=== PATIENT | female | born 1945 | race Caucasian/White ===

== ENCOUNTER → 2018-01-26 10:31 | Outpatient (CLI) | payer MEDICARE, SELFPAY ==
--- NOTE | 2018-01-26 10:31 | DT_ITS ---
This patient was seen during an EMR downtime January 19, 2018 - January 26, 2018. This patient may have a combination of paper and electronic documentation or all paper documentation. All documentation is viewable within the e-chart portion of [employer] for each patient visit.
--- NOTE | 2018-01-26 10:31 | DT_ITS ---
This patient was seen during an EMR downtime January 19, 2018 - January 26, 2018. This patient may have a combination of paper and electronic documentation or all paper documentation. All documentation is viewable within the e-chart portion of [facility] for each patient visit.
[2018-01-26 13:05] LABS: Anion Gap 7 (5-15); BUN 25 mg/dL (7-18); BUN/Creat Ratio 25.8 RATIO (10-20); Calcium,Total 9.6 mg/dL (8.5-10.1); Chloride 103 mmol/L (98-107); Creatinine, Serum 0.97 mg/dL (0.55-1.02); EST Glomerular Filtration Rate 60 mL/min (>60); Est Glom Filt Rate - Afr Amer 73 mL/min (>60); Glucose 85 mg/dL (74-106); Potassium 4.4 mmol/L (3.5-5.1); Sodium Level 136 mmol/L (136-145)
== END ==
PROVIDERS: Family Provider Family Medicine; PCP Family Medicine; Visit Provider Family Medicine
DX: I10 Essential (primary) hypertension (principal)
CPT/HCPCS: 36415; 80048

== ENCOUNTER → 2018-09-24 08:32 | Outpatient (CLI) | payer MEDICARE, SELFPAY ==
--- NOTE | 2018-09-24 08:38 | BI_ITS ---
MAMMOGRAPHY - BILATERAL SCREENING REASON FOR EXAM: Female, 73 years old. Routine annual screening examination. PERTINENT HISTORY: Non-contributory. TECHNIQUE: Digital bilateral breast chuy (3D mammographic acquisition) in the CC and MLO projections. 2-D mediolateral oblique (MLO) and craniocaudad (CC) views of both breasts were obtained. CAD: Full Field Digital Mammography with Computer Added Detection was performed. COMPARISON: Comparison is made with prior study dated September 04, 2017 and October 06, 2015. FINDINGS: Breast Composition: There are scattered areas of fibroglandular density. There are no dominant masses or suspicious calcifications. Stable 8.6 mm well-defined nodule in the upper outer aspect of the left breast. Stable benign-appearing bilateral axillary lymph nodes. No other significant abnormalities are identified. There has been no significant change since the prior study. BI/SCREENING MAMM (CAD), BILAT IMPRESSION: Stable bilateral screening mammogram. Yearly follow-up mammogram recommended. (A) ASSESSMENT CATEGORY: BIRADS Category 2: Benign. A letter regarding these results will be sent to the patient by the facility within 30 days. Approximately 10% of breast cancers are not detected by mammography. A normal mammogram should not delay biopsy of a clinically suspicious abnormality. [id number] Electronically Signed: Wicho Adorno MD at 10:02 EST , Service support ,
--- NOTE | 2018-09-24 09:03 | BD_ITS ---
STUDY: DUAL ENERGY X-RAY ABSORPTIOMETRY / DXA REASON FOR EXAM: Female, 73 years old. The patient is postmenopausal. Loss of height. TECHNIQUE: Bone Mineral Density (BMD) measurements of lumbar spine and right hip were obtained. COMPARISON: Comparison is made with prior study dated June 07, 2015. FINDINGS: Lumbar Spine (L1-L4): g/cm2 (1.094) / T-score (-0.7) / Z-score (1.0) Findings are suggestive of normal bone density with a low fracture risk. Right Femur Total: g/cm2 (0.777) / T-score (-1.8) / Z-score (-0.3) Right Femoral Neck: g/cm2 (0.829) / T-score (-1.5) / Z-score (0.3) The T-Scores on the most recent prior examination were: Lumbar Spine (L1-L4): There has been worsening of bone density since the previous examination. Right Femur Total: which represents an improvement of 0.3%. BD/Dexa Bone Density Study IMPRESSION: The patient is considered osteopenic as outlined below according to World Andrea Organization (WHO) criteria with a moderate fracture risk. There has been worsening of bone density since the previous examination. Reference Information: The T-score is the number of standard deviations above or below the standard which is normal for young adults at their peak bone mineral density. The World Health Organization (WHO) interprets the T-scores as follows: Above -1 Normal bone density Between -1 and -2.5 Osteopenia Equal to / or below -2.5 Osteoporosis As a practical clinical guideline, osteopenia may be graded as follows: Mild -1 through -1.5 Moderate -1.6 through -2.0 Severe -2.1 through -2.4 The Z-score is the number of standard deviations above or below age-matched controls. A Z-score of less than -1.5 would be considered abnormal. References: 1. NIH Osteoporosis and Related Bone Diseases http://www.osteo.org 2. International Society for Clinical Densitometry http://www.iscd.org 3. National Osteoporosis Foundation http://www.nof.org Electronically Signed: Wicho Adorno MD at 16:02 EST , Service support ,
== END ==
PROVIDERS: Family Provider Family Medicine; PCP Family Medicine; Referring Provider Family Medicine; Visit Provider Family Medicine
DX: Z12.31 Encounter for screening mammogram for malignant neoplasm of breast (principal); Z78.0 Asymptomatic menopausal state; M85.80 Other specified disorders of bone density and structure, unspecified site
CPT/HCPCS: 77063; 77067; 77080

== ENCOUNTER → 2018-11-03 11:19 | Outpatient (CLI) | payer MEDICARE, SELFPAY ==
--- NOTE | 2018-11-03 11:26 | RAD_ITS ---
STUDY: X-RAY CHEST REASON FOR EXAM: Female, 73 years old. Atypical pneumonia TECHNIQUE: PA and lateral views of the chest. COMPARISON: 02/09/2014 FINDINGS: The lungs are clear and expanded. There is no demonstrated pleural abnormality. There is borderline cardiomegaly. Normal mediastinum and daniel. Normal visualized pulmonary arteries. Normal visualized aortic arch and descending thoracic aorta. There are diffuse degenerative changes of the visualized thoracic spine. There is degenerative osteoarthritis of the bilateral shoulders. There is no demonstrated abnormality of the visualized soft tissue structures of the upper abdomen. RAD/Chest PA and Lateral IMPRESSION: No acute cardiopulmonary disease Electronically Signed: Otis Hammond DO at 11:37 EDT Tel , Service support ,
[2018-11-03 13:50] LABS: Absolute Lymphocyte Count 1.25 X10^3/ul (0.83-4.51); Absolute Neutrophil Count 4.5 X10^3/uL (2.0-7.7); Basophil# 0.04 X10^3/uL; Basophil% 0.6 % (0-1); Eosinophil# 0.01 X10^3/uL; Eosinophils% 0.2 % (0-5); Hematocrit 43.5 % (37-47); Hemoglobin 13.9 g/dl (12.0-15.0); Lymphocyte # 1.25 X10^3/ul (4.0); Lymphocyte % 20.2 % (19-41); Mean Corpuscular Hgb 29.1 pg (27.0-32.0); Mean Corpuscular Volume 91.2 fL (81-99); Mean Platelet Vol. 11.4 fl (6.2-12.0); Monocyte# 0.35 X10^3/uL; Monocyte% 5.6 % (0-10); Neutrophil # 4.54 X10^3/uL (2.7-7.7); Neutrophil % 73.2 % (47-70); Platelet Count 298 K/mm3 (150-450); RBC Distribution Width CV 14.9 % (11.6-14.6); RBC Distribution Width SD 48.4 fl (35.1-43.9); Red Blood Count 4.77 M/mm3 (4.2-5.4); White Blood Count 6.2 K/mm3 (4.4-11.0)
[2018-11-03 13:52] LABS: POSITIVE COUNT NO; POSITIVE DIFFERENTIAL NO; POSITIVE MORPHOLOGY NO
[2018-11-03 14:04] LABS: AST(SGOT) 34 U/L (15-37); Alanine Aminotransfer ALT/SGPT 35 U/L (13-56); Albumin, Serum 4.1 g/dL (3.2-5.0); Alkaline Phosphatase 99 U/L (45-117); Anion Gap 9 (5-15); BUN 29 mg/dL (7-18); BUN/Creat Ratio 19.7 RATIO (10-20); Calcium,Total 8.8 mg/dL (8.5-10.1); Chloride 99 mmol/L (98-107); Creatinine, Serum 1.47 mg/dL (0.55-1.02); EST Glomerular Filtration Rate 37 mL/min (>60); Est Glom Filt Rate - Afr Amer 45 mL/min (>60); Globulin 4.2 g/dL (2.2-4.2); Glucose 96 mg/dL (74-106); LDH 244 U/L (84-246); Potassium 4.4 mmol/L (3.5-5.1); Protein, Total 8.3 g/dL (6.4-8.2); Sodium Level 131 mmol/L (136-145)
[2018-11-06 03:06] LABS: Influenza A Negative (Neg:<1:8)
[2018-11-06 08:27] LABS: Influenza B 1:32 (Neg:<1:8)
== END ==
PROVIDERS: Family Provider Family Medicine; PCP Family Medicine; Referring Provider Family Medicine; Visit Provider Family Medicine
DX: J18.9 Pneumonia, unspecified organism (principal); R68.89 Other general symptoms and signs
CPT/HCPCS: 36415; 71046; 80053; 83615; 85025; 86140; 86710; 87449

== ENCOUNTER 2019-03-29 08:56 | Emergency (ER) | payer MEDICARE, SELFPAY ==
[2019-03-29 08:57] VITALS: BP 141/82; PULSE 76; RESP 20; TEMP 36.6; O2SAT 100; BMI 32.9
--- NOTE | 2019-03-29 09:10 | RAD_ITS ---
STUDY: X-RAY - RIGHT SHOULDER REASON FOR EXAM: Female, 74 years old. Pain and limited range of motion following a fall. TECHNIQUE: 2 view(s) of the shoulder. COMPARISON: None. FINDINGS: Mild degree of anterior inferior subluxation of the shoulder joint. There is degenerative arthrosis of the acromioclavicular joint without inferior osseous spur formation. Normal acromion. Nondisplaced impacted fracture of the surgical neck of the humerus with extension to the greater tuberosity. Soft tissue swelling. Normal visualized pulmonary apex. RAD/Shoulder min 2 Views IMPRESSION: Nondisplaced impacted fracture of the surgical neck of the humerus with extension to the greater tuberosity. Mild anterior inferior subluxation of the glenohumeral joint. Electronically Signed: Wicho Adorno, at 11:05 EDT , Service support ,
--- NOTE | 2019-03-29 09:14 | ED.DCSUM_ITS ---
History of Present Illness Chief Complaint: Upper Extremity Injury Informant: Patient Onset: Today Context: Sudden Onset Timing: Continuous Current Severity: Moderate Maximum Severity: Severe Narrative: The patient presents to the emergency department after mechanical fall. She states that she was going downstairs to go to [employer] to meet her brother to work out. She states that she missed the last stair. She fell, landing on her right side. She did not strike her head. She landed directly on her shoulder. Since then, she is had significant pain and difficulty moving the shoulder. She denies other injury. The patient is right-hand dominant. She has had prior orthopedic surgery in the past. She has otherwise been in her normal state of health. Prior similar symptoms: No Recent Illness/Hospitalization: No Past Medical History - Allergies and Home Meds Allergies/Adverse Reactions: Allergies cefdinir [Cefdinir] Allergy (Verified 03/29/19 08:59) Rash Primary Care Physician: Gus Davis DO [STAFF PHYSICIAN] - 1-2 Days if not improving Prior records reviewed: Yes Surgical History: cataract, total knee arthroplasty Lives: With Family Smoking Status: Former smoker Alcohol: None Drugs: None Review of Systems General: Denies: Chills, Fever, Sweats Eyes: Denies: Visual changes - bilaterally, Diplopia ENT: Denies: Rhinorrhea, Sore throat Cardiovascular: Denies: Chest pain, Palpitations Respiratory: Denies: Dyspnea, Cough, Dyspnea on exertion Gastrointestinal: Denies: Abdominal pain, Nausea, Vomiting, Diarrhea, Melena, Hematochezia Genitourinary: Denies: Dysuria, Hematuria, Frequency Musculoskeletal: Denies: Back pain, Extremity Pain Skin: Denies: Rash, Wounds Neurological: Denies: Headache, Weakness, Numbness Physical Exam Vital Signs/Narrative: Vital Signs Temp Pulse Resp BP Pulse Ox 03/29/19 08:57 98 F 76 20 H 141/82 H 100 Inital Vital Signs reviewed: Yes General: Well nourished, Well developed, No Acute Distress Head: Normocephalic, Atraumatic Eyes: Perrl, EOMI ENT: Moist mucous membranes, No rhinorrhea Neck: Supple, Nontender Cardiovascular: Regular rate, Regular rhythm, No murmurs Respiratory: No distress, CTA bilaterally, Chest nontender Abdomen: Soft, Nontender, Nondistended, Normal bowel sounds Back: Nontender, Normal Inspection Extremities: No edema, Tenderness, - - Tenderness over the right proximal humerus. Compartments are soft. No obvious dislocation. Normal pulses. Skin: Normal color, No rash Neurological: Alert, Oriented x3, Cranial nerves II-XII grossly intact, Normal Strength, Normal Sensation Psychological: Normal affect, Normal Mood Diagnostic/Tx/Re-eval Clinical Impression(s) from Imaging Studies Shoulder X-Ray 03/29/19 09:10 IMPRESSION: Nondisplaced impacted fracture of the surgical neck of the humerus with extension to the greater tuberosity. Mild anterior inferior subluxation of the glenohumeral joint. Electronically Signed: Wicho Adorno, at 11:05 EDT , Service support , - Medical Decision Making The patient presents after mechanical fall. She did not strike her head and did not lose consciousness. She does have pain in the shoulder. Clinically, does not appear to be dislocated. Her axillary nerve is preserved. Her pulses are normal. Plain films show small amount of subluxation and an impacted humeral neck fracture. The patient is placed in a sling and swath. Her pain is controlled. She has followed with orthopedics in the past and will follow up with them this week as an outpatient. She is comfortable with this plan of care and will be discharged home. Impression 1. Closed impacted humeral neck fracture ED Disposition - Plan for ED Patient: Instructions: FRACTURE, Shoulder Prescriptions: cycloBENZAPRine HCl [Flexeril] 10 mg PO TID PRN #10 tab PRN Reason: Muscle Spasm Prescription Printed Hydrocodone Bitart/Apap 5-325 [[place] 5MG-325MG] 1 tab PO Q6H PRN PRN 3 Days #10 tab PRN Reason: Pain Prescription Printed Referrals: Gus Davis DO [STAFF PHYSICIAN] - 1-2 Days if not improving
[2019-03-29] MEDS: HYDROcodone Bitartrate/Apap 5/325 Tablet PO (10:15)
== END 2019-03-29 11:57 | disposition home or self-care (01) ==
PROVIDERS: Emergency Provider Emergency Medicine; Family Provider Family Medicine; PCP Family Medicine
DX: S42.214A Unspecified nondisplaced fracture of surgical neck of right humerus, initial encounter for closed fracture (principal); W10.9XXA Fall (on) (from) unspecified stairs and steps, initial encounter; Y93.9 Activity, unspecified; Y92.538 Other ambulatory health services establishments as the place of occurrence of the external cause; Y99.9 Unspecified external cause status; Z79.899 Other long term (current) drug therapy; Z88.1 Allergy status to other antibiotic agents; Z87.891 Personal history of nicotine dependence
CPT/HCPCS: 73030; 99283

== ENCOUNTER → 2019-06-23 09:02 | Outpatient (CLI) | payer MEDICARE, SELFPAY ==
[2019-06-23 10:39] LABS: Anion Gap 8 (5-15); BUN 18 mg/dL (7-18); Calcium,Total 9.2 mg/dL (8.5-10.1); Chloride 105 mmol/L (98-107); Creatinine, Serum 0.94 mg/dL (0.55-1.02); EST Glomerular Filtration Rate 62 mL/min (>60); Est Glom Filt Rate - Afr Amer 75 mL/min (>60); Glucose 97 mg/dL (74-106); Potassium 4.9 mmol/L (3.5-5.1); Sodium Level 137 mmol/L (136-145)
== END ==
PROVIDERS: Family Provider Family Medicine; PCP Family Medicine; Referring Provider Family Medicine; Visit Provider Family Medicine
DX: I10 Essential (primary) hypertension (principal)
CPT/HCPCS: 36415; 80048

== ENCOUNTER 2019-07-19 09:00 | Outpatient (RCR) | payer MEDICARE, SELFPAY ==
--- NOTE | 2019-05-17 10:24 | HP.PTEVAL ---
Patient's Visit Information ARSEN OJEDA is a 74 year old F referred to Physical Therapy by Gus Davis DO with a diagnosis of R Humerus Fracture. Date of Evaluation: 05/17/19 Physical Therapist: Latisha Brooks DPT - Visit Plan Frequency: 3x /Week Duration: 4 Weeks Plan: Focus on R shoulder ROM - AAROM at this time. RESTRICTIONS: No lifiting over 10 lb. & no lifting OH. 05/17/19 HEP Prescribed: scapular retractions, Wall Wash, active shoulder flexion - Subjective Findings: 03/29/[address] to [place] to exercises & missed a step at home & fell down 2 steps, jammed shoulder into chain link fence. Brother & nearby person helped after she layed there for a half hour and was taken to the hospital. X-rays same day - broken. Saw 04/02/19 - was placed in a sling w/ gia bandage to help get arm stabilized. Has been out of the sling for about 3 weeks now. Restricted to no lifting voer 10 ib. and no overhead motion. Is cleared to drive. Lives alone (recently lost her ), has lady come in once a month to help w/ cleaning. Initially needed help w/ self-care activites but now manages on her own. Still has difficulty getting dressed. Pain interrupts sleep - was told to sleep in recliner. Worst: 5/10 Aggravtes: cold temp, moving it, ADL's. Best: Pain free when sitting & resting. Relief: Heating pad, tylenol. N/T down to fingers intermittenly. Describes pain as an ache, can radiate down to the forearm. Occupation: Retired Typical Day: [employer] (not currently), plays [email or web address] (7 years old is youngest), gardens, meetings at jehov[employer], visits with neighbors. No exercise program lately, but is a member of [employer] & would like to begiin using LE weight machines after Therapy. Currently performing pendulum exeercises at home as instruced by Ability to perform ADL's on her own has steadily improved. R. hand dominant. Has grandkids, family members to assist w/ work around the house. PMH/Meds: see chart - Objective Posture: RS, FH, corrected w/ v/c but not maintained. Gait: lacks R arm swing, trunk rot. ROM: Passive Abd: 65 degrees Flexion: 85 degrees. Active: Abd. 60 degrees Flex. 80 degrees Pain at end-range w/ all AROM testing. ELbow WFL, Wrist: WFL. Strength: Assembler Camper: WNL Core: Fair minus. Palpation: NTTP t/o. Finger Dexterity: WNL. Sensation: WNL to gross B touch. - Goals Goal 1:: Pt. will be I w/ HEP & progression. Goal Time Frame: 4-6 Weeks Goal 2:: Pt. will demo 160 degrees of R shoulder flexion ROM Goal Time Frame: 4-6 Weeks Goal 3:: Pt. will maintain proper posture t/o tx session to demo improved core strength. Goal Time Frame: 4-6 Weeks Goal 4:: Pt. will report 0/10 pain w/ ADL's for 1 week. Goal Time Frame: 4-6 Weeks - Rehabilitation Potential Physical Therapy Diagnosis: Presents w/ hypmobility, R upper arm fracture, impaired ROM/strength, & pain which leads to impaired performance of ADL's. Rehabilitation Potential: Good - Anticipated Interventions Patient/Client Instruction: Educate patient on: Condition For the Purpose of:: To decrease pain Therapeutic Exercise to Include: Strength training, Endurance training, Body mechanics, Postural training, Passive ROM, Active ROM, Scapular Strength/Stabilization For the Purpose of:: To improve muscle performance and motor function Manual Therapy Techniques to Include: Passive ROM For the Purpose of:: To improve muscle performance and motor function Thermo therapy (hot pack): Yes Ultrasound (thermal/non thermal): Yes For the Purpose of:: To improve muscle performance and motor function Thank you for the opportunity to evaluate your patient. For Medicare and Medicare HMO plans, please review the plan of care and approve it. It will need to be FAXED BACK to us at [phone] for Medicare purposes. For Medicare only, by signing this I certify the plan of care. Please let me know if there are questions or concerns regarding this plan of care. Physician Signature: Date:
[2019-06-14 15:27] LABS: Absolute Lymphocyte Count 2.19 X10^3/uL (0.83-4.51); Absolute Neutrophil Count 2.3 X10^3/uL (2.0-7.7); Basophil# 0.03 X10^3/uL; Basophil% 0.6 % (0-1); Eosinophil# 0.05 X10^3/uL; Hematocrit 37.8 % (37-47); Hemoglobin 12.3 g/dL (12.0-15.0); Lymphocyte # 2.19 X10^3/ul (4.0); Lymphocyte % 45.2 % (19-41); Mean Corp Hgb Conc 32.5 g/dL (32-36); Mean Corpuscular Hgb 29.6 pg (27.0-32.0); Mean Corpuscular Volume 90.9 fL (81-99); Mean Platelet Vol. 11.1 fl (6.2-12.0); Monocyte# 0.27 X10^3/uL; Monocyte% 5.6 % (0-10); NRBC Flagged by Analyzer 0 % (0-5); Neutrophil % 47.4 % (47-70); Platelet Count 301 K/mm3 (150-450); RBC Distribution Width CV 13.9 % (11.6-14.6); RBC Distribution Width SD 46.1 fl (35.1-43.9); Red Blood Count 4.16 M/mm3 (4.2-5.4); White Blood Count 4.9 K/mm3 (4.4-11.0)
[2019-06-14 15:43] LABS: Microalbumin:Creatinine Ratio 83.1 mg/g CRE (<30 mg/g CRE)
[2019-06-14 15:49] LABS: ALB/GLOB Ratio 1.1 RATIO (0.9-2.4); AST(SGOT) 28 U/L (15-37); Alanine Aminotransfer ALT/SGPT 41 U/L (13-56); Alkaline Phosphatase 103 U/L (45-117); Anion Gap 6 (5-15); BUN 26 mg/dL (7-18); BUN/Creat Ratio 20.6 RATIO (10-20); Calcium,Total 9.3 mg/dL (8.5-10.1); Chloride 101 mmol/L (98-107); Creatinine, Serum 1.26 mg/dL (0.55-1.02); EST Glomerular Filtration Rate 44 mL/min (>60); Est Glom Filt Rate - Afr Amer 54 mL/min (>60); Globulin 3.8 g/dL (2.2-4.2); Glucose 90 mg/dL (74-106); Potassium 5.1 mmol/L (3.5-5.1); Protein, Total 7.8 g/dL (6.4-8.2); Sodium Level 132 mmol/L (136-145); Thyroid Stim Hormone (TSH) 1.67 uIU/mL (0.358-3.74)
--- NOTE | 2019-10-21 13:34 | HP.PTDCSUM ---
[facility] - PT D/C Summary It has been my pleasure to treat ARSEN OJEDA under orders from Gus Davis DO, for the diagnosis of R Humerus Fracture for a total of 17 visit(s). Discharge Date: Please see the following information for a summary of their discharge status. - Subjective Subjective: Patient reports that she has been able to do everything that she could do before. Worst: 3/10 in the mid shaft of the humerus. Not keeping her from sleeping anymore and she is back in bed. Feels the shoulder is still stiff and hard to get it behind her back. - Pain R arm Pain Intensity (Out of 10): 3 - Overall Improvement % Improvement: 70 - Objective Objective/Function: Posture: RS, FH, corrected w/ v/c but not maintained. Gait: no deviation noted- good arm swing and trunk rotation. ROM: Active: Abd.110 degrees Flex. 95 degrees ER: 25 IR: pocket. Strength: Whale Fisherman: WNL Core: Fair minus Isometric: 4+/5. Palpation: NTTP t/o. Finger Dexterity: WNL. Sensation: WNL to gross B touch. - Goals Goal 1:: Pt. will be I w/ HEP & progression. Goal Progress: Goal Met Goal 2:: Pt. will demo 160 degrees of R shoulder flexion ROM Goal Progress: Progressing Goal 3:: Pt. will maintain proper posture t/o tx session to demo improved core strength. Goal Progress: Progressing Goal 4:: Pt. will report 0/10 pain w/ ADL's for 1 week. Goal Progress: Progressing - Plan Plan: Discharge to I HEP - D/C Information If there are questions or concerns regarding this patient's physical therapy, please feel free to call me at [phone]. Thank you for the referral of this patient. Sincerely, Latisha Brooks DPT
== END 2019-07-19 19:00 | disposition home or self-care (01) ==
LOC: PT 09:00
PROVIDERS: Family Provider Family Medicine; PCP Family Medicine; Referring Provider Orthopaedic Surgery; Visit Provider Orthopaedic Surgery
DX: S42.221D 2-part displaced fracture of surgical neck of right humerus, subsequent encounter for fracture with routine healing (principal); I10 Essential (primary) hypertension; K29.00 Acute gastritis without bleeding
CPT/HCPCS: 36415; 80053; 82043; 82570; 84443; 85025; 97110; 97161; 97164

== ENCOUNTER → 2019-09-14 11:58 | Outpatient (CLI) | payer MEDICARE, SELFPAY ==
--- NOTE | 2019-09-14 12:02 | RAD_ITS ---
STUDY: X-RAY - RIGHT KNEE REASON FOR EXAM: Female, 74 years old. right knee pain,swelling TECHNIQUE: 4 view(s) of the knee. COMPARISON: None. FINDINGS: Normal visualized distal femur. Normal visualized proximal tibia and fibula. Normal proximal tibiofibular articulation. There is mild degenerative arthrosis of the medial femorotibial compartment. Normal lateral femorotibial compartment. There is mild degenerative arthrosis of the patellofemoral articulation. There is a soft tissue prominence in the suprapatellar region suggesting a small volume joint effusion. The soft tissue structures are unremarkable. RAD/Knee 4 or More Views IMPRESSION: Mild degenerative changes. Small joint effusion. No demonstrated fracture, dislocation, or destructive osseous lesion. Electronically Signed: Kevin Vital MD at 4:00 EST , Service support ,
[2019-09-14 13:52] LABS: Erythrocyte Sedimentation Rate 23 mm/hr (0-30)
[2019-09-14 14:04] LABS: Absolute Lymphocyte Count 1.84 X10^3/uL (0.83-4.51); Absolute Neutrophil Count 2.8 X10^3/uL (2.0-7.7); Basophil# 0.03 X10^3/uL; Basophil% 0.6 % (0-1); Eosinophil# 0.12 X10^3/uL; Eosinophils% 2.3 % (0-5); Hematocrit 40.1 % (37-47); Hemoglobin 12.8 g/dL (12.0-15.0); Lymphocyte # 1.84 X10^3/ul (4.0); Lymphocyte % 35.8 % (19-41); Mean Corp Hgb Conc 31.9 g/dL (32-36); Mean Corpuscular Hgb 28.9 pg (27.0-32.0); Mean Corpuscular Volume 90.5 fL (81-99); Mean Platelet Vol. 11.4 fl (6.2-12.0); Monocyte# 0.34 X10^3/uL; Monocyte% 6.6 % (0-10); NRBC Flagged by Analyzer 0 % (0-5); Neutrophil % 54.5 % (47-70); Platelet Count 264 K/mm3 (150-450); RBC Distribution Width CV 14.6 % (11.6-14.6); RBC Distribution Width SD 48.5 fl (35.1-43.9); Red Blood Count 4.43 M/mm3 (4.2-5.4); White Blood Count 5.1 K/mm3 (4.4-11.0)
[2019-09-14 14:17] LABS: Microalbumin,Random Urine 22.3 mg/L (NO RANGE EST.); Microalbumin:Creatinine Ratio 24.5 mg/g CRE (<30 mg/g CRE)
[2019-09-14 14:56] LABS: AST(SGOT) 21 U/L (15-37); Alanine Aminotransfer ALT/SGPT 35 U/L (13-56); Albumin, Serum 4.1 g/dL (3.2-5.0); Alkaline Phosphatase 88 U/L (45-117); Anion Gap 6 (5-15); BUN 18 mg/dL (7-18); BUN/Creat Ratio 19.3 RATIO (10-20); CRP 6.31 mg/L (0.0-3.0); Calcium,Total 9.8 mg/dL (8.5-10.1); Chloride 108 mmol/L (98-107); Cholesterol 156 mg/dL (200); Creatinine, Serum 0.93 mg/dL (0.55-1.02); EST Glomerular Filtration Rate 63 mL/min (>60); Est Glom Filt Rate - Afr Amer 76 mL/min (>60); Globulin 4.1 g/dL (2.2-4.2); Glucose 96 mg/dL (74-106); High Density Lipoprotein 45 mg/dL; Potassium 4.4 mmol/L (3.5-5.1); Protein, Total 8.2 g/dL (6.4-8.2); Rheumatoid Factor < 10.0 IU/mL (<15); Sodium Level 141 mmol/L (136-145); Triglycerides 153 mg/dL; Very Low Density Lipoprotein 31 mg/dL (5-40)
[2019-09-16 00:46] LABS: ANTINUCLEAR ANTIBODIES DIRECT Negative (Negative)
== END ==
LOC: MTLAB 12:00
PROVIDERS: PCP Family Medicine; Referring Provider Family Medicine; Visit Provider Family Medicine
DX: I10 Essential (primary) hypertension (principal); M25.561 Pain in right knee
CPT/HCPCS: 36415; 73564; 80053; 80061; 82043; 82570; 85025; 85652; 86038; 86140; 86431

== ENCOUNTER → 2019-09-28 12:13 | Outpatient (CLI) | payer MEDICARE, SELFPAY ==
--- NOTE | 2019-09-28 12:18 | BI_ITS ---
MAMMOGRAPHY - BILATERAL SCREENING REASON FOR EXAM: Female, 74 years old. Routine annual screening examination. PERTINENT HISTORY: Non-contributory. TECHNIQUE: Digital bilateral breast odilon (3D mammographic acquisition) in the CC and MLO projections. 2-D mediolateral oblique (MLO) and craniocaudad (CC) views of both breasts were obtained. CAD: Full Field Digital Mammography with Computer Added Detection was performed. COMPARISON: Comparison is made with prior study dated September 24, 2018 and September 04, 2017. FINDINGS: Breast Composition: There are scattered areas of fibroglandular density. There are no dominant masses or suspicious calcifications. Stable 8.6 mm well-defined nodule in the upper outer aspect of the left breast. This was demonstrated to be a cyst on prior ultrasound. Stable benign-appearing bilateral axillary lymph nodes. No other significant abnormalities are identified. There has been no significant change since the prior study. BI/SCREEN MAMM (CAD) W/DOILON BILAT IMPRESSION: Stable bilateral screening mammogram. Yearly follow-up mammogram recommended. (A) ASSESSMENT CATEGORY: BIRADS Category 2: Benign. A letter regarding these results will be sent to the patient by the facility within 30 days. Approximately 10% of breast cancers are not detected by mammography. A normal mammogram should not delay biopsy of a clinically suspicious abnormality. [id number] Electronically Signed: Wicho Adorno, at 13:19 EST , Service support ,
== END ==
PROVIDERS: PCP Family Medicine; Referring Provider Family Medicine; Visit Provider Family Medicine
DX: Z12.31 Encounter for screening mammogram for malignant neoplasm of breast (principal)
CPT/HCPCS: 77063; 77067

== ENCOUNTER → 2020-09-11 10:32 | Outpatient (CLI) | payer MEDICARE, SELFPAY ==
[2020-09-11 12:45] LABS: Absolute Neutrophil Count 2.8 X10^3/uL (2.0-7.7); Basophil# 0.05 X10^3/uL; Eosinophil# 0.16 X10^3/uL; Eosinophils% 3.1 % (0-5); Hematocrit 40.2 % (37-47); Hemoglobin 12.7 g/dL (12.0-15.0); Lymphocyte % 36.4 % (19-41); Mean Corp Hgb Conc 31.6 g/dL (32-36); Mean Corpuscular Hgb 29.3 pg (27.0-32.0); Mean Corpuscular Volume 92.8 fL (81-99); Mean Platelet Vol. 11.7 fl (6.2-12.0); Monocyte# 0.31 X10^3/uL; Monocyte% 5.9 % (0-10); NRBC Flagged by Analyzer 0 % (0-5); Neutrophil # 2.79 X10^3/uL (2.7-7.7); Neutrophil % 53.4 % (47-70); Platelet Count 254 K/mm3 (150-450); RBC Distribution Width CV 13.6 % (11.6-14.6); RBC Distribution Width SD 46.5 fl (35.1-43.9); Red Blood Count 4.33 M/mm3 (4.2-5.4); White Blood Count 5.2 K/mm3 (4.4-11.0)
[2020-09-11 12:51] LABS: Vitamin D,25 Hydroxy 63.2 ng/mL
[2020-09-11 13:07] LABS: Microalbumin:Creatinine Ratio 22.3 mg/g CRE (<30 mg/g CRE)
[2020-09-11 13:47] LABS: ALB/GLOB Ratio 1.1 RATIO (0.9-2.4); AST(SGOT) 23 U/L (15-37); Alanine Aminotransfer ALT/SGPT 30 U/L (13-56); Albumin, Serum 4.2 g/dL (3.2-5.0); Alkaline Phosphatase 72 U/L (45-117); Anion Gap 9 (5-15); BUN 27 mg/dL (7-18); BUN/Creat Ratio 26.5 RATIO (10-20); Calcium,Total 9.9 mg/dL (8.5-10.1); Chloride 106 mmol/L (98-107); Cholesterol 157 mg/dL (200); Creatinine, Serum 1.02 mg/dL (0.55-1.02); EST Glomerular Filtration Rate 56 mL/min (>60); Est Glom Filt Rate - Afr Amer 68 mL/min (>60); Globulin 3.7 g/dL (2.2-4.2); Glucose 89 mg/dL (74-106); High Density Lipoprotein 43 mg/dL; Potassium 4.6 mmol/L (3.5-5.1); Protein, Total 7.9 g/dL (6.4-8.2); Sodium Level 139 mmol/L (136-145); Triglycerides 152 mg/dL; Very Low Density Lipoprotein 30 mg/dL (5-40)
== END ==
PROVIDERS: PCP Family Medicine; Visit Provider Family Medicine
DX: M85.80 Other specified disorders of bone density and structure, unspecified site (principal); I10 Essential (primary) hypertension; R80.9 Proteinuria, unspecified
CPT/HCPCS: 36415; 80053; 80061; 82043; 82306; 82570; 85025

== ENCOUNTER → 2021-05-25 10:07 | Outpatient (CLI) | payer MEDICARE, SELFPAY ==
--- NOTE | 2021-05-25 10:09 | BI_ITS ---
MAMMOGRAPHY - BILATERAL SCREENING 3-D TOMOSYNTHESIS REASON FOR EXAM: Female, 76 years old. SCREENING PERTINENT HISTORY: No significant family history. TECHNIQUE: 2-D mammograms and 3-D Tomosynthesis of the breast (s) were performed. CAD was performed. COMPARISON: 09/28/2019 FINDINGS: The breast composition is heterogeneously dense that can obscure small breast masses. Scattered benign calcifications are seen. No dense spiculated masses or suspicious microcalcifications are identified. No architectural distortion is identified. There is no skin thickening or retraction. There has been no significant change since the prior study. BI/SCRN MAMM (CAD)W/ODILON BILAT IMPRESSION: No mammographic signs of malignancy. Routine yearly mammograms recommended. ASSESSMENT CATEGORY: BIRADS Category 1: Negative. A letter regarding these results will be sent to the patient by the facility within 30 days. FOLLOW UP RECOMMENDATION: Yearly follow up mammogram recommended. (A) Approximately 10% of breast cancers are not detected by mammography. A normal mammogram should not delay biopsy of a clinically suspicious abnormality. Electronically Signed: Fabrizio Blanca MD at 12:18 EDT Tel , Service support ,
== END ==
PROVIDERS: PCP Family Medicine; Referring Provider Nurse Practitioner Family; Visit Provider Nurse Practitioner Family
DX: Z12.31 Encounter for screening mammogram for malignant neoplasm of breast (principal)
CPT/HCPCS: 77063; 77067

== ENCOUNTER 2021-08-27 15:14 | Outpatient (CLI) | payer MEDICARE, SELFPAY ==
--- NOTE | 2021-08-27 15:40 | RAD_ITS ---
STUDY: XR Chest 2 Views 08/27/2021 3:23 PM REASON FOR EXAM: Female, 76 years old. PRE-OP COMPARISON: None TECHNIQUE: XR Chest 2 Views FINDINGS: There is no demonstrated pleural abnormality. Normal heart size. Normal mediastinum. Normal daniel. Prominent appearing increased interstitial lung markings. Normal visualized pulmonary arteries. There is atherosclerotic calcification of the aortic arch with tortuosity. There are diffuse degenerative changes of the visualized thoracic spine. There is degenerative osteoarthritis of the bilateral shoulders. There is no demonstrated abnormality of the visualized soft tissue structures of the upper abdomen. RAD/Chest PA and Lateral IMPRESSION: There are no acute findings. Electronically Signed: Vito Kuo MD at 15:59 EST , Service support ,
[2021-08-27 17:49] LABS: Absolute Lymphocyte Count 2.26 X10^3/uL (0.83-4.51); Absolute Neutrophil Count 2.6 X10^3/uL (2.0-7.7); Basophil# 0.04 X10^3/uL; Basophil% 0.8 % (0-1); Eosinophils% 1.9 % (0-5); Hematocrit 39.6 % (37-47); Hemoglobin 12.8 g/dL (12.0-15.0); Lymphocyte # 2.26 X10^3/ul (0.83-4.51); Lymphocyte % 43.3 % (19-41); Mean Corp Hgb Conc 32.3 g/dL (32-36); Mean Platelet Vol. 11.3 fl (6.2-12.0); Monocyte# 0.25 X10^3/uL; Monocyte% 4.8 % (0-10); NRBC Flagged by Analyzer 0 % (0-5); Neutrophil # 2.56 X10^3/uL (2.7-7.7); Platelet Count 281 K/mm3 (150-450); RBC Distribution Width CV 12.9 % (11.6-14.6); Red Blood Count 4.26 M/mm3 (4.2-5.4); White Blood Count 5.2 K/mm3 (4.4-11.0)
[2021-08-27 17:57] LABS: Magnesium 2.3 mg/dL (1.6-2.6)
[2021-08-27 18:06] LABS: Vitamin D,25 Hydroxy 61.9 ng/mL
[2021-08-27 18:13] LABS: ALB/GLOB Ratio 1.1 RATIO (0.9-2.4); AST(SGOT) 19 U/L (15-37); Alanine Aminotransfer ALT/SGPT 29 U/L (13-56); Albumin, Serum 4.3 g/dL (3.2-5.0); Alkaline Phosphatase 79 U/L (45-117); Anion Gap 8 (5-15); BUN 28 mg/dL (7-18); BUN/Creat Ratio 26.4 RATIO (10-20); Chloride 103 mmol/L (98-107); Creatinine, Serum 1.06 mg/dL (0.55-1.02); EST Glomerular Filtration Rate 54 mL/min (>60); Est Glom Filt Rate - Afr Amer 65 mL/min (>60); Globulin 3.9 g/dL (2.2-4.2); Glucose 93 mg/dL (74-106); Potassium 4.7 mmol/L (3.5-5.1); Protein, Total 8.2 g/dL (6.4-8.2); Sodium Level 137 mmol/L (136-145)
[2021-08-27 18:36] LABS: Microalbumin:Creatinine Ratio 92.8 mg/g CRE (<30 mg/g CRE)
== END 2021-08-27 23:59 | disposition short-term general hospital (02) ==
PROVIDERS: Anesthesiology; PCP Family Medicine; Referring Provider Family Medicine; Visit Provider Family Medicine
DX: Z01.818 Encounter for other preprocedural examination (principal); E55.9 Vitamin D deficiency, unspecified
CPT/HCPCS: 71046; 80053; 82043; 82306; 82570; 83735; 85025; 87081

== ENCOUNTER 2021-08-28 12:42 | Outpatient (CLI) | payer MEDICARE, SELFPAY ==
--- NOTE | 2021-08-28 12:57 | CT_ITS ---
STUDY: CT RIGHT LOWER EXTREMITY WITHOUT CONTRAST REASON FOR EXAM: Right knee osteoarthritis, surgical planning. TECHNIQUE: Transaxial CT imaging of the lower extremity was performed. Coronal and sagittal images were reformatted. Individualized dose optimization techniques were used for this CT. COMPARISON: Radiographs 02/05/2020. FINDINGS: Knee: There is joint space narrowing and mild subchondral eburnation of the medial femorotibial compartment (coronal reconstruction 31). There is joint space narrowing and subchondral eburnation of the lateral femorotibial compartment (coronal reconstruction 33). There are marginal osteophytes and joint space narrowing of the patellofemoral articulation (axial image 293). Normal proximal tibiofibular articulation. There is a small joint effusion. The quadriceps tendon is grossly normal. The patellar tendon is grossly normal. Normal Hoffa''s fat pad. There are intra-articular bodies (coronal reconstructions 35, 36, 40). Hip: There is joint space narrowing of the superior lateral right hip (coronal reconstruction 64). Ankle: Normal tibiotalar, posterior subtalar, talonavicular and calcaneocuboid articulations. CT/Extremity Lower without Contra IMPRESSION: Right knee osteoarthritis. Electronically Signed: Bill Metz MD at 15:00 EST Tel , Service support ,
== END 2021-08-28 23:59 | disposition short-term general hospital (02) ==
PROVIDERS: PCP Family Medicine; Referring Provider Orthopaedic Surgery; Visit Provider Orthopaedic Surgery
DX: M17.11 Unilateral primary osteoarthritis, right knee (principal); G89.29 Other chronic pain
CPT/HCPCS: 73700

== ENCOUNTER 2021-09-05 06:45 | Outpatient (CLI) | payer MEDICARE, SELFPAY ==
--- NOTE | 2021-09-05 12:28 | STRESSREP ---
Stress Test Report Myocardial perfusion stress test. 76-year-old lady with a history of preoperative cardiac evaluation. Stress protocol: Resting EKG demonstrates sinus rhythm with a rate of 65 bpm and right bundle branch block is noted. Resting blood pressure is 138/80 mmHg. 0.4 mg of regadenoson was infused per usual protocol followed by Intravenous saline flush injection continuous EKG monitoring is performed. The maximum heart rate attained was 93 bpm which is 63% of max impact at heart rate the maximum workload was 1 metabolic equivalent. At rest there were no ST or T wave changes noted to suggest abnormal flow reserve and at peak infusion nonspecific ST changes were noted with did not meet the criteria for ischemia. No clinical angina was noted. Myocardial perfusion protocol. 14.1 mCi of technetium 99m sestamibi was injected at rest. 0.4 mg of regadenoson was infused per usual protocol. At peak infusion 44.3 mCi of technetium 99m sestamibi was injected stress images were obtained stress and rest images were reconstructed in comparing the short axis vertical long horizontal long axis. Gated images were also obtained. Perfusion SPECT analysis: Review of the stress images demonstrate normal uptake of tracer noted in all areas of the myocardium. The resting images similarly demonstrate normal uptake of tracer noted in all areas of the myocardium. No areas of reversibility are noted suggest ischemia and no previous infarct is noted. Gated SPECT analysis: The gated ejection fraction is 86%. Conclusion: Normal pharmacologic myocardial perfusion stress test. Preserved ejection fraction.
== END 2021-09-05 23:59 | disposition short-term general hospital (02) ==
PROVIDERS: PCP Family Medicine; Referring Provider Family Medicine; Visit Provider Family Medicine
DX: R94.31 Abnormal electrocardiogram [ECG] [EKG] (principal)
CPT/HCPCS: 78452; 93017; A9500; A4216; J2785

== ENCOUNTER 2021-09-10 06:52 | Day surgery (SDC) | payer MEDICARE, SELFPAY ==
[2021-09-10] VITALS (11 sets, daily range): BP systolic 95–120; BP diastolic 45–73; PULSE 77–94; RESP 16–22; TEMP 36.4–37.2; O2SAT 93–100; BMI 32.8
[2021-09-10] MEDS: Acetaminophen 500 MG Tablet 1000 MG PO (07:43)
[2021-09-10] MEDS: Gabapentin 600 MG Tablet PO (07:43)
[2021-09-10] MEDS: Lactated Ringers 1,000 ML 15 ML IV (07:53)
[2021-09-10 08:06] LABS: Bedside Glucose 72 mg/dL (70-110)
--- NOTE | 2021-09-10 09:30 | KNEE_PTH ---
PATIENT: ARSEN OJEDA LOC: [facility] [place] U#:[id number] AGE/SX: 76/F ROOM: RE09/10/[address]: Dr. Gus Davis DO : 1945 BED: DIS: 09/10/2021 SPEC #: [id number] RECD: 09/10/21 11:26 STATUS: MARLEN REQ #: [id number] PAT: 09/10/21 09:[address]: Gus Davis DEPT: SURGICAL PATHOLOGY RECD BY: Bettye Maynard ENTERED: 09/10/21 12:53 SP TYPE: TOTAL KNEE OTHR DR: Dr. Jovanny Nuñez MD Tissues: Knee, NOS Procedures: Decalcification bone/plaque Surgery Specimen Level IV HEADER OPERATION: ERAS, total knee replacement robotic arm assist PRE-OP DIAGNOSIS: Grade 4 osteoarthritis right knee TISSUE SUBMITTED: Tissue and bone right knee MICROSCOPIC DIAGNOSIS Bone and soft tissue, right knee, total knee replacement/resection: Pieces of bone with degenerative osteoarthritic changes. Fibroadipose tissue, fibroconnective tissue and reactive synovial tissue. KD:evonne 09/13/2021 MICROSCOPIC DESCRIPTION Slides are reviewed. GROSS DESCRIPTION Received is one container designated bone and soft tissue right knee. The specimen consists of multiple fragments of fox-yellow bone measuring in aggregate 15 x 10 x 2 cm. Also in the specimen container are multiple fragments of yellow-white soft tissue measuring in aggregate 2 x 1 x 0.2 cm. A number of bony fragments contain articular surfaces consistent with tibial plateau and femoral condyle and displaying prominent osteophyte formation, eburnation, and bone erosion. Railroad Signal And Switch Operator sections are submitted in two cassettes as follows: 1 - soft tissue, 2 - bone after decalcification. / AM:evonne 09/10/2021 :5 CPT: 23638, 63416
[2021-09-10] MEDS: TXA 1000mg in NS100 100ml (IVPB at Closure) 660 MG IV (09:39)
[2021-09-10] MEDS: dexAMETHasone 10 MG/ML Vial IV (10:27)
[2021-09-10] MEDS: TXA 1000mg in NS100 100ml (IVPB at Incision) 660 MG IV (10:40)
--- NOTE | 2021-09-10 10:43 | OP.PCM_ITS ---
Report of Operation Date of Procedure: 09/10/21 Pre-Operative Diagnosis: OA right knee Post-Operative Diagnosis: same Surgery/Procedure Performed:: Right TKR Description of Surgical Findings:: Report of Operation Date of Procedure: 09/10/2021 Preoperative Diagnosis: [right ] knee primary osteoarthritis Postoperative Diagnosis: [right ] knee primary osteoarthritis Operation: Robotic Assisted Knee Total Arthroplasty, [right ] knee Surgeon: Dr Gus Davis DO Slitter Processed Film: Malvin Foreman PA-C Anesthesia: spinal Anesthesiologist: Chidi Petty M.D. Findings: Stable knee with good patella tracking Specimen(s): Bony cuts Complications: No intraoperative complications Estimated Blood Loss: 20 cc IV Fluids: 1000 cc crystalloid Implants Used: 1. [employer] press-fit CR size 4 femur 2. [employer] size 4 tibia 3. 32 mm patella 4. 9 mm CS polyethylene Brief History Operative Indications: [ (76 y/o female) ] with history of [right ] knee osteoarthrosis with radiographic findings with loss of joint space, osteophyte formation and subchondral sclerosis. Failed conservative measures as mentioned in the H&P. Discussion of total knee arthroplasty as well as risk and benefits were discussed with the patient including but not limited to blood loss, DVTs, PEs, neurovascular damage, general risk of anesthesia including loss of life, and stiffness or instability were also discussed with the patient. Patient demonstrated understanding and was able to sign informed consent. Procedure: On the date of procedure, patient's [right ] lower extremity was marked in the preoperative area. The patient was then taken back to the operating room where that patient was placed on the table in the supine position. All bony prominences were identified and well-padded. Anesthesia assumed control of the C-spine and airway throughout the remainder of the procedure. A tourniquet was placed on the [right ] upper thigh and the leg was prepped in a sterile fashion. The surgeon then scrubbed at this time. Upon reentering the room, the [right ] lower extremity was draped in a standard orthopedic fashion. A timeout was then called and everyone agreed upon the side, the site, the procedure to be performed, patient's identity and antibiotics given. Esmarch bandage was used to exsanguinate the extremity and the tourniquet was placed up to 250 mmHg with the knee in flexion. A midline skin incision was made and a sharp dissection was taken down through skin, subcutaneous tissue and fat. The standard medial parapatellar incision was made and the patella was subluxed laterally. An appropriate deep MCL release was done and the fat pad was resected. Our attention was then directed to the patella. The patella was everted and a flat resection was made. The knee was then flexed up and 2 femoral pins were placed inside the incision and 2 tibial pins were placed outside the incision in the medial tibia bicortically. Once this was completed, the 2 checkpoints in the femur and tibia were placed. Knee was then flexed up and the bony landmarks were registered. Once the was completed, the knee taken through range of motion and manually stressed allowing us to plan for an appropriate tibial cut. The robotic arm was brought into the field sterilely and checkpoint and saw were registered. Based on the patient's deformity, the tibial cut was made in [2 degrees varus ]. At this time, the tensioner was then placed in the joint and ligament tension was checked at 90 degrees and full extension. Based on the patient's ligamentous tension, appropriate adjustments were made to the operative plan and ligament releases were done. Once we were happy with our operative plan with balanced flexion and extension gaps, our attention was directed to the femur. The robot was brought into the field sterilely and registered. Posterior condylar cuts, anterior chamfer cuts and anterior cuts were appropriately made for a [size 4 ] femur. When these were completed, the saws were switched out in the distal femoral and posterior chamfer cuts were made. Protecting the soft tissue throughout this time. A [ size 4 ] base plate was selected. The knee was flexed to 90 degrees and soft tissues and posterior osteophytes were removed from the joint. 40 cc of the periarticular injection was injected into the posterior medial corner of the joint. The appropriate trials were then placed on the femur and tibia. A trial polyethylene was trialed to ensure proper balancing and stability of the knee. The appropriate tibial internal rotation was then marked with a bovie. Our attention was then directed to the patella. The lug holes were drilled and the patella trial was placed. Patellar tracking was checked and deemed appro priate. Once we were happy, lug holes were drilled for the femur and trial components were removed. The tibia was subluxed and pinned into place and the keel was punched and drilled appropriately. Final components were verified and opened. The wound was copiously irrigated with normal saline. The components were impacted into place with the tibia, femur and finally the patella. The trial poly component was placed and the knee was placed in full extension. The tracking, alignment and balance were verified and a [ 9 mm CS ] polyethylene component was placed. Once the final components were placed an Irrisept lavage was performed and the wound was copiously irrigated with normal saline solution and the periarticular injection was given. the wound was closed in a layer-martinez fashion using #1 vicryl interrupted sutures for the arthrotomy, 2-0 interrupted vicryl suture for the subcuticular layer and mami for final skin closure. A sterile compressive dressing was then placed. The patient was then awakened from anesthesia, transferred to the [place] and transferred to the PACU for recovery. My physician life enrichment assistant was a vital part of this case. He was important in appropriate retraction during the case, and protection of soft tissues during bony cuts. His intimate knowledge of the case and my steps aided in safe and expedient completion of the procedure as well as appropriate position of the leg during the case. He was also vital in assisting with closure under my direct supervision. Due to the complexity of this case, robotic arm was used to assist in the surgery to improve accuracy and clinical outcomes. Post-op Plan: DVT ppx; ASA 81 mg BID, thigh high compression stockings Follow up: in office in 2 weeks for wound check PT: to start POD #0 at hospital, outpatient PT should be arranged. Preoperative antibiotic: Clindamycic 900 mg IV Gus Davis DO Surgeon: Gus Davis craft recruiter: Malvin Foreman Type of Anesthesia: Spinal Anesthesiologist: Chidi Petty Estimated Blood Loss (mL): 20 cc Fluids Replaced: 1000 cc crystalloid Admit VTE Documentation VTE Present on Admission: No VTE Mechan Device Prophylaxis: SCD's and Thigh High TOMAS Hose VTE Pharm Prophylaxis ordered?: Yes
--- NOTE | 2021-09-10 11:20 | RAD_ITS ---
STUDY: X-RAY - RIGHT KNEE REASON FOR EXAM: Female, 76 years old. New Total Hip Arthroplasty . TECHNIQUE: 2 view(s) of the knee. COMPARISON: 09/14/2019. FINDINGS: There is a 3 component total knee arthroplasty in anatomic position. There are expected post-operative findings. There are no complications. No other significant abnormality is identified. RAD/Knee 1 or 2 Views IMPRESSION: Total knee arthroplasty in anatomic alignment without complications. Electronically Signed: Malvin Carrillo MD at 12:57 EST , Service support ,
[2021-09-10] MEDS: Lactated Ringers 1,000 ML 125 ML IV (11:30)
[2021-09-10] MEDS: Lactated Ringers 1,000 ML 999 ML IV (11:31)
[2021-09-10] MEDS: Scopolamine 1mg/72hr Patch 1 PATCH TD (11:41)
== END 2021-09-10 23:59 | disposition home or self-care (01) ==
LOC: SDC 06:53 → AC 06:55
PROVIDERS: PCP Family Medicine; Referring Provider Orthopaedic Surgery; Visit Provider Orthopaedic Surgery
PROC: 0SRC0JZ Replacement of Right Knee Joint with Synthetic Substitute, Open Approach (ICD-10-PCS; CPT 27447; principal; 2021-09-10 09:00)
DX: M17.11 Unilateral primary osteoarthritis, right knee (principal); I10 Essential (primary) hypertension; E78.00 Pure hypercholesterolemia, unspecified; M19.90 Unspecified osteoarthritis, unspecified site; Z79.899 Other long term (current) drug therapy
CPT/HCPCS: 27447; S2900; 01402; 73560; 82962; 88305; 88311; 97162; C1776; J7120

== ENCOUNTER 2021-11-08 08:30 | Outpatient (RCR) | payer MEDICARE, SELFPAY ==
--- NOTE | 2021-09-12 12:35 | HP.PTEVAL_ITS ---
Patient's Visit Information ARSEN OJEDA is a 76 year old F referred to Physical Therapy by HAYDEE Thayer with a diagnosis of Right TKR 09/10/2021. Date of Evaluation: 09/12/21 Physical Therapist: Latisha Brooks DPT - Visit Plan Frequency: 3x /Week Duration: 4 Weeks Plan: Right TKR 09/10/2021. Focus on LE ROM, strength and functional mobility. HEP Given IE: Quad set, SLR, ankle pumps, heel slides supine and sitting, extension stretch sitting - Subjective Patient reports that she had a Right TKR 09/10/2021. She had a pain block but it wore off last night and had a rough night. Pt lives in a single story home with 4 stairs to enter- hard to get in/out with a single handrail. She lives alone but her son's girlfriend are able to help as needed. Fully I prior to having her total knee replacement. Pain is located in the anterior knee and the posterior knee. Describes the pain as sharp. Pain radiates to the ankle but not the hip. Worst: 10/10 Agg: getting up/down, getting into the bed. Best: 0/10 Eases: sitting down, resting, polar ice machine. Sleeping: recliner and bed. No N/T in the right LE. She is more active until she had the tears in the meniscus and then she was more sedentary. She was falling prior to surgery but has not fallen since. Does have a walker and a cane at home. Walk in shower with a grab bar- and a tub with 3 grab bars. Asked for home health for 2 weeks was denied by physician (PT did follow up and they feel she will get more out of outpatient PT) PMHx/Meds: no changes since left hospital - Objective Posture: FH, RS- can correct but does not maintain. Gait: antalgic- decreased stance on the right LE with FWW- decreased extension in knee. Unable to ambulate from waiting room to evaluation room- requires w/c. HR/TR: able with UE A SLS: weight shift but unable to SLS. Stairs: not tested due to safety concerns and pain level. ROM: Knee: Flexion: 95 degrees Extn: -10 degrees. Strength: Core: fair minus, Hip: SLR: unable without max A, quad set visible- Knee: 11.4 Extn: 5.7 Ankle: 5/5. WOMAC: 81 *Very guarded - Balance/Special Test Scores Lower Extremity Functional Score: 7 TUG Test Time Seconds: 46 WOMAC Total Score: 81 WOMAC Percentatge: 15.6300 - Goals Goal 1:: Patient will be I with HEP and progression Goal Time Frame: 4-6 Weeks Goal 2:: Patient will ambulate >300 feet with a normalized gait pattern with LRD Goal Time Frame: 4-6 Weeks Goal 3:: Patient will asc/desc 8 recip with 1 HR safely Goal Time Frame: 4-6 Weeks Goal 4:: Patient will demo 0-115 degrees of ROM in the right knee Goal Time Frame: 4-6 Weeks Goal 5:: Patient will report more than 75% better Goal Time Frame: 4-6 Weeks - Rehabilitation Potential Physical Therapy Diagnosis: Patient presents with hypomobility- she has decreased pain free ROM, LE and core strength/stabilization, flex and muscular endurance leading to abnormal gait pattern and decreased ability for ADL's. Rehabilitation Potential: Good - Anticipated Interventions Patient/Client Instruction: Educate patient on: Benefits of Fitness Program Therapeutic Exercise to Include: Strength training, Endurance training, Balance training, Coordination, Agility training, Body mechanics, Postural training, Flexibilty training, Gait and locomotor training, Neuromotor development, Dynamic Lumbar Stabilization, Scapular Strength/Stabilization For the Purpose of:: To improve muscle performance and motor function TENS: Yes Cryotherapy (ice pack, ice massage): Yes Thermo therapy (hot pack): Yes Ultrasound (thermal/non thermal): No Thank you for the opportunity to evaluate your patient. For Medicare and Medicare HMO plans, please review the plan of care and approve it. It will need to be FAXED BACK to us at [phone] for Medicare purposes. For Medicare only, by signing this I certify the plan of care. Please let me know if there are questions or concerns regarding this plan of care. Physician Signature: Date:
--- NOTE | 2021-10-12 11:55 | HP.PTREVAL ---
HAYDEE Thayer, It has been my pleasure to treat ARSEN OJEDA over the last 11 visits for Right TKR 09/10/2021. Please see the progress note below for an update on the physical therapy plan of care! Subjective: Patient reports that she is not sleeping very well- talked to the MD about it and he thinks maybe its the medication. She tried to go without it and it didn't seem to change anything. She has only had 2 nights that she has had more than 4 hours of sleep. She uses the walker when she is outside and in the house she is using the cane or not using anything. She has not been in the basement but is able to do her 4 stairs outside. Worst: 7/10 at night- dull and achy. Best: 0/10. She feels like she needs more range of motion. She has been working on it at home. Objective/Function: Posture: FH, RS- can correct but does not maintain. Gait: antalgic- decreased stance on the right LE with FWW- decreased extension in knee. HR/TR: able with UE A SLS: weight shift but unable to SLS. Stairs: non recip with 2 HR ROM: Knee: Flexion: 100 degrees Extn: -10 degrees. Strength: Core: fair minus, Hip: SLR: able with moderate lag, quad set visible- Knee: Flexion: 27 Extn: 30 Ankle: 5/5 Plan Plan: 10/12/2021: Continue 2x a week for 4 weeks towards current goals. Right TKR 09/10/2021. Focus on LE ROM, strength and functional mobility. Balance/Gait/Functional tests - Balance/Special Test Scores Lower Extremity Functional Score: 7 TUG Test Time Seconds: 16.22 Tug Test: <20 sec.=mostly independent WOMAC Total Score: 39 WOMAC Percentage: 59.3800 Goals Goal 1:: Patient will be I with HEP and progression Goal Time Frame: 4-6 Weeks Goal Progress: Progressing Goal 2:: Patient will ambulate >300 feet with a normalized gait pattern with LRD Goal Time Frame: 4-6 Weeks Goal Progress: Progressing Goal 3:: Patient will asc/desc 8 recip with 1 HR safely Goal Time Frame: 4-6 Weeks Goal Progress: Progressing Goal 4:: Patient will demo 0-115 degrees of ROM in the right knee Goal Time Frame: 4-6 Weeks Goal Progress: Progressing Goal 5:: Patient will report more than 75% better Goal Time Frame: 4-6 Weeks Goal Progress: Progressing Anticipated Interventions Patient/Client Instruction: Educate patient on: Benefits of Fitness Program Therapeutic Exercise to Include: Strength training, Endurance training, Balance training, Coordination, Agility training, Body mechanics, Postural training, Flexibilty training, Gait and locomotor training, Neuromotor development, Dynamic Lumbar Stabilization, Scapular Strength/Stabilization For the Purpose of:: To improve muscle performance and motor function TENS: Yes Cryotherapy (ice pack, ice massage): Yes Thermo therapy (hot pack): Yes Ultrasound (thermal/non thermal): No Please do not hesitate to contact me at [phone] by phone or if you have questions or concerns regarding this new plan of care! Sincerely, JASKARAN AlonsoT
--- NOTE | 2021-11-08 08:58 | HP.PTDCSUM ---
It has been my pleasure to treat ARSEN OJEDA referred by HAYDEE Thayer, with the diagnosis of Right TKR 09/10/2021 for a total of 20 visit(s). Discharge Date: Please see the following information for a summary of their discharge status. Subjective: Patient reports that the knee is doing really well- but she is still not sleeping very well. She only has pain in the posterior knee and the swell has gone done. The pain when she lays down the calf and ankle tighten up- she uses Voltaran gel. She is back to driving and she is back to all normal ADL's Right knee Pain Intensity (Out of 10): 0 % Improvement: 90 Objective/Function: Posture: good throughout sitting in a hardback chair. Gait: antalgic- decreased stance on the right LE with walking stick. HR/TR: able with UE A SLS: 2-3. Stairs: asc/desc 8 recip with 2 HR ROM: Knee: Flexion: 110 degrees Extn: -5 degrees. Strength: Core: fair minus, Hip: SLR: able with moderate lag, quad set visible- Knee: Flexion: 27 Extn: 37 Ankle: 5/5. Girth: 48 cm Goal 1:: Patient will be I with HEP and progression Goal Progress: Goal Met Goal 2:: Patient will ambulate >300 feet with a normalized gait pattern with LRD Goal Progress: Progressing Goal 3:: Patient will asc/desc 8 recip with 1 HR safely Goal Progress: Progressing Goal 4:: Patient will demo 0-115 degrees of ROM in the right knee Goal Progress: Progressing Goal 5:: Patient will report more than 75% better Goal Progress: Progressing Plan: 11/08/21: Discharge to I HEP. 10/12/2021: Continue 2x a week for 4 weeks towards current goals. Right TKR 09/10/2021. Focus on LE ROM, strength and functional mobility. If there are questions or concerns regarding this patient's physical therapy, please feel free to call me at [phone]. Thank you for the referral of this patient. Sincerely, Latisha Brooks, DPT Balance/Gait/Functional tests - Balance/Special Test Scores Lower Extremity Functional Score: 7 TUG Test Time Seconds: 16.22 Tug Test: <20 sec.=mostly independent WOMAC Total Score: 24 WOMAC Percentage: 75.0000
== END 2021-11-08 09:24 | disposition home or self-care (01) ==
LOC: PT 08:30
PROVIDERS: PCP Family Medicine; Referring Provider Physician Assistant Surgical; Visit Provider Physician Assistant Surgical
DX: Z47.1 Aftercare following joint replacement surgery (principal); Z96.651 Presence of right artificial knee joint
CPT/HCPCS: 97110; 97162; 97164

== ENCOUNTER 2021-11-12 09:02 | Outpatient (CLI) | payer MEDICARE, SELFPAY ==
[2021-11-12 10:12] LABS: Anion Gap 9 (5-15); BUN 34 mg/dL (7-18); BUN/Creat Ratio 27.6 RATIO (10-20); Calcium,Total 9.6 mg/dL (8.5-10.1); Chloride 104 mmol/L (98-107); Creatinine, Serum 1.23 mg/dL (0.55-1.02); EST Glomerular Filtration Rate 45 mL/min (>60); Est Glom Filt Rate - Afr Amer 55 mL/min (>60); Glucose 104 mg/dL (74-106); Potassium 5.2 mmol/L (3.5-5.1); Sodium Level 135 mmol/L (136-145)
== END 2021-11-12 23:59 | disposition home or self-care (01) ==
LOC: MFPLAB 09:03
PROVIDERS: PCP Family Medicine; Visit Provider Family Medicine
DX: I10 Essential (primary) hypertension (principal)
CPT/HCPCS: 36415; 80048

== ENCOUNTER → 2022-02-08 | Outpatient (CLI) | payer MEDICARE, SELFPAY ==
[2022-02-08 12:35] LABS: Absolute Lymphocyte Count 1.73 X10^3/uL (0.83-4.51); Absolute Neutrophil Count 2.5 X10^3/uL (2.0-7.7); Basophil# 0.03 X10^3/uL; Basophil% 0.6 % (0-1); Eosinophil# 0.13 X10^3/uL; Eosinophils% 2.8 % (0-5); Hematocrit 38.2 % (37-47); Hemoglobin 12.6 g/dL (12.0-15.0); Lymphocyte # 1.73 X10^3/ul (0.83-4.51); Lymphocyte % 37.1 % (19-41); Mean Corpuscular Hgb 29.6 pg (27.0-32.0); Mean Corpuscular Volume 89.9 fL (81-99); Mean Platelet Vol. 11.3 fl (6.2-12.0); Monocyte% 6.4 % (0-10); NRBC Flagged by Analyzer 0 % (0-5); Neutrophil # 2.45 X10^3/uL (2.7-7.7); Neutrophil % 52.7 % (47-70); Platelet Count 252 K/mm3 (150-450); RBC Distribution Width CV 14.6 % (11.6-14.6); RBC Distribution Width SD 48.4 fl (35.1-43.9); Red Blood Count 4.25 M/mm3 (4.2-5.4); White Blood Count 4.7 K/mm3 (4.4-11.0)
[2022-02-08 12:58] LABS: Anion Gap 7 (5-15); BUN 45 mg/dL (7-18); BUN/Creat Ratio 30.2 RATIO (10-20); Calcium,Total 9.9 mg/dL (8.5-10.1); Chloride 104 mmol/L (98-107); Creatinine, Serum 1.49 mg/dL (0.55-1.02); EST Glomerular Filtration Rate 36 mL/min (>60); Est Glom Filt Rate - Afr Amer 44 mL/min (>60); Glucose 115 mg/dL (74-106); Potassium 4.6 mmol/L (3.5-5.1); Sodium Level 134 mmol/L (136-145); Thyroid Stim Hormone (TSH) 1.72 uIU/mL (0.358-3.74)
== END | disposition home or self-care (01) ==
LOC: MFPLAB 09:49
PROVIDERS: PCP Family Medicine; Visit Provider Family Medicine
DX: R53.83 Other fatigue (principal)
CPT/HCPCS: 36415; 80048; 84443; 85025

== ENCOUNTER → 2022-06-06 | Outpatient (CLI) | payer MEDICARE, SELFPAY ==
--- NOTE | 2022-06-06 13:43 | BI_ITS ---
MAMMOGRAPHY - BILATERAL SCREENING 3-D TOMOSYNTHESIS REASON FOR EXAM: Female, 77 years old. Routine screening PERTINENT HISTORY: No significant family history. TECHNIQUE: 2-D mammograms and 3-D Tomosynthesis of the breast (s) were performed. CAD was performed. COMPARISON: 09/28/19 FINDINGS: The breast composition is composed of scattered fibroglandular density. Scattered benign calcifications are seen. No dense spiculated masses or suspicious microcalcifications are identified. No architectural distortion is identified. There is no skin thickening or retraction. There has been no significant change since the prior study. BI/SCRN MAMM (CAD)W/ODILON BILAT IMPRESSION: No mammographic signs of malignancy. Routine yearly mammograms recommended. ASSESSMENT CATEGORY: BIRADS Category 2: Benign. A letter regarding these results will be sent to the patient by the facility within 30 days. FOLLOW UP RECOMMENDATION: Yearly follow up mammogram recommended. (A) Approximately 10% of breast cancers are not detected by mammography. A normal mammogram should not delay biopsy of a clinically suspicious abnormality. Electronically Signed: Cruzito Powell MD at 15:01 EDT ,
== END | disposition home or self-care (01) ==
LOC: OPBI 13:39
PROVIDERS: PCP Family Medicine; Referring Provider Family Medicine; Visit Provider Family Medicine
DX: Z12.31 Encounter for screening mammogram for malignant neoplasm of breast (principal)
CPT/HCPCS: 77063; 77067

== ENCOUNTER → 2022-08-07 | Outpatient (CLI) | payer MEDICARE, SELFPAY ==
[2022-08-07 12:45] LABS: Absolute Lymphocyte Count 1.92 X10^3/uL (0.83-4.51); Absolute Neutrophil Count 2.5 X10^3/uL (2.0-7.7); Basophil# 0.04 X10^3/uL; Basophil% 0.8 % (0-1); Eosinophil# 0.09 X10^3/uL; Eosinophils% 1.9 % (0-5); Hematocrit 38.5 % (37-47); Hemoglobin 12.3 g/dL (12.0-15.0); Lymphocyte # 1.92 X10^3/ul (0.83-4.51); Lymphocyte % 39.8 % (19-41); Mean Corp Hgb Conc 31.9 g/dL (32-36); Mean Corpuscular Hgb 30.1 pg (27.0-32.0); Mean Corpuscular Volume 94.4 fL (81-99); Mean Platelet Vol. 11.6 fl (6.2-12.0); Monocyte# 0.31 X10^3/uL; Monocyte% 6.4 % (0-10); NRBC Flagged by Analyzer 0 % (0-5); Neutrophil # 2.45 X10^3/uL (2.7-7.7); Neutrophil % 50.9 % (47-70); Platelet Count 248 K/mm3 (150-450); Red Blood Count 4.08 M/mm3 (4.2-5.4); White Blood Count 4.8 K/mm3 (4.4-11.0)
[2022-08-07 13:00] LABS: Vitamin D,25 Hydroxy 78.4 ng/mL
[2022-08-07 13:12] LABS: ALB/GLOB Ratio 1.3 RATIO (0.9-2.4); AST(SGOT) 18 U/L (15-37); Alanine Aminotransfer ALT/SGPT 28 U/L (13-56); Albumin, Serum 4.2 g/dL (3.2-5.0); Alkaline Phosphatase 65 U/L (45-117); Anion Gap 9 (5-15); BUN 32 mg/dL (7-18); BUN/Creat Ratio 25.8 RATIO (10-20); Calcium,Total 9.6 mg/dL (8.5-10.1); Chloride 104 mmol/L (98-107); Cholesterol 188 mg/dL (200); Creatinine, Serum 1.24 mg/dL (0.55-1.02); EST Glomerular Filtration Rate 45 mL/min (>60); Est Glom Filt Rate - Afr Amer 54 mL/min (>60); Globulin 3.3 g/dL (2.2-4.2); Glucose 99 mg/dL (74-106); High Density Lipoprotein 42 mg/dL; Potassium 4.6 mmol/L (3.5-5.1); Protein, Total 7.5 g/dL (6.4-8.2); Sodium Level 134 mmol/L (136-145); Triglycerides 193 mg/dL; Very Low Density Lipoprotein 39 mg/dL (5-40)
== END | disposition home or self-care (01) ==
LOC: MFPLAB 11:17
PROVIDERS: PCP Family Medicine; Referring Provider Family Medicine; Visit Provider Nurse Practitioner Family
DX: I12.9 Hypertensive chronic kidney disease with stage 1 through stage 4 chronic kidney disease, or unspecified chronic kidney disease (principal); N18.31 Chronic kidney disease, stage 3a; E78.00 Pure hypercholesterolemia, unspecified
CPT/HCPCS: 36415; 80053; 80061; 82306; 85025

== ENCOUNTER → 2022-09-13 | Outpatient (CLI) | payer MEDICARE, SELFPAY ==
[2022-09-13 11:24] LABS: Mucous, Urine 0 SEEN /hpf (<or=2+); Red Blood Cells-Urine 0 SEEN /hpf (0-5); Squamous Epithelial Cells - UA 0 SEEN /hpf (5-10)
[2022-09-13 11:42] LABS: Color, Urine Yellow (Yellow); Urine Clarity Sl Cldy (Clear)
[2022-09-13 11:44] LABS: Leukocyte Esterase-Dipstick 2+ /ul (Negative)
[2022-09-13 11:45] LABS: Glucose, Dipstick NEGATIVE (Normal); Ketone-Dipstick Negative (Negative); Nitrite-Dipstick Negative (Negative); Occult Blood-Urine <50 /ul (Negative); Protein-Dipstick 30 mg/dl (Negative); Urine Bilirubin Dipstick Negative (Negative); Urine Urobilinogen Normal (Normal)
[2022-09-13 12:05] LABS: Bacteria 2+ /hpf (None Seen); Calcium Oxalate Crystals Ur RARE /hpf (<or=2+); Triple Phosphate Crystals Ur 1+ /hpf (<or=1+); White Blood Cells 10-25 SEEN /hpf (0-5)
== END | disposition home or self-care (01) ==
LOC: LABSPEC 11:20
PROVIDERS: PCP Family Medicine; Referring Provider Physician Assistant; Visit Provider Physician Assistant
DX: R30.0 Dysuria (principal)
CPT/HCPCS: 81001; 87086; 87088; 87186

== ENCOUNTER → 2022-10-28 | Outpatient (CLI) | payer MEDICARE, SELFPAY ==
[2022-10-30 14:21] LABS: Lyme Scn Total Ab w/Rflx Negative (Negative)
== END | disposition home or self-care (01) ==
PROVIDERS: PCP Family Medicine; Referring Provider Family Medicine; Visit Provider Family Medicine
DX: T14.8XXA Other injury of unspecified body region, initial encounter (principal); W57.XXXA Bitten or stung by nonvenomous insect and other nonvenomous arthropods, initial encounter
CPT/HCPCS: 36415; 86618

== ENCOUNTER 2023-01-30 10:39 | Outpatient (CLI) | payer MEDICARE, SELFPAY ==
[2023-01-30 12:00] LABS: Absolute Lymphocyte Count 1.69 X10^3/uL (0.83-4.51); Absolute Neutrophil Count 2.3 X10^3/uL (2.0-7.7); Basophil# 0.03 X10^3/uL; Basophil% 0.7 % (0-1); Eosinophil# 0.09 X10^3/uL; Hematocrit 36.3 % (37-47); Hemoglobin 11.4 g/dL (12.0-15.0); Lymphocyte # 1.69 X10^3/ul (0.83-4.51); Lymphocyte % 38.1 % (19-41); Mean Corp Hgb Conc 31.4 g/dL (32-36); Mean Corpuscular Hgb 29.8 pg (27.0-32.0); Mean Platelet Vol. 11.1 fl (6.2-12.0); Monocyte% 6.8 % (0-10); NRBC Flagged by Analyzer 0 % (0-5); Neutrophil # 2.31 X10^3/uL (2.7-7.7); Neutrophil % 52.2 % (47-70); Platelet Count 250 K/mm3 (150-450); RBC Distribution Width CV 13.1 % (11.6-14.6); RBC Distribution Width SD 45.1 fl (35.1-43.9); Red Blood Count 3.82 M/mm3 (4.2-5.4); White Blood Count 4.4 K/mm3 (4.4-11.0)
[2023-01-30 12:06] LABS: Color, Urine Yellow (Yellow); Glucose, Dipstick Normal (Normal); Ketone-Dipstick Negative (Negative); Leukocyte Esterase-Dipstick 500 /ul (Negative); Nitrite-Dipstick Positive (Negative); Occult Blood-Urine Negative /ul (Negative); Protein-Dipstick 15 mg/dl (Negative); Urine Bilirubin Dipstick Negative (Negative); Urine Clarity Clear (Clear); Urine Urobilinogen Normal (Normal)
[2023-01-30 12:16] LABS: Vitamin D,25 Hydroxy 83.4 ng/mL
[2023-01-30 12:33] LABS: Cholesterol 145 mg/dL (200); Ferritin 128 ng/mL (8-252); High Density Lipoprotein 34 mg/dL; Thyroid Stim Hormone (TSH) 1.24 uIU/mL (0.358-3.74); Triglycerides 162 mg/dL; Very Low Density Lipoprotein 32 mg/dL (5-40)
[2023-01-30 14:21] LABS: Microalbumin,Random Urine 61.1 mg/L (NO RANGE EST.)
[2023-01-30 22:23] LABS: ALB/GLOB Ratio 1.1 RATIO (0.9-2.4); AST(SGOT) 17 U/L (15-37); Alanine Aminotransfer ALT/SGPT 23 U/L (13-56); Albumin, Serum 3.9 g/dL (3.2-5.0); Alkaline Phosphatase 62 U/L (45-117); Anion Gap 5 (5-15); BUN 30 mg/dL (7-18); BUN/Creat Ratio 24.8 RATIO (10-20); Calcium,Total 9.7 mg/dL (8.5-10.1); Chloride 106 mmol/L (98-107); Creatinine, Serum 1.21 mg/dL (0.55-1.02); EST Glomerular Filtration Rate 46 mL/min (>60); Est Glom Filt Rate - Afr Amer 56 mL/min (>60); Globulin 3.6 g/dL (2.2-4.2); Glucose 96 mg/dL (74-106); Potassium 5.3 mmol/L (3.5-5.1); Protein, Total 7.5 g/dL (6.4-8.2); Sodium Level 135 mmol/L (136-145)
== END 2023-01-30 23:59 | disposition home or self-care (01) ==
PROVIDERS: PCP Family Medicine; Referring Provider Family Medicine; Visit Provider Family Medicine
DX: I12.9 Hypertensive chronic kidney disease with stage 1 through stage 4 chronic kidney disease, or unspecified chronic kidney disease (principal); N18.31 Chronic kidney disease, stage 3a; G25.81 Restless legs syndrome; N30.90 Cystitis, unspecified without hematuria
CPT/HCPCS: 36415; 80053; 80061; 81001; 81002; 82043; 82306; 82570; 82728; 84443; 85025; 87077; 87086; 87088; 87186

== ENCOUNTER → 2023-03-25 | Outpatient (CLI) | payer MEDICARE, SELFPAY | END | disposition home or self-care (01) | LOC: LABSPEC 15:59 | PROVIDERS: PCP Family Medicine; Referring Provider Family Medicine; Visit Provider Family Medicine | DX: R30.0 Dysuria (principal) | CPT/HCPCS: 87077; 87086; 87088; 87186 ==

== ENCOUNTER → 2023-05-26 | Outpatient (CLI) | payer MEDICARE, SELFPAY ==
[2023-05-26 15:44] LABS: Mucous, Urine 0 SEEN /hpf (<or=2+); Red Blood Cells-Urine 0 SEEN /hpf (0-5)
[2023-05-26 16:07] LABS: Color, Urine Yellow (Yellow); Glucose, Dipstick Normal (Normal); Ketone-Dipstick Negative (Negative); Leukocyte Esterase-Dipstick 500 /ul (Negative); Nitrite-Dipstick Positive (Negative); Occult Blood-Urine Negative /ul (Negative); Protein-Dipstick 30 mg/dl (Negative); Specific Gravity, Urine 1.015 (1.002-1.030); Urine Bilirubin Dipstick Negative (Negative); Urine Clarity Sl. Cloudy (Clear); Urine Urobilinogen Normal (Normal)
[2023-05-26 16:14] LABS: Bacteria 2+ /hpf (None Seen); Squamous Epithelial Cells - UA 0-5 SEEN /hpf (5-10); Triple Phosphate Crystals Ur 1+ /hpf (<or=1+); White Blood Cells 0-5 SEEN /hpf (0-5)
== END | disposition home or self-care (01) ==
LOC: LABSPEC 15:14
PROVIDERS: PCP Family Medicine; Referring Provider Nurse Practitioner Family; Visit Provider Nurse Practitioner Family
DX: R30.0 Dysuria (principal)
CPT/HCPCS: 81001; 87077; 87086; 87088; 87186

== ENCOUNTER → 2023-06-09 | Outpatient (CLI) | payer MEDICARE, SELFPAY ==
--- NOTE | 2023-06-09 10:27 | BI_ITS ---
MAMMOGRAPHY - BILATERAL SCREENING REASON FOR EXAM: Female, 78 years old. Routine annual screening examination. PERTINENT HISTORY: Non-contributory. TECHNIQUE: Digital bilateral breast odilon (3D mammographic acquisition) in the CC and MLO projections. 2-D mediolateral oblique (MLO) and craniocaudad (CC) views of both breasts were obtained. CAD: Full Field Digital Mammography with Computer Added Detection was performed. COMPARISON: Comparison is made with prior study June 06, 2022 and May 25, 2021. FINDINGS: Breast Composition: There are scattered areas of fibroglandular density. There are no dominant masses or suspicious calcifications. Stable benign-appearing fat-containing bilateral axillary lymph nodes. No other significant abnormalities are identified. There has been no significant change since the prior study. BI/SCRN MAMM (CAD)W/ODILON BILAT IMPRESSION: Stable bilateral screening mammogram. Yearly follow-up mammogram recommended. (A) ASSESSMENT CATEGORY: BIRADS Category 2: Benign. A letter regarding these results will be sent to the patient by the facility within 30 days. Approximately 10% of breast cancers are not detected by mammography. A normal mammogram should not delay biopsy of a clinically suspicious abnormality. [id number] Electronically Signed: Wicho Adorno MD at 11:15 EDT ,
== END | disposition home or self-care (01) ==
LOC: OPBI 10:27
PROVIDERS: PCP Family Medicine; Visit Provider Nurse Practitioner Family
DX: Z12.31 Encounter for screening mammogram for malignant neoplasm of breast (principal)
CPT/HCPCS: 77063; 77067

== ENCOUNTER → 2023-08-01 | Outpatient (CLI) | payer MEDICARE, SELFPAY ==
[2023-08-01 15:00] LABS: Absolute Lymphocyte Count 1.95 X10^3/uL (0.83-4.51); Absolute Neutrophil Count 2.4 X10^3/uL (2.0-7.7); Basophil# 0.04 X10^3/uL; Basophil% 0.8 % (0-1); Eosinophils% 2.1 % (0-5); Hematocrit 35.9 % (37-47); Hemoglobin 11.3 g/dL (12.0-15.0); Lymphocyte # 1.95 X10^3/ul (0.83-4.51); Lymphocyte % 41.3 % (19-41); Mean Corp Hgb Conc 31.5 g/dL (32-36); Mean Corpuscular Hgb 29.8 pg (27.0-32.0); Mean Corpuscular Volume 94.7 fL (81-99); Mean Platelet Vol. 11.7 fl (6.2-12.0); Monocyte# 0.24 X10^3/uL; Monocyte% 5.1 % (0-10); NRBC Flagged by Analyzer 0 % (0-5); Neutrophil # 2.38 X10^3/uL (2.7-7.7); Neutrophil % 50.5 % (47-70); Platelet Count 251 K/mm3 (150-450); RBC Distribution Width CV 13.7 % (11.6-14.6); RBC Distribution Width SD 47.8 fl (35.1-43.9); Red Blood Count 3.79 M/mm3 (4.2-5.4); White Blood Count 4.7 K/mm3 (4.4-11.0)
[2023-08-01 15:22] LABS: ALB/GLOB Ratio 1.1 RATIO (0.9-2.4); AST(SGOT) 22 U/L (15-37); Alanine Aminotransfer ALT/SGPT 23 U/L (13-56); Alkaline Phosphatase 69 U/L (45-117); Anion Gap 5 (5-15); BUN 22 mg/dL (7-18); BUN/Creat Ratio 21.2 RATIO (10-20); Calcium,Total 9.9 mg/dL (8.5-10.1); Chloride 107 mmol/L (98-107); Cholesterol 184 mg/dL (200); Creatinine, Serum 1.04 mg/dL (0.55-1.02); EST Glomerular Filtration Rate 55 mL/min (>60); Est Glom Filt Rate - Afr Amer 66 mL/min (>60); Globulin 3.7 g/dL (2.2-4.2); Glucose 85 mg/dL (74-106); High Density Lipoprotein 45 mg/dL; Potassium 5.4 mmol/L (3.5-5.1); Protein, Total 7.7 g/dL (6.4-8.2); Sodium Level 136 mmol/L (136-145); Triglycerides 161 mg/dL; Very Low Density Lipoprotein 32 mg/dL (5-40)
[2023-08-01 15:33] LABS: Microalbumin,Random Urine 28.6 mg/L (NO RANGE EST.); Microalbumin:Creatinine Ratio 58.5 mg/g CRE (<30 mg/g CRE)
== END | disposition home or self-care (01) ==
LOC: MFPLAB 11:24
PROVIDERS: PCP Family Medicine; Visit Provider Family Medicine
DX: I12.9 Hypertensive chronic kidney disease with stage 1 through stage 4 chronic kidney disease, or unspecified chronic kidney disease (principal); N18.31 Chronic kidney disease, stage 3a; E78.00 Pure hypercholesterolemia, unspecified
CPT/HCPCS: 36415; 80053; 80061; 82043; 82570; 85025

== ENCOUNTER → 2023-08-12 | Outpatient (CLI) | payer MEDICARE, SELFPAY ==
[2023-08-12 15:32] LABS: Anion Gap 4 (5-15); BUN 27 mg/dL (7-18); BUN/Creat Ratio 27.5 RATIO (10-20); Calcium,Total 8.9 mg/dL (8.5-10.1); Chloride 109 mmol/L (98-107); Creatinine, Serum 0.98 mg/dL (0.55-1.02); EST Glomerular Filtration Rate 58 mL/min (>60); Est Glom Filt Rate - Afr Amer 71 mL/min (>60); Glucose 94 mg/dL (74-106); Potassium 4.4 mmol/L (3.5-5.1); Sodium Level 139 mmol/L (136-145)
== END | disposition home or self-care (01) ==
LOC: MFPLAB 12:08
PROVIDERS: PCP Family Medicine; Visit Provider Family Medicine
DX: I10 Essential (primary) hypertension (principal)
CPT/HCPCS: 36415; 80048

== ENCOUNTER 2023-08-29 09:30 | Outpatient (RCR) | payer MEDICARE, SELFPAY ==
--- NOTE | 2023-08-07 12:28 | HP.PTEVAL_ITS ---
Patient's Visit Information Visit Information Visit Information: ARSEN OJEDA is a 78 year old F referred to Physical Therapy by Dr. Jovanny Nuñez MD with a diagnosis of L lateral foot pain, L mild foot drop, right hip pain. Date of Evaluation: 08/07/23 Physical Therapist: Joe Miranda Visit Plan Frequency: 2x /Week Duration: 6 Weeks Plan: Continue with LE strengthening especially hip and ankle strengthening. Also focus on improving balance as well. Use manual therapy and modalities as needed for pain control. Subjective Subjective: Pt. is a 78 y.o. female who has been having left foot pain which has been going on for a couple of months with no specific injury a couple months ago. Her PLOF includes history of bilateral knee replacements and left hip ORIF. She is also having right hip pain which has been going on for a few weeks as well. She has not had any recent imaging. She denies any recent falls and does not use an assistive device. Pt. has difficulty with standing/walking for long periods of time, walking on uneven ground, sleeping, ascending/descending stairs, squatting, and housework. 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 Her goal with physical therapy is to decrease her pain and improve her balance. She has had previous physical therapy for multiple things in the past. She denies any pain currently and at worst 5/10 and describes the pain as just painful and uncomfortable. She will take Tylenol for pain. Her PMH includes former smoker quit years ago, bilateral knee replacements , left femur ORIF surgery, and lumbar laminectomy. Her hobbies include reading and knitting. Objective Objective: Posture- Lateral shift to the left in standing Hip PROM- WNL for all motions AROM left foot DF 13 degrees, PF 38 degrees, Inv 35 degrees, Ev 15 degrees AROM right foot 12 degrees, PF 40 degrees, Inv 30 degrees, Ev 20 degrees Left LE strength hip flexion 5/5, abduction 4+/5, adduction 5/5, extension 4+/5, knee flexion 5/5, knee extension 5/5 ankle DF 5/5, PF 4+/5, Inv 4+/5, Eversion 4+/5 Right LE strength hip flexion 5/5, abduction 5/5, adduction 5/5, extension 4+/5, knee flexion 5/5, knee extension 5/5, ankle DF 5/5, PF 5/5, Inv 5/5, Eversion 5/5 Left tandem stance 30 secs, right 6 secs SLS left unable, right 3 secs Gait- Pt. ambulates with lateral shift to the left Balance/Special Test Scores Lower Extremity Functional Score: 36 Goals Goal 1:: Pt. will be able to stand/walk for at least 20 minutes with no pain. Goal Time Frame: 4-6 Weeks Goal 2:: Pt. will be able to sleep a full night with no pain. Goal Time Frame: 4-6 Weeks Goal 3:: Pt. will be able to ascend/descend a flight of stairs with alternating step pattern and unilateral handrail. Goal Time Frame: 4-6 Weeks Goal 4:: Pt. will improve tandem stance > 30 secs in order to improve stability and balance. Goal Time Frame: 4-6 Weeks Goal 5:: Pt. will rate hip/foot pain at worst at 3/10 with ADL's. Goal Time Frame: 4-6 Weeks Goal 6:: Pt. will improve LEFS score <45% disability in order to improve ADL's. Goal Time Frame: 4-6 Weeks Rehabilitation Potential Physical Therapy Diagnosis: Decreased bilateral LE strength, difficulty walking, balance impairment, and pain. Rehabilitation Potential: Good Anticipated Interventions Patient/Client Instruction: Educate patient on: Condition and Plan of Care For the Purpose of:: To decrease pain, To improve ability to perform ADL's, To improve performance and independence with ADL's, To assume or resume ADL's and To improve tolerance to ADL's Therapeutic Exercise to Include: Strength training, Balance training, Flexibilty training and Gait and locomotor training Comment: Continue with LE strengthening especially hip and ankle strengthening. Also focus on balance exercises as well. For the Purpose of:: To improve ability to perform ADL's, To improve performance and independence with ADL's, To improve endurance, To improve balance, To assume or resume ADL's and To improve tolerance to ADL's Functional Training to Include: ADL Training and Gait training For the Purpose of:: To decrease pain, To improve ability to perform ADL's, To improve performance and independence with ADL's, To improve balance, To assume or resume ADL's and To improve tolerance to ADL's Manual Therapy Techniques to Include: Mobilization, Passive ROM and Soft tissue mobilization For the Purpose of:: To decrease pain, To improve ability to perform ADL's, To improve performance and independence with ADL's, To assume or resume ADL's, To improve safety and To improve tolerance to ADL's Assistive Devices: Cane For the Purpose of:: To decrease pain, To improve ability to perform ADL's, To improve performance and independence with ADL's, To improve balance, To improve safety with gait, To assume or resume ADL's, To improve safety and To improve tolerance to ADL's TENS: Yes IF ES: Yes Cryotherapy (ice pack, ice massage): Yes Thermo therapy (hot pack): Yes For the Purpose of:: To decrease pain, To improve ability to perform ADL's, To improve performance and independence with ADL's, To assume or resume ADL's and To improve tolerance to ADL's Text: Thank you for the opportunity to evaluate your patient. For Medicare and Medicare HMO plans, please review the plan of care and approve it. It will need to be FAXED BACK to us at [phone] for Medicare purposes. For Medicare only, by signing this I certify the plan of care. Please let me know if there are questions or concerns regarding this plan of care. Physician Signature: Date:
--- NOTE | 2023-08-22 10:27 | HP.PTREVAL ---
Re-Evaluation Intro: Dr. Jovanny Nuñez MD, It has been my pleasure to treat ARSEN OJEDA over the last 5 visits for L lateral foot pain, L mild foot drop, right hip pain. Please see the progress note below for an update on the physical therapy plan of care! Subjective Subjective: I am getting stronger. No trouble with balance like she was. Still some pain in L foot. Still 2/10 at times if on it alot. Can walk for workout and at home for 40+ minutes then go to [facility] and did well. No f/u with doctor. Doing home exercises and they are going well. Objective Objective/Function: Walking I and well, sometimes stays on heels. tandem 30 sec today, steps recip with one rail without pain. Doing well with HEP. Plan Plan Plan: 2 visits with EMPLOYEE PLACEMENT SPECIALIST to teach gym based LE strength, focuss hips and legs and core on machines and work to I. No recheck needed with PT if doing well, just give list and let do via Silver sneakers. If not I by end of next two visits, then she can schedule two more. Recheck with PT if digresses. New goal is to be I in gym core adn LE and postural exercises to add to current nustep she does 3x/week. good prognosis Balance/Gait/Functional tests Balance/Special Test Scores Lower Extremity Functional Score: 54 Goals Goals Goal 1:: Pt. will be able to stand/walk for at least 20 minutes with no pain. Goal Time Frame: 4-6 Weeks Goal Progress: Goal Met Goal 2:: Pt. will be able to sleep a full night with no pain. Goal Time Frame: 4-6 Weeks Goal Progress: Goal Met Goal 3:: Pt. will be able to ascend/descend a flight of stairs with alternating step pattern and unilateral handrail. Goal Time Frame: 4-6 Weeks Goal Progress: Goal Met Goal 4:: Pt. will improve tandem stance > 30 secs in order to improve stability and balance. Goal Time Frame: 4-6 Weeks Goal Progress: Goal Met Goal 5:: Pt. will rate hip/foot pain at worst at 3/10 with ADL's. Goal Time Frame: 4-6 Weeks Goal Progress: Goal Met Goal 6:: Pt. will improve LEFS score <45% disability in order to improve ADL's. Goal Time Frame: 4-6 Weeks Goal Progress: Goal Met Anticipated Interventions Anticipated Interventions Patient/Client Instruction: Educate patient on: Condition and Plan of Care For the Purpose of:: To decrease pain, To improve ability to perform ADL's, To improve performance and independence with ADL's, To assume or resume ADL's and To improve tolerance to ADL's Therapeutic Exercise to Include: Strength training, Balance training, Flexibilty training and Gait and locomotor training Comment: Continue with LE strengthening especially hip and ankle strengthening. Also focus on balance exercises as well. For the Purpose of:: To improve ability to perform ADL's, To improve performance and independence with ADL's, To improve endurance, To improve balance, To assume or resume ADL's and To improve tolerance to ADL's Functional Training to Include: ADL Training and Gait training For the Purpose of:: To decrease pain, To improve ability to perform ADL's, To improve performance and independence with ADL's, To improve balance, To assume or resume ADL's and To improve tolerance to ADL's Manual Therapy Techniques to Include: Mobilization, Passive ROM and Soft tissue mobilization For the Purpose of:: To decrease pain, To improve ability to perform ADL's, To improve performance and independence with ADL's, To assume or resume ADL's, To improve safety and To improve tolerance to ADL's Assistive Devices: Cane For the Purpose of:: To decrease pain, To improve ability to perform ADL's, To improve performance and independence with ADL's, To improve balance, To improve safety with gait, To assume or resume ADL's, To improve safety and To improve tolerance to ADL's TENS: Yes IF ES: Yes Cryotherapy (ice pack, ice massage): Yes Thermo therapy (hot pack): Yes For the Purpose of:: To decrease pain, To improve ability to perform ADL's, To improve performance and independence with ADL's, To assume or resume ADL's and To improve tolerance to ADL's Re-Evaluation Ending Re-evaluation ending: Please do not hesitate to contact me at [phone] by phone or if you have questions or concerns regarding this new plan of care! Sincerely, Jovanny Erwin, DPT, OCS, CSCS
--- NOTE | 2023-11-25 15:26 | HP.PT.NRP ---
Patient Information Patient Information: ARSEN OJEDA was seen in my office for initial evaluation on 08/07/23. The following Plan of Care was established for this patient: POC Established Initial Frequency: 2x /Week Initial Duration: 6 Weeks Anticipated Interventions Patient/Client Instruction: Educate patient on: Condition and Plan of Care For the Purpose of:: To decrease pain, To improve ability to perform ADL's, To improve performance and independence with ADL's, To assume or resume ADL's and To improve tolerance to ADL's Therapeutic Exercise to Include: Strength training, Balance training, Flexibilty training and Gait and locomotor training For the Purpose of:: To improve ability to perform ADL's, To improve performance and independence with ADL's, To improve endurance, To improve balance, To assume or resume ADL's and To improve tolerance to ADL's Functional Training to Include: ADL Training and Gait training For the Purpose of:: To decrease pain, To improve ability to perform ADL's, To improve performance and independence with ADL's, To improve balance, To assume or resume ADL's and To improve tolerance to ADL's Manual Therapy Techniques to Include: Mobilization, Passive ROM and Soft tissue mobilization For the Purpose of:: To decrease pain, To improve ability to perform ADL's, To improve performance and independence with ADL's, To assume or resume ADL's, To improve safety and To improve tolerance to ADL's Assistive Devices: Cane For the Purpose of:: To decrease pain, To improve ability to perform ADL's, To improve performance and independence with ADL's, To improve balance, To improve safety with gait, To assume or resume ADL's, To improve safety and To improve tolerance to ADL's TENS: Yes IF ES: Yes Cryotherapy (ice pack, ice massage): Yes Thermo therapy (hot pack): Yes For the Purpose of:: To decrease pain, To improve ability to perform ADL's, To improve performance and independence with ADL's, To assume or resume ADL's and To improve tolerance to ADL's Last Seen Last Seen: This patient was last seen in our office 08/29/23. Pertinent comments regarding their Physical therapy will appear below: Pt seen 6 visits of POC and was doing real well. Per plan to get him I with gym exercises which has happened and he will continue on his own I. At this point I will be discontinuing this patient from physical therapy. I would be happy to see this patient again in the future if found appropriate by the physician. Thank you! Jovanny Erwin, DPT, OCS, CSCS Balance/Gait/Functional tests Balance/Special Test Scores Lower Extremity Functional Score: 54
== END 2023-08-29 19:00 | disposition home or self-care (01) ==
LOC: PT 09:30
PROVIDERS: PCP Family Medicine; Visit Provider Family Medicine
DX: M25.551 Pain in right hip (principal); M21.372 Foot drop, left foot; M79.672 Pain in left foot
CPT/HCPCS: 97110; 97112; 97162; 97530

== ENCOUNTER → 2024-02-02 | Outpatient (CLI) | payer MEDICARE, SELFPAY ==
[2024-02-02 13:35] LABS: ALB/GLOB Ratio 1.2 RATIO (0.9-2.4); AST(SGOT) 19 U/L (15-37); Alanine Aminotransfer ALT/SGPT 19 U/L (13-56); Alkaline Phosphatase 74 U/L (45-117); Anion Gap 9 (5-15); BUN 29 mg/dL (7-18); BUN/Creat Ratio 30.4 RATIO (10-20); Calcium,Total 9.6 mg/dL (8.5-10.1); Chloride 107 mmol/L (98-107); Creatinine, Serum 0.95 mg/dL (0.55-1.02); EST Glomerular Filtration Rate 60 mL/min (>60); Est Glom Filt Rate - Afr Amer 73 mL/min (>60); Globulin 3.4 g/dL (2.2-4.2); Glucose 98 mg/dL (74-106); Magnesium 2.2 mg/dL (1.6-2.6); Potassium 4.4 mmol/L (3.5-5.1); Protein, Total 7.4 g/dL (6.4-8.2); Sodium Level 139 mmol/L (136-145)
[2024-02-02 22:22] LABS: Microalbumin:Creatinine Ratio 354.3 mg/g CRE (<30 mg/g CRE)
== END | disposition home or self-care (01) ==
LOC: MFPLAB 10:12
PROVIDERS: PCP Family Medicine; Visit Provider Family Medicine
DX: I10 Essential (primary) hypertension (principal)
CPT/HCPCS: 36415; 80053; 82043; 82570; 83735

== ENCOUNTER → 2024-04-14 | Outpatient (CLI) | payer MEDICARE, SELFPAY ==
[2024-04-14 10:24] LABS: Absolute Lymphocyte Count 1.81 X10^3/uL (0.83-4.51); Basophil# 0.03 X10^3/uL; Basophil% 0.5 % (0-1); Erythrocyte Sedimentation Rate 50 mm/hr (0-30); Hematocrit 31.5 % (37-47); Hemoglobin 10.1 g/dL (12.0-15.0); Lymphocyte # 1.81 X10^3/ul (0.83-4.51); Lymphocyte % 29.3 % (19-41); Mean Corp Hgb Conc 32.1 g/dL (32-36); Mean Corpuscular Hgb 28.8 pg (27.0-32.0); Mean Corpuscular Volume 89.7 fL (81-99); Mean Platelet Vol. 10.9 fl (6.2-12.0); Monocyte# 0.34 X10^3/uL; Monocyte% 5.5 % (0-10); NRBC Flagged by Analyzer 0 % (0-5); Neutrophil # 3.98 X10^3/uL (2.7-7.7); Neutrophil % 64.4 % (47-70); Platelet Count 333 K/mm3 (150-450); RBC Distribution Width CV 13.8 % (11.6-14.6); RBC Distribution Width SD 45.1 fl (35.1-43.9); Red Blood Count 3.51 M/mm3 (4.2-5.4); White Blood Count 6.2 K/mm3 (4.4-11.0)
[2024-04-14 11:30] LABS: ALB/GLOB Ratio 0.7 RATIO (0.9-2.4); AST(SGOT) 15 U/L (15-37); Alanine Aminotransfer ALT/SGPT 11 U/L (13-56); Albumin, Serum 3.1 g/dL (3.2-5.0); Alkaline Phosphatase 79 U/L (45-117); Anion Gap 7 (5-15); BUN 25 mg/dL (7-18); BUN/Creat Ratio 25.9 RATIO (10-20); Calcium,Total 9.4 mg/dL (8.5-10.1); Chloride 106 mmol/L (98-107); Creatinine, Serum 0.97 mg/dL (0.55-1.02); EST Glomerular Filtration Rate 59 mL/min (>60); Est Glom Filt Rate - Afr Amer 72 mL/min (>60); Globulin 4.5 g/dL (2.2-4.2); Glucose 108 mg/dL (74-106); Potassium 4.2 mmol/L (3.5-5.1); Protein, Total 7.6 g/dL (6.4-8.2); Sodium Level 138 mmol/L (136-145)
== END | disposition home or self-care (01) ==
LOC: MFPLAB 08:30
PROVIDERS: PCP Family Medicine; Visit Provider Family Medicine
DX: H46.9 Unspecified optic neuritis (principal)
CPT/HCPCS: 36415; 80053; 85025; 85652; 86140

== ENCOUNTER → 2024-04-14 | Outpatient (CLI) | payer MEDICARE, SELFPAY ==
--- NOTE | 2024-04-14 14:08 | MRI_ITS ---
EXAM: MR HEAD WITHOUT AND WITH INTRAVENOUS CONTRAST CLINICAL INDICATION: optic neuritis. Images changes, pain RT EYE TECHNIQUE: Multiplanar and multisequence MR images of the brain were obtained without and with intravenous contrast. CONTRAST: IV 15ML CLARISCAN COMPARISON: MR Head dated 06/03/2014 FINDINGS: BRAIN AND EXTRA-AXIAL SPACES: Stable foci of increased T2 signal intensity within the posterior limb of the left internal capsule and periventricular region. No intra- or extra-axial hemorrhage. No evidence of acute infarct. No intracranial mass or mass effect. Normal preservation of the hines/white matter interface. Posterior fossa structures are unremarkable. Ventricles and cortical sulci are mildly prominent in size commensurate with the patient''s age. Basal cisterns are patent. SELLA: Normal. Normal sella turcica, pituitary gland, infundibular stalk, optic chiasm and hypothalamus. AUDITORY SYSTEM: Normal. The internal auditory canals are patent. BONES/JOINTS: Intact calvarium. SINUSES: Prominent mucosal thickening and central opacification of the left maxillary sinus again noted. MASTOID AIR CELLS: Unremarkable as visualized. Clear. ORBITS: Unremarkable as visualized. Both globes, extraocular muscles, optic nerves and retrobulbar fat appear unremarkable. VASCULATURE: Unremarkable as visualized. Normal flow voids in the major intracranial circulation. MRI/Brain W/WO Contrast IMPRESSION: No acute intracranial abnormality. No interval change. Electronically Signed: Kamaljit Hoffman MD at 16:01 EDT ,
== END | disposition home or self-care (01) ==
LOC: MRI 14:00
PROVIDERS: PCP Family Medicine; Referring Provider Family Medicine; Visit Provider Family Medicine
DX: H46.9 Unspecified optic neuritis (principal)
CPT/HCPCS: 70553; A9575

== ENCOUNTER → 2024-04-22 | Outpatient (CLI) | payer MEDICARE, SELFPAY ==
[2024-04-22 15:57] LABS: Absolute Lymphocyte Count 1.57 X10^3/uL (0.83-4.51); Absolute Neutrophil Count 10.1 X10^3/uL (2.0-7.7); Basophil# 0.04 X10^3/uL; Basophil% 0.3 % (0-1); Hematocrit 37.5 % (37-47); Hemoglobin 12.1 g/dL (12.0-15.0); Lymphocyte # 1.57 X10^3/ul (0.83-4.51); Lymphocyte % 12.8 % (19-41); Mean Corp Hgb Conc 32.3 g/dL (32-36); Mean Corpuscular Hgb 28.5 pg (27.0-32.0); Mean Corpuscular Volume 88.4 fL (81-99); Mean Platelet Vol. 11.1 fl (6.2-12.0); Monocyte# 0.34 X10^3/uL; Monocyte% 2.8 % (0-10); NRBC Flagged by Analyzer 0 % (0-5); Neutrophil # 10.14 X10^3/uL (2.7-7.7); Neutrophil % 82.4 % (47-70); Platelet Count 399 K/mm3 (150-450); RBC Distribution Width CV 14.7 % (11.6-14.6); RBC Distribution Width SD 46.8 fl (35.1-43.9); Red Blood Count 4.24 M/mm3 (4.2-5.4); White Blood Count 12.3 K/mm3 (4.4-11.0)
[2024-04-22 16:01] LABS: Erythrocyte Sedimentation Rate 35 mm/hr (0-30)
[2024-04-22 16:20] LABS: ALB/GLOB Ratio 0.9 RATIO (0.9-2.4); AST(SGOT) 11 U/L (15-37); Alanine Aminotransfer ALT/SGPT 18 U/L (13-56); Albumin, Serum 3.6 g/dL (3.2-5.0); Alkaline Phosphatase 77 U/L (45-117); Anion Gap 11 (5-15); BUN 39 mg/dL (7-18); BUN/Creat Ratio 37.5 RATIO (10-20); CRP < 2.90 mg/L (0.0-3.0); Calcium,Total 10.4 mg/dL (8.5-10.1); Chloride 100 mmol/L (98-107); Creatinine, Serum 1.04 mg/dL (0.55-1.02); EST Glomerular Filtration Rate 55 mL/min (>60); Est Glom Filt Rate - Afr Amer 66 mL/min (>60); Globulin 4.1 g/dL (2.2-4.2); Glucose 103 mg/dL (74-106); Potassium 4.1 mmol/L (3.5-5.1); Protein, Total 7.7 g/dL (6.4-8.2); Sodium Level 135 mmol/L (136-145)
== END | disposition home or self-care (01) ==
LOC: MFPLAB 11:10
PROVIDERS: PCP Family Medicine; Visit Provider Family Medicine
DX: M31.6 Other giant cell arteritis (principal)
CPT/HCPCS: 36415; 80053; 85025; 85652; 86140

== ENCOUNTER 2024-04-23 09:55 | Day surgery (SDC) | payer MEDICARE, SELFPAY ==
[2024-04-23] VITALS (7 sets, daily range): BP systolic 134–161; BP diastolic 68–80; PULSE 68–87; RESP 16–18; TEMP 36.2–37.2; O2SAT 95–99; BMI 31.6
--- NOTE | 2024-04-23 | TEM_PTH ---
PATIENT: ARSEN OJEDA LOC: [facility] [place] U#:[id number] AGE/SX: 79/F ROOM: RE04/23/[address]: Dr. Everette Rogers MD : 1945 BED: DIS: 04/23/2024 SPEC #: [id number] RECD: 04/23/24 14:21 STATUS: MARLEN REShayan #: [id number] PAT: 04/23/24 00:[address]: Everette Rogers DEPT: SURGICAL PATHOLOGY RECD BY: Enrique Bryant ENTERED: 04/23/24 14:21 SP TYPE: TEMPORAL OTHR DR: Dr. Jovanny Nuñez MD Tissues: Temporal region Procedures: Elastin Stain (control) Special Stain Group I Surgery Specimen Level IV HEADER OPERATION: Biopsy, temporal artery PRE-OP DIAGNOSIS: Temporal arteritis TISSUE SUBMITTED: Right temporal artery biopsy MICROSCOPIC DIAGNOSIS Right temporal artery, biopsy: Minimal changes suspicious for giant cell arteritis. Mild intimal hyperplasia. Focal medial calcifications. Mild adventitial chronic inflammation. See comment. / 04/26/2024 COMMENT Mild inflammatory cells infiltrates are noted and consists of predominantly lymphocytes and a few histiocytes. Giant cells are not seen. Inflammation is predominantly noted adjacent to the calcification. Elastic stain with matched control is used in the evaluation of the specimen. Correlation with clinical findings and appropriate follow up are necessary. Case has been reviewed in consultation with Dr. Holliday who concurs with the above diagnosis. IDC:AM MICROSCOPIC DESCRIPTION Slides are reviewed. GROSS DESCRIPTION Received in fixative is one container labeled with the patient's name and designated Right temporal artery biopsy. The specimen consists of a tubular piece of fox-pink soft tissue measuring 1.5 cm in length and 0.2 cm in diameter. The specimen is serially sectioned and submitted entirely in one cassette. / 04/26/2024 TC:5 CPT:26766,37078
[2024-04-23] MEDS: Lactated Ringers 1,000 ML 15 ML IV (10:33)
--- NOTE | 2024-04-23 10:56 | PCM.PRE.AN2 ---
ASA Classification* ASA Classification ASA Classification: 2 Assessment & Plan Anesthesia* Anesthesia Assessment Anesthesia Assessment: Discussed sedation and/or anesthesia options, risks, benefits, and alternatives with patient/parents/legal guardian/POA. Questions invited. The patient/parents/legal guardian/POA seems to understand and agrees to proceed with anesthesia plan. Reviewed the physical assessment, medical history, allergy history and patient home medications list prior to surgery/procedure/anesthetic and documented any changes. Performed airway and anesthesia risk assessments. Anesthesia Type Anesthesia Type: MAC History Source History Obtained from:: Patient and Chart Anesthesia Focused Assessment* Temperature: 97.1 F Pulse Rate: 68 Blood Pressure: 161/80 Respiratory Rate: 18 Pulse Ox: 98 Oxygen Delivery Method: Room Air Airway Assessment Mouth opens: >3 cm Mallampati Score: III Teeth Condition: Caps/Crowns (Right lower molar and has a crown. It is tight.) Neck Range of motion (ROM): Limited ROM (Decreased extension) Focused Labs Anesthesia Preop lab: CBC WBC 12.3 K/mm3 (4.4-11.0) H 04/22/24 11:10 RBC 4.24 M/mm3 (4.2-5.4) 04/22/24 11:10 Hgb 12.1 g/dL (12.0-15.0) 04/22/24 11:10 Hct 37.5 % (37-47) 04/22/24 11:10 Plt Count 399 K/mm3 (150-450) 04/22/24 11:10 CHEMISTRY Potassium 4.1 mmol/L (3.5-5.1) 04/22/24 11:10 Sodium 135 mmol/L (136-145) L 04/22/24 11:10 Magnesium 2.2 mg/dL (1.6-2.6) 02/02/24 10:13 Phosphorus 3.3 mg/dL (2.5-4.9) 04/11/12 10:06 BUN 39 mg/dL (7-18) H 04/22/24 11:10 Creatinine 1.04 mg/dL (0.55-1.02) H 04/22/24 11:10 Glucose 103 mg/dL (74-106) 04/22/24 11:10 POC Glucose 72 mg/dL (70-110) 09/10/21 07:29 TSH 1.24 uIU/mL (0.358-3.74) 01/30/23 10:42 COAG Pre-Assessment Diagnosis/Proposed Procedure Planned Operative Procedure(s): Right temporal artery biopsy. Anesthesia History Anesthesia History - facilities operator: Anesthesia History - facilities operator Hx Hospitalization No 08/27/21 10:32 Any Problems With Anesthesia No 08/27/21 10:32 Cholinesterase deficiency No 08/27/21 10:32 You/Your Family Experience No 08/27/21 10:32 fever (hyperthermia) with Relationship Recent Exposure to Contagious No 09/10/21 07:37 Disease Does patient have nerve No 08/27/21 10:32 stimulator Patient instructed to have device shut off --Does patient have Pacemaker No 04/23/24 10:35 or ICD? When Was Last Pacemaker Check QUESTION #4 FULL TEXT: You/Your Family Experience fever (hyperthermia) with Anesthesia Last Oral Intake Last Oral intake: Last Oral Intake NPO since 00:00 04/23/24 10:35 Meds taken in AM with sips of Yes 04/23/24 10:35 water? Meds patient instructed to take am of surgery Any additional information?: Yes NPO since: 06:00 (Patient had black coffee at 6 AM.) PONV PONV - facilities operator: PONV - facilities operator Female HX of Motion Sickness HX of N/V After Surgery Non-Smoker Duration of Surgery greater than 60 minutes Number of Risk Factors PONV Score Height & Weight Height & Weight: Anesthesia: Height & Weight Height 5 ft 2 in 04/23/24 10:35 Weight: 78.471 kg 04/23/24 10:35 Body Mass Index (BMI) 31.6 04/23/24 10:35 Respiratory Assessment Respiratory Assessment - facilities operator: Respiratory Tract Infection Hx - facilities operator Hx Respiratory Tract Infection No 08/27/21 10:32 STOP Sleep Apnea STOP Sleep Apnea - facilities operator: STOP Sleep Apnea - facilities operator Hx Hypertension Yes 08/07/23 11:11 Hx Sleep Apnea No 09/10/21 12:40 CPAP No 09/10/21 11:11 BIPAP No 12/18/15 10:24 Do you snore loudly (louder than talking or can be heard Do you often feel tired/ fatigued/ sleepy during daytime? Has anyone observed you stop breathing during sleep? STOP Results QUESTION #5 FULL TEXT : Do you snore loudly (louder than talking or can be heard through closed doors)? Tobacco Use History Tobacco Use History - facilities operator: Tobacco Use History - facilities operator Tobacco Use Non-smoker 05/09/21 10:29 Smoking Status Never smoker 05/25/23 08:53 Hx Tobacco Use No 08/27/21 10:32 Years Smoking Packs Smoked per Day Smoking Cessation Date was within the last 15 years Hx Smoking Cessation Date 08/27/97 08/27/21 10:32 Hx Smoking Cessation No 02/12/14 15:25 Counseling Hematologic Medial History Hematologic Hx - facilities operator: Hematologic Medical Hx - rn obgyn Hx of Blood Transfusion Hx of Transfusion in last 3 Months Date of Last Transfusion (if within last 3 months) Ever experience any problems with transfusion(s)? Specify any problems Hx of Preganancy in last 3 Months Nurse Filling Out Transfusion & Questions: Date: Time: Patient unable to answer at this time (ie. confused, unrespo /Reproduction History /Reproductive History - facilities operator: /Reproductive Hx- facilities operator Hx Now Gestational Age (in weeks): EDC: Hx Hx Para Hx Section SAB Active Medications Active Medications: Current Medications Generic Name Dose Route Start Last Admin Trade Name Freq PRN Reason Stop Dose Admin Lactated Ringer's 1,000 mls @ 15 mls/hr 04/23/24 10:15 04/23/24 10:33 IV 15 mls/hr .Q48H GAYLE Administration PFSH Medical History Temporal arteritis PONV (postoperative nausea and vomiting) Wears partial dentures Ambulates with cane Osteoarthritis History of anemia High cholesterol Hepatitis Injury of head and neck Diverticulosis Former smoker Shortness of breath on exertion Chronic cough Leg cramps History of stress test Hypertension History of femur fracture Home Medications ?Medication ?Instructions ?Recorded ?Last Taken ?Type lisinopril 10 mg tablet 10 mg PO DAILY 07/23/13 04/23/24 History pravastatin 40 mg tablet 80 mg PO QHS 02/10/14 04/22/24 History (Pravachol) ergocalciferol (vitamin D2) 1,250 50,000 unit PO QMONTH 02/14/14 04/04/24 History mcg (50,000 unit) capsule (Vitamin D2) calcium carbonate 600 mg-vitamin 1 ea PO DAILY 12/18/15 04/23/24 History D3 10 mcg (400 unit) tablet spironolactone 50 mg tablet 50 mg PO BID bp 12/18/15 04/23/24 History multivitamin 1 tab PO DAILY 08/27/21 04/23/24 History hydrochlorothiazide 12.5 mg capsule 12.5 mg PO DAILY 04/23/24 04/23/24 History nitrofurantoin 1 cap PO BID 04/23/24 04/23/24 History monohydrate/macrocrystals 100 mg capsule prednisone 20 mg tablet 20 mg PO TID 04/23/24 04/23/24 History ropinirole 0.25 mg tablet 0.25 mg PO BID 04/23/24 04/22/24 History vibegron 75 mg tablet (Gemtesa) 75 mg PO DAILY 04/23/24 04/23/24 History Allergy/AdvReac Type Severity Reaction Status Date / Time cefdinir (Cefdinir) Allergy Rash Verified 04/23/24 11:06 morphine AdvReac Severe Nausea Verified 04/23/24 11:06 Family History Mother Asthma Arthritis Sister Arthritis Colon cancer Father Arthritis Surgical History History of colonoscopy History of laminectomy History of left knee replacement History of bilateral cataract extraction Social History Smoking Status: Never smoker Review of Systems (Anesthesia) ROS Narrative System reviewed and no additional complaints, except as documented.
--- NOTE | 2024-04-23 11:16 | PCM.HP.STD ---
[facility] - General General Date of Service: 04/23/24 Chief Complaint: Vision changes [facility] Narrative ARSEN OJEDA, is a 79 F who presents for elective right temporal artery biopsy. She was seen in the office recently with vision changes. There was concern for possible temporal arteritis. She presents today for right temporal artery biopsy surgery. [facility] Medical History Temporal arteritis PONV (postoperative nausea and vomiting) Wears partial dentures Ambulates with cane Osteoarthritis History of anemia High cholesterol Hepatitis Injury of head and neck Diverticulosis Former smoker Shortness of breath on exertion Chronic cough Leg cramps History of stress test Hypertension History of femur fracture Home Medications ?Medication ?Instructions ?Recorded ?Last Taken ?Type lisinopril 10 mg tablet 10 mg PO DAILY 07/23/13 04/23/24 History pravastatin 40 mg tablet 80 mg PO QHS 02/10/14 04/22/24 History (Pravachol) ergocalciferol (vitamin D2) 1,250 50,000 unit PO QMONTH 02/14/14 04/04/24 History mcg (50,000 unit) capsule (Vitamin D2) calcium carbonate 600 mg-vitamin 1 ea PO DAILY 12/18/15 04/23/24 History D3 10 mcg (400 unit) tablet spironolactone 50 mg tablet 50 mg PO BID bp 12/18/15 04/23/24 History multivitamin 1 tab PO DAILY 08/27/21 04/23/24 History hydrochlorothiazide 12.5 mg capsule 12.5 mg PO DAILY 04/23/24 04/23/24 History nitrofurantoin 1 cap PO BID 04/23/24 04/23/24 History monohydrate/macrocrystals 100 mg capsule prednisone 20 mg tablet 20 mg PO TID 04/23/24 04/23/24 History ropinirole 0.25 mg tablet 0.25 mg PO BID 04/23/24 04/22/24 History vibegron 75 mg tablet (Gemtesa) 75 mg PO DAILY 04/23/24 04/23/24 History Allergy/AdvReac Type Severity Reaction Status Date / Time cefdinir (Cefdinir) Allergy Rash Verified 04/23/24 11:06 morphine AdvReac Severe Nausea Verified 04/23/24 11:06 Family History Mother Asthma Arthritis Sister Arthritis Colon cancer Father Arthritis Surgical History History of colonoscopy History of laminectomy History of left knee replacement History of bilateral cataract extraction Social History Smoking Status: Never smoker ROS Constitutional Constitutional: Denies anorexia, chills, fatigue, fever(s), headache(s), weight gain or weight loss Eyes Eyes: Reports change in vision ENT HEENT: Denies systems reviewed and no addt'l complaints, except as documented, abnormal hearing, dysphagia, epistaxis, facial pain, hearing loss, nasal congestion, nasal discharge, neck pain, sinus pain or sinus pressure Cardiovascular Cardiovascular: Denies systems reviewed and no addt'l complaints, except as documented, chest pain, chest pain at rest, chest pain with activity, dyspnea, palpitations or syncope Respiratory/Chest Respiratory/Chest: Denies systems reviewed and no addt'l complaints, except as documented, cough, dyspnea, dyspnea on exertion, productive cough, shortness of breath at rest, shortness of breath with exertion or wheezing Gastrointestinal Gastrointestinal: Denies systems reviewed and no addt'l complaints, except as documented, abdominal pain, change in bowel habits, coffee ground emesis, constipation, diarrhea, dysphagia, hematemesis, hematochezia, melena, nausea, rectal bleeding or vomiting Genitourinary Genitourinary: Denies systems reviewed and no addt'l complaints, except as documented, change in urinary stream, difficulty urinating, dysuria, flank pain, genital pain, hematuria, urinary frequency, urinary incontinence or urinary urgency Musculoskeletal Musculoskeletal: Denies systems reviewed and no addt'l complaints, except as documented, abnormal gait, back pain, difficulty walking, joint pain, joint swelling, limited range of motion, muscle spasms, muscle weakness or numbness Integumentary Integumentary: Denies systems reviewed and no addt'l complaints, except as documented, jaundice, new lesions, non-healing lesions, rash or skin ulcer Neurologic Neurologic: Denies systems reviewed and no addt'l complaints, except as documented, abnormal gait, dizziness, focal weakness, loss of vision, numbness, paresthesias, tingling or weakness Psychiatric Psychiatric: Denies systems reviewed and no addt'l complaints, except as documented, anxiety or depression Endocrine Endocrinology: Denies systems reviewed and no addt'l complaints, except as documented, flushing, heat intolerance or palpitations Hematologic/Lymphatic Hematologic/Lymphatic: Denies systems reviewed and no addt'l complaints, except as documented, easy bleeding or easy bruising Allergic/Immunologic Allergic/Immunologic: Denies systems reviewed and no addt'l complaints, except as documented Vital Signs Vital Signs Vital Signs: 04/23/24 10:35 04/23/24 10:35 04/23/24 11:09 Temperature 97.1 F L 97.1 F L Temperature Source Temporal Pulse Rate 68 68 Respiratory Rate 18 18 Respiratory Pattern Normal Blood Pressure 161/80 H 161/80 H Blood Pressure Mean 107 Blood Pressure Source Monitor Blood Pressure Position Semi-Fowlers Blood Pressure Location Right Arm Pulse Ox 98 98 Oxygen Delivery Method Room Air Room Air Weight Weight: 173 lb Body Mass Index (BMI) 31.6 Physical Exam Const alert, oriented x3 and no apparent distress General Appearance: cooperative Orientation / Consciousness: awake, oriented to person, oriented to place and oriented to time Exam Limitations: no limitations Nutritional Appearance: other Other Details: Normal body habitus Resp normal respiratory effort Cardio regular rate and regular rhythm GI normal to inspection, nondistended, normoactive bowel sounds, soft to palpation and non-tender Assessment & Plan Assessment/Plan (1) Temporal arteritis: PLAN: Plan Patient is a 79-year-old female with right vision changes recently. There is concern for temporal arteritis. She presents for elective right temporal artery biopsy. We discussed the details of the planned procedure and reviewed risks benefits and alternatives. She continues to wish to proceed. Surgery began momentarily
--- NOTE | 2024-04-23 11:23 | HP.PCM.SX_ITS ---
HPI - General General Date of Admission: 04/23/24 Chief Complaint: Vision changes HPI Narrative ARSEN OJEDA, is a 79 F who presents [facility] Medical History Temporal arteritis PONV (postoperative nausea and vomiting) Wears partial dentures Ambulates with cane Osteoarthritis History of anemia High cholesterol Hepatitis Injury of head and neck Diverticulosis Former smoker Shortness of breath on exertion Chronic cough Leg cramps History of stress test Hypertension History of femur fracture Home Medications ?Medication ?Instructions ?Recorded ?Last Taken ?Type lisinopril 10 mg tablet 10 mg PO DAILY 07/23/13 04/23/24 History pravastatin 40 mg tablet 80 mg PO QHS 02/10/14 04/22/24 History (Pravachol) ergocalciferol (vitamin D2) 1,250 50,000 unit PO QMONTH 02/14/14 04/04/24 History mcg (50,000 unit) capsule (Vitamin D2) calcium carbonate 600 mg-vitamin 1 ea PO DAILY 12/18/15 04/23/24 History D3 10 mcg (400 unit) tablet spironolactone 50 mg tablet 50 mg PO BID bp 12/18/15 04/23/24 History multivitamin 1 tab PO DAILY 08/27/21 04/23/24 History hydrochlorothiazide 12.5 mg capsule 12.5 mg PO DAILY 04/23/24 04/23/24 History nitrofurantoin 1 cap PO BID 04/23/24 04/23/24 History monohydrate/macrocrystals 100 mg capsule prednisone 20 mg tablet 20 mg PO TID 04/23/24 04/23/24 History ropinirole 0.25 mg tablet 0.25 mg PO BID 04/23/24 04/22/24 History vibegron 75 mg tablet (Gemtesa) 75 mg PO DAILY 04/23/24 04/23/24 History Allergy/AdvReac Type Severity Reaction Status Date / Time cefdinir (Cefdinir) Allergy Rash Verified 04/23/24 11:06 morphine AdvReac Severe Nausea Verified 04/23/24 11:06 Family History Mother Asthma Arthritis Sister Arthritis Colon cancer Father Arthritis Surgical History History of colonoscopy History of laminectomy History of left knee replacement History of bilateral cataract extraction Social History Smoking Status: Never smoker Vital Signs Vital Signs Vital Signs: 04/23/24 10:35 04/23/24 10:35 04/23/24 11:09 Temperature 97.1 F L 97.1 F L Temperature Source Temporal Pulse Rate 68 68 Respiratory Rate 18 18 Respiratory Pattern Normal Blood Pressure 161/80 H 161/80 H Blood Pressure Mean 107 Blood Pressure Source Monitor Blood Pressure Position Semi-Fowlers Blood Pressure Location Right Arm Pulse Ox 98 98 Oxygen Delivery Method Room Air Room Air Weight Weight: 173 lb Body Mass Index (BMI) 31.6
[2024-04-23] MEDS: Lidocaine 1% /Epi 1:100 (20ml) 20 ML Vial (12:36)
--- NOTE | 2024-04-23 12:50 | PCM.POST.ANE ---
Anesthesia: Postop Eval I Current Vital Signs Temperature: 97.5 F Pulse Rate: 80 Blood Pressure: 134/72 Respiratory Rate: 18 Pulse Ox: 95 Oxygen Delivery Method: Room Air Assessment Airway patent: Yes Spontaneous unlabored respirations: Yes Mental status: Awake and Calm nausea: No Vomiting: No Anesthesia Complication: No Fluid Hydration Crystalloid volume administer (ml): 500 Total IV fluid infused: 500 Progress Note Anesthesia document: Postop Eval 1 completed: Yes
--- NOTE | 2024-04-23 12:55 | PCM.OPRPT ---
Problems Associated Problem List Diagnoses (1) Temporal arteritis: Report of Operation Date of Procedure: 04/23/24 Pre-Operative Diagnosis: Possible right temporal arteritis Post-Operative Diagnosis: Same Surgery/Procedure Performed:: Right temporal artery biopsy Surgeon: Everette Rogers Type of Anesthesia: MAC and Topical Anesth Anesthesiologist: Surendra Torres Special Medications: None Specimen's removed: Right temporal artery segment Estimated Blood Loss (mL): Minimal Description of Procedure: The patient is a 79-year-old female who presented to the office recently with about a 1 to 2-week history of new onset of visual disturbances. She was seen by ophthalmology and was started on prednisone for suspected temporal arteritis. She did have symptomatic improvement once being placed on steroids. A temporal artery biopsy to confirm diagnosis was requested. She was seen in the office and I offered her a temporal artery biopsy. We discussed the details of the planned procedure including risk benefits and alternatives and she wished to proceed. She was brought to the operating room today following informed consent. She was placed supine on the operative table with arms initially outstretched on arm boards. MAC anesthesia was then induced by the anesthesia department. Once adequately anesthetized her arms were comfortably placed on arm boards at her side and her head was turned to the left. A small amount of hair was clipped and the area was then prepped and draped in the usual sterile manner. Next a Doppler probe was used to identify the arterial signal and the site was marked with a skin marker. Local anesthetic was then injected. A #15 blade was then used to make a small skin incision. Bovie electrocautery was then used to dissect down through the subcutaneous tissues. At this level of the right temporal artery was then identified. This was identified by the appearance as well as the fact that this produced the Doppler signal consistent with an arterial structure. This was clipped proximally and distally using small clips and then each side with also tied off using 3-0 silk tie. The segment of artery was then excised and sent to pathology. Hemostasis was excellent. The wound was then irrigated copiously. The wound was then closed using 3-0 Vicryl and then 5-0 Vicryl was around the skin. Skin glue was applied as dressing she was awakened anesthesia and taken the PACU in good condition. Complications None Admit VTE Documentation VTE Mechan Device Prophylaxis: None VTE Pharm Prophylaxis ordered?: No Reason prophylaxis not ordered:: Procedure Not Indicated Procedures Cardiovascular CF Procedures [id number]: [id number] Temporal artery procedure (Right side)
--- NOTE | 2024-04-23 13:09 | DCINST_ITS ---
Discharge Instructions Procedure Other (Temporal artery biopsy) Diet Discharge Diet: Light diet - advance as tolerated Activity Discharge Activity: Return to Normal Activity and May Shower Lifting Restrictions: None Dressing / Incision Call your doctor if your incision/area has: Continuous Slow Oozing, Sudden Increased Bleeding, Increased Pain/ Swelling, Increased Redness and Swelling at the incision site Call your doctor if you observe: Fever of 101 or Higher, Change in Color and Shortness of breath Change Dressing in: leave in place till F/U (Sutures will dissolve. Skin glue will wear away in 2 to 3 weeks.) Cleanse incision/area with: Soap & Water Follow Up Care Please Follow Up With: Everette Rogers MD When: 1 to 2 weeks. Please call office if not already scheduled Test Results: Test results from this visit will be discussed in further detail at your follow- up appointment, if applicable. Discharge Plan Admission Attending Provider: Everette Rogers Primary Care Provider: Jovanny Nuñez Instructions Print Language: Romanian Discharge Orders/Prescriptions Prescriptions: New oxycodone-acetaminophen [Percocet] 5-325 mg tablet 1 tab PO Q8H PRN (Reason: pain) 5 Days Qty: 5 0RF No Action lisinopril 10 MG tablet 10 mg PO DAILY Patient Comments: blood pressure pravastatin [Pravachol] 40 MG tablet 80 mg PO QHS Patient Comments: cholesterol ergocalciferol (vitamin D2) [Vitamin D2] 50,000 UNIT capsule 50,000 unit PO QMONTH Patient Comments: vitamin supplement TAKES ON 13 OF THE MONTH spironolactone 50 MG tablet 50 mg PO BID calcium carbonate-vitamin D3 1 EACH tablet 1 ea PO DAILY multivitamin Tablet 1 tab PO DAILY prednisone 20 mg tablet 20 mg PO TID nitrofurantoin monohyd/m-cryst 100 mg capsule 1 cap PO BID ropinirole 0.25 mg tablet 0.25 mg PO BID hydrochlorothiazide 12.5 mg capsule 12.5 mg PO DAILY Gemtesa 75 mg tablet 75 mg PO DAILY Referrals / Follow Up: Jovanny Nuñez MD [Primary Care Provider] - Disposition Disposition (needs filled in before D/C Order can be placed): Home, Self Care
--- NOTE | 2024-04-23 15:52 | POSTOPAN2_ITS ---
Anesthesia Postop Eval I Sum Postop Eval Completion status Anesthesia document: Postop Eval 1 completed: Yes Anesthesia Postop Eval I Summary Anesthesia Postop Eval I Summary: Anesthesia Postop Eval I: Assessment Summary Airway patent Yes 04/23/24 12:50 GENERATOR SWITCHBOARD [email or web address].[email or web address] Spontaneous unlabored Yes 04/23/24 12:50 GENERATOR SWITCHBOARD OPERATOR.[email or web address] respirations Mental status Awake,Calm 04/23/24 12:50 GENERATOR SWITCHBOARD OPERATOR.[email or web address] nausea No 04/23/24 12:50 GENERATOR SWITCHBOARD OPERATOR.[email or web address] Vomiting No 04/23/24 12:50 GENERATOR SWITCHBOARD O[facility]ATOR.[facility] Anesthesia Postop Eval I: Fluid Summary Crystalloid volume administer 500 04/23/24 12:50 GENERATOR SWITCHBOARD OPERATOR.SCHR (ml) Colloids volume administered ( ml) Blood Product volume administered (ml) Total IV fluid infused 500 04/23/24 12:50 GENERATOR SWITCHBOARD OPERATOR.[facility] Anesthesia Postop Eval I: Summary Notes Anesthesia Complication No 04/23/24 12:50 GENERATOR SWITCHBOARD OPERATOR.[facility] Anesthesia Complication Comment: Post-operative progress note Anesthesia: Postop Eval II Evaluation Mental status: Awake and Calm Pain Level: 1 nausea: No Vomiting: No Complications Anesthesia Complication: No
--- NOTE | 2024-04-23 15:52 | PCM.POSTANE2 ---
Anesthesia Postop Eval I Sum Postop Eval Completion status Anesthesia document: Postop Eval 1 completed: Yes Anesthesia Postop Eval I Summary Anesthesia Postop Eval I Summary: Anesthesia Postop Eval I: Assessment Summary Airway patent Yes 04/23/24 12:50 [email or web address] Spontaneous unlabored Yes 04/23/24 12:50 DAG [email or web address] respirations Mental status Awake,Calm 04/23/24 12:50 DAG [email or web address] nausea No 04/23/24 12:50 DAG [email or web address].[email or web address] Vomiting No 04/23/24 12:50 [facility] Anesthesia Postop Eval I: Fluid Summary Crystalloid volume administer 500 04/23/24 12:50 DAG [email or web address].SCHR (ml) Colloids volume administered ( ml) Blood Product volume administered (ml) Total IV fluid infused 500 04/23/24 12:50 [facility]AG SPRAYER.[facility] Anesthesia Postop Eval I: Summary Notes Anesthesia Complication No 04/23/24 12:50 DAG SPRAYER.[facility] Anesthesia Complication Comment: Post-operative progress note Anesthesia: Postop Eval II Evaluation Mental status: Awake and Calm Pain Level: 1 nausea: No Vomiting: No Complications Anesthesia Complication: No
== END 2024-04-23 14:00 | disposition home or self-care (01) ==
LOC: SDC 09:59 → AC 10:00
PROVIDERS: PCP Family Medicine; Referring Provider Surgery; Visit Provider Surgery
PROC: (CPT 37609; principal; 2024-04-23 11:15)
DX: M31.6 Other giant cell arteritis (principal); I10 Essential (primary) hypertension; E78.00 Pure hypercholesterolemia, unspecified; Z79.899 Other long term (current) drug therapy; Z87.891 Personal history of nicotine dependence
CPT/HCPCS: 37609; 00352; 88305; 88312; A4648; J7120; J2405

== ENCOUNTER → 2024-04-27 | Outpatient (CLI) | payer MEDICARE, SELFPAY ==
--- NOTE | 2024-04-27 14:52 | RAD_ITS ---
STUDY: X-RAY - PELVIS REASON FOR EXAM: Female, 79 years old. Pain. TECHNIQUE: One view of the pelvis was obtained. COMPARISON: Left hip x-rays dated February 09, 2014. FINDINGS: Normal bowel gas pattern with air seen to the rectosigmoid. Phleboliths and vascular calcification. Osteopenia. Normal bilateral iliac wings, sacroiliac joints and visualized sacrum. Normal visualized bilateral superior and inferior pubic rami. Normal pubic symphysis. Normal ischial tuberosities. Mild arthrosis of the right hip. Dynamic hip screw in the left hip with healed intertrochanteric fracture with deformity. RAD/Pelvis 1 or 2 Views IMPRESSION: Osteopenia with healed left proximal femoral fracture without complicating features of the visualized components. No acute finding. Electronically Signed: Malvin Carrillo MD at 11:07 EDT ,
--- NOTE | 2024-04-27 14:52 | RAD_ITS ---
STUDY: X-RAY CHEST REASON FOR EXAM: Female, 79 years old. Pain. TECHNIQUE: Frontal and lateral views of the chest. COMPARISON: August 27, 2021 FINDINGS: Stable mild hyperinflation. Healed granulomatous calcifications unchanged. There is no demonstrated pleural abnormality. Stable borderline cardiomegaly. Normal mediastinum and daniel. Normal visualized pulmonary arteries. Aortic tortuosity unchanged. Thoracic osteopenia with anterior wedge compression deformity of 2 thoracic vertebral bodies, unchanged from prior study with increased kyphosis, unaltered. Normal visualized ribs, clavicles, and shoulders. No abnormality of the visualized soft tissue structures of the upper abdomen. RAD/Chest PA and Lateral IMPRESSION: Stable chest with no acute or emergent finding. Electronically Signed: Malvin Carrillo MD at 11:03 EDT ,
[2024-04-27 16:21] LABS: Absolute Neutrophil Count 10.9 X10^3/uL (2.0-7.7); Basophil# 0.01 X10^3/uL; Basophil% 0.1 % (0-1); Hemoglobin 12.1 g/dL (12.0-15.0); Lymphocyte % 7.4 % (19-41); Mean Corp Hgb Conc 32.7 g/dL (32-36); Mean Corpuscular Hgb 28.9 pg (27.0-32.0); Mean Corpuscular Volume 88.3 fL (81-99); Mean Platelet Vol. 11.2 fl (6.2-12.0); Monocyte# 0.23 X10^3/uL; Monocyte% 1.9 % (0-10); NRBC Flagged by Analyzer 0 % (0-5); Neutrophil # 10.89 X10^3/uL (2.7-7.7); Neutrophil % 89.7 % (47-70); Platelet Count 318 K/mm3 (150-450); RBC Distribution Width CV 15.1 % (11.6-14.6); RBC Distribution Width SD 47.7 fl (35.1-43.9); Red Blood Count 4.19 M/mm3 (4.2-5.4); White Blood Count 12.1 K/mm3 (4.4-11.0)
[2024-04-27 16:28] LABS: Erythrocyte Sedimentation Rate 17 mm/hr (0-30)
[2024-04-27 16:52] LABS: ALB/GLOB Ratio 0.9 RATIO (0.9-2.4); AST(SGOT) 10 U/L (15-37); Alanine Aminotransfer ALT/SGPT 26 U/L (13-56); Albumin, Serum 3.5 g/dL (3.2-5.0); Alkaline Phosphatase 72 U/L (45-117); Anion Gap 6 (5-15); BUN 33 mg/dL (7-18); BUN/Creat Ratio 30.8 RATIO (10-20); CRP < 2.90 mg/L (0.0-3.0); Calcium,Total 9.7 mg/dL (8.5-10.1); Chloride 99 mmol/L (98-107); Creatinine, Serum 1.07 mg/dL (0.55-1.02); EST Glomerular Filtration Rate 53 mL/min (>60); Est Glom Filt Rate - Afr Amer 64 mL/min (>60); Globulin 3.8 g/dL (2.2-4.2); Glucose 116 mg/dL (74-106); Potassium 4.3 mmol/L (3.5-5.1); Protein, Total 7.3 g/dL (6.4-8.2); Rheumatoid Factor < 10.0 IU/mL (<15); Sodium Level 132 mmol/L (136-145)
[2024-04-27 17:06] LABS: Hepatitis B Surface Antibody Reactive; Hepatitis B Surface Antigen Non-Reactive (Nonreactive); Hepatitis C Antibody Non-Reactive (Nonreactive)
[2024-04-29 15:08] LABS: CCP IgG Antibodies 6 units (0-19); QNTFERON TB Mitogen Value > 10.00 IU/mL (.); QNTFERON TB Nil Value 0 IU/mL (.); QNTFERON TB1+ Ag Value 0 IU/mL (.); QNTFERON TB2+ Ag Value 0 IU/mL (.); QNTIFERON TB Positive Criteria Negative (Negative)
== END | disposition home or self-care (01) ==
LOC: MTLAB 14:50
PROVIDERS: PCP Family Medicine; Referring Provider Internal Medicine Rheumatology; Visit Provider Internal Medicine Rheumatology
DX: I10 Essential (primary) hypertension (principal); M31.6 Other giant cell arteritis; M47.897 Other spondylosis, lumbosacral region; Z79.899 Other long term (current) drug therapy
CPT/HCPCS: 36415; 71046; 72170; 80053; 85025; 85652; 86140; 86200; 86431; 86480; 86706; 86803; 87340

== ENCOUNTER → 2024-06-07 | Outpatient (CLI) | payer MEDICARE, SELFPAY ==
[2024-06-07 12:55] LABS: Erythrocyte Sedimentation Rate < 1 mm/hr (0-30)
[2024-06-07 13:23] LABS: CRP < 2.90 mg/L (0.0-3.0)
== END | disposition home or self-care (01) ==
PROVIDERS: PCP Family Medicine; Referring Provider Internal Medicine Rheumatology; Visit Provider Internal Medicine Rheumatology
DX: M31.6 Other giant cell arteritis (principal); M18.0 Bilateral primary osteoarthritis of first carpometacarpal joints; Z79.899 Other long term (current) drug therapy
CPT/HCPCS: 36415; 85652; 86140

== ENCOUNTER → 2024-06-10 | Outpatient (CLI) | payer MEDICARE, SELFPAY ==
--- NOTE | 2024-06-10 10:22 | BI_ITS ---
MAMMOGRAPHY - BILATERAL SCREENING REASON FOR EXAM: Female, 79 years old. Routine annual screening examination. PERTINENT HISTORY: Non-contributory. TECHNIQUE: Digital bilateral breast odilon (3D mammographic acquisition) in the CC and MLO projections. 2-D mediolateral oblique (MLO) and craniocaudad (CC) views of both breasts were obtained. CAD: Full Field Digital Mammography with Computer Added Detection was performed. COMPARISON: Comparison is made with prior study June 09, 2023 and June 06, 2022. FINDINGS: Breast Composition: There are scattered areas of fibroglandular density. There are no dominant masses or suspicious calcifications. No other significant abnormalities are identified. There has been no significant change since the prior study. BI/SCRN MAMM (CAD)W/ODILON BILAT IMPRESSION: Stable bilateral screening mammogram. Yearly follow-up mammogram recommended. (A) ASSESSMENT CATEGORY: BIRADS Category 1: Negative. A letter regarding these results will be sent to the patient by the facility within 30 days. Approximately 10% of breast cancers are not detected by mammography. A normal mammogram should not delay biopsy of a clinically suspicious abnormality. [id number] Electronically Signed: Wicho Adorno MD at 11:25 EDT ,
--- NOTE | 2024-06-10 10:26 | BD_ITS ---
STUDY: DUAL ENERGY X-RAY ABSORPTIOMETRY / DXA REASON FOR EXAM: Female, 79 years old. M85.89 TECHNIQUE: Bone Mineral Density (BMD) measurements of lumbar spine and right hip were obtained. COMPARISON: Comparison is made with prior study dated April 24, 2019. FINDINGS: Lumbar Spine (L1-L4): g/cm2 (0.957) / T-score (-0.8) / Z-score (1.7) Findings are suggestive of normal bone density with a low fracture risk. Right Femur Total: g/cm2 (0.734) / T-score (-1.7) / Z-score (0.2) Right Femoral Neck: g/cm2 (0.677) / T-score (-1.6) / Z-score (0.6) The T-Scores on the most recent prior examination were: Lumbar Spine (L1-L4): There has been worsening of bone density since the previous examination. Right Femur Total: which represents an improvement of 2.3%. BD/Dexa Bone Density Study IMPRESSION: The patient is considered osteopenic as outlined below according to World Andrea Organization (WHO) criteria with a moderate fracture risk. There has been worsening of bone density since the previous examination. Reference Information: The T-score is the number of standard deviations above or below the standard which is normal for young adults at their peak bone mineral density. The World Health Organization (WHO) interprets the T-scores as follows: Above -1 Normal bone density Between -1 and -2.5 Osteopenia Equal to / or below -2.5 Osteoporosis As a practical clinical guideline, osteopenia may be graded as follows: Mild -1 through -1.5 Moderate -1.6 through -2.0 Severe -2.1 through -2.4 The Z-score is the number of standard deviations above or below age-matched controls. A Z-score of less than -1.5 would be considered abnormal. References: 1. NIH Osteoporosis and Related Bone Diseases www osteo.org 2. International Society for Clinical Densitometry www iscd.org 3. National Osteoporosis Foundation www nof.org Electronically Signed: Wicho Adorno MD at 15:09 EDT ,
== END | disposition home or self-care (01) ==
LOC: OPBI 10:21
PROVIDERS: PCP Family Medicine; Referring Provider Family Medicine; Visit Provider Family Medicine
DX: Z12.31 Encounter for screening mammogram for malignant neoplasm of breast (principal); M85.89 Other specified disorders of bone density and structure, multiple sites
CPT/HCPCS: 77063; 77067; 77080

== ENCOUNTER 2024-06-16 07:37 | Inpatient (IN) | payer MEDICARE, SELFPAY ==
[2024-06-16] VITALS (27 sets, daily range): BP systolic 80–148; BP diastolic 40–133; PULSE 88–140; RESP 14–28; TEMP 36.2–36.6; O2SAT 92–100; BMI 31.8
[2024-06-16 08:20] LABS: Absolute Lymphocyte Count 2.41 X10^3/uL (0.83-4.51); Absolute Neutrophil Count 7.5 X10^3/uL (2.0-7.7); Basophil# 0.02 X10^3/uL; Basophil% 0.2 % (0-1); Eosinophil# 0.01 X10^3/uL; Eosinophils% 0.1 % (0-5); Hematocrit 25.6 % (37-47); Hemoglobin 8.6 g/dL (12.0-15.0); Lymphocyte # 2.41 X10^3/ul (0.83-4.51); Lymphocyte % 22.4 % (19-41); Mean Corp Hgb Conc 33.6 g/dL (32-36); Mean Corpuscular Hgb 31.2 pg (27.0-32.0); Mean Corpuscular Volume 92.8 fL (81-99); Mean Platelet Vol. 10.8 fl (6.2-12.0); Monocyte% 3.7 % (0-10); NRBC Flagged by Analyzer 1.9 % (0-5); Neutrophil # 7.45 X10^3/uL (2.7-7.7); Neutrophil % 69.1 % (47-70); Platelet Count 150 K/mm3 (150-450); RBC Distribution Width CV 18.6 % (11.6-14.6); RBC Distribution Width SD 62.8 fl (35.1-43.9); Red Blood Count 2.76 M/mm3 (4.2-5.4); White Blood Count 10.8 K/mm3 (4.4-11.0)
[2024-06-16 08:44] LABS: International Normalized Ratio 1.2; Prothrombin Time (Protime)PT. 15.4 SECONDS (11.7-14.9)
[2024-06-16] MEDS: Etomidate 20 MG/10 ML Vial 11.5 MG IV (08:47)
[2024-06-16 08:56] LABS: AST(SGOT) 16 U/L (15-37); Alanine Aminotransfer ALT/SGPT 42 U/L (13-56); Albumin, Serum 2.6 g/dL (3.2-5.0); Alkaline Phosphatase 35 U/L (45-117); Anion Gap 12 (5-15); BUN 85 mg/dL (7-18); BUN/Creat Ratio 80.2 RATIO (10-20); Bilirubin, Direct 0.17 mg/dL (0.00-0.30); Calcium,Total 8.8 mg/dL (8.5-10.1); Chloride 103 mmol/L (98-107); Creatinine, Serum 1.06 mg/dL (0.55-1.02); EST Glomerular Filtration Rate 53 mL/min (>60); Est Glom Filt Rate - Afr Amer 65 mL/min (>60); Estimated Creatinine Clearance 43.26 ml/min; Globulin 2.1 g/dL (2.2-4.2); Glucose 205 mg/dL (74-106); Potassium 4.1 mmol/L (3.5-5.1); Protein, Total 4.7 g/dL (6.4-8.2); Sodium Level 137 mmol/L (136-145); Thyroid Stim Hormone (TSH) 0.828 uIU/mL (0.358-3.740); Troponin-I HS 66 pg/mL (3.0-54.0)
[2024-06-16 09:12] LABS: Partial Thromboplast Time < 20.0 Seconds (24.1-36.2)
[2024-06-16] MEDS: 0.9% Normal Saline (1000mL) 1,000 ML 999 ML IV (09:42)
[2024-06-16] MEDS: Amiodarone 150 MG in Dextrose 5%-Water (100mL Bag) 100 ML 600 MG IV BOLUS (09:42)
[2024-06-16] MEDS: Amiodarone 360 MG in Dextrose 5% Viaflo Bag 192.8 ML 33.3 MG CONT INF (10:18)
[2024-06-16] MEDS: Pantoprazole Sodium 80 MG in 0.9% Normal Saline (50mL Bag) 15 ML 420 MG IV BOLUS (10:18)
[2024-06-16] MEDS: Pantoprazole Sodium 80 MG in 0.9% Normal Saline (100mL Bag) 80 ML 10 MG CONT INF ×2 (10:18→14:50)
[2024-06-16 10:43] LABS: Lactic Acid 2.4 mmol/L (0.4-1.9)
[2024-06-16] MEDS: 0.9% Normal Saline (1000mL) 1,000 ML 125 ML IV ×2 (11:27→20:06)
[2024-06-16 13:50] LABS: Reflex Lactate? Y
[2024-06-16 16:17] LABS: Lactic Acid 1.3 mmol/L (0.4-1.9)
[2024-06-16] MEDS: Amiodarone 360 MG in Dextrose 5% Viaflo Bag 192.8 ML 16.7 MG CONT INF (17:57)
[2024-06-16] MEDS: Bisacodyl 5 MG Tablet 20 MG PO (18:06)
[2024-06-16] MEDS: Polyethylene Glycol 3350 BOWEL PREP PO (20:10)
[2024-06-17] VITALS (35 sets, daily range): BP systolic 86–130; BP diastolic 48–81; PULSE 74–107; RESP 16–29; TEMP 35.6–36.6; O2SAT 92–100; BMI 31.8
[2024-06-17] MEDS: 0.9% Saline Lock 10 ML Syringe IV (01:00)
[2024-06-17] MEDS: Pantoprazole Sodium 80 MG in 0.9% Normal Saline (100mL Bag) 80 ML 10 MG CONT INF ×2 (03:28→14:40)
[2024-06-17 06:26] LABS: Absolute Lymphocyte Count 2.07 X10^3/uL (0.83-4.51); Absolute Neutrophil Count 5.5 X10^3/uL (2.0-7.7); Basophil# 0.01 X10^3/uL; Basophil% 0.1 % (0-1); Eosinophil# 0.06 X10^3/uL; Eosinophils% 0.7 % (0-5); Hematocrit 27.2 % (37-47); Hemoglobin 9.2 g/dL (12.0-15.0); Lymphocyte # 2.07 X10^3/ul (0.83-4.51); Lymphocyte % 25.5 % (19-41); Mean Corp Hgb Conc 33.8 g/dL (32-36); Mean Corpuscular Hgb 30.1 pg (27.0-32.0); Mean Corpuscular Volume 88.9 fL (81-99); Mean Platelet Vol. 10.4 fl (6.2-12.0); Monocyte# 0.16 X10^3/uL; NRBC Flagged by Analyzer 3.1 % (0-5); Neutrophil # 5.53 X10^3/uL (2.7-7.7); Platelet Count 100 K/mm3 (150-450); RBC Distribution Width CV 18.2 % (11.6-14.6); RBC Distribution Width SD 57.8 fl (35.1-43.9); Red Blood Count 3.06 M/mm3 (4.2-5.4); White Blood Count 8.1 K/mm3 (4.4-11.0)
[2024-06-17] MEDS: Amiodarone 360 MG in Dextrose 5% Viaflo Bag 192.8 ML 16.7 MG CONT INF ×2 (06:53→17:22)
[2024-06-17 06:58] LABS: Anion Gap 8 (5-15); BUN 51 mg/dL (7-18); BUN/Creat Ratio 78.5 RATIO (10-20); Calcium,Total 7.2 mg/dL (8.5-10.1); Chloride 105 mmol/L (98-107); Creatinine, Serum 0.65 mg/dL (0.55-1.02); EST Glomerular Filtration Rate 94 mL/min (>60); Est Glom Filt Rate - Afr Amer 114 mL/min (>60); Estimated Creatinine Clearance 57.32 ml/min; Glucose 110 mg/dL (74-106); International Normalized Ratio 1.2; Partial Thromboplast Time 21.2 Seconds (24.1-36.2); Potassium 3.6 mmol/L (3.5-5.1); Prothrombin Time (Protime)PT. 15.5 SECONDS (11.7-14.9); Sodium Level 134 mmol/L (136-145)
[2024-06-17 07:01] LABS: AST(SGOT) 24 U/L (15-37); Alanine Aminotransfer ALT/SGPT 37 U/L (13-56); Albumin, Serum 2.4 g/dL (3.2-5.0); Alkaline Phosphatase 32 U/L (45-117); Bilirubin, Direct 0.19 mg/dL (0.00-0.30); Globulin 1.8 g/dL (2.2-4.2); Protein, Total 4.2 g/dL (6.4-8.2)
[2024-06-18] VITALS (34 sets, daily range): BP systolic 85–147; BP diastolic 47–102; PULSE 67–114; RESP 16–26; TEMP 36.3–36.9; O2SAT 92–100
[2024-06-18] MEDS: Pantoprazole Sodium 80 MG in 0.9% Normal Saline (100mL Bag) 80 ML 10 MG CONT INF ×3 (00:32→20:24)
[2024-06-18] MEDS: Amiodarone 360 MG in Dextrose 5% Viaflo Bag 192.8 ML 16.7 MG CONT INF ×2 (05:14→16:39)
[2024-06-18 06:31] LABS: Absolute Lymphocyte Count 1.46 X10^3/uL (0.83-4.51); Basophil# 0.02 X10^3/uL; Basophil% 0.3 % (0-1); Eosinophil# 0.03 X10^3/uL; Eosinophils% 0.4 % (0-5); Hematocrit 21.5 % (37-47); Hemoglobin 7.6 g/dL (12.0-15.0); Lymphocyte # 1.46 X10^3/ul (0.83-4.51); Lymphocyte % 21.5 % (19-41); Mean Corp Hgb Conc 35.3 g/dL (32-36); Mean Corpuscular Hgb 31.4 pg (27.0-32.0); Mean Corpuscular Volume 88.8 fL (81-99); Mean Platelet Vol. 10.7 fl (6.2-12.0); Monocyte# 0.15 X10^3/uL; Monocyte% 2.2 % (0-10); NRBC Flagged by Analyzer 2.7 % (0-5); Neutrophil % 73.8 % (47-70); POSITIVE MORPHOLOGY YES; Platelet Count 106 K/mm3 (150-450); RBC Distribution Width CV 18.1 % (11.6-14.6); RBC Distribution Width SD 56.7 fl (35.1-43.9); Red Blood Count 2.42 M/mm3 (4.2-5.4); White Blood Count 6.8 K/mm3 (4.4-11.0)
[2024-06-18 06:35] LABS: Differential Indicated SCAN CRITERIA MET
[2024-06-18 06:45] LABS: Anion Gap 6 (5-15); BUN 41 mg/dL (7-18); BUN/Creat Ratio 61.5 RATIO (10-20); Calcium,Total 7.3 mg/dL (8.5-10.1); Chloride 105 mmol/L (98-107); Creatinine, Serum 0.67 mg/dL (0.55-1.02); EST Glomerular Filtration Rate 91 mL/min (>60); Est Glom Filt Rate - Afr Amer 110 mL/min (>60); Estimated Creatinine Clearance 57.32 ml/min; Glucose 154 mg/dL (74-106); Potassium 3.5 mmol/L (3.5-5.1); Sodium Level 134 mmol/L (136-145)
[2024-06-18 08:45] LABS: Hematocrit 23.2 % (37-47); Hemoglobin 7.9 g/dL (12.0-15.0)
[2024-06-18] MEDS: dilTIAZem 25 MG/5 ML Vial 20 MG IV BOLUS (09:27)
[2024-06-18] MEDS: 0.9% Saline Lock 10 ML Syringe IV (09:28)
[2024-06-18 09:39] LABS: Differential Comment SCANNED; Platelet Estimate SLT DEC (ADEQ); Red Cell Morphology NORM C+C NORMAL (NORM C&C)
[2024-06-18] MEDS: Metoprolol Tartrate 25 MG Tablet PO ×2 (10:09→21:33)
[2024-06-19] VITALS: BP 102/56; PULSE 77; RESP 19; O2SAT 98
[2024-06-19 01:00] VITALS: BP 97/48; PULSE 77; RESP 19; O2SAT 97
[2024-06-19 02:00] VITALS: BP 100/48; PULSE 84; RESP 21; O2SAT 98
[2024-06-19 03:00] VITALS: PULSE 78
== END 2024-06-19 03:05 | disposition short-term general hospital (02) | DRG 377 ==
LOC: ED 09:38 → PCU 09:43
PROVIDERS: Anesthesiology; Internal Medicine Gastroenterology; Admitting Provider Student in an Organized Health Care Education/Training Program; Emergency Provider Emergency Medicine; PCP Family Medicine; Visit Provider Student in an Organized Health Care Education/Training Program
PROC: 0DJD8ZZ Inspection of Lower Intestinal Tract, Via Natural or Artificial Opening Endoscopic (ICD-10-PCS; CPT 45378; principal; 2024-06-17 13:10)
DX: K92.2 Gastrointestinal hemorrhage, unspecified (principal); I26.99 Other pulmonary embolism without acute cor pulmonale; D62 Acute posthemorrhagic anemia; Z66 Do not resuscitate; M31.6 Other giant cell arteritis; D50.9 Iron deficiency anemia, unspecified; I10 Essential (primary) hypertension; I48.91 Unspecified atrial fibrillation; I95.9 Hypotension, unspecified; E78.00 Pure hypercholesterolemia, unspecified; K57.30 Diverticulosis of large intestine without perforation or abscess without bleeding; Z80.0 Family history of malignant neoplasm of digestive organs; Z79.2 Long term (current) use of antibiotics; Z87.891 Personal history of nicotine dependence; Z79.52 Long term (current) use of systemic steroids; M81.0 Age-related osteoporosis without current pathological fracture
CPT/HCPCS: 36415; 71045; 74174; 78278; 80048; 80076; 82274; 83605; 83735; 84443; 84484; 85014; 85018; 85025; 85610; 85730; 86850; 86900; 86901; 86920; 86922; 92960; 93005; 93306; 94762; 97163; 97166; 99285; A9560; J7030; P9016; Q9967; A4216; J2405; J3490

== ENCOUNTER 2024-06-25 14:21 | Inpatient (IN) | payer MEDICARE, SELFPAY ==
[2024-06-25 14:44] VITALS: BP 127/67; PULSE 78; RESP 18; TEMP 36.2; O2SAT 98
[2024-06-25 14:51] VITALS: BMI 32.1
--- OUTSIDE RECORDS SUMMARY | 2024-06-25 15:22 | XMS RPT_ITS | CCD ---
Author Organization [facility] Care Team Providers Care Scientific Laboratory Supervisor Name Role Phone Oliva Nuñez Primary Care Provider [phone] NIKOLAS LARA Referring Unavailable OLIVA NUÑEZ Primary Care Unavailable ANGELA MENA Admitting Unavailable BILL COELHO Attending Unavailable Allergies Allergy Classification Reported Allergen(s) Allergy Type Date of Onset Reaction(s) Facility (1 source) cefdinir Drug Allergy 09-10-2021 Rash [facility] (1 source) Morphine Drug Allergy 06-16-2024 Nausea And Vomiting [facility] Medications Completed/Discontinued Medications Medication Drug Class(es) Dates Sig (Normalized) Sig (Original) alendronic acid 70 mg oral tablet (1 source) Bisphosphonate take 1 tablet by mouth in the morning alendronate (Fosamax) 70 MG tablet Take 70 mg by mouth every 7 days. Take in the morning with a full glass of water, on an empty stomach, and do not take anything else by mouth or lie down for the next 30 min. Suspended calcium carbonate 1500 mg / cholecalciferol 0.01 mg oral capsule (1 source) Vitamin D take 1 tablet by mouth in the morning Calcium Carb-Cholecalciferol 600-10 MG-MCG capsule Take 1 tablet by mouth in the morning. Suspended ergocalciferol 1.25 mg oral capsule (1 source) Provitamin D2 Compound take 1 capsule by mouth every week ergocalciferol (Vitamin D-2) 1.25 MG (27522 UT) capsule Take 50,000 Units by mouth 1 (one) time per week. Suspended 1 ml glycopyrrolate 0.2 mg/ml injection (1 source) Start: 06-21-20 End: 06-21-20 IntraVENous, As needed, Starting on Fri06/21/24 at 1023, Anesthesia Intraprocedure hydroCHLOROthiazide 12.5 mg oral tablet (1 source) Thiazide Diuretic take 1 tablet by mouth once daily hydroCHLOROthiazide 12.5 MG tablet Take 12.5 mg by mouth daily. Suspended 10 ml lidocaine hydrochloride 20 mg/ml injection (1 source) Antiarrhythmic, Amide Local Anesthetic Start: 06-21-20 End: 06-21-20 IntraVENous, As needed, Starting on Fri06/21/24 at 1023, Anesthesia Intraprocedure lisinopril 10 mg oral tablet (1 source) Angiotensin Converting Enzyme Inhibitor take 1 tablet by mouth in the morning lisinopril 10 MG tablet Take 10 mg by mouth in the morning and 10 mg in the evening. Suspended Multiple Vitamin (multivitamin) tablet (1 source) take 1 tablet by mouth once daily Multiple Vitamin (multivitamin) tablet Take 1 tablet by mouth daily. Suspended pravastatin sodium 80 mg oral tablet (1 source) HMG-CoA Reductase Inhibitor take 1 tablet by mouth once daily pravastatin (Pravachol) 80 MG tablet Take 80 mg by mouth Nightly. Suspended predniSONE 20 mg oral tablet (1 source) take 1 tablet by mouth three times daily predniSONE (Deltasone) 20 MG tablet Take 20 mg by mouth 3 times daily. Suspended 20 ml propofol 10 mg/ml injection (1 source) General Anesthetic Start: 06-21-20 End: 06-21-20 IntraVENous, As needed, Starting on Fri06/21/24 at 1023, Anesthesia Intraprocedure rOPINIRole 0.25 mg oral tablet (1 source) Nonergot Dopamine Agonist take 1 tablet by mouth once daily as needed rOPINIRole (Requip) 0.25 MG tablet Take 0.25 mg by mouth Nightly as needed (restless legs). Suspended spironolactone 50 mg oral tablet (1 source) Aldosterone Antagonist take 1 tablet by mouth once daily spironolactone (Aldactone) 50 MG tablet Take 50 mg by mouth daily. Suspended 0.9 ml tocilizumab 180 mg/ml prefilled syringe (1 source) Interleukin-6 Receptor Antagonist tocilizumab (Actemra ) injection Inject 162 mg under the skin every 7 days. Suspended Vibegron 75 MG tablet (1 source) take 1 tablet by mouth in the morning Vibegron 75 MG tablet Take 75 mg by mouth in the morning. Suspended Problems Problem Classification Problem Date Documented Da te Episodic/Chronic Gastrointestinal hemorrhage (3 sources) Gastrointestinal hemorrhage; Translations: [Gastrointestinal hemorrhage, unspecified] Onset: 4 06-19-2024 Episodic Results Test Name Value Interpretation Reference Range Facil ity [id number] 06-24-2024 [id number] Patient Choice Patient Name: HAWA BHAKTA Date of : 1945 All Providers Sent Referral Name: [facility] Phone: [phone] Address: [address] [place] [address] [phone] Insurance auth obtained. SW to arrange transport to TCU at [facility]. Family updated by [facility]. [facility] [phone] DC order received. Plan to DC to TCU at [facility]. Auth submitted and pending- Per facility they WILL NOT accept pateint after 9PM (even if transport running late). If auth obtained transport needs to be arranged for no later than 5PM. [facility] provided updated therapy notes and DC med list to facility. Bedside RN to call report and transport to be arranged by when auth obtained. Will continue to follow. [facility] [id number] Discharge med list transmitted to [facility] TCU via [facility] per [facility] request. [facility] [id number] [facility] per [facility] request. Await review and response regarding ability to accept. [facility] notified. [facility] CBC WITH AUTO DIFFERENTIALon 06-24-2024 Basophils (Bld) [#/Vol] 0.0 10*3/uL Normal 0.0-0.2 [facility] Comment on above: Performed By: #### L [id number] ####Hand Cutter Apprentice: ZAID CHÁVEZ ([phone])[facility])[address] [place] [address] Basophils/100 WBC (Bld) 0.6 % Normal 0.0-2.0 [facility] Comment on above: Performed By: #### L [id number] ####Hand Cutter Apprentice: ZAID CÁHVEZ ([id number])[facility])[address] [place] [address] Eosinophils (Bld) [#/Vol] 0.1 10*3/uL Normal 0.0-0.5 [facility] Comment on above: Performed By: #### L [id number] ####Hand Cutter Apprentice: ZAID CHÁVEZ ([id number])[address] Eosinophils/100 WBC (Bld) 1.7 % Normal 0.0-6.0 [facility] Comment on above: Performed By: #### L [id number] ####Hand Cutter Apprentice: ZAID CHÁVEZ ([id number])[facility])[address] [place] [address] Erythrocyte distribution width (RBC) [Ratio] 20.9 % High 11.5-15.0 [facility] Comment on above: Performed By: #### L [id number] ####Hand Cutter Apprentice: ZAID CHÁVEZ ([id number])[address] Hematocrit (Bld) [Volume fraction] 25.0 % Low 35.0-47.0 [facility] Comment on above: Performed By: #### L [id number] ####Hand Cutter Apprentice: ZAID CHÁVEZ ([id number])[facility])[address] [place] [address] Hemoglobin (Bld) [Mass/Vol] 8.1 g/dL Low 11.7-16.0 [facility] Comment on above: Performed By: #### L [id number] ####Hand Cutter Apprentice: ZAID CHÁVEZ ([id number])[facility])[address] [place] [address] IMMATURE GRANS % 0.8 % Normal 0.0-2.0 [facility] Comment on above: Performed By: #### L [id number] ####Hand Cutter Apprentice: ZAID CHÁVEZ ([id number])[facility])[address] [place] [address] IMMATURE GRANS ABSOLUTE 0.0 10*3/uL Normal <0.1 [facility] Comment on above: Performed By: #### L [id number] ####Hand Cutter Apprentice: ZAID CHÁVEZ ([id number])[facility])[address] [place] [address] Lymphocytes (Bld) [#/Vol] 1.5 10*3/uL Normal 1.0-4.3 [facility] Comment on above: Performed By: #### L [id number] ####Hand Cutter Apprentice: ZAID CHÁVEZ ([id number])[address] Lymphocytes/100 WBC (Bld) 43.0 % Normal 15.0-45.0 [facility] Comment on above: Performed By: #### L [id number] ####Hand Cutter Apprentice: ZAID CHÁVEZ ([id number])[address] MCH (RBC) [Entitic mass] 31.4 pg Normal 26.0-34.0 [facility] Comment on above: Performed By: #### L [id number] ####Hand Cutter Apprentice: ZAID CHÁVEZ ([id number])[address] MCHC 32.4 % Normal 30.5-36.0 [facility] Comment on above: Performed By: #### L [id number] ####Hand Cutter Apprentice: ZAID CHÁVEZ ([id number])[address] MCV (RBC) [Entitic vol] 96.9 fL Normal 77.0-99.0 [facility] Comment on above: Performed By: #### L [id number] ####Hand Cutter Apprentice: ZAID CHÁVEZ ([id number])[facility] ([facility])[address] [place] [address] Monocytes (Bld) [#/Vol] 0.2 10*3/uL Normal 0.0-0.9 [facility] Comment on above: Performed By: #### L [id number] ####Hand Cutter Apprentice: ZAID CHÁVEZ ([id number])[facility] ([facility])[address] [place] [address] Monocytes/100 WBC (Bld) 5.3 % Normal 5.0-13.0 [facility] Comment on above: Performed By: #### L [id number] ####Hand Cutter Apprentice: ZAID CHÁVEZ ([id number])[facility] ([facility])[address] [place] [address] NEUTROPHILS ABSOLUTE 1.7 10*3/uL Low 1.8-7.5 [facility] Comment on above: Performed By: #### L [id number] ####Hand Cutter Apprentice: ZAID CHÁVEZ ([id number])[facility] ([facility])[address] [place] [address] Neutrophils/100 WBC (Bld) 48.6 % Normal 38.0-82.0 [facility] Comment on above: Performed By: #### L [id number] ####Hand Cutter Apprentice: ZAID CHÁVEZ ([id number])[facility] ([facility])[address] [place] [address] NRBC 0.6 /100 WBCs Normal 0.0-2.0 [facility] Comment on above: Performed By: #### L [id number] ####Hand Cutter Apprentice: ZAID CHÁVEZ ([id number])[facility])[address] [place] [address] Platelet mean volume (Bld) [Entitic vol] 10.5 fL Normal 9.0-12.7 [facility] Comment on above: Performed By: #### L [id number] ####Hand Cutter Apprentice: ZAID CHÁVEZ ([id number])[facility])[address] [place] [address] Platelets (Bld) [#/Vol] 140 10*3/uL Normal 140-440 [facility] Comment on above: Performed By: #### L [id number] ####Hand Cutter Apprentice: ZAID CHÁVEZ ([id number])[facility])[address] [place] [address] RBC (Bld) [#/Vol] 2.58 10*6/uL Low 3.80-5.20 [facility] Comment on above: Performed By: #### L [id number] ####Hand Cutter Apprentice: ZAID CHÁVEZ ([id number])[facility])[address] [place] [address] WBC (Bld) [#/Vol] 3.6 10*3/uL Normal 3.6-10.7 [facility] Comment on above: Performed By: #### L [id number] ####Hand Cutter Apprentice: ZAID CHÁVEZ ([id number])[facility])[address] [place] [address] BASIC METABOLIC PANELon 11-0 -2023 Anion gap [Moles/Vol] 1 mmol/L Low 3-13 [facility] Comment on above: Performed By: #### L [id number] ####Hand Cutter Apprentice: ZAID CHÁVEZ ([id number])[facility])[address] [place] [address] Calcium [Mass/Vol] 7.8 mg/dL Low 8.4-10.4 [facility] Comment on above: Performed By: #### L AB15 ####Hand Cutter Apprentice: ZAID CHÁVEZ ([id number])[facility])[address] [place] [address] Chloride [Moles/Vol] 110 mmol/L High 98-107 [facility] Comment on above: Performed By: #### L AB15 ####Hand Cutter Apprentice: ZAID CHÁVEZ ([id number])[facility])[address] [place] [address] CO2 [Moles/Vol] 24 mmol/L Normal 22-30 [facility] Comment on above: Performed By: #### L AB15 ####Hand Cutter Apprentice: ZAID CHÁVEZ ([id number])[facility])[address] [place] [address] Creatinine [Mass/Vol] 0.59 mg/dL Normal 0.52-1.04 [facility] Comment on above: Performed By: #### L AB15 ####Hand Cutter Apprentice: ZAID CHÁVEZ ([id number])[facility])[address] [place] [address] GLOMERULAR FILTRATION RATE ML/MIN/1.73 SQ M.PREDICTED >90.0 Normal >60.0 [facility] Comment on above: Result Comment: Calc ulation based on the Chronic Kidney Disease Epidemiology Collaboration (CKD-EPI) equation refit without adjustment for race Performed By: #### L AB15 ####Hand Cutter Apprentice: ZAID CHÁVEZ ([id number])[facility])[address] [place] [address] Glucose [Mass/Vol] 96 mg/dL Normal 70-100 [facility] Comment on above: Performed By: #### L AB15 ####Hand Cutter Apprentice: ZAID CHÁVEZ ([id number])[facility])[address] [place] [address] Potassium [Moles/Vol] 3.6 mmol/L Normal 3.5-5.1 [facility] Comment on above: Performed By: #### L AB15 ####Hand Cutter Apprentice: ZAID CHÁVEZ ([id number])[facility] ([facility])[address] [place] [address] [place] Sodium [Moles/Vol] 135 mmol/L Normal 135-145 [facility] Comment on above: Performed By: #### L AB15 ####Hand Cutter Apprentice: ZAID CHÁVEZ ([id number])[facility])[address] [place] [address] [place] Urea nitrogen [Mass/Vol] 24 mg/dL High 7-17 [facility] Comment on above: Performed By: #### L AB15 ####Hand Cutter Apprentice: ZAID CHÁVEZ ([id number])[facility] ([facility])[address] [place] [address] BLOOD TYPE AND SCREEN GELon 06-23-2024 ABO GROUPING O Normal [facility] Comment on above: Performed By: #### L [id number] ####Hand Cutter Apprentice: ZAID CHÁVEZ ([id number])[facility] ([facility])[address] [place] [address] RH TYPE IN BLOOD Positive Normal [facility] Comment on above: Performed By: #### L [id number] ####Hand Cutter Apprentice: ZAID CHÁVEZ ([id number])[facility] ([facility])[address] [place] [address] CBC WITH AUTO DIFFERENTIALon 06-23-2024 Basophils (Bld) [#/Vol] 0.0 10*3/uL Normal 0.0-0.2 [facility] Comment on above: Performed By: #### L [id number] ####Hand Cutter Apprentice: ZAID CHÁVEZ ([id number])[facility] ([facility])[address] [place] [address] Basophils/100 WBC (Bld) 0.5 % Normal 0.0-2.0 [facility] Comment on above: Performed By: #### L [id number] ####Hand Cutter Apprentice: ZAID CHÁVEZ ([id number])[facility])[address] [place] [address] Eosinophils (Bld) [#/Vol] 0.1 10*3/uL Normal 0.0-0.5 [facility] Comment on above: Performed By: #### L [id number] ####Hand Cutter Apprentice: ZAID CHÁVEZ ([id number])[facility])[address] [place] [address] Eosinophils/100 WBC (Bld) 1.6 % Normal 0.0-6.0 [facility] Comment on above: Performed By: #### L [id number] ####Hand Cutter Apprentice: ZAID [id number])[facility])[address] [place] [address] Erythrocyte distribution width (RBC) [Ratio] 20.6 % High 11.5-15.0 [facility] Comment on above: Performed By: #### L [id number] ####Hand Cutter Apprentice: ZAID CHÁVEZ ([id number])[facility])[address] [place] [address] Hematocrit (Bld) [Volume fraction] 22.9 % Low 35.0-47.0 [facility] Comment on above: Performed By: #### L [id number] ####Hand Cutter Apprentice: ZAID CHÁVEZ ([id number])[facility])[address] [place] [address] Hemoglobin (Bld) [Mass/Vol] 7.3 g/dL Low 11.7-16.0 [facility] Comment on above: Performed By: #### L [id number] ####Hand Cutter Apprentice: ZAID CHÁVEZ ([id number])[facility] ([facility])[address] [place] [address] IMMATURE GRANS % 1.4 % Normal 0.0-2.0 [facility] Comment on above: Performed By: #### L [id number] ####Hand Cutter Apprentice: ZAID CHÁVEZ ([id number])[facility])[address] [place] [address] IMMATURE GRANS ABSOLUTE 0.1 10*3/uL High <0.1 [facility] Comment on above: Performed By: #### L [id number] ####Hand Cutter Apprentice: ZAID CHÁVEZ ([id number])[facility] ([facility])[address] [place] [address] Lymphocytes (Bld) [#/Vol] 1.5 10*3/uL Normal 1.0-4.3 [facility] Comment on above: Performed By: #### L [id number] ####Hand Cutter Apprentice: ZAID CHÁVEZ ([id number])[facility])[address] [place] [address] [place] Lymphocytes/100 WBC (Bld) 40.8 % Normal 15.0-45.0 [facility] Comment on above: Performed By: #### L [id number] ####Hand Cutter Apprentice: ZAID CHÁVEZ ([id number])[facility])[address] [place] [address] MCH (RBC) [Entitic mass] 30.4 pg Normal 26.0-34.0 [facility] Comment on above: Performed By: #### L [id number] ####Hand Cutter Apprentice: ZAID CHÁVEZ ([id number])[facility])[address] [place] [address] MCHC 31.9 % Normal 30.5-36.0 [facility] Comment on above: Performed By: #### L [id number] ####Hand Cutter Apprentice: ZAID CHÁVEZ ([id number])[facility])[address] [place] [address] MCV (RBC) [Entitic vol] 95.4 fL Normal 77.0-99.0 [facility] Comment on above: Performed By: #### L [id number] ####Hand Cutter Apprentice: ZAID CHÁVEZ ([id number])[facility] ([facility])[address] [place] [address] Monocytes (Bld) [#/Vol] 0.2 10*3/uL Normal 0.0-0.9 [facility] Comment on above: Performed By: #### L [id number] ####Hand Cutter Apprentice: ZAID CHÁVEZ ([id number])[facility])[address] [place] [address] Monocytes/100 WBC (Bld) 4.6 % Low 5.0-13.0 [facility] Comment on above: Performed By: #### L [id number] ####Hand Cutter Apprentice: ZAID CHÁVEZ ([id number])[facility])[address] [place] [address] NEUTROPHILS ABSOLUTE 1.9 10*3/uL Normal 1.8-7.5 [facility] Comment on above: Performed By: #### L [id number] ####Hand Cutter Apprentice: ZAID CHÁVEZ ([id number])[facility] ([facility])[address] [place] [address] Neutrophils/100 WBC (Bld) 51.1 % Normal 38.0-82.0 [facility] Comment on above: Performed By: #### L [id number] ####Hand Cutter Apprentice: ZAID CHÁVEZ ([id number])[facility] ([facility])[address] [place] [address] NRBC 2.4 /100 WBCs High 0.0-2.0 [facility] Comment on above: Performed By: #### L [id number] ####Hand Cutter Apprentice: ZAID CHÁVEZ ([id number])[facility] ([facility])[address] [place] [address] Platelet mean volume (Bld) [Entitic vol] 10.6 fL Normal 9.0-12.7 [facility] Comment on above: Performed By: #### L [id number] ####Hand Cutter Apprentice: ZAID CHÁVEZ ([id number])[facility] ([facility])[address] [place] [address] Platelets (Bld) [#/Vol] 103 10*3/uL Low 140-440 [facility] Comment on above: Performed By: #### L [id number] ####Hand Cutter Apprentice: ZAID CHÁVEZ ([id number])[facility])[address] [place] [address] RBC (Bld) [#/Vol] 2.40 10*6/uL Low 3.80-5.20 [facility] Comment on above: Performed By: #### L [id number] ####Hand Cutter Apprentice: ZAID CHÁVEZ ([id number])[facility])[address] [place] [address] [place] WBC (Bld) [#/Vol] 3.7 10*3/uL Normal 3.6-10.7 [facility] Comment on above: Performed By: #### L [id number] ####Hand Cutter Apprentice: ZAID CHÁVEZ ([id number])[facility])[address] [place] [address] HEMOGLOBINon 06-23-2024 Hemoglobin (Bld) [Mass/Vol] 7.8 g/dL Low 11.7-16.0 [facility] Comment on above: Performed By: #### L [id number] ####Hand Cutter Apprentice: ZAID CHÁVEZ ([phone])[facility])[address] [place] [address] OCCULT BLOOD, STOOLon 2023 OCCULT BLOOD, STOOL FECAL OCCULT, STOOL (A) Reference Positive Negative ORDER COMMENTS: (A) Methodology: Immunoassay Normal [facility] Comment on above: Performed By: #### L [id number] #### Hand Cutter Apprentice: ZAID CHÁVEZ ([id number]) [facility] ([facility]) [address] [place] [address] 30on 06-22-2024 30 Problem: Knowledge Deficit Goal: Patient/family/caregiv er demonstrates understanding of disease process, treatment plan, medications, and discharge instructions Outcome: Progressing Problem: Potential for Compromised Skin Integrity Goal: Skin Integrity is Maintained or Improved Outcome: Progressing Normal [facility] 30 Problem: Knowledge Deficit Goal: Patient/family/caregiv er demonstrates understanding of disease process, treatment plan, medications, and discharge instructions Outcome: Progressing Problem: Potential for Compromised Skin Integrity Goal: Skin Integrity is Maintained or Improved Outcome: Progressing Goal: Nutritional status is improving Outcome: Progressing Problem: Urinary Incontinence Goal: Perineal skin integrity is maintained or improved Outcome: Progressing Normal [facility] [id number] 06-22-2024 [id number] Care Managment Initi al Assessment Date: 06/22/2024 Patient Name: Hawa Bhakta : 1945 Patient Information Source of Information: Patient Cognition/Language: WFL - Within Functional Limits Permission given to speak with patient technical support representative/caregiv er as indicated: Yes (Daughter at bedside) Confirmation of Payer with patient/family: Payer Name: [employer] Medicare [place]: No Confirmation of Primary Care Physician: Confirmed PCP Name: Oliva Nuñez Seen in last 2 years?: Yes Primary Caregiver: Self If assistance needed, confirmed caregiver ready, willing and able to care for patient at discharge: Yes Confirmed with: Living Arrangements Current Residence: House Number of Floors 1 Number of Entry Steps: 5 or more Bed/Bath Levels: Both first floor Facility: Facility Name: Plan to Return: (TBD) Lives with: Alone Support Systems: Family members, Children Activities of Daily Living Ambulation: Independent Bathing/Dressing: Independent Elimination/Continence /Toileting: Independent Feeding: Independent Who Assists with Activities of Daily Living: Instrumental Activities of Daily Living Prescription Coverage: Yes Pharmacy Used: [facility] Medication Management: Independent Transportation/Shoppin g: Independent Transportation Mode: Needs Assistance with Transportation at Discharge: No Meal Preparation: Independent Laundry/Cleaning: Independent Finances/Bill Paying: Independent Communication: Independent Types of Care Services/Equipment Utilized Care Services: Dialysis Type: Durable Medical Equipment: Cane, CPap Patient's Goal/Discharge Plan Patient expects to be discharged to: TBD Discharge Planning Actions: Continue to follow Patient's Choice Rights and [employer] and Collaborative Relationships Disclosed as Indicated for Post-Acute Care: Interdisciplinary Team Engagement: Social Work Referral for: Additional Information: [place] per patient. Lives alone, Independent ADLS/IADLS. DME cane and CPAP. Will need Therapy to better determine discharge needs. Jacque Hicks RN Normal [facility] BASIC METABOLIC PANELon 11-0 Anion gap [Moles/Vol] 4 mmol/L Normal 3-13 [facility] Comment on above: Performed By: #### L AB15 ####Hand Cutter Apprentice: ZAID CHÁVEZ ([phone])[address] Calcium [Mass/Vol] 7.5 mg/dL Low 8.4-10.4 [facility] Comment on above: Performed By: #### L AB15 ####Hand Cutter Apprentice: ZAID [id number])[address] Chloride [Moles/Vol] 112 mmol/L High 98-107 [facility] Comment on above: Performed By: #### L [id number] ####Hand Cutter Apprentice: ZAID [id number])[facility] ([facility])[address] [place] [address] CO2 [Moles/Vol] 20 mmol/L Low 22-30 [facility] Comment on above: Performed By: #### L AB15 ####Hand Cutter Apprentice: ZAID CHÁVEZ ([phone])[facility])[address] [place] [address] Creatinine [Mass/Vol] 0.70 mg/dL Normal 0.52-1.04 [facility] Comment on above: Performed By: #### L AB15 ####Hand Cutter Apprentice: ZAID CHÁVEZ ([phone])[facility])[address] [place] [address] GLOMERULAR FILTRATION RATE ML/MIN/1.73 SQ M.PREDICTED 89.2 mL/min/1.73m*2 Normal >60.0 [facility] Comment on above: Result Comment: Calc ulation based on the Chronic Kidney Disease Epidemiology Collaboration (CKD-EPI) equation refit without adjustment for race Performed By: #### L AB15 ####Hand Cutter Apprentice: ZAID CHÁVEZ ([phone])[facility] ([facility])[address] [place] [address] Glucose [Mass/Vol] 141 mg/dL High 70-100 [facility] Comment on above: Performed By: #### L AB15 ####Hand Cutter Apprentice: ZAID CHÁVEZ ([phone])[facility])[address] [place] [address] Potassium [Moles/Vol] 3.8 mmol/L Normal 3.5-5.1 [facility] Comment on above: Performed By: #### L AB15 ####Hand Cutter Apprentice: ZAID CHÁVEZ ([phone])[facility])[address] [place] [address] Sodium [Moles/Vol] 136 mmol/L Normal 135-145 [facility] Comment on above: Performed By: #### L AB15 ####Hand Cutter Apprentice: ZAID CHÁVEZ ([phone])[facility] [place] [address] Urea nitrogen [Mass/Vol] 27 mg/dL High 7-17 [facility] Comment on above: Performed By: #### L AB15 ####Hand Cutter Apprentice: ZAID CHÁVEZ ([phone])[facility])[address] [place] [address] CBC WITH AUTO DIFFERENTIALon 06-22-2024 Erythrocyte distribution width (RBC) [Ratio] 19.2 % High 11.5-15.0 [facility] Comment on above: Performed By: #### L [id number], [id number] ####Hand Cutter Apprentice: ZAID CHÁVEZ ([phone])[address] Hematocrit (Bld) [Volume fraction] 22.2 % Low 35.0-47.0 [facility] Comment on above: Performed By: #### L [id number], [id number] ####Hand Cutter Apprentice: ZAID CHÁVEZ ([phone])[facility])[address] [place] [address] Hemoglobin (Bld) [Mass/Vol] 7.3 g/dL Low 11.7-16.0 [facility] Comment on above: Performed By: #### L [id number], [id number] ####Hand Cutter Apprentice: ZAID CHÁVEZ ([phone])[address] MCH (RBC) [Entitic mass] 31.2 pg Normal 26.0-34.0 [facility] Comment on above: Performed By: #### L [id number], [id number] ####Hand Cutter Apprentice: ZAID CHÁVEZ ([phone])[address] MCHC 32.9 % Normal 30.5-36.0 [facility] Comment on above: Performed By: #### L [id number], [id number] ####Hand Cutter Apprentice: ZAID [id number])[facility] ([facility])[address] [place] [address] MCV (RBC) [Entitic vol] 94.9 fL Normal 77.0-99.0 [facility] Comment on above: Performed By: #### L [id number], [id number] ####Hand Cutter Apprentice: ZAID CHÁVEZ ([phone])[facility])[address] [place] [address] Platelet mean volume (Bld) [Entitic vol] 10.6 fL Normal 9.0-12.7 [facility] Comment on above: Performed By: #### L [id number], [id number] ####Hand Cutter Apprentice: ZAID CHÁVEZ ([id number])[facility])[address] [place] [address] Platelets (Bld) [#/Vol] 101 10*3/uL Low 140-440 [facility] Comment on above: Performed By: #### L [id number], [id number] ####Hand Cutter Apprentice: ZAID CHÁVEZ ([phone])[facility])[address] [place] [address] RBC (Bld) [#/Vol] 2.34 10*6/uL Low 3.80-5.20 [facility] Comment on above: Performed By: #### L [id number], [id number] ####Hand Cutter Apprentice: ZAID CHÁVEZ ([phone])[facility])[address] [place] [address] WBC (Bld) [#/Vol] 4.4 10*3/uL Normal 3.6-10.7 [facility] Comment on above: Performed By: #### L [id number], [id number] ####Hand Cutter Apprentice: ZAID CHÁVEZ ([phone])[facility])[address] [place] [address] COMPLETE URINALYSISon 2023 BACTERIA (#/HPF) IN URINE Many Abnormal Negative [facility] Comment on above: Performed By: #### L [id number] ####Hand Cutter Apprentice: ZAID CHÁVEZ ([phone])[facility] ([facility])[address] [place] [address] BILIRUBIN, TOTAL PRESENCE IN URINE Negative Normal Negative [facility] Comment on above: Performed By: #### L [id number] ####Hand Cutter Apprentice: ZAID CHÁVEZ ([phone])[facility] ([facility])[address] [place] [address] Clarity (U) Extra Turbid Abnormal Clear [facility] Comment on above: Performed By: #### L [id number] ####Hand Cutter Apprentice: ZAID CHÁVEZ ([phone])[facility] ([facility])[address] [place] [address] Color (U) Yellow Normal Lt. Yellow [facility] Comment on above: Performed By: #### L [id number] ####Hand Cutter Apprentice: ZAID CHÁVEZ ([phone])[facility] [place] [address] GLUCOSE (MG/DL) IN URINE Normal Normal Normal (<70) [facility] Comment on above: Performed By: #### L [id number] ####Hand Cutter Apprentice: ZAID CHÁVEZ ([phone])[facility] ([facility])[address] [place] [address] HEMOGLOBIN PRESENCE IN URINE Negative Normal Negative [facility] Comment on above: Performed By: #### L [id number] ####Hand Cutter Apprentice: ZAID CHÁVEZ ([phone])[facility] [place] [address] Ketones Ql (U) Negative Normal Negative [facility] Comment on above: Performed By: #### L [id number] ####Hand Cutter Apprentice: ZAID CHÁVEZ ([phone])[facility] ([facility])[address] [place] [address] LEUKOCYTE ESTERASE PRESENCE IN URINE BY TEST STRIP 500 Nilay/uL Abnormal Negative [facility] Comment on above: Performed By: #### L [id number] ####Hand Cutter Apprentice: ZAID CHÁVEZ ([phone])[facility] ([facility])[address] [place] [address] [place] MUCUS (#/LPF) IN URINE SEDIMENT Few Normal Negative [facility] Comment on above: Performed By: #### L [id number] ####Hand Cutter Apprentice: ZAID CHÁVEZ ([phone])[facility])[address] [place] [address] NITRITE PRESENCE IN URINE Negative Normal Negative [facility] Comment on above: Performed By: #### L [id number] ####Hand Cutter Apprentice: ZAID CHÁVEZ ([phone])[facility])[address] [place] [address] pH (U) 8.5 [pH] Abnormal 5.0-8.0 [facility] Comment on above: Performed By: #### L [id number] ####Hand Cutter Apprentice: ZAID CHÁVEZ ([phone])[facility])[address] [place] [address] Protein (U) [Mass/Vol] 200 mg/dL Abnormal Negative [facility] Comment on above: Performed By: #### L [id number] ####Hand Cutter Apprentice: ZAID CHÁVEZ ([phone])[facility] ([facility])[address] [place] [address] RBC (#/HPF) IN URINE SEDIMENT 0-2 Normal 0-2 [facility] Comment on above: Performed By: #### L [id number] ####Hand Cutter Apprentice: ZAID CHÁVEZ ([phone])[facility])[address] [place] [address] Specific gravity (U) [Rel density] 1.012 Normal 1.005-1.030 [facility] Comment on above: Performed By: #### L [id number] ####Hand Cutter Apprentice: ZAID CHÁVEZ ([phone])[facility])[address] [place] [address] SQUAMOUS EPITHELIAL CELLS (#/HPF) IN URINE SEDIMENT 3-5 Normal 3-5 [facility] Comment on above: Performed By: #### L [id number] ####Hand Cutter Apprentice: ZAID CHÁVEZ ([phone])[facility] ([facility])[address] [place] [address] TRIPLE PHOSPHATE CRYSTALS (#/HPF) IN URINE Moderate Abnormal Negative [facility] Comment on above: Performed By: #### L [id number] ####Hand Cutter Apprentice: ZAID CHÁVEZ ([phone])[facility] ([facility])[address] [place] [address] UROBILINOGEN (MG/DL) IN URINE Normal Normal Normal (0-1) [facility] Comment on above: Performed By: #### L [id number] ####Hand Cutter Apprentice: ZAID CHÁVEZ ([phone])[facility])[address] [place] [address] WBC (LEUKOCYTE) (#/HPF) IN URINE SEDIMENT >100 Abnormal 0-5 [facility] Comment on above: Performed By: #### L [id number] ####Hand Cutter Apprentice: ZAID CHÁVEZ ([phone])[facility] ([facility])[address] [place] [address] HEMOGLOBINon 06-22-2024 Hemoglobin (Bld) [Mass/Vol] 7.9 g/dL Low 11.7-16.0 [facility] Comment on above: Performed By: #### L [id number] ####Hand Cutter Apprentice: ZAID CHÁVEZ ([phone])[facility] ([facility])[address] [place] [address] MANUAL DIFFERENTIAL (CELLAVI BRENDAN)on 06-22-2024 ANISOCYTOSIS PRESENCE IN BLOOD BY LIGHT MICROSCOPY Slight Abnormal (none) [facility] Comment on above: Performed By: #### L [id number], [id number] ####Hand Cutter Apprentice: ZAID CHÁVEZ ([phone])[facility])[address] [place] [address] BAND NEUTROPHILS TOTAL PER COUNTED LEUKOCYTES BY MANUAL COUNT Normal [facility] Comment on above: Performed By: #### L [id number], [id number] ####Hand Cutter Apprentice: ZAID CHÁVEZ ([phone])[facility] ([facility])[address] [place] [address] [place] BASOPHILS TOTAL PER COUNTED LEUKOCYTES BY MANUAL COUNT Normal [facility] Comment on above: Performed By: #### L [id number], [id number] ####Hand Cutter Apprentice: ZAID CHÁVEZ ([phone])[facility])[address] [place] [address] [place] BLASTS TOTAL PER COUNTED LEUKOCYTES BY MANUAL COUNT Normal [facility] Comment on above: Performed By: #### L [id number], [id number] ####Hand Cutter Apprentice: ZAID CHÁVEZ ([phone])[facility])[address] [place] [address] [place] EOSINOPHILS (10*3/UL) IN BLOOD-CELLAVISION 0.0 10*3/uL Normal 0.0-0.5 [facility] Comment on above: Performed By: #### L [id number], [id number] ####Hand Cutter Apprentice: ZAID CHÁVEZ ([phone])[facility])[address] [place] [address] [place] EOSINOPHILS TOTAL PER COUNTED LEUKOCYTES BY MANUAL COUNT 1 Normal 0-1 [facility] Comment on above: Performed By: #### L [id number], [id number] ####Hand Cutter Apprentice: ZAID CHÁVEZ ([phone])[facility])[address] [place] [address] [place] EOSINOPHILS/100 LEUKOCYTES IN BLOOD-CELLAVISION 1 % Normal 0-6 [facility] Comment on above: Performed By: #### L [id number], [id number] ####Hand Cutter Apprentice: ZAID CHÁVEZ ([phone])[facility])[address] [place] [address] [place] LYMPHOCYTES (10*3/UL) IN BLOOD-CELLAVISION 1.8 10*3/uL Normal 1.0-4.3 [facility] Comment on above: Performed By: #### L [id number], [id number] ####Hand Cutter Apprentice: ZAID CHÁVEZ ([phone])[facility])[address] [place] [address] [place] LYMPHOCYTES TOTAL PER COUNTED LEUKOCYTES BY MANUAL COUNT 32 Normal [facility] Comment on above: Performed By: #### L [id number], [id number] ####Hand Cutter Apprentice: ZAID CHÁVEZ ([phone])[facility])[address] [place] [address] LYMPHOCYTES/100 LEUKOCYTES IN BLOOD-CELLAVISION 41 % Normal 15-45 [facility] Comment on above: Performed By: #### L [id number], [id number] ####Hand Cutter Apprentice: ZAID CHÁVEZ ([phone])[facility] ([facility])[address] [place] [address] MACROCYTES (PRESENCE) IN BLOOD BY LIGHT MICROSCOPY Slight Abnormal (none) [facility] Comment on above: Performed By: #### L [id number], [id number] ####Hand Cutter Apprentice: ZAID CHÁVEZ ([phone])[facility] ([facility])[address] [place] [address] METAMYELOCYTES TOTAL PER COUNTED LEUKOCYTES BY MANUAL COUNT Normal [facility] Comment on above: Performed By: #### L [id number], [id number] ####Hand Cutter Apprentice: ZAID CHÁVEZ ([phone])[facility] ([facility])[address] [place] [address] MICROCYTES (PRESENCE) IN BLOOD BY LIGHT MICROSCOPY Slight Abnormal (none) [facility] Comment on above: Performed By: #### L [id number], [id number] ####Hand Cutter Apprentice: ZAID CHÁVEZ ([phone])[facility] ([facility])[address] [place] [address] [place] MONOCYTES (10*3/UL) IN BLOOD-CELLAVISION 0.0 10*3/uL Normal 0.0-0.9 [facility] Comment on above: Performed By: #### L [id number], [id number] ####Hand Cutter Apprentice: ZAID CHÁVEZ ([phone])[facility] ([facility])[address] [place] [address] [place] MONOCYTES TOTAL PER COUNTED LEUKOCYTES BY MANUAL COUNT 1 Normal [facility] Comment on above: Performed By: #### L [id number], [id number] ####Hand Cutter Apprentice: ZAID CHÁVEZ ([phone])[facility] ([facility])[address] [place] [address] [place] MONOCYTES/100 LEUKOCYTES IN BLOOD-ANITA 1 % Low 5-13 [facility] Comment on above: Performed By: #### L [id number], [id number] ####Hand Cutter Apprentice: ZAID CHÁVEZ ([phone])[facility] ([facility])[address] [place] [address] [place] MYELOCYTES COUNTED BY MANUAL COUNT Normal [facility] Comment on above: Performed By: #### L [id number], [id number] ####Hand Cutter Apprentice: ZAID CHÁVEZ ([phone])[facility] [place] [address] [place] NEUTROPHILS TOTAL PER COUNTED LEUKOCYTES BY MANUAL COUNT 44 Normal [facility] Comment on above: Performed By: #### L [id number], [id number] ####Hand Cutter Apprentice: ZAID CHÁVEZ ([phone])[facility] ([facility])[address] [place] [address] [place] POLYCHROMASIA IN BLOOD BY LIGHT MICROSCOPY Slight Abnormal (none) [facility] Comment on above: Performed By: #### L [id number], [id number] ####Hand Cutter Apprentice: ZAID CHÁVEZ ([phone])[facility] ([facility])[address] [place] [address] [place] PROMYELOCYTES TOTAL PER COUNTED LEUKOCYTES BY MANUAL COUNT Normal [facility] Comment on above: Performed By: #### L [id number], [id number] ####Hand Cutter Apprentice: ZAID CHÁVEZ ([phone])[facility] [place] [address] [place] RBC MORPHOLOGY IN BLOOD abnormal Normal [facility] Comment on above: Performed By: #### L [id number], [id number] ####Hand Cutter Apprentice: ZAID CHÁVEZ ([phone])[facility] ([facility])[address] [place] [address] [place] SEGMENTED NEUTROPHILS (10*3/UL) IN BLOOD-CELLAVISION 2.5 10*3/uL Normal 1.8-7.5 [facility] Comment on above: Performed By: #### L [id number], [id number] ####Hand Cutter Apprentice: ZAID CHÁVEZ ([phone])[facility] ([facility])[address] [place] [address] SEGMENTED NEUTROPHILS/100 LEUKOCYTES-CE 56 % Normal 38-82 [facility] Comment on above: Performed By: #### L [id number], [id number] ####Hand Cutter Apprentice: ZAID CHÁVEZ ([phone])[facility] ([facility])[address] [place] [address] UNCLASSIFIED CELLS TOTAL PER COUNTED LEUKOCYTES BY MANUAL COUNT [facility] Comment on above: Performed By: #### L [id number], [id number] ####Hand Cutter Apprentice: ZAID CHÁVEZ ([phone])[facility])[address] [place] [address] VARIANT LYMPHOCYTES TOTAL PER COUNTED LEUKOCYTES BY MANUAL COUNT [facility] Comment on above: Performed By: #### L [id number], [id number] ####Hand Cutter Apprentice: ZAID CHÁVEZ ([phone])[facility])[address] [place] [address] Nursing Noteon 06-22-2024 Nursing Note Wound Care consulted for Pressure Injury Prevention. Pt's Toni= 19, pt is no longer at risk. Skin Care Precaution order set in place. Will continue to follow peripherally. Please voicera or secure chat message with any questions. Karley Sal RN Normal [facility] URINE CULTUREon 06-22-2024 Bacteria identified Cx Nom (U) URINE CULTURE Reference Normal urogenital daniella present ESCHERICHIA COLI >100,000 CFU/mL Escherichia coli (A) Organism: ESCHERICHIA COLI Antibiotic ALLISON Interpretation Status Amoxicillin / Clavulanate 4 ug/ml S F Ampicillin 4 ug/ml S F Ampicillin / Sulbactam <=2 ug/ml S F Aztreonam <=1 ug/ml S F Cefazolin <=4 ug/ml S F Cefepime <=1 ug/ml S F Ceftriaxone <=1 ug/ml S F Ciprofloxacin <=0.25 ug/ml S F Gentamicin <=1 ug/ml S F Meropenem <=0.25 ug/ml S F Nitrofurantoin >=512 ug/ml R F Piperacillin / Tazobactam <=4 ug/ml S F Trimethoprim / Sulfamethoxazole <=20 ug/ml S F [ S = SUSCEPTIBLE R = RESISTANT I = INTERMEDIATE S-DD = Susceptible-dose dependent NS = Non-susceptible NO = No Interpretation ] Normal [facility] Comment on above: Performed By: #### L [id number] ####Hand Cutter Apprentice: ZAID CHÁVEZ ([phone])[facility])[address] [place] [address] [id number] 06-21-2024 [id number] [employer] [facility] p. offered absentee ballot application on this day. Patient declines- already voted. Normal [facility] BASIC METABOLIC PANELon 110 Anion gap [Moles/Vol] 3 mmol/L Normal 3-13 [facility] Comment on above: Performed By: #### L AB103, LAB15 ####Hand Cutter Apprentice: ZAID CHÁVEZ ([phone])[facility])[address] [place] [address] Calcium [Mass/Vol] 7.2 mg/dL Low 8.4-10.4 [facility] Comment on above: Performed By: #### L AB103, LAB15 ####Hand Cutter Apprentice: ZAID CHÁVEZ ([phone])[facility])[address] [place] [address] [place] Chloride [Moles/Vol] 107 mmol/L Normal 98-107 [facility] Comment on above: Performed By: #### L AB103, LAB15 ####Hand Cutter Apprentice: ZAID CHÁVEZ ([phone])[facility])[address] [place] [address] [place] CO2 [Moles/Vol] 22 mmol/L Normal 22-30 [facility] Comment on above: Performed By: #### L AB103, LAB15 ####Hand Cutter Apprentice: ZAID CHÁVEZ ([phone])[facility] ([facility])[address] [place] [address] Creatinine [Mass/Vol] 0.63 mg/dL Normal 0.52-1.04 [facility] Comment on above: Performed By: #### L AB103, LAB15 ####Hand Cutter Apprentice: ZAID CHÁVEZ ([phone])[facility])[address] [place] [address] GLOMERULAR FILTRATION RATE ML/MIN/1.73 SQ M.PREDICTED >90.0 Normal >60.0 [facility] Comment on above: Result Comment: Calc ulation based on the Chronic Kidney Disease Epidemiology Collaboration (CKD-EPI) equation refit without adjustment for race Performed By: #### L AB103, LAB15 ####Hand Cutter Apprentice: ZAID CHÁVEZ ([phone])[facility])[address] [place] [address] Glucose [Mass/Vol] 108 mg/dL High 70-100 [facility] Comment on above: Performed By: #### L AB103, LAB15 ####Hand Cutter Apprentice: ZAID CHÁVEZ ([phone])[facility])[address] [place] [address] Potassium [Moles/Vol] 3.4 mmol/L Low 3.5-5.1 [facility] Comment on above: Performed By: #### L AB103, LAB15 ####Hand Cutter Apprentice: ZAID CHÁVEZ ([phone])[facility])[address] [place] [address] Sodium [Moles/Vol] 132 mmol/L Low 135-145 [facility] Comment on above: Performed By: #### L AB103, LAB15 ####Hand Cutter Apprentice: ZAID CHÁVEZ ([phone])[facility])[address] [place] [address] Urea nitrogen [Mass/Vol] 33 mg/dL High 7-17 [facility] Comment on above: Performed By: #### L AB103, LAB15 ####Hand Cutter Apprentice: ZAID CHÁVEZ ([phone])[facility])[address] [place] [address] CBC WITH AUTO DIFFERENTIALon 06-21-2024 Erythrocyte distribution width (RBC) [Ratio] 18.3 % High 11.5-15.0 [facility] Comment on above: Performed By: #### L [id number], [id number] ####Hand Cutter Apprentice: ZAID CHÁVEZ ([phone])[facility])[address] [place] [address] Hematocrit (Bld) [Volume fraction] 23.9 % Low 35.0-47.0 [facility] Comment on above: Performed By: #### L [id number], [id number] ####Hand Cutter Apprentice: ZAID CHÁVEZ ([phone])[address] Hemoglobin (Bld) [Mass/Vol] 7.7 g/dL Low 11.7-16.0 [facility] Comment on above: Performed By: #### L [id number], [id number] ####Hand Cutter Apprentice: ZAID CHÁVEZ ([phone])[address] IPF 4 Normal [facility] Comment on above: Performed By: #### L [id number], [id number] ####Hand Cutter Apprentice: ZAID CHÁVEZ ([phone])[facility])[address] [place] [address] MCH (RBC) [Entitic mass] 30.7 pg Normal 26.0-34.0 [facility] Comment on above: Performed By: #### L [id number], [id number] ####Hand Cutter Apprentice: ZAID CHÁVEZ ([phone])[address] MCHC 32.2 % Normal 30.5-36.0 [facility] Comment on above: Performed By: #### L [id number], [id number] ####Hand Cutter Apprentice: ZAID [id number])[facility] ([facility])[address] [place] [address] MCV (RBC) [Entitic vol] 95.2 fL Normal 77.0-99.0 [facility] Comment on above: Performed By: #### L [id number], [id number] ####Hand Cutter Apprentice: ZAID CHÁVEZ ([phone])[facility] ([facility])[address] [place] [address] Platelet mean volume (Bld) [Entitic vol] 10.8 fL Normal 9.0-12.7 [facility] Comment on above: Performed By: #### L [id number], [id number] ####Hand Cutter Apprentice: ZAID CHÁVEZ ([phone])[facility] ([facility])[address] [place] [address] Platelets (Bld) [#/Vol] 79 10*3/uL Low 140-440 [facility] Comment on above: Performed By: #### L [id number], [id number] ####Hand Cutter Apprentice: ZAID CHÁVEZ ([phone])[facility] ([facility])[address] [place] [address] RBC (Bld) [#/Vol] 2.51 10*6/uL Low 3.80-5.20 [facility] Comment on above: Performed By: #### L [id number], [id number] ####Hand Cutter Apprentice: ZAID CHÁVEZ ([phone])[facility] ([facility])[address] [place] [address] WBC (Bld) [#/Vol] 5.1 10*3/uL Normal 3.6-10.7 [facility] Comment on above: Performed By: #### L [id number], [id number] ####Hand Cutter Apprentice: ZAID CHÁVEZ ([phone])[facility])[address] [place] [address] MAGNESIUMon 06-21-2024 Magnesium [Mass/Vol] 1.8 mg/dL Normal 1.6-2.3 [facility] Comment on above: Performed By: #### L [id number], [id number] ####Hand Cutter Apprentice: ZAID CHÁVEZ ([phone])[facility] [place] [address] MANUAL DIFFERENTIAL (CELLAVI BRENDAN)on 06-21-2024 ANISOCYTOSIS PRESENCE IN BLOOD BY LIGHT MICROSCOPY Slight Abnormal (none) [facility] Comment on above: Performed By: #### L [id number], [id number] ####Hand Cutter Apprentice: ZAID CHÁVEZ ([phone])[facility] [place] [address] BAND NEUTROPHILS TOTAL PER COUNTED LEUKOCYTES BY MANUAL COUNT Normal [facility] Comment on above: Performed By: #### L [id number], [id number] ####Hand Cutter Apprentice: ZAID CHÁVEZ ([phone])[facility] ([facility])[address] [place] [address] BASOPHILS TOTAL PER COUNTED LEUKOCYTES BY MANUAL COUNT Normal [facility] Comment on above: Performed By: #### L [id number], [id number] ####Hand Cutter Apprentice: ZAID CHÁVEZ ([phone])[facility] ([facility])[address] [place] [address] BLASTS TOTAL PER COUNTED LEUKOCYTES BY MANUAL COUNT Normal [facility] Comment on above: Performed By: #### L [id number], [id number] ####Hand Cutter Apprentice: ZAID CHÁVEZ ([phone])[facility] ([facility])[address] [place] [address] EOSINOPHILS TOTAL PER COUNTED LEUKOCYTES BY MANUAL COUNT Normal [facility] Comment on above: Performed By: #### L [id number], [id number] ####Hand Cutter Apprentice: ZAID CHÁVEZ ([phone])[facility] ([facility])[address] [place] [address] [place] LYMPHOCYTES (10*3/UL) IN BLOOD-CELLAVISION 1.5 10*3/uL Normal 1.0-4.3 [facility] Comment on above: Performed By: #### L [id number], [id number] ####Hand Cutter Apprentice: ZAID CHÁVEZ ([phone])[facility] [place] [address] [place] LYMPHOCYTES TOTAL PER COUNTED LEUKOCYTES BY MANUAL COUNT 29 Normal [facility] Comment on above: Performed By: #### L [id number], [id number] ####Hand Cutter Apprentice: ZAID CHÁVEZ ([phone])[facility] [place] [address] [place] LYMPHOCYTES/100 LEUKOCYTES IN BLOOD-CELLAVISION 29 % Normal 15-45 [facility] Comment on above: Performed By: #### L [id number], [id number] ####Hand Cutter Apprentice: ZAID CHÁVEZ ([phone])[facility] ([facility])[address] [place] [address] MACROCYTES (PRESENCE) IN BLOOD BY LIGHT MICROSCOPY Slight Abnormal (none) [facility] Comment on above: Performed By: #### L [id number], [id number] ####Hand Cutter Apprentice: ZAID CHÁVEZ ([phone])[facility] [place] [address] [place] METAMYELOCYTES TOTAL PER COUNTED LEUKOCYTES BY MANUAL COUNT Normal [facility] Comment on above: Performed By: #### L [id number], [id number] ####Hand Cutter Apprentice: ZAID CHÁVEZ ([phone])[facility] ([facility])[address] [place] [address] MICROCYTES (PRESENCE) IN BLOOD BY LIGHT MICROSCOPY Slight Abnormal (none) [facility] Comment on above: Performed By: #### L [id number], [id number] ####Hand Cutter Apprentice: ZAID CHÁVEZ ([phone])[facility] [place] [address] [place] MONOCYTES (10*3/UL) IN BLOOD-CELLAVISION 0.0 10*3/uL Normal 0.0-0.9 [facility] Comment on above: Performed By: #### L [id number], [id number] ####Hand Cutter Apprentice: ZAID CHÁVEZ ([phone])[facility] ([facility])[address] [place] [address] [place] MONOCYTES TOTAL PER COUNTED LEUKOCYTES BY MANUAL COUNT 0 Normal [facility] Comment on above: Performed By: #### L [id number], [id number] ####Hand Cutter Apprentice: ZAID CHÁVEZ ([phone])[facility] ([facility])[address] [place] [address] [place] MONOCYTES/100 LEUKOCYTES IN BLOOD-ANITA 0 % Low 5-13 [facility] Comment on above: Performed By: #### L [id number], [id number] ####Hand Cutter Apprentice: ZAID CHÁVEZ ([id number])[facility] ([facility])[address] [place] [address] [place] MYELOCYTES COUNTED BY MANUAL COUNT [facility] Comment on above: Performed By: #### L [id number], [id number] ####Hand Cutter Apprentice: ZAID CHÁVEZ ([phone])[facility] ([facility])[address] [place] [address] [place] NEUTROPHILS TOTAL PER COUNTED LEUKOCYTES BY MANUAL COUNT 71 Normal [facility] Comment on above: Performed By: #### L [id number], [id number] ####Hand Cutter Apprentice: ZAID CHÁVEZ ([phone])[facility] ([facility])[address] [place] [address] [place] NUCLEATED ERYTHROCYTES/100 LEUKOCTES IN BLOOD-CELLAVISION 8 % High 0-2 [facility] Comment on above: Performed By: #### L [id number], [id number] ####Hand Cutter Apprentice: ZAID CHÁVEZ ([phone])[facility] ([facility])[address] [place] [address] [place] OVALOCYTES PRESENCE IN BLOOD BY LIGHT MICROSCOPY Slight Abnormal (none) [facility] Comment on above: Performed By: #### L [id number], [id number] ####Hand Cutter Apprentice: ZAID CHÁVEZ ([phone])[facility] ([facility])[address] [place] [address] [place] POIKILOCYTOSIS (PRESENCE) IN BLOOD BY LIGHT MICROSCOPY Slight Abnormal (none) [facility] Comment on above: Performed By: #### L [id number], [id number] ####Hand Cutter Apprentice: ZAID CHÁVEZ ([phone])[facility] [place] [address] POLYCHROMASIA IN BLOOD BY LIGHT MICROSCOPY Slight Abnormal (none) [facility] Comment on above: Performed By: #### L [id number], [id number] ####Hand Cutter Apprentice: ZAID CHÁVEZ ([phone])[facility] ([facility])[address] [place] [address] PROMYELOCYTES TOTAL PER COUNTED LEUKOCYTES BY MANUAL COUNT Normal [facility] Comment on above: Performed By: #### L [id number], [id number] ####Hand Cutter Apprentice: ZAID CHÁVEZ ([phone])[facility] ([facility])[address] [place] [address] RBC MORPHOLOGY IN BLOOD abnormal Normal [facility] Comment on above: Performed By: #### L [id number], [id number] ####Hand Cutter Apprentice: ZAID CHÁVEZ ([phone])[facility] ([facility])[address] [place] [address] SCHISTOCYTES (PRESENCE) IN BLOOD BY LIGHT MICROSCOPY Rare Abnormal (none) [facility] Comment on above: Performed By: #### L [id number], [id number] ####Hand Cutter Apprentice: ZAID CHÁVEZ ([phone])[facility])[address] [place] [address] SEGMENTED NEUTROPHILS (10*3/UL) IN BLOOD-CELLAVISION 3.6 10*3/uL Normal 1.8-7.5 [facility] Comment on above: Performed By: #### L [id number], [id number] ####Hand Cutter Apprentice: ZAID CHÁVEZ ([phone])[facility] ([facility])[address] [place] [address] [place] SEGMENTED NEUTROPHILS/100 LEUKOCYTES-CE 71 % Normal 38-82 [facility] Comment on above: Performed By: #### L [id number], [id number] ####Hand Cutter Apprentice: ZAID CHÁVEZ ([phone])[facility] ([facility])[address] [place] [address] UNCLASSIFIED CELLS TOTAL PER COUNTED LEUKOCYTES BY MANUAL COUNT Normal [facility] Comment on above: Performed By: #### L [id number], [id number] ####Hand Cutter Apprentice: ZAID CHÁVEZ ([phone])[facility])[address] [place] [address] VARIANT LYMPHOCYTES TOTAL PER COUNTED LEUKOCYTES BY MANUAL COUNT Normal [facility] Comment on above: Performed By: #### L [id number], [id number] ####Hand Cutter Apprentice: ZAID CHÁVEZ ([phone])[address] 30on 06-20-2024 30 The patient is Problem: Knowledge Deficit Goal: Patient/family/caregiv er demonstrates understanding of disease process, treatment plan, medications, and discharge instructions Outcome: Progressing The patient's goals for the shift include Find out plan The clinical goals for the shift include Maintain hemodynamic stability Over the shift, the patient did not make progress toward the following goals. Barriers to progression include Problem: Knowledge Deficit Goal: Patient/family/caregiv er demonstrates understanding of disease process, treatment plan, medications, and discharge instructions Outcome: Progressing . Recommendations to address these barriers include Problem: Knowledge Deficit Goal: Patient/family/caregiv er demonstrates understanding of disease process, treatment plan, medications, and discharge instructions Outcome: Progressing . Normal [facility] 30 Problem: Knowledge Deficit Goal: Patient/family/caregiv er demonstrates understanding of disease process, treatment plan, medications, and discharge instructions Outcome: Progressing Problem: Potential for Compromised Skin Integrity Goal: Skin Integrity is Maintained or Improved Outcome: Progressing Normal [facility] BASIC METABOLIC PANELon 11-0 Anion gap [Moles/Vol] 3 mmol/L Normal 3-13 [facility] Comment on above: Performed By: #### L [id number], LAB15 ####Hand Cutter Apprentice: ZAID CHÁVEZ ([phone])[facility])[address] [place] [address] Calcium [Mass/Vol] 7.2 mg/dL Low 8.4-10.4 [facility] Comment on above: Performed By: #### L [id number], LAB15 ####Hand Cutter Apprentice: ZAID [id number])[facility] [place] [address] Chloride [Moles/Vol] 106 mmol/L Normal 98-107 [facility] Comment on above: Performed By: #### L [id number], LAB15 ####Hand Cutter Apprentice: ZAID CHÁVEZ ([phone])[facility] ([facility])[address] [place] [address] CO2 [Moles/Vol] 22 mmol/L Normal 22-30 [facility] Comment on above: Performed By: #### L [id number], LAB15 ####Hand Cutter Apprentice: ZAID CHÁVEZ ([phone])[facility])[address] [place] [address] Creatinine [Mass/Vol] 0.63 mg/dL Normal 0.52-1.04 [facility] Comment on above: Performed By: #### L [id number], LAB15 ####Hand Cutter Apprentice: ZAID CHÁVEZ ([phone])[facility] ([facility])[address] [place] [address] GLOMERULAR FILTRATION RATE ML/MIN/1.73 SQ M.PREDICTED >90.0 Normal >60.0 [facility] Comment on above: Result Comment: Calc ulation based on the Chronic Kidney Disease Epidemiology Collaboration (CKD-EPI) equation refit without adjustment for race Performed By: #### L AB103, LAB15 ####Hand Cutter Apprentice: ZAID CHÁVEZ ([phone])[facility] ([facility])[address] [place] [address] Glucose [Mass/Vol] 92 mg/dL Normal 70-100 [facility] Comment on above: Performed By: #### L AB103, LAB15 ####Hand Cutter Apprentice: ZAID CHÁVEZ ([phone])[facility])[address] [place] [address] Potassium [Moles/Vol] 3.2 mmol/L Low 3.5-5.1 [facility] Comment on above: Performed By: #### L AB103, LAB15 ####Hand Cutter Apprentice: ZAID [id number])[facility] ([facility])[address] [place] [address] Sodium [Moles/Vol] 132 mmol/L Low 135-145 [facility] Comment on above: Performed By: #### L AB103, LAB15 ####Hand Cutter Apprentice: ZAID CHÁVEZ ([phone])[facility])[address] [place] [address] Urea nitrogen [Mass/Vol] 37 mg/dL High 7-17 [facility] Comment on above: Performed By: #### L AB103, LAB15 ####Hand Cutter Apprentice: ZAID CHÁVEZ ([phone])[facility] ([facility])[address] [place] [address] CBC WITH AUTO DIFFERENTIALon 06-20-2024 Basophils (Bld) [#/Vol] 0.0 10*3/uL Normal 0.0-0.2 [facility] Comment on above: Performed By: #### L [id number] ####Hand Cutter Apprentice: ZAID CHÁVEZ ([phone])[facility] ([facility])[address] [place] [address] [place] Basophils/100 WBC (Bld) 0.2 % Normal 0.0-2.0 [facility] Comment on above: Performed By: #### L [id number] ####Hand Cutter Apprentice: ZAID CHÁVEZ ([phone])[facility])[address] [place] [address] Eosinophils (Bld) [#/Vol] 0.1 10*3/uL Normal 0.0-0.5 [facility] Comment on above: Performed By: #### L [id number] ####Hand Cutter Apprentice: ZAID CHÁVEZ ([phone])[facility] ([facility])[address] [place] [address] [place] Eosinophils/100 WBC (Bld) 1.2 % Normal 0.0-6.0 [facility] Comment on above: Performed By: #### L [id number] ####Hand Cutter Apprentice: ZAID CHÁVEZ ([phone])[facility] ([facility] Erythrocyte distribution width (RBC) [Ratio] 17.8 % High 11.5-15.0 [facility] Comment on above: Performed By: #### L [id number] ####Hand Cutter Apprentice: ZAID CHÁVEZ ([phone])[facility])[address] [place] [address] Hematocrit (Bld) [Volume fraction] 20.0 % Low 35.0-47.0 [facility] Comment on above: Performed By: #### L [id number] ####Hand Cutter Apprentice: ZAID CHÁVEZ ([phone])[address] Hemoglobin (Bld) [Mass/Vol] 6.9 g/dL Critically low 11.7-16.0 [facility] Comment on above: Performed By: #### L [id number] ####Hand Cutter Apprentice: ZAID CHÁVEZ ([phone])[facility])[address] [place] [address] IMMATURE GRANS % 2.1 % High 0.0-2.0 [facility] Comment on above: Performed By: #### L [id number] ####Hand Cutter Apprentice: ZAID CHÁVEZ ([phone])[address] IMMATURE GRANS ABSOLUTE 0.1 10*3/uL High <0.1 [facility] Comment on above: Performed By: #### L [id number] ####Hand Cutter Apprentice: ZAID CHÁVEZ ([phone])[address] IPF 3 Normal [facility] Comment on above: Performed By: #### L [id number] ####Hand Cutter Apprentice: ZAID CHÁVEZ ([phone])[facility])[address] [place] [address] Lymphocytes (Bld) [#/Vol] 1.2 10*3/uL Normal 1.0-4.3 [facility] Comment on above: Performed By: #### L [id number] ####Hand Cutter Apprentice: ZAID CHÁVEZ ([phone])[facility])[address] [place] [address] Lymphocytes/100 WBC (Bld) 24.1 % Normal 15.0-45.0 [facility] Comment on above: Performed By: #### L [id number] ####Hand Cutter Apprentice: ZAID CHÁVEZ ([phone])[facility])[address] [place] [address] MCH (RBC) [Entitic mass] 30.4 pg Normal 26.0-34.0 [facility] Comment on above: Performed By: #### L [id number] ####Hand Cutter Apprentice: ZAID CHÁVEZ ([phone])[facility])[address] [place] [address] MCHC 34.5 % Normal 30.5-36.0 [facility] Comment on above: Performed By: #### L [id number] ####Hand Cutter Apprentice: ZAID CHÁVEZ ([phone])[facility] ([facility])[address] [place] [address] MCV (RBC) [Entitic vol] 88.1 fL Normal 77.0-99.0 [facility] Comment on above: Performed By: #### L [id number] ####Hand Cutter Apprentice: ZAID CHÁVEZ ([phone])[facility])[address] [place] [address] Monocytes (Bld) [#/Vol] 0.2 10*3/uL Normal 0.0-0.9 [facility] Comment on above: Performed By: #### L [id number] ####Hand Cutter Apprentice: ZAID CHÁVEZ ([phone])[facility])[address] [place] [address] Monocytes/100 WBC (Bld) 3.7 % Low 5.0-13.0 [facility] Comment on above: Performed By: #### L [id number] ####Hand Cutter Apprentice: ZAID CHÁVEZ ([phone])[facility])[address] [place] [address] NEUTROPHILS ABSOLUTE 3.5 10*3/uL Normal 1.8-7.5 [facility] Comment on above: Performed By: #### L [id number] ####Hand Cutter Apprentice: ZAID CHÁVEZ ([phone])[facility] ([facility])[address] [place] [address] Neutrophils/100 WBC (Bld) 68.7 % Normal 38.0-82.0 [facility] Comment on above: Performed By: #### L [id number] ####Hand Cutter Apprentice: ZAID CHÁVEZ ([phone])[facility] ([facility])[address] [place] [address] NRBC 6.4 /100 WBCs High 0.0-2.0 [facility] Comment on above: Performed By: #### L [id number] ####Hand Cutter Apprentice: ZAID CHÁVEZ ([phone])[facility] ([facility])[address] [place] [address] Platelet mean volume (Bld) [Entitic vol] 10.0 fL Normal 9.0-12.7 [facility] Comment on above: Performed By: #### L [id number] ####Hand Cutter Apprentice: ZAID CHÁVEZ ([phone])[facility] ([facility])[address] [place] [address] Platelets (Bld) [#/Vol] 99 10*3/uL Low 140-440 [facility] Comment on above: Performed By: #### L [id number] ####Hand Cutter Apprentice: ZAID CHÁVEZ ([phone])[facility] ([facility])[address] [place] [address] [place] RBC (Bld) [#/Vol] 2.27 10*6/uL Low 3.80-5.20 [facility] Comment on above: Performed By: #### L [id number] ####Hand Cutter Apprentice: ZAID CHÁVEZ ([phone])[facility] ([facility])[address] [place] [address] [place] WBC (Bld) [#/Vol] 5.2 10*3/uL Normal 3.6-10.7 [facility] Comment on above: Performed By: #### L [id number] ####Hand Cutter Apprentice: ZAID CHÁVEZ ([phone])[facility] ([facility])[address] [place] [address] Consulton 06-20-2024 Consult [facility] Cardiology /Electrophysiology Consult Note Reason for Consult/Chief Complaint: Atrial fibrillation, GI bleed History of Present Illness: Hawa Bhakta is a 79 y.o. female with a past medical history of hypertension, diverticulitis, temporal arteritis who presents with increasing weakness and melena to an outside facility. She was also found to be in atrial fibrillation with rapid rates. She was started on amiodarone drip. For her GI bleed, she underwent EGD and colonoscopy, which did not show any source of bleeding. She was also found to have a pulmonary embolus. She was transferred to [facility] for IVC filter placement, which she had done yesterday. She is scheduled for push enteroscopy tomorrow. She has paroxysmal's of atrial fibrillation. She is on p.o. amiodarone at this time. She is not on anticoagulation due to current bleed. Assessment/Plan Paroxysmal atrial fibrillation -May be from stress of GI bleed. -Can stop amiodarone at this time. Would pursue rate control for now. Currently in sinus rhythm. -She may need to be considered for a watchman implant as an outpatient. EP to follow peripherally. Please call with any questions. Medications: amiodarone, 200 mg, Oral, Daily influenza, 0.5 mL, IntraMUSCular, Prior to discharge metoprolol tartrate, 25 mg, Oral, BID pravastatin, 80 mg, Oral, Nightly sodium chloride 0.9%, 10 mL, IntraVENous, 2 times per day sodium chloride 0.9%, 5-40 mL, IntraVENous, q12h Infusion Medications: Physical Examination: Vitals: 06/19/24 2040 06/20/24 0253 06/20/24 0610 06/20/24 0921 BP: 111/53 125/51 103/54 129/50 BP Location: Right arm Patient Position: Lying Pulse: 86 79 90 101 Resp: 20 17 17 18 Temp: 36 ?C (96.8 ?F) (!) 35.9 ?C (96.6 ?F) 36 ?C (96.8 ?F) 36.1 ?C (97 ?F) TempSrc: Temporal Temporal Temporal Temporal SpO2: 97% 97% 97% 93% Weight: Height: Intake/Output Summary (Last 24 hours) at 06/20/2024 1222 Last data filed at 06/19/20242041 Gross per 24 hour Intake 754.83 ml Output -- Net 754.83 ml Wt Readings from Last 3 Encounters: 06/19/24 175 lb 1.6 oz (79.4 kg) Physical Exam Constitutional: Appearance: Normal appearance. HENT: Head: Normocephalic and atraumatic. Mouth/Throat: Mouth: Mucous membranes are moist. Eyes: Extraocular Movements: Extraocular movements intact. Cardiovascular: Rate and Rhythm: Normal rate. Rhythm irregular. Pulses: Normal pulses. Heart sounds: Normal heart sounds. Pulmonary: Effort: Pulmonary effort is normal. Breath sounds: Normal breath sounds. Abdominal: Palpations: Abdomen is soft. Musculoskeletal: General: Normal range of motion. Cervical back: Normal range of motion and neck supple. Skin: General: Skin is warm and dry. Neurological: General: No focal deficit present. Mental Status: She is alert and oriented to person, place, and time. Psychiatric: Mood and Affect: Mood normal. Behavior: Behavior normal. Thought Content: Thought content normal. Judgment: Judgment normal. Laboratory Tests: Recent Labs 06/19/24 0602 06/20/24 0026 NA 127* 132* K 3.3* 3.2* CL 103 106 CO2 21* 22 BUN 47* 37* CREATININE 0.68 0.63 EGFR 89.8 >90.0 No results for input(s): CKTOTAL , CKMB , CKMBINDEX , TROPONINI in the last 72 hours. Recent Labs 06/19/24 0602 06/20/24 0026 06/20/24 0944 WBC 5.9 -- 5.2 HGB 6.0* 7.7* 6.9* HCT 17.3* 22.4* 20.0* MCV 88.3 -- 88.1 PLT 107* -- 99* No results found for: HGBA1C No results found for: TSH No results found for: CHOL No results found for: HDL No results found for: LDLCALC No results found for: TRIG No results found for: CHOLHDL No results found for: LDLCHOLESTER No results for input(s): BNP in the last 72 hours. No results for input(s): INR in the last 72 hours. No results found for: IRON , TIBC , FERRITIN Radiology: CXR: personally reviewed: Cardiac Tests Personally Reviewed: Last EKG No results found for this or any previous visit. Reports reviewed: Last Echo No results found for this or any previous visit. Last Cath No results found for this or any previous visit. Last Stress Test No results found for this or any previous visit. Last EP study No results found for this or any previous visit. No results found for: EFBP , PLVEF , LVEFPHYS , LVEF2D , EF Meet Jun Maharaj MD DATE of SERVICE: 06/20/2024 Normal [facility] HEMOGLOBIN AND HEMATOCRIT, B LOODon 06-20-2024 Hematocrit (Bld) [Volume fraction] 24.2 % Low 35.0-47.0 [facility] Comment on above: Order Comment: Recom mend 1 hour post transfusion Performed By: #### L [id number] ####Hand Cutter Apprentice: ZAID CHÁVEZ ([id number])[address] Hemoglobin (Bld) [Mass/Vol] 8.3 g/dL Low 11.7-16.0 [facility] Comment on above: Order Comment: Recom mend 1 hour post transfusion Performed By: #### L [id number] ####Hand Cutter Apprentice: ZAID CHÁVEZ ([id number])[address] Hematocrit (Bld) [Volume fraction] 22.4 % Low 35.0-47.0 [facility] Comment on above: Order Comment: Recom mend 1 hour post transfusion Performed By: #### L [id number] ####Hand Cutter Apprentice: ZAID CHÁVEZ ([id number])[address] Hemoglobin (Bld) [Mass/Vol] 7.7 g/dL Low 11.7-16.0 [facility] Comment on above: Order Comment: Recom mend 1 hour post transfusion Performed By: #### L [id number] ####Hand Cutter Apprentice: ZAID CHÁVEZ ([phone])[facility] ([facility])[address] [place] [address] MAGNESIUMon 06-20-2024 Magnesium [Mass/Vol] 1.7 mg/dL Normal 1.6-2.3 [facility] Comment on above: Performed By: #### L AB103, [id number] ####Hand Cutter Apprentice: ZAID CHÁVEZ ([phone])[facility] ([facility])[address] [place] [address] Progress Noteon 06-20-2024 Progress Note -- Attestation signed by Leonard Adams MD at 06/20/2024 10:20 AM I have evaluated the patient and agree with the resident assessment and plan except for additional comments made in this note. Department of Vascular Surgery PATIENT NAME: Hawa Bhakta : 1945 ATTENDING PHYSICIAN: Everette Casillas MD ADMIT DATE: 06/19/2024 TODAY'S DATE: 06/20/2024 SUBJECTIVE NAEO Reports some nausea this AM, however on further GI bleeding No pain/numbness in extremities R groin access site w/o issues OBJECTIVE VITALS: BP 103/54 Pulse 90 Temp 36 ?C (96.8 ?F) (Temporal) Resp 17 Ht 5' 1 (1.549 m) Wt 175 lb 1.6 oz (79.4 kg) SpO2 97% BMI 33.08 kg/m? PHYSICAL EXAM: Gen: NAD, A&Ox3, pain well controlled Heart: RRR, well perfused Lungs: symmetric chest rise, normal work of breathing, breath sounds b/l Abd: soft, non tender, non distended. Non rigid. Ext: no c/c/e no gross deformities Skin: warm, well perfused, no obvious rashes, cellulitis or gross discoloration Vascular: RUE:palp LUE: palp R Fem:palp L Fem:palp RLE: DP palp PT palp LLE: DP palp PT palp INTAKE/OUTPUT: @IODETAILS@ I/O last 3 completed shifts: In: 754.8 (9.5 mL/kg) [I.V.:100 (1.3 mL/kg); Blood:654.8] Out: 200 (2.5 mL/kg) [Urine:200 (0.1 mL/kg/hr)] Weight: 79.4 kg No intake/output data recorded. Data Results from last 7 days Lab Units 06/20/24 0026 06/19/24 0602 WBC AUTO 10*3/uL -- 5.9 HEMOGLOBIN g/dL 7.7* 6.0* HEMATOCRIT % 22.4* 17.3* PLATELETS 10*3/uL -- 107* Results from last 7 days Lab Units 06/20/24 0026 06/19/24 0602 SODIUM mmol/L 132* 127* POTASSIUM mmol/L 3.2* 3.3* CHLORIDE mmol/L 106 103 CO2 mmol/L 22 21* BUN mg/dL 37* 47* CREATININE mg/dL 0.63 0.68 GLUCOSE mg/dL 92 143* CALCIUM mg/dL 7.2* 7.6* No lab exists for component: LABALBU No results found for: LIPASE Results from last 7 days Lab Units 06/20/24 0026 06/19/24 0602 MAGNESIUM mg/dL 1.7 1.8 ASSESSMENT AND PLAN 79 y.o. female status post IVC filter placement via R femoral vein access on 06/19 - Doing well post-procedure - Patient follow up placed in chart for Vascular surgery team - Further mgmt per primary team - Antiplatelet/anticoagu lation:NA - GIB - Vascular to sign off at this time Sonya Boudreaux MD General Surgery PGY-3 06/20/24 9:01 AM Pager # [phone] Normal [facility] 30on 06-19-2024 30 Problem: Knowledge Deficit Goal: Patient/family/caregiv er demonstrates understanding of disease process, treatment plan, medications, and discharge instructions Outcome: Progressing Problem: Potential for Compromised Skin Integrity Goal: Skin Integrity is Maintained or Improved Outcome: Progressing Normal [facility] BASIC METABOLIC PANELon 11-0 Anion gap [Moles/Vol] 3 mmol/L Normal 3-13 [facility] Comment on above: Performed By: #### L AB15, [id number] ####Hand Cutter Apprentice: ZAID CHÁVEZ ([phone])[facility])[address] [place] [address] Calcium [Mass/Vol] 7.6 mg/dL Low 8.4-10.4 [facility] Comment on above: Performed By: #### L AB15, [id number] ####Hand Cutter Apprentice: ZAID CHÁVEZ ([phone])[facility] [place] [address] [place] Chloride [Moles/Vol] 103 mmol/L Normal 98-107 [facility] Comment on above: Performed By: #### L AB15, [id number] ####Hand Cutter Apprentice: ZAID CHÁVEZ ([phone])[facility] ([facility])[address] [place] [address] [place] CO2 [Moles/Vol] 21 mmol/L Low 22-30 [facility] Comment on above: Performed By: #### L AB15, [id number] ####Hand Cutter Apprentice: ZAID CHÁVEZ ([phone])[facility] ([facility])[address] [place] [address] Creatinine [Mass/Vol] 0.68 mg/dL Normal 0.52-1.04 [facility] Comment on above: Performed By: #### L AB15, [id number] ####Hand Cutter Apprentice: ZAID CHÁVEZ ([phone])[facility] ([facility])[address] [place] [address] [place] GLOMERULAR FILTRATION RATE ML/MIN/1.73 SQ M.PREDICTED 89.8 mL/min/1.73m*2 Normal >60.0 [facility] Comment on above: Result Comment: Calc ulation based on the Chronic Kidney Disease Epidemiology Collaboration (CKD-EPI) equation refit without adjustment for race Performed By: #### L AB15, [id number] ####Hand Cutter Apprentice: ZAID CHÁVEZ ([phone])[facility])[address] [place] [address] Glucose [Mass/Vol] 143 mg/dL High 70-100 [facility] Comment on above: Performed By: #### L AB15, [id number] ####Hand Cutter Apprentice: ZAID CHÁVEZ ([phone])[facility])[address] [place] [address] Potassium [Moles/Vol] 3.3 mmol/L Low 3.5-5.1 [facility] Comment on above: Performed By: #### L AB15, [id number] ####Hand Cutter Apprentice: ZAID CHÁVEZ ([phone])[facility] ([facility])[address] [place] [address] Sodium [Moles/Vol] 127 mmol/L Low 135-145 [facility] Comment on above: Performed By: #### L AB15, [id number] ####Hand Cutter Apprentice: ZAID CHÁVEZ ([id number])[facility] ([facility])[address] [place] [address] Urea nitrogen [Mass/Vol] 47 mg/dL High 7-17 [facility] Comment on above: Performed By: #### L AB15, [id number] ####Hand Cutter Apprentice: ZAID CHÁVEZ ([phone])[facility])[address] [place] [address] BLOOD TYPE AND SCREEN GELon 06-19-2024 ABO GROUPING O Normal [facility] Comment on above: Performed By: #### L [id number] ####Hand Cutter Apprentice: ZAID CHÁVEZ ([id number])[facility] ([facility])[address] [place] [address] RH TYPE IN BLOOD Positive Normal [facility] Comment on above: Performed By: #### L [id number] ####Hand Cutter Apprentice: ZAID CHÁVEZ ([phone])[facility] ([facility])[address] [place] [address] CBC WITH AUTO DIFFERENTIALon 06-19-2024 Basophils (Bld) [#/Vol] 0.0 10*3/uL Normal 0.0-0.2 [facility] Comment on above: Performed By: #### L [id number] ####Hand Cutter Apprentice: ZAID CHÁVEZ ([phone])[facility] ([facility])[address] [place] [address] Basophils/100 WBC (Bld) 0.2 % Normal 0.0-2.0 [facility] Comment on above: Performed By: #### L [id number] ####Hand Cutter Apprentice: ZAID CHÁVEZ ([id number])[facility] ([facility])[address] [place] [address] Eosinophils (Bld) [#/Vol] 0.0 10*3/uL Normal 0.0-0.5 [facility] Comment on above: Performed By: #### L [id number] ####Hand Cutter Apprentice: ZAID CHÁVEZ ([phone])[facility])[address] [place] [address] Eosinophils/100 WBC (Bld) 0.7 % Normal 0.0-6.0 [facility] Comment on above: Performed By: #### L [id number] ####Hand Cutter Apprentice: ZAID CHÁVEZ ([phone])[facility])[address] [place] [address] Erythrocyte distribution width (RBC) [Ratio] 18.6 % High 11.5-15.0 [facility] Comment on above: Performed By: #### L [id number] ####Hand Cutter Apprentice: ZAID CHÁVEZ ([phone])[facility])[address] [place] [address] Hematocrit (Bld) [Volume fraction] 17.3 % Low 35.0-47.0 [facility] Comment on above: Performed By: #### L [id number] ####Hand Cutter Apprentice: ZAID CHÁVEZ ([phone])[facility])[address] [place] [address] Hemoglobin (Bld) [Mass/Vol] 6.0 g/dL Critically low 11.7-16.0 [facility] Comment on above: Performed By: #### L [id number] ####Hand Cutter Apprentice: ZAID CHÁVEZ ([phone])[facility])[address] [place] [address] IMMATURE GRANS % 1.7 % Normal 0.0-2.0 [facility] Comment on above: Performed By: #### L [id number] ####Hand Cutter Apprentice: ZAID CHÁVEZ ([id number])[facility])[address] [place] [address] IMMATURE GRANS ABSOLUTE 0.1 10*3/uL High <0.1 [facility] Comment on above: Performed By: #### L [id number] ####Hand Cutter Apprentice: ZAID CHÁVEZ ([phone])[facility])[address] [place] [address] Lymphocytes (Bld) [#/Vol] 1.4 10*3/uL Normal 1.0-4.3 [facility] Comment on above: Performed By: #### L [id number] ####Hand Cutter Apprentice: ZAID CHÁVEZ ([id number])[facility])[address] [place] [address] Lymphocytes/100 WBC (Bld) 23.6 % Normal 15.0-45.0 [facility] Comment on above: Performed By: #### L [id number] ####Hand Cutter Apprentice: ZAID CHÁVEZ ([phone])[facility])[address] [place] [address] MCH (RBC) [Entitic mass] 30.6 pg Normal 26.0-34.0 [facility] Comment on above: Performed By: #### L [id number] ####Hand Cutter Apprentice: ZAID CHÁVEZ ([id number])[facility] ([facility])[address] [place] [address] MCHC 34.7 % Normal 30.5-36.0 [facility] Comment on above: Performed By: #### L [id number] ####Hand Cutter Apprentice: ZAID CHÁVEZ ([phone])[facility] ([facility])[address] [place] [address] MCV (RBC) [Entitic vol] 88.3 fL Normal 77.0-99.0 [facility] Comment on above: Performed By: #### L [id number] ####Hand Cutter Apprentice: ZAID CHÁVEZ ([phone])[facility] ([facility])[address] [place] [address] Monocytes (Bld) [#/Vol] 0.2 10*3/uL Normal 0.0-0.9 [facility] Comment on above: Performed By: #### L [id number] ####Hand Cutter Apprentice: ZAID CHÁVEZ ([id number])[facility] ([facility])[address] [place] [address] Monocytes/100 WBC (Bld) 2.7 % Low 5.0-13.0 [facility] Comment on above: Performed By: #### L [id number] ####Hand Cutter Apprentice: ZAID CHÁVEZ ([id number])[facility] ([facility])[address] [place] [address] NEUTROPHILS ABSOLUTE 4.2 10*3/uL Normal 1.8-7.5 [facility] Comment on above: Performed By: #### L [id number] ####Hand Cutter Apprentice: ZAID CHÁVEZ ([phone])[facility] ([facility])[address] [place] [address] Neutrophils/100 WBC (Bld) 71.1 % Normal 38.0-82.0 [facility] Comment on above: Performed By: #### L [id number] ####Hand Cutter Apprentice: ZAID CHÁVEZ ([phone])[facility] ([facility])[address] [place] [address] NRBC 3.4 /100 WBCs High 0.0-2.0 [facility] Comment on above: Performed By: #### L [id number] ####Hand Cutter Apprentice: ZAID CHÁVEZ ([phone])[facility])[address] [place] [address] Platelet mean volume (Bld) [Entitic vol] 10.8 fL Normal 9.0-12.7 [facility] Comment on above: Performed By: #### L [id number] ####Hand Cutter Apprentice: ZAID CHÁVEZ ([id number])[facility] ([facility])[address] [place] [address] Platelets (Bld) [#/Vol] 107 10*3/uL Low 140-440 [facility] Comment on above: Performed By: #### L [id number] ####Hand Cutter Apprentice: ZAID CHÁVEZ ([phone])[facility] ([facility])[address] [place] [address] RBC (Bld) [#/Vol] 1.96 10*6/uL Low 3.80-5.20 [facility] Comment on above: Performed By: #### L [id number] ####Hand Cutter Apprentice: ZAID CHÁVEZ ([id number])[facility] ([facility])[address] [place] [address] WBC (Bld) [#/Vol] 5.9 10*3/uL Normal 3.6-10.7 [facility] Comment on above: Performed By: #### L [id number] ####Hand Cutter Apprentice: ZAID CHÁVEZ ([phone])[facility] ([facility])[address] [place] [address] Consulton 06-19-2024 Consult Department of Stone Lathe Operator al Medicine Gastroenterology Attending Consult Note Reason for Consult: The patient was seen in consultation at the request of Angela Mena DO re: GIB, possible capsule endoscopy for GIB w normal EGD and c-scope at outside facility. CHIEF COMPLAINT: melena, weakness History Obtained From: patient HISTORY OF PRESENT ILLNESS: The patient is a 79 y.o. female with significant past medical history of diverticulitis, hepatitis, HTN, HLD, temporal arteritis, who is admitted to the hospital for treatment of GIB along w/ PE. She was transferred from [facility], where the vascular surgeon is out of town & IR does not place filters. For her GIB, it was reported she underwent colonoscopy and EGD, which showed no no source of GIB. Family at bedside. Patient is without BM since admitted to our hospital. Allergies: Cefdinir and Morphine Current Medications: Current Facility-Administered Medications: acetaminophen (Tylenol) tablet 650 mg, 650 mg, Oral, q6h PRN OR acetaminophen (Tylenol) suppository 650 mg, 650 mg, Rectal, q6h PRN, Angela Mena DO amiodarone (Pacerone) tablet 200 mg, 200 mg, Oral, Daily, Angela Mena DO, 200 mg at 06/19/24602 [START ON 06/20/2024] influenza vaccine A&B surf ant adjuvanted (Fluad) HIGH-DOSE injection 0.5 mL, 0.5 mL, IntraMUSCular, Prior to discharge, Agnela Mena DO metoprolol tartrate (Lopressor) tablet 25 mg, 25 mg, Oral, BID, Angela Mena DO, 25 mg at 06/19/24602 ondansetron ODT (Zofran-ODT) disintegrating tablet 4 mg, 4 mg, Oral, q8h PRN OR ondansetron (Zofran) injection 4 mg, 4 mg, IntraVENous, q6h PRN, Angela Mena DO polyethylene glycol (PEG) 3350 (Miralax) packet 17 g, 17 g, Oral, Daily PRN, Angela Mena DO pravastatin (Pravachol) tablet 80 mg, 80 mg, Oral, Nightly, Angela Mena DO rOPINIRole (Requip) tablet 0.25 mg, 0.25 mg, Oral, Nightly PRN, Angela Mena DO sodium chloride 0.9 % infusion, 5-250 mL/hr, IntraVENous, PRN, Angela Mena DO sodium chloride 0.9% (NS) flush 5-40 mL, 5-40 mL, IntraVENous, q12h, Angela Mena DO, 10 mL at 06/19/24 0603 sodium chloride 0.9% (NS) flush 5-40 mL, 5-40 mL, IntraVENous, PRN, Angela eMna DO Past Medical History: Active Ambulatory Problems Diagnosis Date Noted No Active Ambulatory Problems Resolved Ambulatory Problems Diagnosis Date Noted No Resolved Ambulatory Problems Past Medical History: Diagnosis Date Diverticulitis Hepatitis Hyperlipidemia Hypertension Osteoarthritis Restless legs syndrome Temporal arteritis (CMS/HCC) (HCC) Past Surgical History: Social History Socioeconomic History Marital status: Spouse name: Not on file Number of children: Not on file Years of education: Not on file Highest education level: Not on file Occupational History Not on file Tobacco Use Smoking status: Not on file Smokeless tobacco: Not on file Substance and Sexual Activity Alcohol use: Not on file Drug use: Not on file Sexual activity: Not on file Other Topics Concern Not on file Social History Narrative Not on file Social Drivers of Health Financial Resource Strain: Not on file Food Insecurity: Not on file Transportation Needs: Not on file Physical Activity: Not on file Stress: Not on file Social Connections: Not on file Intimate Partner Violence: Not on file Housing Stability: Not on file Family History: No family history on file. No family history colon or stomach cancer. Social History: TOBACCO: has no history on file for tobacco use. ETOH: has no history on file for alcohol use. DRUGS: has no history on file for drug use. 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 Normal appetite and weight. No MULLER, visual disturbance, eye pain, jaundice, sore throat or mouth ulcers. No skin rash or itching. No CP, SOB, RIOS, cough or wheeze. No urinary frequency, urgency, hematuria, or dysuria. No myalgia, arthralgia, or joint swelling. No weakness, numbness, or confusion. GI per HPI. No polyuria, polydipsia, heat or cold intolerance. PHYSICAL EXAM: VS: BP 117/50 (BP Location: Left arm, Patient Position: Lying) Pulse 80 Temp (!) 35.8 ?C (96.5 ?F) (Temporal) Resp 20 Ht 5' 1 (1.549 m) Wt 175 lb 1.6 oz (79.4 kg) SpO2 97% BMI 33.08 kg/m? Body mass index is 33.08 kg/m?. Constitutional: No acute distress. Ill appearing. Head/Eyes: Pupils are equal and round; Conjunctiva are not injected; Sclera are non-icteric. ENT: Ears/nose without external abnormalities. Oral mucosa is pink and moist. Neck: No JVD. No carotid bruits; No thyromegaly. Respiratory: Clear to auscultation bilaterally without any added sounds. Effort is normal Heart: Regular, Normal S1 and S2. No murmur; No added sounds. Abdomen: Normal BS, soft, non-tender, non-distended; no hepatomegaly. Extremities/Skin: (more content not included)... Normal [facility] Consult -- Attestation signed by Leonard Adams MD at 06/19/2024 1:09 PM I have evaluated the patient and agree with the resident assessment and plan except for additional comments made in this note. Plan for IVC filter. Vascular Surgery Consultation Note Reason for Consult: transferred for possible IVC filter, has PE and GIB HISTORY OF PRESENT ILLNESS: The patient is a 79 y.o. female with past medial history of diverticulitis, hepatitis, HTN, HLD, temporal arteritis, who is admitted to the hospital for treatment of GIB along w/ PE. She was transferred from [facility], where the vascular surgeon is out of town & IR does not place filters. For her GIB, it was reported she underwent colonoscopy and EGD, as well as a bleeding scan which showed no evidence of active extravasation and no source of GIB. Vascular surgery is consulted for evaluation and treatment. Patient reports that her bleeding began on Friday. She endorses maroon/bloody liquidy bowel movements. She presented to the emergency department at [place] on Friday. She underwent EGD/colonoscopy on with no identified source of bleeding. She further underwent imaging study at which time no bleed site was identified however incidentally was found to have PEs. She has no prior history of PE/DVT. She reported some shortness of breath however no other chest pain or changes in vital signs. Due to these findings, she was recommended for IVC filter placement. Thus she was transferred to [facility]. Upon chart review, patient AF, HDS. No labs currently available for review, pending draw. IMPRESSION: 79-year-old female presenting with GI bleed with unknown site, PE and inability to be anticoagulated RECOMMENDATIONS: Patient is agreeable for IVC filter placement Remain n.p.o. at this time Will obtain informed consent Plan for OR for filter placement, if unable to perform in a timely manner then will reach out to IR team for placement today Past Medical History: Diagnosis Date Diverticulitis Hepatitis Hyperlipidemia Hypertension Osteoarthritis Restless legs syndrome Temporal arteritis (CMS/HCC) (HCC) Past Surgical History: Procedure Laterality Date CATARACT EXTRACTION Bilateral FEMUR FRACTURE SURGERY JOINT REPLACEMENT Bilateral knees LAMINECTOMY Current Medications: PRN medications: acetaminophen OR acetaminophen, ondansetron ODT OR ondansetron, polyethylene glycol (PEG) 3350, rOPINIRole, sodium chloride, sodium chloride 0.9% amiodarone, 200 mg, Oral, Daily [START ON 06/20/2024] influenza, 0.5 mL, IntraMUSCular, Prior to discharge metoprolol tartrate, 25 mg, Oral, BID pravastatin, 80 mg, Oral, Nightly sodium chloride 0.9%, 5-40 mL, IntraVENous, q12h Allergies: Patient has no allergy information on record. Social History Socioeconomic History Marital status: Spouse name: Not on file Number of children: Not on file Years of education: Not on file Highest education level: Not on file Occupational History Not on file Tobacco Use Smoking status: Not on file Smokeless tobacco: Not on file Substance and Sexual Activity Alcohol use: Not on file Drug use: Not on file Sexual activity: Not on file Other Topics Concern Not on file Social History Narrative Not on file Social Drivers of Health Financial Resource Strain: Not on file Food Insecurity: Not on file Transportation Needs: Not on file Physical Activity: Not on file Stress: Not on file Social Connections: Not on file Intimate Partner Violence: Not on file Housing Stability: Not on file No family history on file. REVIEW OF SYSTEMS: The chart was reviewed. Review of Systems Constitutional: Negative for chills and fever. Gastrointestinal: Positive for blood in stool. Negative for abdominal distention, rectal pain and vomiting. All other systems reviewed and are negative. LABS: No results found for: CREATININE No results found for: WBC , HGB , HCT , MCV , PLT No results found for: INR , PROTIME No results found for: VLDL PHYSICAL EXAM: Vitals: 06/19/24 0432 BP: 117/50 Pulse: 80 Resp: 20 Temp: (!) 35.8 ?C (96.5 ?F) SpO2: 97% CONSTITUTIONAL: awake, alert, cooperative, no apparent distress NECK: Supple, symmetrical, trachea midline, no adenopathy LUNGS: No increased work of breathing, good air exchange CARDIOVASCULAR: Regular rate and rhythm ABDOMEN: Soft, non-distended, non-tender, no rebound, no guarding, no masses palpated, CHEST: no obvious deformity GENITAL/URINARY: Not examined MUSCULOSKELETAL: There is no redness, warmth, or swelling of the joints. Full range of motion noted. NEUROLOGIC: Awake, alert, oriented to name, place and time. SKIN: normal skin color, texture, no redness, warmth, or sw (more content not included)... Normal [facility] MAGNESIUMon 06-19-2024 Magnesium [Mass/Vol] 1.8 mg/dL Normal 1.6-2.3 [facility] Comment on above: Performed By: #### L AB15, [id number] ####Hand Cutter Apprentice: ZAID CHÁVEZ ([phone])[facility] ([address] Nursing Noteon 06-19-2024 Nursing Note Pt resting comfortably, VSS on 3L NC, voided adequately to bedpan, no c/o pain, groin site intact, report called to Genie and RN transported pt back to floor. [facility] Op Noteon 06-19-2024 Op Note OPERATIVE NOTE Hawa Bhakta 1945 DATE OF PROCEDURE: 06/19/2024 SURGEON: Leonard Adams MD Procedure: Placement of IVC filter (Carlos Manuel Tulip) Preoperative Diagnosis: Pulmonary embolism Postoperative Diagnosis: Same Anesthesia: General. Assist: Joaquin Estimated Blood Loss: Minimal Indications: 79-year-old white female who has a acute pulmonary embolism and also has an ongoing GI bleed. Patient cannot be anticoagulated safely and is brought to the operating room for placement of an IVC filter. Description of Procedure: The patient was placed in the supine position and both groins were shaved prepped and draped in the usual sterile fashion. Right groin was infiltrated with 1% lidocaine under ultrasound guidance and then the right common femoral vein was cannulated with an 18-gauge needle followed by soft tip Bentson wire. A 6 English long sheath was placed through the right iliac vein system into the inferior vena cava and an inferior venacavogram was obtained. There was no thrombus in the inferior vena cava and the renal veins were identified at the bottom of the L1 vertebral body. Carlos Manuel Tulip filter was deployed just below the renal veins using fluoroscopic guidance. Guidewire catheters and sheaths were then removed and hemostasis of the right groin achieved with digital pressure followed by dry sterile dressing. Estimated blood loss for the procedure was minimal and the patient was taken to the recovery room in stable condition postoperatively. Leonard Adams MD [facility] Progress Noteon 06-19-2024 Progress Note Alerted by staff of Hgb dropping again Discussed with pt. No recent bloody BM Discussed POC Consented for PRBC Discussed with vasc surg Time >16 min [facility] Encounters Encounter Date Encounter Type Care Provider Facility Start: 06-21-2024 End: 06-21-2024 Evaluation and management of inpatient Malvin Raphael MD Work Phone: [facility] Start: 06-19-2024 Evaluation and management of inpatient NIKOLAS LARA [facility] Procedures Date Procedure Procedure Detail Performing Clinician Start: 06-23-2024 Antibody screen NIKOLASKirstie FANG Comment on above: Performed By: #### L [id number] ####Hand Cutter Apprentice: ZAID CHÁVEZ ([id number])[facility] ([facility])[address] [place] [address] Start: 06-19-2024 Antibody screen NIKOLAS MAIA FANG Comment on above: Performed By: #### L [id number] ####Hand Cutter Apprentice: ZAID CHÁVEZ ([id number])[facility] ([facility])[address] [place] [address] Plan of Treatment Date Care Activity Detail Author Start: 06-21-2024 End: 06-21-2024 Enteroscopy > 2nd prtn ileum control bleeding ENTEROSCOPY WITH CONTROL BLEEDING (INCLUDES ILEUM) GIB (gastrointestinal bleeding) 06/21/2024 10:23 AM EST [facility] Start: 08-18-2023 Medicare Advantage Annual Wellness Visit Medicare Advantage Annual Wellness Visit [facility] Start: 2022 RSV Immunization for Adults (1 - 1-dose 75+ series) RSV Immunization for Adults (1 - 1-dose 75+ series) [facility] Start: 02-17-2012 Pneumococcal Vaccine: 65+ Years (1 of 1 - PCV) Pneumococcal Vaccine: 65+ Years (1 of 1 - PCV) [facility] Start: 07-19-2004 DTaP/Tdap/Td Vaccines (1 - Tdap) DTaP/Tdap/Td Vaccines (1 - Tdap) [facility] Start: 1965 Hepatitis C screening Hepatitis C Screening [facility] Start: 1959 Depression Screening Depression Screening [facility] Start: 1945 Lipid panel Lipid Panel [facility] Start: 1945 Screening for osteoporosis Bone Density Scan [facility] Payers Date Payer Category Payer Medicare HMO [employer] [id number] 2023 Medicare [id number] Social History Date Type Detail Facility Start: 06-19-2024 Tobacco smoking status NHIS Ex-smoke r [facility] History of tobacco use Current smoker [facility] History of tobacco use Cigarette Smoker [facility] Start: 06-19-2024 History of Social function [facility] Start: 06-19-2024 Humiliation, Afraid, Rape, and Kick questionnaire [HARK] [facility] Within the last year , have you been afraid of your partner or ex-partner? No [facility] Start: 1945 Sex assigned at Not on file [facility] Start: 06-18-2024 Sex Female (finding) [facility] Medical Equipment Procedure Code Equipment Code Equipment Origin al Text Equipment Identifier Dates Filter Vasc Fem Tulip - [id number] Start: 06-19-2024 Clinical Notes 06-19-2024 to 06-24-2024 Procedure Summary Note Date & Type Note Facility 06-24-2024 Note Discharge Summary Hawa Bhakta : 1945 ADMIT DATE: 06/19/2024 DISCHARGE DATE: 06/24/2024 PRIMARY CARE PHYSICIAN: OLIVA NUÑEZ VISIT STATUS: Admission CODE STATUS: Full Code DISCHARGE DIAGNOSES: Principal Problem: GIB (gastrointestinal bleeding) HOSPITAL COURSE: Hawa is a 79 y.o. female with past medical history below who presents with chief complaint listed above. Patient was transferred after admitted for 3 days at outside facility, where she presented with a increasing weakness and melena. She initially attributed her weakness to being on a steroid for her rheumatologic conditions, however more acutely she presented when her weakness got suddenly worse and when she noticed dark black diarrhea. Her workup was notable at her outside facility for an acute blood loss anemia, baseline hemoglobin reported around 12 and her hemoglobin was down to 7 prior to transfer. Her workup also included a CTA of her abdomen and pelvis which revealed not only a lack of active bleeding but also pulmonary embolism. She had an echo done which showed no evidence of right heart strain, and she was stable on room air without hypotension. She was also in A-fib RVR and was started on an amnio drip which was concluding at time of her arrival. For her GI bleed she underwent EGD and colonoscopy which did not show any identifiable bleeding source, there was discussions about her requiring a capsule endoscopy next. She was transferred due to a need for vascular surgery consultation for consideration of an IVC filter which was not available at their facility. At time of admission she was hemodynamically stable. IVF filter placed without complication. Cardiology was consulted for A-fib, she remained in NSR. Amiodarone was started at outside hospital - stopped and changed to metoprolol. EGD and colonoscopy was done by GI at [facility] with no abnormalities found. She continued to have small amount of bleeding but H&H remained stable. She was DC to SNF. Hydrochlorothiazide stopped, lisinopril stopped, and spironolactone stopped during admission - will stop for now and defer to PCP if needs restarted in future but BP stable in hospital. SIGNIFICANT DIAGNOSTIC STUDIES: Colonoscopy CTA EGD CONSULTANTS: GI Cardiology Vascular surgery RECOMMENDED NEXT STEPS: Follow up OP, follow BP and H&H DISCHARGE MEDICATIONS: Medication List CONTINUE taking these medications alendronate 70 MG tablet Commonly known as: Fosamax Calcium Carb-Cholecalciferol 600-10 MG-MCG capsule ergocalciferol 1.25 MG (75926 UT) capsule Commonly known as: Vitamin D-2 hydroCHLOROthiazide 12.5 MG tablet lisinopril 10 MG tablet multivitamin tablet pravastatin 80 MG tablet Commonly known as: Pravachol predniSONE 20 MG tablet Commonly known as: Deltasone rOPINIRole 0.25 MG tablet Commonly known as: Requip spironolactone 50 MG tablet Commonly known as: Aldactone tocilizumab injection Commonly known as: Actemra Vibegron 75 MG tablet DIET: Adult diet Regular ACTIVITY: No restriction. COMPLEXITY OF FOLLOW UP: [x] Moderate Complexity: follow up within 7-14 calendar days (96430) [] Severe Complexity: follow up within 7 calendar days (06150) FOLLOW UP TESTING, PENDING RESULTS OR REFERRALS AT TRANSITIONAL CARE VISIT: [] Yes [x] No PENDING STUDIES: none DISPOSITION: Skilled Facility FACILITY/HOME CARE AGENCY NAME: [facility] Follow up with Leonard Adams MD [address] [facility] [address] [facility] [address] Follow up Call in 1-2 days to schedule follow up appt production service manager PCP for follow up after DC SNF INSTRUCTIONS TO MA/SW: Please call patient on day after discharge (must document patient contacted within 2 business days of discharge). FOLLOW UP QUESTIONS FOR MA/SW: 1. Did you get medications filled and taking them as instructed from discharge? 2. Are you following your discharge instructions from your hospital stay? 3. Please confirm patient is scheduled for a follow up appointment within the above time frame. DISCHARGE TIME: > 30 minutes SIGNED: Bill Coelho MD 06/24/2024, 11:11 AM [facility] 06-24-2024 Note Hospitalist Progress Note 06/24/2024 11:04 AM Subjective: Admit Date: 06/19/2024 PCP: OLIVA NUÑEZ Hawa is a 79 y.o. female with past medical history below who presents with chief complaint listed above. Patient was transferred after admitted for 3 days at outside facility, where she presented with a increasing weakness and melena. She initially attributed her weakness to being on a steroid for her rheumatologic conditions, however more acutely she presented when her weakness got suddenly worse and when she noticed dark black diarrhea. Her workup was notable at her outside facility for an acute blood loss anemia, baseline hemoglobin reported around 12 and her hemoglobin was down to 7 prior to transfer. Her workup also included a CTA of her abdomen and pelvis which revealed not only a lack of active bleeding but also pulmonary embolism. She had an echo done which showed no evidence of right heart strain, and she was stable on room air without hypotension. She was also in A-fib RVR and was started on an amnio drip which was concluding at time of her arrival. For her GI bleed she underwent EGD and colonoscopy which did not show any identifiable bleeding source, there was discussions about her requiring a capsule endoscopy next. She was transferred due to a need for vascular surgery consultation for consideration of an IVC filter which was not available at their facility. At time of admission she was hemodynamically stable. Will admit for further evaluation and management. Vasc surg placed IVC filter Did require PRBC 06/19 push enteroscopy 06/21 - unremarkable, recommended capsular endoscopy as OP Seen by cardiology Amiodarone stopped Interval History: 06/20: pt awake Melena again noted Mild abd pain No SOB 06/21: Pt awake No BM No CP Sob stable 06/22: Awake and alert. No BM, No CO. SOB at baseline. Anemia worse. Repeat H&H in afternoon. 06/23: Patient with melena x 2, follow H&H, if remains stable will DC tomorrow, Patient feels well and denies any complaints. 06/24: Bleeding improved, BM more solid. Patient feels better. Will recheck H&H, if stable will DC today. Adult diet Regular @IODETAILS@ @[email or web address]@ Medications: influenza, 0.5 mL, IntraMUSCular, Prior to discharge metoprolol tartrate, 25 mg, Oral, BID pravastatin, 80 mg, Oral, Nightly sodium chloride 0.9%, 10 mL, IntraVENous, 2 times per day sodium chloride 0.9%, 10 mL, IntraVENous, 2 times per day sodium chloride 0.9%, 5-40 mL, IntraVENous, q12h Recent Labs 06/22/24 0103 06/22/24 1415 06/23/24 0324 06/23/24 1223 WBC 4.4 -- 3.7 -- HGB 7.3* 7.9* 7.3* 7.8* PLT 101* -- 103* -- Recent Labs 06/22/24 0103 06/23/24 0324 NA 136 135 K 3.8 3.6 CL 112* 110* CO2 20* 24 BUN 27* 24* CREATININE 0.70 0.59 GLUCOSE 141* 96 No results for input(s): AST , ALT , BILITOT , ALKPHOS in the last 72 hours. No lab exists for component: ALB No results found for: TRIG , HDL , LDLCALC , CHOL No results for input(s): INR in the last 72 hours. No results for input(s): CKTOTAL , CKMB , TROPONINI in the last 72 hours. [facility] [place] [address] Echo Complete 06/17/24827 MR#: [id number] Acct: [id number] Name: HAWA BHAKTA Rep #: [id number] : 1945 79 From: Bertram Smith MD Attending Dr: Dr. Nikolas Lara MD Status: AD M IN Ordering Dr: Bertram Smith MD Date: 06/16/24 Location: PCU Sex: F C Admitted: 06/16/24 Reason For Study: AFIB Procedure This was a 2D Doppler, Color Flow transthoracic echocardiogram. Exam performed portable in patient room. Left Ventricle Normal LV size. Left ventricular systolic function is normal. The left ventricular ejection fraction is 55 %. Stage 1 diastolic dysfunction. No regional wall motion abnormalities noted. Right Ventricle Normal RV size. Normal systolic function. Atria Normal left atrium. Normal right atrium. Mitral Valve Normal mitral valve. Tricuspid Valve Normal tricuspid valve. Aortic Valve Trisinus/trileaflet aortic valve. Pulmonic Valve The pulmonic valve is not well visualized. Great Vessels Normal aortic root. Pericardium/Pleural No pericardial effusion. Objective: Vitals: BP 110/50 Pulse 86 Temp 36.2 ?C (97.1 ?F) (Temporal) Resp 19 Ht 5' 1 (1.549 m) Wt 175 lb 1.6 oz (79.4 kg) SpO2 93% BMI 33.08 kg/m? Pulse Ox: SpO2 Av.3 % Min: 93 % Max: 96 % Supplemental O2: O2 Flow Rate (L/min): 2 L/min General appearance: Alert and cooperative with exam Lungs: clear to auscultation bilaterally Heart: regular rate and rhythm Abdomen: soft, distended Extremities: extremities normal, atraumatic, no cyanosis or edema Neurologic: No obvious focal neurologic deficits. Assessment Principal Problem: GIB (gastrointestinal bleeding) PE Blood loss anemia Afib/ RVR history Hypokalemia (more content not included)... [facility] 06-23-2024 Note Care Management Prog ress Note DCP: SNF Therapy notes sent to [facility] for review/acceptance. Will need auth. Spoke with pt's VIRGINIE Wilson Love re same. Length of Stay (Days): 4 GMLOS: 4.5 [facility] 06-23-2024 Note OCCUPATIONAL THERAPY [facility] Initial Evaluation Name/MRN: Hawa Bhakta ([id number]) Evaluation Date: 06/23/2024 Date of : 1945 Admission Date: 06/19/2024 4:29 AM Age: 79 y.o. [facility] Discharge Recommendation: [facility] Facility Equipment Needed: No Assessment IMPRESSION: 79 y/o female admitted for GIB with a PE, now s/p IVC filter. Pt limited generalized weakness and decreased balance impacting ADLs. Mod assist functional transfers and short mobility. Max assist LB ADLs and mod assist toileting. Pt lives alone and is unsafe to return at this time as the are a high fall risk. Recommend SNF at discharge. Admitting Diagnosis: GIB Performance Deficits /Impairments: Increased Pain, Decreased Functional Mobility, Decreased ADL status, Decreased Strength, Decreased Safety Awareness, Decreased Endurance, and Decreased Balance Prognosis: Fair Decision Making: Medium Complexity Subjective Pt sitting in recliner, agreeable to OT. Pain: Pt denies any current pain. RN managing pain. Past Medical History: Past Medical History: Diagnosis Date Diverticulitis Hepatitis Hyperlipidemia Hypertension Osteoarthritis Restless legs syndrome Temporal arteritis (CMS/HCC) (HCC) Past Surgical History: Past Surgical History: Procedure Laterality Date CATARACT EXTRACTION Bilateral EGD (HISTORICAL) 06/21/2024 FEMUR FRACTURE SURGERY IVC FILTER INSERTION 06/19/2024 Jaylen tulip JOINT REPLACEMENT Bilateral knees LAMINECTOMY Admission Diagnosis: Patient Active Problem List Diagnosis Date Noted GIB (gastrointestinal bleeding) 06/19/2024 Medical Precautions: No active isolations Proper PPE donned/doffed in accordance with facility standards. Fall Risk: Cruz Fall Risk Score: 45 (High Risk) Precautions/Restrictions: Lines/Drains/Airways: tele Skin care precautions Family/Caregiver Present: none Overall Cognitive Status: WFL Overall Orientation Status: Oriented x4 Social/Functional History Patient admitted from home. 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 Prior Level of Function Prior Level of ADL Function: Independent Prior Level of Mobility: Independent; Device: Straight Cane Prior Level of Transfers: Independent Objective ADLs LE Dressing: Max Assist, doff/don brief Toileting: Mod Assist, standing balance and partial clothing management Upper Extremity Assessment AROM: Exceptions: BUE approx 90 deg shoulder flexion PROM: Not assessed this session Strength: Exceptions: BUE grossly 3+/5 Vision: not assessed this session Hearing: normal Bed Mobility Sit to supine: Mod Assist, assist for BLEs Transfers/Functional Mobility Sit to stand: Mod Assist Stand to sit: Min Assist Bed to chair: Mod Assist Bedside commode: Mod Assist Standing balance: Min Assist Functional mobility: Mod Assist, short distance steps from chair > BSC > bed Device(s) used: Used therapist for support AM-PAC AM-PAC Inpatient Daily Activity Raw Score: 16 ADL Inpatient CMS G-Code Modifier: CK Plan Pt would benefit from skilled acute OT services to address Strengthening, ROM, Balance Training, Self-Care/ADL Training, Functional Mobility Training, Endurance Training, Safety Education and Training, Equipment Evaluation/Education, Home Management Training, and Patient/Caregiver Training. Frequency: 3x/week for 4 weeks Barriers: Pain, Impaired balance, Lower extremity weakness, Upper extremity weakness, and Decreased endurance Safety/Education Safety Safety Devices in place: All fall risk precautions in place, call light within reach, left in bed, nurse notified, and no alarms engaged upon entry Restraints: No Education Education Given To: patient Education Provided: OT Role, Plan of Care, Precautions, ADL Adaptive Strategies, Transfer Training, Energy Conservation, Equipment, Fall Prevention Education, Discharge Recommendations, and Benefits of Increasing Activity Education Method: Verbal Barriers to Learning: None Education Outcome: Verbalized Understanding Goals Patient Stated Goal: get stronger and figure out what to do next Encounter Problems Encounter Problems (Active) Cognition Patient will demonstrate good safety awareness with the use of FWW with no cues. Start: 06/23/24 Expected End: 07/21/24 Dressings Lower Extremities Patient will dress lower body CGA. Start: 06/23/24 Expected End: 07/21/24 Grooming Patient will complete daily grooming tasks sitting EOB with setup. Start: 06/23/24 Expected End: 07/21 (more content not included)... [facility] 06-23-2024 Note Hospitalist Progress Note 06/23/2024 2:03 PM Subjective: Admit Date: 06/19/2024 PCP: OLIVA NUÑEZ Hawa is a 79 y.o. female with past medical history below who presents with chief complaint listed above. Patient was transferred after admitted for 3 days at outside facility, where she presented with a increasing weakness and melena. She initially attributed her weakness to being on a steroid for her rheumatologic conditions, however more acutely she presented when her weakness got suddenly worse and when she noticed dark black diarrhea. Her workup was notable at her outside facility for an acute blood loss anemia, baseline hemoglobin reported around 12 and her hemoglobin was down to 7 prior to transfer. Her workup also included a CTA of her abdomen and pelvis which revealed not only a lack of active bleeding but also pulmonary embolism. She had an echo done which showed no evidence of right heart strain, and she was stable on room air without hypotension. She was also in A-fib RVR and was started on an amnio drip which was concluding at time of her arrival. For her GI bleed she underwent EGD and colonoscopy which did not show any identifiable bleeding source, there was discussions about her requiring a capsule endoscopy next. She was transferred due to a need for vascular surgery consultation for consideration of an IVC filter which was not available at their facility. At time of admission she was hemodynamically stable. Will admit for further evaluation and management. Vasc surg placed IVC filter Did require PRBC 06/19 push enteroscopy 06/21 - unremarkable, recommended capsular endoscopy as OP Seen by cardiology Amiodarone stopped Interval History: 06/20: pt awake Melena again noted Mild abd pain No SOB 06/21: Pt awake No BM No CP Sob stable 06/22: Awake and alert. No BM, No CO. SOB at baseline. Anemia worse. Repeat H&H in afternoon. 06/23: Patient with melena x 2, follow H&H, if remains stable will DC tomorrow, Patient feels well and denies any complaints. Adult diet Regular @IODETAILS@ @[email or web address]@ Medications: influenza, 0.5 mL, IntraMUSCular, Prior to discharge metoprolol tartrate, 25 mg, Oral, BID pravastatin, 80 mg, Oral, Nightly sodium chloride 0.9%, 10 mL, IntraVENous, 2 times per day sodium chloride 0.9%, 10 mL, IntraVENous, 2 times per day sodium chloride 0.9%, 5-40 mL, IntraVENous, q12h Recent Labs 06/21/2442506/22/24 0103 06/22/24 1415 06/23/24 0324 06/23/24 1223 WBC 5.1 4.4 -- 3.7 -- HGB 7.7* 7.3* 7.9* 7.3* 7.8* PLT 79* 101* -- 103* -- Recent Labs 06/21/24 0426 06/22/24 0103 06/23/24 0324 NA 132* 136 135 K 3.4* 3.8 3.6 CL 107 112* 110* CO2 22 20* 24 BUN 33* 27* 24* CREATININE 0.63 0.70 0.59 GLUCOSE 108* 141* 96 No results for input(s): AST , ALT , BILITOT , ALKPHOS in the last 72 hours. No lab exists for component: ALB No results found for: TRIG , HDL , LDLCALC , CHOL No results for input(s): INR in the last 72 hours. No results for input(s): CKTOTAL , CKMB , TROPONINI in the last 72 hours. [facility] [address] [place] [id number] Echo Complete 06/17/24827 MR#: [id number] Acct: [id number] Name: HAWA HBAKTA Rep #: [id number] : 1945 79 From: Bertram Smith MD Attending Dr: Dr. Nikolas Lara MD Status: AD M IN Ordering Dr: Bertram Smith MD Date: 06/16/24 Location: PCU Sex: F C Admitted: 06/16/24 Reason For Study: AFIB Procedure This was a 2D Doppler, Color Flow transthoracic echocardiogram. Exam performed portable in patient room. Left Ventricle Normal LV size. Left ventricular systolic function is normal. The left ventricular ejection fraction is 55 %. Stage 1 diastolic dysfunction. No regional wall motion abnormalities noted. Right Ventricle Normal RV size. Normal systolic function. Atria Normal left atrium. Normal right atrium. Mitral Valve Normal mitral valve. Tricuspid Valve Normal tricuspid valve. Aortic Valve Trisinus/trileaflet aortic valve. Pulmonic Valve The pulmonic valve is not well visualized. Great Vessels Normal aortic root. Pericardium/Pleural No pericardial effusion. Objective: Vitals: BP 92/54 (BP Location: Right arm, Patient Position: Sitting) Pulse 75 Temp (!) 35.3 ?C (95.6 ?F) (Temporal) Resp 15 Ht 5' 1 (1.549 m) Wt 175 lb 1.6 oz (79.4 kg) SpO2 94% BMI 33.08 kg/m? Pulse Ox: SpO2 Av.7 % Min: 92 % Max: 96 % Supplemental O2: O2 Flow Rate (L/min): 2 L/min General appearance: Alert and cooperative with exam Lungs: clear to auscultation bilaterally Heart: regular rate and rhythm Abdomen: soft, distended Extremities: extremities normal, atraumatic, no cyanosis or edema Neurologic: No obvious focal neurologic deficits. Assessment Principal Problem: GIB (gastrointestinal bleeding) PE Blood loss anemia Afib/ RVR h (more content not included)... [facility] 06-23-2024 Note PHYSICAL THERAPY [facility] Initial Evaluation Name/MRN: Hawa Bhakta ([id number]) Evaluation Date: 06/23/2024 Date of : 1945 Admission Date: 06/19/2024 4:29 AM Age: 79 y.o. [facility] Discharge Recommendation: IP Rehab, [facility] Facility Equipment Needed: No Assessment IMPRESSION: Pt admitted for a GIB with a PE. Now s/p IVC filter. She is currently limited d/t decreased functional strength, endurance, and balance. Min-Mod assist for bed mobility, transfers, and ambulation. SOB throughout with A-fib HR on tele. Pt fatigues very quickly and requires support for walking. She normally is very Indep and lives at home alone. Recommend disch to IP Rehab versus SNF. Pt would tolerate 3 hours therapy daily. Admitting Diagnosis: GIB Prognosis: fair Performance Deficits /Impairments: Increased Pain, Decreased Functional Mobility, Decreased ADL status, Decreased Strength, Decreased Endurance, and Decreased Balance Decision Making: Medium Complexity Subjective Pt in the bed and agreeable to PT. Reported she has been in bed for a week and feels very weak. Eager to try and get up and walking but asked for a brief just in case. Pain: RN managing pain. Loyd-Zambrano Pain Ratin = Hurts little more Pain Location: Abdomen Past Medical History: Past Medical History: Diagnosis Date Diverticulitis Hepatitis Hyperlipidemia Hypertension Osteoarthritis Restless legs syndrome Temporal arteritis (CMS/HCC) (HCC) Past Surgical History: Past Surgical History: Procedure Laterality Date CATARACT EXTRACTION Bilateral EGD (HISTORICAL) 06/21/2024 FEMUR FRACTURE SURGERY IVC FILTER INSERTION 06/19/2024 Jaylen tulip JOINT REPLACEMENT Bilateral knees LAMINECTOMY Admission Diagnosis: Patient Active Problem List Diagnosis Date Noted GIB (gastrointestinal bleeding) 06/19/2024 Medical Precautions: No active isolations Proper PPE donned/doffed in accordance with facility standards. Fall Risk: Cruz Fall Risk Score: 45 (High Risk) Precautions/Restrictions: Lines/Drains/Airways: Tele Family/Caregiver Present: none Overall Cognitive Status: WNL Overall Orientation Status: Oriented x4 Vision: not assessed this session Hearing: normal Social/Functional History Patient admitted from home. 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 Prior Level of Function Prior Level of ADL Function: Independent Prior Level of Mobility: Independent; Device: None Prior Level of Transfers: Independent Objective Lower Extremity Assessment AROM: WNL PROM: Not assessed this session Strength: WFL 4+/5 knee extension and ankle DF Sensation: Not assessed this session Balance: Balance During Session: Posture: fair Sitting - Static: SBA Sitting - Dynamic: SBA Standing - Static: Contact Guard Standing - Dynamic: Mod Assist Bed Mobility: Supine to sit: Min Assist Rolling to right: SBA Rolling to left: SBA Scooting: SBA Rolling L<>R for jignesh-care prior to OOB mobility Transfers Sit to stand: Min Assist, Mod Assist Stand to sit: Min Assist, Mod Assist STS completed x 8 throughout session with x4 reps performed end of session for functional strengthening. Transfers completed at bedside, toilet, and recliner. Increased assist needed from low bedside Ambulation Ambulation 1 Assistive device(s) used: Front wheeled walker Assist level: Min Assist Distance (ft): 15 ft Quality of gait: shuffling, slow darshan, progressed to no device Ambulation 2 Assistive device(s) used: Used therapist for support (x1 hand held assist) Assist level: Mod Assist Distance (ft): 15 ft + 15 ft + 15 ft Quality of gait: shuffling, slow darshan, stopped at the recliner and the toilet throughout. SOB throughout. HR 70-95bpm with Afib. Exercises Exercises Heelslides: x5 bilat LEs Gluteal Sets: 3 HOLD X 10 BILAT LE's Hip Flexion: Seated marches x5 bilat LEs Hip Abduction: Supine hip ABD/ ADD x5 bilat LEs Knee Long Arc Quad: x5 bilat LEs Ankle Pumps: x5 bilat LEs Comments: Briefly reviewed exercises she can perform Indep throughout the day Outcome Measures AM-PAC How much HELP from another person do you currently need Turning from your back to your side while in a flat bed without using bedrails?: A Little Moving from lying on your back to sitting on the side of a flat bed without using bedrails?: A Lot Moving to and from a bed to a chair (including a wheelchair)?: A Little Standing up from a chair using your arms (wheelchair or bedside chair)?: A Little (more content not included)... [facility] 06-22-2024 Note Referral placed to [facility]CU via [facility] per TCC request. Await review and response regarding ability to accept. TCC notified. [facility] 06-22-2024 Note Hospitalist Progress Note 06/22/2024 11:25 AM Subjective: Admit Date: 06/19/2024 PCP: OLIVA Shaikh is a 79 y.o. female with past medical history below who presents with chief complaint listed above. Patient was transferred after admitted for 3 days at outside facility, where she presented with a increasing weakness and melena. She initially attributed her weakness to being on a steroid for her rheumatologic conditions, however more acutely she presented when her weakness got suddenly worse and when she noticed dark black diarrhea. Her workup was notable at her outside facility for an acute blood loss anemia, baseline hemoglobin reported around 12 and her hemoglobin was down to 7 prior to transfer. Her workup also included a CTA of her abdomen and pelvis which revealed not only a lack of active bleeding but also pulmonary embolism. She had an echo done which showed no evidence of right heart strain, and she was stable on room air without hypotension. She was also in A-fib RVR and was started on an amnio drip which was concluding at time of her arrival. For her GI bleed she underwent EGD and colonoscopy which did not show any identifiable bleeding source, there was discussions about her requiring a capsule endoscopy next. She was transferred due to a need for vascular surgery consultation for consideration of an IVC filter which was not available at their facility. At time of admission she was hemodynamically stable. Will admit for further evaluation and management. Vasc surg placed IVC filter Did require PRBC 06/19 push enteroscopy 06/21 - unremarkable, recommended capsular endoscopy as OP Seen by cardiology Amiodarone stopped Interval History: 06/20: pt awake Melena again noted Mild abd pain No SOB 06/21: Pt awake No BM No CP Sob stable 06/22: Awake and alert. No BM, No CO. SOB at baseline. Anemia worse. Repeat H&H in afternoon. Adult diet Regular @IODETAILS@ @[id number]@ Medications: influenza, 0.5 mL, IntraMUSCular, Prior to discharge metoprolol tartrate, 25 mg, Oral, BID pravastatin, 80 mg, Oral, Nightly sodium chloride 0.9%, 10 mL, IntraVENous, 2 times per day sodium chloride 0.9%, 10 mL, IntraVENous, 2 times per day sodium chloride 0.9%, 5-40 mL, IntraVENous, q12h Recent Labs 06/20/24 0944 06/20/24 1812 06/21/24 0426 06/22/24 0103 WBC 5.2 -- 5.1 4.4 HGB 6.9* 8.3* 7.7* 7.3* PLT 99* -- 79* 101* Recent Labs 06/20/24 0026 06/21/24 0426 06/22/24 0103 NA 132* 132* 136 K 3.2* 3.4* 3.8 CL 106 107 112* CO2 22 22 20* BUN 37* 33* 27* CREATININE 0.63 0.63 0.70 GLUCOSE 92 108* 141* No results for input(s): AST , ALT , BILITOT , ALKPHOS in the last 72 hours. No lab exists for component: ALB No results found for: TRIG , HDL , LDLCALC , CHOL No results for input(s): INR in the last 72 hours. No results for input(s): CKTOTAL , CKMB , TROPONINI in the last 72 hours. [facility] [address] [place] [address] Echo Complete 06/17/24 0828 MR#: [id number] Acct: [id number] Name: HAWA BHAKTA Rep #: [id number] : 1945 79 From: Bertram Smith MD Attending Dr: Dr. Nikolas Lara MD Status: AD M IN Ordering Dr: Bertram Smith MD Date: 06/16/24 Location: PCU Sex: F C Admitted: 06/16/24 Reason For Study: AFIB Procedure This was a 2D Doppler, Color Flow transthoracic echocardiogram. Exam performed portable in patient room. Left Ventricle Normal LV size. Left ventricular systolic function is normal. The left ventricular ejection fraction is 55 %. Stage 1 diastolic dysfunction. No regional wall motion abnormalities noted. Right Ventricle Normal RV size. Normal systolic function. Atria Normal left atrium. Normal right atrium. Mitral Valve Normal mitral valve. Tricuspid Valve Normal tricuspid valve. Aortic Valve Trisinus/trileaflet aortic valve. Pulmonic Valve The pulmonic valve is not well visualized. Great Vessels Normal aortic root. Pericardium/Pleural No pericardial effusion. Objective: Vitals: BP (!) 99/46 (BP Location: Right arm, Patient Position: Lying) Pulse 71 Temp 36.1 ?C (97 ?F) (Temporal) Resp 20 Ht 5' 1 (1.549 m) Wt 175 lb 1.6 oz (79.4 kg) SpO2 91% BMI 33.08 kg/m? Pulse Ox: SpO2 Av.4 % Min: 91 % Max: 98 % Supplemental O2: O2 Flow Rate (L/min): 2 L/min General appearance: Alert and cooperative with exam Lungs: clear to auscultation bilaterally Heart: regular rate and rhythm Abdomen: soft, distended Extremities: extremities normal, atraumatic, no cyanosis or edema Neurologic: No obvious focal neurologic deficits. Assessment Principal Problem: GIB (gastrointestinal bleeding) PE Blood loss anemia Afib/ RVR history Hypokalemia PRBC PRN GI push enteroscopy 06/21 - no abnormalities Recommended capsular endoscopy as outpatient Cont supportive care Was start (more content not included)... [facility] 06-21-2024 Procedure anesthe elza Narrative Procedure Name Responsible Anesthesiologist Anesthesia Start Time Anesthesia Stop Time ENTEROSCOPY WITH CONTROL BLEEDING (INCLUDES ILEUM) Malvin Raphael MD 06/21/24 1017 06/21/24 1038 Events Date Time Event Comment 06/21/2024 1017 An Start 1018 An Start Data 1023 In Room 1023 Start Auxiliary O2 1023 An Induction The patient was reevaluated immediately before moderate or deep sedation use and before anesthesia induction. 1035 Out of Room 1038 an stop data 1038 An Stop Meds Name Total lidocaine PF (Xylocaine-MPF) local injec tion 2 % 100 mg propofol (Diprivan) injection 10 mg/mL 1 00 mg glycopyrrolate (Robinul) injection 0.2 m g * Agents Name O2 N2O Air * Blood No blood administrations on file. Lines, Drains, and Airways Type Details Placement Removal Wound/Incision 06/19/24; 1513; Inci brendan; Anterior, Right 06/19/24 1513 by Sruthi Dotson RN Peripheral IV Placement Date: 11/08; Placement Time: 1330; Catheter Size: 20 G; Orientation: Anterior, Left; Location: Forearm; Inserted by: genie richardson rn; Insertion Attempts: 1 06/20/24 1330 by Adam Richardson RN documented in this encounter [facility] NotePOST ENDOSCOPY PROCEDURE TRANSFER REPORT Physician: Procedure completed: EGD/ Push endoscopy Specimens obtained: None Medications administered: 90MG Propofol Findings: See doctors note Complications: none Please call the Main Endoscopy Dept at [phone] for questions. Called and gave report to floor nurse Shelbi.[facility]11-04-2024 Note* Addendum Note - Donavon Vazquez APRN - CIRILO - 06/21/2024 10:42 AM EST Addendum created 06/21/24 104 by ABBE Hernandez CRNA Attestation recorded in Intraprocedure, Intraprocedure Attestations filed [facility]Rjtafj27-73-8757 NoteAddendum created 06/21/24 104 by ABBE Hernandez CRNA Attestation recorded in Intraprocedure, Intraprocedure [facility]estations [facility] Miscellaneous Notes* Addendum Note - ABBE Hernandez CRNA - 06/21/2024 10:42 AM EST Addendum created 06/21/24 104 by ABBE Hernandez CRNA Attestation recorded in Intraprocedure, Intraprocedure Attestations filed * Anesthesia Discharge Note - ABBE Hernandez CRNA - 06/21/2024 10:39 AM EST Patient: Hawa Bhakta Procedure Summary Date: 06/21/24 Room / Location: [place] [address] / [facility] Gastroenterology Anesthesia Start: 1017 Anesthesia Stop: 1038 Procedure: ENTEROSCOPY WITH CONTROL BLEEDING (INCLUDES ILEUM) Diagnosis: GIB (gastrointestinal bleeding) Providers: Ruddy Andrade MD Responsible Provider: Anesthesia Type: MAC ASA Status: 4 Anesthesia Type: No value filed. Vitals Value Taken Time BP 112/78 06/21/24 1038 Temp 37 C (98.6 F) 06/21/24 1038 Pulse 76 06/21/24 1038 Resp 14 06/21/24 1038 SpO2 98 % 06/21/24 1038 Anesthesia Post Evaluation Patient location during evaluation: PACU Patient participation: complete - patient participated Level of consciousness: awake and alert Pain management: satisfactory to patient Airway patency: patent Dental Injury: no Cardiovascular status: acceptable, blood pressure returned to baseline and hemodynamically stable Respiratory status: acceptable and spontaneous ventilation Hydration status: euvolemic Nausea/Vomiting: controlled No notable events documented. Patient can be discharged once all PACU criteria has been met. documented in this [facility]11-04-2024 Anesthesiology Postoperative evaluation and management note* Anesthesia Postprocedure Evaluation - ABBE Hernandez CRNA - 06/21/2024 10:40 AM EST Patient: Hawa Bhakta Procedure Summary Date: 06/21/24 Room / Location: [facility] ENDO 8 / [facility] Gastroenterology Anesthesia Start: 1017 Anesthesia Stop: 1038 Procedure: ENTEROSCOPY WITH CONTROL BLEEDING (INCLUDES ILEUM) Diagnosis: GIB (gastrointestinal bleeding) Providers: Ruddy Andrade MD Responsible Provider: Malvin Raphael MD Anesthesia Type: MAC ASA Status: 4 Anesthesia Type: MAC Vitals Value Taken Time BP 94/40 06/21/24 1039 Temp 37 C (98.6 F) 06/21/24 1038 Pulse 68 06/21/24 1039 Resp 18 06/21/24 1039 SpO2 99 % 06/21/24 1039 Anesthesia Post Evaluation Patient location during evaluation: PACU Patient participation: complete - patient participated Level of consciousness: awake and alert Pain management: satisfactory to patient Multimodal analgesia pain management approach Airway patency: patent Two or more strategies used to mitigate risk of obstructive sleep apnea Cardiovascular status: acceptable and hemodynamically stable Respiratory status: acceptable Hydration status: acceptable No notable events documented. MIPS #430 PONV Patient did not receive an inhalational anesthetic (XX430) MIPS # 424 Perioperative Temperature Management Anesthesia time was less than 60 minutes (4256F) MIPS #477 Multimodal Pain Management Not emergent case Patient was administered multimodal pain management (two or more drugs and/or interventions excluding systemic opioids) in the periopeartive period occurring at some time between 6 hours prior to anesthesia start time until discharged from PACU (G2148) MIPS #404 Anesthesiology Smoking Abstinence The patient is not a current smoker (e.g. cigarette, cigar, pipe, e- cigarette/vaping/marijuana) If no stop here (XX404) I completed my handoff to the receiving clinician during which we: 1. Identified the patient 2. Identified the responsible provider 3. Reviewed the pertinent medical history 4. Discussed the surgical course 5. Reviewed intra-op anesthesia management and issues during anesthesia 6. Set expectations for post-procedure period 7. Allowed opportunity for questions and acknowledgement of understanding. [employer] Phone: [phone] 938-624511-04-2024 NotePatient: Hawa Bhakta Procedure Summary Date: 06/21/24 Room / Location: [facility] ENDO 8 / [facility] Gastroenterology Anesthesia Start: 1017 Anesthesia Stop: 1038 Procedure: ENTEROSCOPY WITH CONTROL BLEEDING (INCLUDES ILEUM) Diagnosis: GIB (gastrointestinal bleeding) Providers: Ruddy Andrade MD Responsible Provider: Malvin Raphael MD Anesthesia Type: MAC ASA Status: 4 Anesthesia Type: MAC Vitals Value Taken Time BP 94/40 06/21/24 1039 Temp 37 ?C (98.6 ?F) 06/21/24 1038 Pulse 68 06/21/24 1039 Resp 18 06/21/24 1039 SpO2 99 % 06/21/24 1039 Anesthesia Post Evaluation Patient location during evaluation: PACU Patient participation: complete - patient participated Level of consciousness: awake and alert Pain management: satisfactory to patient Multimodal analgesia pain management approach Airway patency: patent Two or more strategies used to mitigate risk of obstructive sleep apnea Cardiovascular status: acceptable and hemodynamically stable Respiratory status: acceptable Hydration status: acceptable No notable events documented. MIPS #430 PONV Patient did not receive an inhalational anesthetic (XX430) MIPS # 424 Perioperative Temperature Management Anesthesia time was less than 60 minutes (4256F) MIPS #477 Multimodal Pain Management Not emergent case Patient was administered multimodal pain management (two or more drugs and/or interventions excluding systemic opioids) in the periopeartive period occurring at some time between 6 hours prior to anesthesia start time until discharged from PACU (G2148) MIPS #404 Anesthesiology Smoking Abstinence The patient is not a current smoker (e.g. cigarette, cigar, pipe, e-cigarette/vaping/marijuana) If no stop here (XX404) I completed my handoff to the receiving clinician during which we: 1. Identified the patient 2. Identified the responsible provider 3. Reviewed the pertinent medical history 4. Discussed the surgical course 5. Reviewed intra-op anesthesia management and issues during anesthesia 6. Set expectations for post-procedure period 7. Allowed opportunity for questions and acknowledgement of understanding.[facility]11-04-2024 Surgical operation note* Anesthesia Postprocedure Evaluation - Donavon Vazquez APRN - CERTIFIED PEER SPECIALIST - 06/21/2024 10:40 AM EST Patient: Hawa Bhakta Procedure Summary Date: 06/21/24 Room / Location: [facility] ENDO 8 / [facility] Gastroenterology Anesthesia Start: 1017 Anesthesia Stop: 1038 Procedure: ENTEROSCOPY WITH CONTROL BLEEDING (INCLUDES ILEUM) Diagnosis: GIB (gastrointestinal bleeding) Providers: Ruddy Andrade MD Responsible Provider: Malvin Raphael MD Anesthesia Type: MAC ASA Status: 4 Anesthesia Type: MAC Vitals Value Taken Time BP 94/40 06/21/24 1039 Temp 37 C (98.6 F) 06/21/24 1038 Pulse 68 06/21/24 1039 Resp 18 06/21/24 1039 SpO2 99 % 06/21/24 1039 Anesthesia Post Evaluation Patient location during evaluation: PACU Patient participation: complete - patient participated Level of consciousness: awake and alert Pain management: satisfactory to patient Multimodal analgesia pain management approach Airway patency: patent Two or more strategies used to mitigate risk of obstructive sleep apnea Cardiovascular status: acceptable and hemodynamically stable Respiratory status: acceptable Hydration status: acceptable No notable events documented. MIPS #430 PONV Patient did not receive an inhalational anesthetic (XX430) MIPS # 424 Perioperative Temperature Management Anesthesia time was less than 60 minutes (4256F) MIPS #477 Multimodal Pain Management Not emergent case Patient was administered multimodal pain management (two or more drugs and/or interventions excluding systemic opioids) in the periopeartive period occurring at some time between 6 hours prior to anesthesia start time until discharged from PACU (G2148) MIPS #404 Anesthesiology Smoking Abstinence The patient is not a current smoker (e.g. cigarette, cigar, pipe, e- cigarette/vaping/marijuana) If no stop here (XX404) I completed my handoff to the receiving clinician during which we: 1. Identified the patient 2. Identified the responsible provider 3. Reviewed the pertinent medical history 4. Discussed the surgical course 5. Reviewed intra-op anesthesia management and issues during anesthesia 6. Set expectations for post-procedure period 7. Allowed opportunity for questions and acknowledgement of understanding. * Anesthesia Preprocedure Evaluation - ABBE Hernandez CRNA - 06/21/2024 10:24 AM EST Patient: Hawa Bhakta Procedure Information Anesthesia Start Date/Time: 06/21/24 1017 Procedure: ENTEROSCOPY WITH CONTROL BLEEDING (INCLUDES ILEUM) Location: [facility] ENDO 8 / [facility] Gastroenterology Providers: Ruddy Andrade MD Relevant Problems No relevant active problems Past Medical History: Past Medical History: No date: Diverticulitis No date: Hepatitis No date: Hyperlipidemia No date: Hypertension No date: Osteoarthritis No date: Restless legs syndrome No date: Temporal arteritis (CMS/HCC) (HCC) Past Surgical History: Past Surgical History: No date: CATARACT EXTRACTION; Bilateral No date: FEMUR FRACTURE SURGERY 06/19/2024: IVC FILTER INSERTION Comment: Jaylendallas dojaqui No date: JOINT REPLACEMENT; Bilateral Comment: knees No date: LAMINECTOMY Social History: TOBACCO: reports that she has quit smoking. Her smoking use included cigarettes. She does not have any smokeless tobacco history on file. ETOH: has no history on file for alcohol use. Social History Substance and Sexual Activity Drug Use Not on file Family History: No family history on file. Screening: unknown Clinical information reviewed: Allergies Meds Med Hx Surg Hx Fam Hx Soc Hx Physical Exam Airway Mallampati: III TM distance: >3 FB Neck ROM: full Mouth Open: normalendotracheal tube not in place Cardiovascular - normal exam Dental (+) Poor dentition normal Pulmonary - normal exam Abdominal Anesthesia Plan patient is NPO appropriate Any family history or previous problems with anesthesia no ASA 4 MAC Any family history or previous problems with anesthesia no The patient is not a current smoker. Anesthetic plan and risks discussed with patient. Use of blood products discussed with who consented to blood products. SILVANO Screening Labs: Lab Results Component Value Date WBC 5.1 06/21/2024 HGB 7.7 (L) 06/21/2024 HCT 23.9 (L) 06/21/2024 MCV 95.2 06/21/2024 PLT 79 (L) 06/21/2024 Lab Results Component Value Date NA 132 (L) 06/21/2024 K 3.4 (L) 06/21/2024 CL 107 06/21/2024 CO2 22 06/21/2024 BUN 33 (H) 06/21/2024 CREATININE 0.63 06/21/2024 GLUCOSE 108 (H) 06/21/2024 CALCIUM 7.2 (L) 06/21/2024 EGFR >90.0 06/21/2024 Pain Score: Patient resting with eyes closed and respirations are greater than 12 No echocardiogram results found for the past 14 days No results found for this or any previous visit. Equipment Requests: Additional Equipment Requests documented in this [facility]11-04-2024 Note* Anesthesia Discharge Note - ABBE Hernandez CRNA - 06/21/2024 10:39 AM EST Patient: Hawa Opal Bhakta Procedure Summary Date: 06/21/24 Room / Location: [place] [address] / [facility] Gastroenterology Anesthesia Start: 1016 Anesthesia Stop: 1038 Procedure: ENTEROSCOPY WITH CONTROL BLEEDING (INCLUDES ILEUM) Diagnosis: GIB (gastrointestinal bleeding) Providers: Ruddy Andrade MD Responsible Provider: Anesthesia Type: MAC ASA Status: 4 Anesthesia Type: No value filed. Vitals Value Taken Time BP 112/78 06/21/24 1038 Temp 37 C (98.6 F) 06/21/24 1038 Pulse 76 06/21/24 1038 Resp 14 06/21/24 1038 SpO2 98 % 06/21/24 1038 Anesthesia Post Evaluation Patient location during evaluation: PACU Patient participation: complete - patient participated Level of consciousness: awake and alert Pain management: satisfactory to patient Airway patency: patent Dental Injury: no Cardiovascular status: acceptable, blood pressure returned to baseline and hemodynamically stable Respiratory status: acceptable and spontaneous ventilation Hydration status: euvolemic Nausea/Vomiting: controlled No notable events documented. Patient can be discharged once all PACU criteria has been met. [id number] NotePatient: Hawa Poal Bhakta Procedure Summary Date: 06/21/24 Room / Location: [place] [address] / [facility] Gastroenterology Anesthesia Start: 1016 Anesthesia Stop: 1038 Procedure: ENTEROSCOPY WITH CONTROL BLEEDING (INCLUDES ILEUM) Diagnosis: GIB (gastrointestinal bleeding) Providers: Ruddy Andrade MD Responsible Provider: Anesthesia Type: MAC ASA Status: 4 Anesthesia Type: No value filed. Vitals Value Taken Time BP 112/78 06/21/24 1038 Temp 37 ?C (98.6 ?F) 06/21/24 1038 Pulse 76 06/21/24 1038 Resp 14 06/21/24 1038 SpO2 98 % 06/21/24 1038 Anesthesia Post Evaluation Patient location during evaluation: PACU Patient participation: complete - patient participated Level of consciousness: awake and alert Pain management: satisfactory to patient Airway patency: patent Dental Injury: no Cardiovascular status: acceptable, blood pressure returned to baseline and hemodynamically stable Respiratory status: acceptable and spontaneous ventilation Hydration status: euvolemic Nausea/Vomiting: controlled No notable events documented. Patient can be discharged once all PACU criteria has been met.[facility]11-04-[facility] Anesthesiology Preoperative evaluation and management note * Anesthesia Preprocedure Evaluation - Donavon Vazquez APRN - CERTIFIED PEER SPECIALIST - 06/21/2024 10:24 AM EST Patient: Hawa Bhakta Procedure Information Anesthesia Start Date/Time: 06/21/24 1017 Procedure: ENTEROSCOPY WITH CONTROL BLEEDING (INCLUDES ILEUM) Location: [facility] ENDO / [facility] Gastroenterology Providers: Ruddy Andrade MD Relevant Problems No relevant active problems Past Medical History: Past Medical History: No date: Diverticulitis No date: Hepatitis No date: Hyperlipidemia No date: Hypertension No date: Osteoarthritis No date: Restless legs syndrome No date: Temporal arteritis (CMS/HCC) (HCC) Past Surgical History: Past Surgical History: No date: CATARACT EXTRACTION; Bilateral No date: FEMUR FRACTURE SURGERY 06/19/2024: IVC FILTER INSERTION Comment: Jaylen vidal No date: JOINT REPLACEMENT; Bilateral Comment: knees No date: LAMINECTOMY Social History: TOBACCO: reports that she has quit smoking. Her smoking use included cigarettes. She does not have any smokeless tobacco history on file. ETOH: has no history on file for alcohol use. Social History Substance and Sexual Activity Drug Use Not on file Family History: No family history on file. Screening: unknown Clinical information reviewed: Allergies Meds Med Hx Surg Hx Fam Hx Soc Hx Physical Exam Airway Mallampati: III TM distance: >3 FB Neck ROM: full Mouth Open: normalendotracheal tube not in place Cardiovascular - normal exam Dental (+) Poor dentition normal Pulmonary - normal exam Abdominal Anesthesia Plan patient is NPO appropriate Any family history or previous problems with anesthesia no ASA 4 MAC Any family history or previous problems with anesthesia no The patient is not a current smoker. Anesthetic plan and risks discussed with patient. Use of blood products discussed with who consented to blood products. SILVANO Screening Labs: Lab Results Component Value Date WBC 5.1 06/21/2024 HGB 7.7 (L) 06/21/2024 HCT 23.9 (L) 06/21/2024 MCV 95.2 06/21/2024 PLT 79 (L) 06/21/2024 Lab Results Component Value Date NA 132 (L) 06/21/2024 K 3.4 (L) 06/21/2024 CL 107 06/21/2024 CO2 22 06/21/2024 BUN 33 (H) 06/21/2024 CREATININE 0.63 06/21/2024 GLUCOSE 108 (H) 06/21/2024 CALCIUM 7.2 (L) 06/21/2024 EGFR >90.0 06/21/2024 Pain Score: Patient resting with eyes closed and respirations are greater than 12 No echocardiogram results found for the past 14 days No results found for this or any previous visit. Equipment Requests: Additional Equipment Requests [facility]11-04-2024 NotePatient: Hawa Bhakta Procedure Information Anesthesia Start Date/Time: 06/21/24 1017 Procedure: ENTEROSCOPY WITH CONTROL BLEEDING (INCLUDES ILEUM) Location: [facility] 8 / [facility] Providers: Ruddy Andrade MD Relevant Problems No relevant active problems Past Medical History: Past Medical History: No date: Diverticulitis No date: Hepatitis No date: Hyperlipidemia No date: Hypertension No date: Osteoarthritis No date: Restless legs syndrome No date: Temporal arteritis (CMS/HCC) (HCC) Past Surgical History: Past Surgical History: No date: CATARACT EXTRACTION; Bilateral No date: FEMUR FRACTURE SURGERY 06/19/2024: IVC FILTER INSERTION Comment: Jaylen vidal No date: JOINT REPLACEMENT; Bilateral Comment: knees No date: LAMINECTOMY Social History: TOBACCO: reports that she has quit smoking. Her smoking use included cigarettes. She does not have any smokeless tobacco history on file. ETOH: has no history on file for alcohol use. Social History Substance and Sexual Activity Drug Use Not on file Family History: No family history on file. Screening: unknown Clinical information reviewed: Allergies Meds Med Hx Surg Hx Fam Hx Soc Hx Physical Exam Airway Mallampati: III TM distance: >3 FB Neck ROM: full Mouth Open: normalendotracheal tube not in place Cardiovascular - normal exam Dental (+) Poor dentition normal Pulmonary - normal exam Abdominal Anesthesia Plan patient is NPO appropriate Any family history or previous problems with anesthesia no ASA 4 MAC Any family history or previous problems with anesthesia no The patient is not a current smoker. Anesthetic plan and risks discussed with patient. Use of blood products discussed with who consented to blood products. SILVANO Screening Labs: Lab Results Component Value Date WBC 5.1 06/21/2024 HGB 7.7 (L) 06/21/2024 HCT 23.9 (L) 06/21/2024 MCV 95.2 06/21/2024 PLT 79 (L) 06/21/2024 Lab Results Component Value Date NA 132 (L) 06/21/2024 K 3.4 (L) 06/21/2024 CL 107 06/21/2024 CO2 22 06/21/2024 BUN 33 (H) 06/21/2024 CREATININE 0.63 06/21/2024 GLUCOSE 108 (H) 06/21/2024 CALCIUM 7.2 (L) 06/21/2024 EGFR >90.0 06/21/2024 Pain Score: Patient resting with eyes closed and respirations are greater than 12 No echocardiogram results found for the past 14 days No results found for this or any previous visit. [facility]: [id number] Patient Name: Hawa Bhakta Procedure Date: 06/21/2024 10:15 AM Gender: Female Date of : 1945 Age: 79 Admit Type: Inpatient Note Status: Finalized Endoscopist: Ruddy Andrade MD, [id number] Procedure: Small bowel enteroscopy Indications: GI bleeding source not documented by previous EGD and colonoscopy Findings: There was no evidence of significant pathology in the proximal jejunum. There was no evidence of significant pathology in the entire examined duodenum. A diverticulum was found in the proximal jejunum. The entire examined stomach was normal. The cardia and gastric fundus were normal on retroflexion. The esophagus was normal. The stomach was normal. Impression: - The examined portion of the jejunum was normal. - Normal examined duodenum. - Non-bleeding jejunal diverticulum. - Normal stomach. - Normal esophagus. - No specimens collected. Recommendation: - Return patient to [facility] for [facility] care. - To visualize the small bowel, perform video capsule endoscopy as an outpatient - Gi to sign off - Reconsult if bleeding continues, and may need transfer to for inpatient capsule endosocpy which we don't have available - Transfuse as needed - Trend hemoglobin - Anticoagulation per primary service and may resume if bleeding stops Referring MD: Nikolas Velez Medicines: Monitored Anesthesia Care Procedure: Pre-Anesthesia Assessment: - Prior to the procedure, a History and Physical was performed, and patient medications and allergies were reviewed. The patient is competent. The risks and benefits of the procedure and the sedation options and risks were discussed with the patient. All questions were answered and informed consent was obtained. Patient identification and proposed procedure were verified by the physician and the nurse in the pre-procedure area. Mental Status Examination: alert and oriented. Airway Examination: normal oropharyngeal airway and neck mobility. Respiratory Examination: clear to auscultation. CV Examination: normal. Prophylactic Antibiotics: The patient does not require prophylactic antibiotics. Prior Anticoagulants: The patient has taken no anticoagulant or antiplatelet agents. ASA Grade Assessment: III - A patient with severe systemic disease. After reviewing the risks and benefits, the patient was deemed in satisfactory condition to undergo the procedure. The anesthesia plan was to use monitored anesthesia care (MAC). Immediately prior to administration of medications, the patient was re-assessed for adequacy to receive sedatives. The heart rate, respiratory rate, oxygen saturations, blood pressure, adequacy of pulmonary ventilation, and response to care were monitored throughout the procedure. The physical status of the patient was re-assessed after the procedure. After obtaining informed consent, the endoscope was passed under direct vision. Throughout the procedure, the patient's blood pressure, pulse, and oxygen saturations were monitored continuously. The Colonoscope was introduced through the mouth and advanced to the proximal jejunum. The small bowel enteroscopy was accomplished without difficulty. The patient tolerated the procedure well. Complications: No immediate complications. Procedure Code(s): --- Professional --- 95913, Small intestinal endoscopy, enteroscopy beyond second portion of duodenum, not including ileum; diagnostic, including collection of specimen(s) by brushing or washing, when performed (separate procedure) --- Technical --- 59782, Small intestinal endoscopy, enteroscopy beyond second portion of duodenum, not including ileum; diagnostic, including collection of specimen(s) by brushing or washing, when performed (separate procedure) Diagnosis Code(s): --- Professional --- K92.2, Gastrointestinal hemorrhage, unspecified K57.10, Diverticulosis of small intestine without perforation or abscess without bleeding --- Technical --- K92.2, Gastrointestinal hemorrhage, unspecified K57.10, Diverticulosis of small intestine without perforation or abscess without bleeding CPT copyright 2021 [employer]. All rights reserved. The codes documented in this report are preliminary and upon doctor of pharmacy review may be revised to meet current compliance requirements. Attending Participation: I personally performed the entire procedure. Ruddy Andrade MD 06/21/2024 10:38:15 AM This report has been signed electronically. Number of Addenda: 0 Note Initiated On: 06/21/2024 10:15 [facility] [id number] Note Hospitalist Progress Note 06/21/2024 9:55 AM Subjective: Admit Date: 06/19/2024 PCP: OLIVA Shaikh is a 79 y.o. female with past medical history below who presents with chief complaint listed above. Patient was transferred after admitted for 3 days at outside facility, where she presented with a increasing weakness and melena. She initially attributed her weakness to being on a steroid for her rheumatologic conditions, however more acutely she presented when her weakness got suddenly worse and when she noticed dark black diarrhea. Her workup was notable at her outside facility for an acute blood loss anemia, baseline hemoglobin reported around 12 and her hemoglobin was down to 7 prior to transfer. Her workup also included a CTA of her abdomen and pelvis which revealed not only a lack of active bleeding but also pulmonary embolism. She had an echo done which showed no evidence of right heart strain, and she was stable on room air without hypotension. She was also in A-fib RVR and was started on an amnio drip which was concluding at time of her arrival. For her GI bleed she underwent EGD and colonoscopy which did not show any identifiable bleeding source, there was discussions about her requiring a capsule endoscopy next. She was transferred due to a need for vascular surgery consultation for consideration of an IVC filter which was not available at their facility. At time of admission she was hemodynamically stable. Will admit for further evaluation and management. Vasc surg placed IVC filter Did require PRBC 06/19 Plan push enteroscopy 06/21 Seen by cardiology Amiodarone stopped Interval History: pt awake Melena again noted Mild abd pain No SOB 06/21 Pt awake No BM No CP Sob stable NPO diet @IODETAILS@ @[email or web address]@ Medications: influenza, 0.5 mL, IntraMUSCular, Prior to discharge metoprolol tartrate, 25 mg, Oral, BID pravastatin, 80 mg, Oral, Nightly sodium chloride 0.9%, 10 mL, IntraVENous, 2 times per day sodium chloride 0.9%, 5-40 mL, IntraVENous, q12h Recent Labs 06/19/24 0602 06/20/24 0026 06/20/24 0944 06/20/24 1812 06/21/24 0426 WBC 5.9 -- 5.2 -- 5.1 HGB 6.0* < > 6.9* 8.3* 7.7* PLT 107* -- 99* -- 79* < > = values in this interval not displayed. Recent Labs 06/19/24 0602 06/20/24 0026 06/21/24 0426 NA 127* 132* 132* K 3.3* 3.2* 3.4* CL 103 106 107 CO2 21* 22 22 BUN 47* 37* 33* CREATININE 0.68 0.63 0.63 GLUCOSE 143* 92 108* No results for input(s): AST , ALT , BILITOT , ALKPHOS in the last 72 hours. No lab exists for component: ALB No results found for: TRIG , HDL , LDLCALC , CHOL No results for input(s): INR in the last 72 hours. No results for input(s): CKTOTAL , CKMB , TROPONINI in the last 72 hours. [facility] [address] [place] [address] Echo Complete 06/17/24 0828 MR#: [id number] Acct: [id number] Name: HAWA BHAKTA Rep #: [id number] : 1945 79 From: Bertram Smith MD Attending Dr: Dr. Nikolas Lara MD Status: AD M IN Ordering Dr: Bertram Smith MD Date: 06/16/24 Location: PCU Sex: F C Admitted: 06/16/24 Reason For Study: AFIB Procedure This was a 2D Doppler, Color Flow transthoracic echocardiogram. Exam performed portable in patient room. Left Ventricle Normal LV size. Left ventricular systolic function is normal. The left ventricular ejection fraction is 55 %. Stage 1 diastolic dysfunction. No regional wall motion abnormalities noted. Right Ventricle Normal RV size. Normal systolic function. Atria Normal left atrium. Normal right atrium. Mitral Valve Normal mitral valve. Tricuspid Valve Normal tricuspid valve. Aortic Valve Trisinus/trileaflet aortic valve. Pulmonic Valve The pulmonic valve is not well visualized. Great Vessels Normal aortic root. Pericardium/Pleural No pericardial effusion. Objective: Vitals: BP 120/65 Pulse 84 Temp (!) 35.6 ?C (96 ?F) (Temporal) Resp 17 Ht 5' 1 (1.549 m) Wt 175 lb 1.6 oz (79.4 kg) SpO2 97% BMI 33.08 kg/m? Pulse Ox: SpO2 Av % Min: 93 % Max: 98 % Supplemental O2: O2 Flow Rate (L/min): 3 L/min General appearance: Alert and cooperative with exam Lungs: clear to auscultation bilaterally Heart: regular rate and rhythm Abdomen: soft, distended Extremities: extremities normal, atraumatic, no cyanosis or edema Neurologic: No obvious focal neurologic deficits. Assessment Principal Problem: GIB (gastrointestinal bleeding) PE Blood loss anemia Afib/ RVR history Hypokalemia PRBC PRN GI plans push enteroscopy 06/21 Cont supportive care Was started on amio at outside hospital, will ask cards to opine here on afib strategy since no OAC for now-- off amio at this time Replace K IVC filter in place Monitor respiratory status Anticipated Discharge - Date - 06/22 - Location - Home - Pending (more content not included)...[facility]11-04-2024 Note Nutrition rescreen completed. Chart reviewed. Patient NPO for procedure. Patient to be monitored and followed by the diet software technician. Tamiko Horne [facility]11-03-2024 NoteHospitalist Progress Note 06/20/2024 10:43 AM Subjective: Admit Date: 06/19/2024 PCP: OLIVA NUÑEZ Hawa is a 79 y.o. female with past medical history below who presents with chief complaint listed above. Patient was transferred after admitted for 3 days at outside facility, where she presented with a increasing weakness and melena. She initially attributed her weakness to being on a steroid for her rheumatologic conditions, however more acutely she presented when her weakness got suddenly worse and when she noticed dark black diarrhea. Her workup was notable at her outside facility for an acute blood loss anemia, baseline hemoglobin reported around 12 and her hemoglobin was down to 7 prior to transfer. Her workup also included a CTA of her abdomen and pelvis which revealed not only a lack of active bleeding but also pulmonary embolism. She had an echo done which showed no evidence of right heart strain, and she was stable on room air without hypotension. She was also in A-fib RVR and was started on an amnio drip which was concluding at time of her arrival. For her GI bleed she underwent EGD and colonoscopy which did not show any identifiable bleeding source, there was discussions about her requiring a capsule endoscopy next. She was transferred due to a need for vascular surgery consultation for consideration of an IVC filter which was not available at their facility. At time of admission she was hemodynamically stable. Will admit for further evaluation and management. Vasc surg placed IVC filter Did require PRBC 06/19 Interval History: pt awake Melena again noted Mild abd pain No SOB NPO diet NPO diet Adult diet Easy to Chew @IODETAILS@ @[id number]@ Medications: amiodarone, 200 mg, Oral, Daily influenza, 0.5 mL, IntraMUSCular, Prior to discharge metoprolol tartrate, 25 mg, Oral, BID pravastatin, 80 mg, Oral, Nightly sodium chloride 0.9%, 10 mL, IntraVENous, 2 times per day sodium chloride 0.9%, 5-40 mL, IntraVENous, q12h Recent Labs 06/19/24 0602 06/20/24 0026 06/20/24 0944 WBC 5.9 -- 5.2 HGB 6.0* 7.7* 6.9* PLT 107* -- 99* Recent Labs 06/19/24 0602 06/20/24 0026 NA 127* 132* K 3.3* 3.2* CL 103 106 CO2 21* 22 BUN 47* 37* CREATININE 0.68 0.63 GLUCOSE 143* 92 No results for input(s): AST , ALT , BILITOT , ALKPHOS in the last 72 hours. No lab exists for component: ALB No results found for: TRIG , HDL , LDLCALC , CHOL No results for input(s): INR in the last 72 hours. No results for input(s): CKTOTAL , CKMB , TROPONINI in the last 72 hours. [facility] [address] [place] [address] Echo Complete 06/17/24 0828 MR#: [id number] Acct: [id number] Name: HAWA BHAKTA Rep #: [id number] : 1945 79 From: Bertram Smith MD Attending Dr: Dr. Nikolas Lara MD Status: AD M IN Ordering Dr: Bertram Smith MD Date: 06/16/24 Location: PCU Sex: F C Admitted: 06/16/24 Reason For Study: AFIB Procedure This was a 2D Doppler, Color Flow transthoracic echocardiogram. Exam performed portable in patient room. Left Ventricle Normal LV size. Left ventricular systolic function is normal. The left ventricular ejection fraction is 55 %. Stage 1 diastolic dysfunction. No regional wall motion abnormalities noted. Right Ventricle Normal RV size. Normal systolic function. Atria Normal left atrium. Normal right atrium. Mitral Valve Normal mitral valve. Tricuspid Valve Normal tricuspid valve. Aortic Valve Trisinus/trileaflet aortic valve. Pulmonic Valve The pulmonic valve is not well visualized. Great Vessels Normal aortic root. Pericardium/Pleural No pericardial effusion. Objective: Vitals: BP 129/50 (BP Location: Right arm, Patient Position: Lying) Pulse 101 Temp 36.1 ?C (97 ?F) (Temporal) Resp 18 Ht 5' 1 (1.549 m) Wt 175 lb 1.6 oz (79.4 kg) SpO2 93% BMI 33.08 kg/m? Pulse Ox: SpO2 Av.1 % Min: 93 % Max: 100 % Supplemental O2: O2 Flow Rate (L/min): 3 L/min General appearance: Alert and cooperative with exam Lungs: clear to auscultation bilaterally Heart: regular rate and rhythm Abdomen: soft, distended Extremities: extremities normal, atraumatic, no cyanosis or edema Neurologic: No obvious focal neurologic deficits. Assessment Principal Problem: GIB (gastrointestinal bleeding) PE Blood loss anemia Afib/ RVR history Hypokalemia PRBC again today GI plans push enteroscopy tomm Cont supportive care Was started on amio at outside hospital, will ask cards to opine here on afib strategy since no OAC for now IVC filter in place Monitor respiratory status Anticipated Discharge - Date - 06/22 - Location - Home - Pending the following - course Total time spent (which include face to face and non face to face encounters) : 36 minutes See orders, continue POC Advance Directive: Full Co (more content not included)...[facility] SUBJECTIVE: GI following for GIB. Overnight patient had IVC filter placed. Patient with one black liquid stool this morning. Denies abd pain, but is endorsing nausea, Hgb just redrawn, did drop to 6.9. Medications Scheduled Meds: Current Facility-Administered Medications: acetaminophen (Tylenol) tablet 650 mg, 650 mg, Oral, q6h PRN, 650 mg at 06/19/244 OR acetaminophen (Tylenol) suppository 650 mg, 650 mg, Rectal, q6h PRN, Angela Mena DO amiodarone (Pacerone) tablet 200 mg, 200 mg, Oral, Daily, Angela Mena DO, 200 mg at 06/19/24 0603 influenza vaccine A&B surf ant adjuvanted (Fluad) HIGH-DOSE injection 0.5 mL, 0.5 mL, IntraMUSCular, Prior to discharge, Angela Mena DO metoprolol tartrate (Lopressor) tablet 25 mg, 25 mg, Oral, BID, Angela Mena DO, 25 mg at 06/19/242050 naloxone (Narcan) injection 0.4 mg, 0.4 mg, IntraVENous, q5 min PRN, Andrea Phan MD ondansetron ODT (Zofran-ODT) disintegrating tablet 4 mg, 4 mg, Oral, q8h PRN OR ondansetron (Zofran) injection 4 mg, 4 mg, IntraVENous, q6h PRN, Angela Mena DO polyethylene glycol (PEG) 3350 (Miralax) packet 17 g, 17 g, Oral, Daily PRN, Angela Mena DO pravastatin (Pravachol) tablet 80 mg, 80 mg, Oral, Nightly, Angela Mena DO, 80 mg at 06/19/242050 rOPINIRole (Requip) tablet 0.25 mg, 0.25 mg, Oral, Nightly PRN, Angela Mena DO sodium chloride 0.9 % infusion, 5-250 mL/hr, IntraVENous, PRN, Angela Mena DO sodium chloride 0.9 % infusion, 250 mL/hr, IntraVENous, PRN, Everette Casillas MD sodium chloride 0.9% (NS) flush 5-40 mL, 5-40 mL, IntraVENous, q12h, Angela Mena DO, 10 mL at 06/20/24 0525 sodium chloride 0.9% (NS) flush 5-40 mL, 5-40 mL, IntraVENous, PRN, Angela Mena DO OBJECTIVE VITALS: BP 103/54 Pulse 90 Temp 36 ?C (96.8 ?F) (Temporal) Resp 17 Ht 5' 1 (1.549 m) Wt 175 lb 1.6 oz (79.4 kg) SpO2 97% BMI 33.08 kg/m? Average, Min, and Max for last24 hours Vitals: TEMPERATURE: Temp Av.3 ?C (97.3 ?F) Min: 35.9 ?C (96.6 ?F) Max: 37.1 ?C (98.7 ?F) RESPIRATIONS RANGE: Resp Av.1 Min: 15 Max: 20 PULSE RANGE: Pulse Av.8 Min: 68 Max: 90 BLOOD PRESSURE RANGE: Systolic (24hrs), Av , Min:102 , Max:131 ; Diastolic (24hrs), Av, Min:35, Max:55 PULSE OXIMETRY RANGE:SpO2 Av.3 % Min: 94 % Max: 100 % I/O last 3 completed shifts: In: 754.8 (9.5 mL/kg) [I.V.:100 (1.3 mL/kg); Blood:654.8] Out: 200 (2.5 mL/kg) [Urine:200 (0.1 mL/kg/hr)] Weight: 79.4 kg Constitutional: No acute distress. Resting comfortably in bed. Eyes: Pupils are equal and round; Conjunctiva are not injected; Sclera are non-icteric. ENT: Ears/nose without external abnormalities. Oral mucosa is pink and moist. Neck: No JVD. No carotid bruits; No thyromegaly. Respiratory: Clear to auscultation bilaterally without any added sounds. Effort is normal Heart: Regular, Normal S1 and S2. No murmur; No added sounds. Abdomen: Normal BS, soft, non-tender, non-distended; no hepatomegaly. Extremities/Skin: No LE edema; Skin warm to touch and well perfused. Musculoskeletal: Head - normocephalic. Neck - supple Psychiatric: AAO x 3, answers appropriately, normal mood, normal affect. Data Recent blood work, radiologic study and endoscopic study were reviewed with the patient. CBC: Recent Labs 06/19/2460106/20/24 0026 WBC 5.9 -- RBC 1.96* -- HGB 6.0* 7.7* HCT 17.3* 22.4* MCV 88.3 -- MCH 30.6 -- MCHC 34.7 -- RDW 18.6* -- PLT 107* -- MPV 10.8 -- CMP: Recent Labs 06/19/2460106/20/246 NA 127* 132* K 3.3* 3.2* CL 103 106 CO2 21* 22 BUN 47* 37* CREATININE 0.68 0.63 GLUCOSE 143* 92 CALCIUM 7.6* 7.2* PT/INR: No results for input(s): INR in the last 72 hours. Endoscopic Review Colonoscopy and EGD 06/17/24: Findings: The perianal and digital rectal examinations were normal. Multiple small and large-mouthed diverticula were found in the recto-sigmoid colon and sigmoid colon. The exam was otherwise without abnormality on direct and retroflexion views. Impression: - Diverticulosis in the recto-sigmoid colon and in the sigmoid colon. - The examination was otherwise normal on direct and retroflexion views. - No specimens collected. Findings: The examined esophagus was normal. A small hiatal hernia was present. No other significant abnormalities were identified in a careful examination of the stomach. No gross lesions were noted in the third portion of the duodenum. Impression: - Normal esophagus. - Small hiatal hernia. - No gross lesions in the third portion of the duodenum. - No specimens collected ASSESSMENT AND PLAN Acute on chronic anemia w black stool- Hgb 7.7 (Hgb 8.6 at [facility]). S/p 4 units PRBC's. Repeat Hgb this morning per RN did drop to 6.9 and patient did have one episode of black sto (more content not included)...[facility] 06-19-2024 NotePatient: Hawa Bhakta Procedure Summary Date: 06/19/24 Room / Location: [facility] Operating Room Anesthesia Start: 1450 Anesthesia Stop: 153 Procedure: INSERTION OF INTRAVASCULAR VENA CAVA FILTER Diagnosis: GIB (gastrointestinal bleeding) Surgeons: Leonard Adams MD Responsible Provider: Andrea Phan MD Anesthesia Type: TIVA ASA Status: 3 Anesthesia Type: TIVA Vitals Value Taken Time BP 109/40 06/19/24 1538 Temp 37 ?C (98.6 ?F) 06/19/24 1538 Pulse 77 06/19/24 1538 Resp 15 06/19/24 1538 SpO2 99 % 06/19/24 1538 Anesthesia Post Evaluation Patient location during evaluation: PACU Patient participation: complete - patient participated Level of consciousness: awake and alert Pain management: satisfactory to patient Airway patency: patent Dental Injury: no Cardiovascular status: acceptable, blood pressure returned to baseline and hemodynamically stable Respiratory status: acceptable and spontaneous ventilation Hydration status: euvolemic Nausea/Vomiting: controlled No notable events documented. Patient can be discharged once all PACU criteria has been met.[facility]11-02-2024 NotePatient: Hawa Slaternez Procedure Summary Date: 06/19/24 [place] [facility] [place] Anesthesia Start: 1450 Anesthesia Stop: 1538 Procedure: INSERTION OF INTRAVASCULAR VENA CAVA FILTER Diagnosis: GIB (gastrointestinal bleeding) Surgeons: Leonard Adams MD Responsible Provider: Andrea Phan MD Anesthesia Type: TIVA ASA Status: 3 Anesthesia Type: TIVA Vitals Value Taken Time BP 109/40 06/19/24 1538 Temp 37 ?C (98.6 ?F) 06/19/24 1538 Pulse 77 06/19/24 1538 Resp 15 06/19/24 1538 SpO2 99 % 06/19/24 1538 Anesthesia Post Evaluation Patient location during evaluation: PACU Patient participation: complete - patient participated Level of consciousness: awake and alert Pain management: satisfactory to patient Multimodal analgesia pain management approach Airway patency: patent Two or more strategies used to mitigate risk of obstructive sleep apnea Cardiovascular status: acceptable and hemodynamically stable Respiratory status: acceptable Hydration status: acceptable No notable events documented. MIPS #430 PONV Patient did not receive an inhalational anesthetic (XX430) Patient exhibits three or more risk factors for PONV (4556F) Patient received at aset 2 prophylactic Rx PONV anti-emtic agents of different classes preop and/or intraop (G9775) MIPS # 424 Perioperative Temperature Management Anesthesia time was less than 60 minutes (4256F) MIPS #477 Multimodal Pain Management Emergent case Exlusion- Stop here (M1142) MIPS #404 Anesthesiology Smoking Abstinence The patient is not a current smoker (e.g. cigarette, cigar, pipe, e-cigarette/vaping/marijuana) If no stop here (XX404) I completed my handoff to the receiving clinician during which we: 1. Identified the patient 2. Identified the responsible provider 3. Reviewed the pertinent medical history 4. Discussed the surgical course 5. Reviewed intra-op anesthesia management and issues during anesthesia 6. Set expectations for post-procedure period 7. Allowed opportunity for questions and acknowledgement of understanding.[facility]11-02[facility] NotePatient: Hawa Bhakta Procedure Information Date/Time: 06/19/24 1500 Procedure: INSERTION OF INTRAVASCULAR VENA CAVA FILTER Location: [facility] Operating Room Surgeons: Leonard Adams MD Relevant Problems No relevant active problems Past Medical History: Past Medical History: No date: Diverticulitis No date: Hepatitis No date: Hyperlipidemia No date: Hypertension No date: Osteoarthritis No date: Restless legs syndrome No date: Temporal arteritis (CMS/HCC) (HCC) Past Surgical History: Past Surgical History: No date: CATARACT EXTRACTION; Bilateral No date: FEMUR FRACTURE SURGERY No date: JOINT REPLACEMENT; Bilateral Comment: knees No date: LAMINECTOMY Social History: TOBACCO: reports that she has quit smoking. Her smoking use included cigarettes. She does not have any smokeless tobacco history on file. ETOH: has no history on file for alcohol use. Social History Substance and Sexual Activity Drug Use Not on file Family History: No family history on file. Screening: unknown Clinical information reviewed: Allergies Meds Physical Exam Airway Mallampati: II TM distance: >3 FB Neck ROM: full Comments: Thick neckMouth Open: normalendotracheal tube not in place Cardiovascular Dental dentition normal Pulmonary Abdominal Anesthesia Plan patient is NPO appropriate Any family history or previous problems with anesthesia no ASA 3 TIVA Any family history or previous problems with anesthesia no The patient is not a current smoker. Anesthetic plan and risks discussed with patient. SILVANO Screening Labs: Lab Results Component Value Date WBC 5.9 06/19/2024 HGB 6.0 (LL) 06/19/2024 HCT 17.3 (L) 06/19/2024 MCV 88.3 06/19/2024 PLT 107 (L) 06/19/2024 Lab Results Component Value Date NA 127 (L) 06/19/2024 K 3.3 (L) 06/19/2024 CL 103 06/19/2024 CO2 21 (L) 06/19/2024 BUN 47 (H) 06/19/2024 CREATININE 0.68 06/19/2024 GLUCOSE 143 (H) 06/19/2024 CALCIUM 7.6 (L) 06/19/2024 EGFR 89.8 06/19/2024 No echocardiogram results found for the past 14 days No results found for this or any previous visit. Equipment Requests: [facility] NoteAttending History and Physical Admit Date: 06/19/2024 PCP: OLIVA NUÑEZ CHIEF COMPLAINT: melena, weakness Reason for Admission: transfer for possible IVC filter, acute PE and acute blood loss anemia History Obtained From: patient HISTORY OF PRESENT ILLNESS: Hawa is a 79 y.o. female with past medical history below who presents with chief complaint listed above. Patient was transferred after admitted for 3 days at outside facility, where she presented with a increasing weakness and melena. She initially attributed her weakness to being on a steroid for her rheumatologic conditions, however more acutely she presented when her weakness got suddenly worse and when she noticed dark black diarrhea. Her workup was notable at her outside facility for an acute blood loss anemia, baseline hemoglobin reported around 12 and her hemoglobin was down to 7 prior to transfer. Her workup also included a CTA of her abdomen and pelvis which revealed not only a lack of active bleeding but also pulmonary embolism. She had an echo done which showed no evidence of right heart strain, and she was stable on room air without hypotension. She was also in A-fib RVR and was started on an amnio drip which was concluding at time of her arrival. For her GI bleed she underwent EGD and colonoscopy which did not show any identifiable bleeding source, there was discussions about her requiring a capsule endoscopy next. She was transferred due to a need for vascular surgery consultation for consideration of an IVC filter which was not available at their facility. At time of admission she was hemodynamically stable. Will admit for further evaluation and management. Past Medical History: Past Medical History: Diagnosis Date Diverticulitis Hepatitis Hyperlipidemia Hypertension Osteoarthritis Restless legs syndrome Temporal arteritis (CMS/HCC) (HCC) Past Surgical History: Past Surgical History: Procedure Laterality Date CATARACT EXTRACTION Bilateral FEMUR FRACTURE SURGERY JOINT REPLACEMENT Bilateral knees LAMINECTOMY Social History: Social History Socioeconomic History Marital status: Spouse name: Not on file Number of children: Not on file Years of education: Not on file Highest education level: Not on file Occupational History Not on file Tobacco Use Smoking status: Not on file Smokeless tobacco: Not on file Substance and Sexual Activity Alcohol use: Not on file Drug use: Not on file Sexual activity: Not on file Other Topics Concern Not on file Social History Narrative Not on file Social Drivers of Health Financial Resource Strain: Not on file Food Insecurity: Not on file Transportation Needs: Not on file Physical Activity: Not on file Stress: Not on file Social Connections: Not on file Intimate Partner Violence: Not on file Housing Stability: Not on file Family History: No family history on file. Medications Prior to Admission: No current facility-administered medications on file prior to encounter. Current Outpatient Medications on File Prior to Encounter Medication Sig Dispense Refill alendronate (Fosamax) 70 MG tablet Take 70 mg by mouth every 7 days. Take in the morning with a full glass of water, on an empty stomach, and do not take anything else by mouth or lie down for the next 30 min. Calcium Carb-Cholecalciferol 600-10 MG-MCG capsule Take 1 tablet by mouth in the morning. ergocalciferol (Vitamin D-2) 1.25 MG (38415 UT) capsule Take 50,000 Units by mouth 1 (one) time per week. hydroCHLOROthiazide 12.5 MG tablet Take 12.5 mg by mouth daily. lisinopril 10 MG tablet Take 10 mg by mouth in the morning and 10 mg in the evening. Multiple Vitamin (multivitamin) tablet Take 1 tablet by mouth daily. pravastatin (Pravachol) 80 MG tablet Take 80 mg by mouth Nightly. predniSONE (Deltasone) 20 MG tablet Take 20 mg by mouth 3 times daily. rOPINIRole (Requip) 0.25 MG tablet Take 0.25 mg by mouth Nightly as needed (restless legs). spironolactone (Aldactone) 50 MG tablet Take 50 mg by mouth daily. tocilizumab (Actemra) injection Inject 162 mg under the skin every 7 days. Vibegron 75 MG tablet Take 75 mg by mouth in the morning. Allergies: Not on File REVIEW OF SYSTEMS: Constitutional: Negative for fever, chills, activity change and unexpected weight change. HEENT: Negative for congestion, postnasal drip and sneezing. Eyes: Negative for itching and visual disturbance. Respiratory: Negative for apnea, cough, choking, chest tightness, shortness of breath, wheezing and stridor. Cardiovascular: Negative for chest pain. Gastrointestinal: Negative for nausea, vomiting, abdominal pain, diarrhea and blood in stool. Genitourinary: Negative for dysuria, frequency and flank pain. Musculoskeletal: Negative for myalgias and joint swelling. Skin: Negative for rash. Neurological: Negative for dizziness, tremors, seizures, syncope, facial asym (more content not included)...[facility] for visit Narrative* Auth/Cert (Routine) Specialty Diagnoses / Procedures Referred By Contac t Referred To Contact Diagnoses GIB, Bilateral PE's Procedures . Avelino Corley MD [address] [place] [address] Phone: tel: fax: [facility] [address] [place] [address] Phone: tel: Referral ID Status Reason Start Date Expiration Date Visits Re quested Visits Authorized [id number] 1 1 BookBag Advance Directives No Advanced Directives Records Found Date Activated Date Inactivated Comments 06/19/2024 5:09 AM Summary Purpose Family History No Family History Records Found Additional Source Comments Care Teams (unrecognized sec tion and content) Scientific Laboratory Supervisor Relationship Specialty Start Date End Date Oliva Nuñez [address] [place] [id number] PCP - General Family Medicine 06/18/24 INFORMATION SOURCE (unrecogn ized section and content) DATE CREATED AUTHOR 06/24/2024 [employer] [facility] FOR RECORDS PERTAINING TO PATIENTS WHO ARE OR HAVE BEEN ENROLLED IN A CHEMICAL DEPENDENCY/SUBSTANCEABUSE PROGRAM, SOME INFORMATION MAY BE OMITTED. This clinical summary was aggregated from multiple sources. Caution should be exercised in using it in the provision of clinical care. This summary normalizes information from multiple sources, and as a consequence, information in this document may materially change the coding, format and clinical context of patient data. In addition, data may be omitted in some cases. CLINICAL DECISIONS SHOULD BE BASED ON THE PRIMARY CLINICAL RECORDS. [employer] provides no warranty or guarantee of the accuracy or completeness of information in this document.
--- NOTE | 2024-06-25 15:39 | HP.PCM_ITS ---
HPI - General General Date of Admission: 06/25/24 Date of Service: 06/25/24 Chief Complaint: Here for rehabilitation. [facility] Narrative RASEN OJEDA, is a 79 Female who presents with following: [facility] 06/16/2024 thru 06/19/2024. GI bleed treated with pantoprazole drip. Atrial fibrillation with RVR, treated with amiodarone drip, no anticoagulation 2/2 GI bleed. EGD/colonoscopy did not find source of bleeding. Bleeding scan negative. CTA chest shows right lower lobe pulmonary embolism. Acute pulmonary embolism, unable to anticoagulate 2/2 GI bleed, IVC filter recommended. Vascular surgery not available. Transfer to [facility]. 06/19/2024 Admit [facility]. IVC filter placed. Cardiology consulted for atrial fibrillation, patient converted to normal sinus rhythm. Amiodarone stopped, changed to Metoprolol. EGD /colonoscopy repeated at [facility], no abnormalities found. Small amount of bleeding, patient's H&H stable. Lisinopril stopped, Spironolactone stopped, HCTZ stopped. She has E. Coli UTI, treated with Bactrim DS. 06/25/2024 Admit to TCU with debility, here for rehabilitation, strengthening, prior to discharge home alone. COUNTS INCLUDE 234 BEDS AT THE [facility] Medical History Temporal arteritis PONV (postoperative nausea and vomiting) Wears partial dentures Ambulates with cane Osteoarthritis History of anemia High cholesterol Hepatitis Injury of head and neck Diverticulosis Former smoker Shortness of breath on exertion Chronic cough Leg cramps History of stress test Hypertension History of femur fracture Home Medications ?Medication ?Instructions ?Recorded ?Last Taken ?Type lisinopril 10 mg tablet 10 mg PO BID blood pressure 07/23/13 04/23/24 History ergocalciferol (vitamin D2) 1,250 50,000 unit PO QMONTH ostseopenia 02/14/14 04/04/24 History mcg (50,000 unit) capsule (Vitamin D2) calcium 600 mg (as 1 ea PO DAILY bone health 12/18/15 04/23/24 History carbonate)-vitamin D3 10 mcg (400 unit) tablet spironolactone 50 mg tablet 50 mg PO DAILY bp 12/18/15 04/23/24 History multivitamin 1 tab PO DAILY vitamin 08/27/21 04/23/24 History hydrochlorothiazide 12.5 mg capsule 12.5 mg PO DAILY blood pressure 04/23/24 04/23/24 History prednisone 20 mg tablet 20 mg PO TID terrmoral arteritis 04/23/24 04/23/24 History ropinirole 0.25 mg tablet See Rx Instructions PO QHS 04/23/24 04/22/24 History restless legs vibegron 75 mg tablet (Gemtesa) 75 mg PO DAILY unsure 04/23/24 04/23/24 History alendronate 70 mg tablet 70 mg PO QWEEK osteopenia 06/16/24 06/11/24 History tocilizumab 10 mg subcut .weekly temporal 06/16/24 06/15/24 History arteritis omeprazole 20 mg capsule,delayed 20 mg PO DAILY esophagus ulcers 06/17/24 Unknown History release pravastatin 80 mg tablet 80 mg PO DAILY high cholesterol 06/17/24 06/15/24 History metoprolol tartrate 25 mg tablet 25 mg PO BID BP 06/25/24 Unknown History sulfamethoxazole 800 1 tab PO BID Antibiotic 06/25/24 Unknown History mg-trimethoprim 160 mg tablet Allergy/AdvReac Type Severity Reaction Status Date / Time cefdinir (Cefdinir) Allergy Rash Verified 06/16/24 07:38 morphine AdvReac Severe Nausea Verified 06/16/24 07:38 Family History Mother Asthma Arthritis Sister Arthritis Colon cancer Father Arthritis Surgical History History of colonoscopy History of laminectomy History of left knee replacement History of bilateral cataract extraction Social History (Updated 06/25/24 @ 15:[address] Umberto Escamilla MD) household members: none Smoking Status: Former smoker alcohol intake: never substance use type: does not use ROS Constitutional Constitutional: Denies chills, fever(s) or weight gain ENT HEENT: Denies headache(s), nasal congestion or nasal discharge Cardiovascular Cardiovascular: Denies chest pain or palpitations Respiratory/Chest Respiratory/Chest: Denies cough, excessive phlegm production or shortness of breath with exertion Gastrointestinal Gastrointestinal: Denies abdominal pain, nausea or vomiting Genitourinary Genitourinary: Denies dysuria Musculoskeletal Musculoskeletal: Denies joint pain or joint swelling Integumentary Integumentary: Denies rash or wounds Neurologic Neurologic: Denies focal weakness, numbness or tingling Psychiatric Psychiatric: Denies anxiety, auditory hallucinations, depression, homicidal ideation or suicidal ideation Vital Signs Vital Signs Vital Signs: 06/25/24 14:44 Temperature 97.1 F L Temperature Source Temporal Pulse Rate 78 Respiratory Rate 18 Blood Pressure 127/67 H Blood Pressure Mean 87 Blood Pressure Source Monitor Blood Pressure Position Semi-Fowlers Blood Pressure Location Left Arm Pulse Ox 98 Oxygen Delivery Method Room Air Weight Weight: 79.742 kg Body Mass Index (BMI) 32.1 Physical Exam Const alert General Appearance: cooperative HEENT normocephalic Eyes PERRL and EOMs intact bilaterally Neck supple, no JVD and no carotid bruits Resp normal respiratory effort, normal air movement and clear to auscultation bilaterally Cardio regular rate and regular rhythm GI normal to inspection, nondistended, normoactive bowel sounds, non-tender and non-distended Extremity normal capillary refill General Extremity: Negative for edema Skin no rashes or lesions noted General Skin Exam: no breakdown Psych affect normal Appearance: appropriate Assessment & Plan Assessment/Plan (1) Debility: (2) Pulmonary embolism: (3) Acute anemia: (4) Atrial fibrillation with RVR: (5) Essential (primary) hypertension: (6) HLD (hyperlipidemia): (7) Vitamin D deficiency: (8) Temporal arteritis: (9) Restless leg syndrome: (10) Overactive bladder: (11) Osteoporosis: PLAN: Plan 79 year old female with below past medical history hospitalized for GI bleed, acute anemia, complicated by pulmonary embolism, IVC filter placed, new onset atrial fibrillation with RVR, admitted to TCU with debility, here for rehabilitation, strengthening, prior to discharge home alone. * Debility - PT/OT. * Pain - Tylenol 1000mg q6 prn pain (1-10). * Bowel - senna/colace 1 tablet bid, Magnesium citrate 300mL po daily prn. * Adult immunization - Administer pneumonia vaccine, covid vaccine, flu vaccine as appropriate. * DVT prophylaxis - Hold, GI bleed. * Osteoporosis - Alendronate 70mg qweek. * Calcium deficiency - Calcium D 1 tablet daily. * Vitamin D deficiency - D 1.25mg qmonth. * Skin irritation - Calmoseptine topical bid. * Atrial fibrillation - Metoprolol 25mg bid, anticoagulation held 2/2 GI bleed. * Nutrition - MVI 1 tablet daily. * Restless leg syndrome - Mirapex 0.125mg qhs. * Hyperlipidemia - Pravastatin 80mg qhs. 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 * E. Coli UTI - Bactrim DS 1 tablet bid thru 07/02/2024. * Overactive bladder - Gemtesa 75mg daily. * GI bleed - Check stool for blood, monitor H&H, transfuse as needed, consult Dr. Donald.
[2024-06-25 16:00] VITALS: BP 127/67; PULSE 78; RESP 18; TEMP 36.2; O2SAT 98
[2024-06-25] MEDS: Smz/Tmp Ds Tablet 1 TABLET PO (17:23)
[2024-06-25] MEDS: predniSONE 20 MG Tablet PO (17:31)
[2024-06-25] MEDS: Acetaminophen 500 MG Tablet 1000 MG PO (18:42)
[2024-06-25 20:10] VITALS: BP 116/70; PULSE 76
[2024-06-25] MEDS: Pravastatin 80 MG Tablet PO (20:10)
[2024-06-25] MEDS: Metoprolol Tartrate 25 MG Tablet PO (20:10)
[2024-06-25] MEDS: Menthol/Lanolin/Calamine/Znox 113 GM Tube 1 APPLIC TOPICAL (22:10)
--- NOTE | 2024-06-26 05:55 | NURSING ---
Patient awake, Cpap off. SpO2 currently 94 on RA. Will leave O2 off at this time and continue to monitor.
[2024-06-26 06:55] VITALS: O2SAT 95
[2024-06-26 06:59] LABS: Absolute Lymphocyte Count 1.32 X10^3/uL (0.83-4.51); Absolute Neutrophil Count 2.7 X10^3/uL (2.0-7.7); Basophil# 0.02 X10^3/uL; Basophil% 0.5 % (0-1); Hematocrit 24.8 % (37-47); Hemoglobin 7.8 g/dL (12.0-15.0); Lymphocyte # 1.32 X10^3/ul (0.83-4.51); Lymphocyte % 31.4 % (19-41); Mean Corp Hgb Conc 31.5 g/dL (32-36); Mean Corpuscular Hgb 31.1 pg (27.0-32.0); Mean Corpuscular Volume 98.8 fL (81-99); Mean Platelet Vol. 10.3 fl (6.2-12.0); Monocyte# 0.18 X10^3/uL; Monocyte% 4.3 % (0-10); NRBC Flagged by Analyzer 0.5 % (0-5); Neutrophil # 2.65 X10^3/uL (2.7-7.7); Neutrophil % 63.1 % (47-70); POSITIVE MORPHOLOGY YES; Platelet Count 154 K/mm3 (150-450); RBC Distribution Width CV 21.4 % (11.6-14.6); RBC Distribution Width SD 75.1 fl (35.1-43.9); Red Blood Count 2.51 M/mm3 (4.2-5.4); White Blood Count 4.2 K/mm3 (4.4-11.0)
[2024-06-26 07:04] LABS: Differential Indicated SCAN CRITERIA MET
[2024-06-26 07:39] LABS: Anion Gap 6 (5-15); BUN 27 mg/dL (7-18); Calcium,Total 7.9 mg/dL (8.5-10.1); Chloride 115 mmol/L (98-107); Creatinine, Serum 0.75 mg/dL (0.55-1.02); EST Glomerular Filtration Rate 80 mL/min (>60); Est Glom Filt Rate - Afr Amer 96 mL/min (>60); Glucose 116 mg/dL (74-106); Potassium 4.1 mmol/L (3.5-5.1); Sodium Level 142 mmol/L (136-145)
[2024-06-26 08:25] LABS: Anisocytosis 2+; Differential Comment SCANNED; Macrocytosis 1+; Microcytosis 1+; Polychromasia 1+
[2024-06-26 09:25] VITALS: PULSE 85
[2024-06-26] MEDS: Metoprolol Tartrate 25 MG Tablet PO ×2 (09:25→21:06)
[2024-06-26] MEDS: Calcium Carb/Vitamin D 1 TABLET Tablet PO (09:25)
[2024-06-26] MEDS: Smz/Tmp Ds Tablet 1 TABLET PO ×2 (09:25→17:17)
[2024-06-26] MEDS: Multivitamins,Therapeutic Tablet 1 TABLET PO (09:25)
[2024-06-26] MEDS: Vibegron 75 MG TABLET PO (09:25)
[2024-06-26] MEDS: predniSONE 20 MG Tablet PO ×3 (09:25→17:17)
[2024-06-26] MEDS: Menthol/Lanolin/Calamine/Znox 113 GM Tube 1 APPLIC TOPICAL ×2 (09:26→21:07)
[2024-06-26] MEDS: Tuberculin,Purif.prot.deriv. 50 TU/ML Vial 0.1 ML ID (09:54)
[2024-06-26 11:11] VITALS: BP 114/57; PULSE 85; RESP 18; TEMP 36.7; O2SAT 96
--- NOTE | 2024-06-26 15:14 | NURSING ---
rn tutorial laboratory supervisor notified of order for blood transfusion, will be adminstered on Friday per Small Business Sales Representative
[2024-06-26 21:03] VITALS: BP 118/60; PULSE 80; RESP 18
[2024-06-26 21:06] VITALS: PULSE 80
[2024-06-26] MEDS: Senna/Docusate Sodium 1 Tablet PO (21:06)
[2024-06-26] MEDS: Pravastatin 80 MG Tablet PO (21:06)
[2024-06-27 05:51] LABS: Hematocrit 24.4 % (37-47); Hemoglobin 7.7 g/dL (12.0-15.0)
[2024-06-27] MEDS: Acetaminophen 500 MG Tablet 1000 MG PO (06:38)
[2024-06-27] MEDS: Smz/Tmp Ds Tablet 1 TABLET PO ×2 (08:11→17:25)
[2024-06-27] MEDS: predniSONE 20 MG Tablet PO ×3 (08:11→17:25)
[2024-06-27] MEDS: Multivitamins,Therapeutic Tablet 1 TABLET PO (08:11)
[2024-06-27] MEDS: Menthol/Lanolin/Calamine/Znox 113 GM Tube 1 APPLIC TOPICAL ×2 (08:12→20:22)
[2024-06-27] MEDS: Calcium Carb/Vitamin D 1 TABLET Tablet PO (08:12)
[2024-06-27 08:13] VITALS: BP 129/61; PULSE 68
[2024-06-27] MEDS: Vibegron 75 MG TABLET PO (08:13)
[2024-06-27] MEDS: Metoprolol Tartrate 25 MG Tablet PO ×2 (08:13→20:21)
[2024-06-27] MEDS: Senna/Docusate Sodium 1 Tablet PO ×2 (08:14→20:23)
[2024-06-27 08:18] VITALS: BP 129/61; PULSE 68; O2SAT 98
[2024-06-27 10:00] VITALS: PULSE 64; RESP 18; O2SAT 97
--- NOTE | 2024-06-27 10:35 | PCM.PN.DRR ---
Documented by User: Edwin Ervin 06/27/24 11:38 TCU RX Drug Regimen Review Subjective/Objective Subjective/Objective Subjective: TCU admission note. 79 year old female with below past medical history hospitalized for GI bleed, acute anemia, complicated by pulmonary embolism, IVC filter placed, new onset atrial fibrillation with RVR, admitted to TCU with debility, here for rehabilitation, strengthening, prior to discharge home alone. Objective: Allergies cefdinir (Cefdinir) Allergy (Verified 06/16/24 07:38) Rash morphine Adverse Reaction (Severe, Verified 06/16/24 07:38) Nausea Current Medications Generic Name Dose Route Start Last Admin Trade Name Freq PRN Reason Stop Dose Admin Acetaminophen 1,000 mg 06/25/24 16:02 06/27/24 06:38 Acetaminophen 500 Mg Tablet PO 1,000 mg Q6H PRN PRN Administration Pain Score 1-10 Alendronate Sodium 70 mg 06/30/24 06:00 Alendronate Sodium 70 Mg Tablet PO We [facility] Calamine/Phenol 1 applic 06/25/24 22:00 06/27/24 08:12 Menthol/Lanolin/Calamine/Znox 113 Gm Tube TOPICAL 1 applic BID [facility] Administration Protocol Calcium/Vitamin D 1 tablet 06/26/24 08:00 06/27/24 08:12 Calcium Carb/Vitamin D 1 Tablet Tablet PO 1 tablet DAILYCM [facility] Administration Ergocalciferol 1.25 mg 06/30/24 10:00 Ergocalciferol 1.25 Mg (50, 000 Unit) Capsule PO QMONTH [facility] Magnesium Citrate 300 ml 06/25/24 16:02 Magnesium Citrate 300 Ml PO DAILY PRN Constipation Metoprolol Tartrate 25 mg 06/25/24 22:00 06/27/24 08:13 Metoprolol Tartrate 25 Mg Tablet PO 25 mg BID [facility] Administration Protocol Multivitamins 1 tablet 06/26/24 08:00 06/27/24 08:11 Multivitamins,Therapeutic Tablet PO 1 tablet DAILYCM [facility] Administration Pravastatin Sodium 80 mg 06/25/24 22:00 06/26/24 21:06 Pravastatin 80 Mg Tablet PO 80 mg QHS [facility] Administration Prednisone 20 mg 06/25/24 17:45 06/27/24 08:11 Prednisone 20 Mg Tablet PO 20 mg TIDCM [facility] Administration Senna/Docusate Sodium 1 tablet 06/25/24 22:00 06/27/24 08:14 Senna/Docusate Sodium 1 Tablet PO 1 tablet BID [facility] Administration Tocilizumab 162 mg 06/29/24 10:00 Tocilizumab 162 Mg/0.9 Ml Syringe SC Tu GAYLE Trimethoprim/Sulfamethoxazole 1 tablet 06/25/24 17:00 06/27/24 08:11 Smz/Tmp Ds Tablet PO 07/02/24 08:01 1 tablet BIDCM [facility] Administration Tuberculin PPD 0.1 ml 07/03/24 10:00 Tuberculin,Purif.Prot.Deriv. 50 Tu/Ml Vial ID 07/03/24 10:01 X1 ONE Problem List Osteoporosis (Acute) Overactive bladder (Acute) Restless leg syndrome (Acute) Vitamin D deficiency (Acute) Essential (primary) hypertension (Acute) Acute anemia (Acute) Pulmonary embolism (Acute) Debility (Acute) Temporal arteritis (Acute) HLD (hyperlipidemia) (Chronic) Vital Signs Temp Pulse Resp BP Pulse Ox O2 Del Method O2 Flow Rate 98.0 F 68 18 129/61 H 98 Room Air 3 06/26/24 11:11 06/27/24 08:18 06/26/24 21:03 06/27/24 08:18 06/27/24 08:18 06/27/24 08:18 06/25/24 16:18 Oxygen Flow Rate (L/min) 3 Oxygen Delivery Method Room Air Weight: 79.742 kg Body Mass Index (BMI) 32.1 Sodium 142 mmol/L (136-145) 06/26/24 06:35 Potassium 4.1 mmol/L (3.5-5.1) 06/26/24 06:35 Chloride 115 mmol/L (98-107) H 06/26/24 06:35 Carbon Dioxide 22.0 mmol/L (21.0-32.0) 06/26/24 06:35 Anion Gap 6 (5-15) 06/26/24 06:35 BUN 27 mg/dL (7-18) H 06/26/24 06:35 Creatinine 0.75 mg/dL (0.55-1.02) 06/26/24 06:35 Est GFR (MDRD) Af Amer 96 mL/min (>60) 06/26/24 06:35 Est GFR (MDRD) Non-Af 80 mL/min (>60) 06/26/24 06:35 BUN/Creatinine Ratio 36.0 RATIO (10-20) H 06/26/24 06:35 Glucose 116 mg/dL (74-106) H 06/26/24 06:35 Assessment/Plan: 1. Pain: acetaminophen 1000 mg PO Q6H PRN pain 1-10. The patient has required 2 doses of PRN acetaminophen so far this admission. Please continue to monitor pain levels, PRN medication administration and LFTs (AST/ALT = 24/37 U/L on 06/17/24). 2. Bowel: senna/docusate 1 tablet PO BID, magnesium citrate 300 mL PO daily PRN constipation. The patient has not required any PRN doses of magnesium citrate so far this admission, and the patient's last bowel movement was on 06/25/24. 3. Atrial fibrillation: metoprolol tartrate 25 mg PO BID. Please continue to monitor for s/s of stroke, heart rates (recent range = 67-85 beats/min), blood pressures (recent range =116-129/57-70 mmHg), and for fatigue. 4. Osteoporosis: alendronate 70 mg weekly on Wednesdays. Please continue to monitor for s/s of fractures, renal function (serum creatinine = 0.75 mg/dL with creatinine clearance ~ 58 mL/min on 06/26/24), for GI distress with alendronate administration, for bone and jaw pain, for calcium levels (Ca = 7.9 mg/dL on 06/26/24), and phosphorus levels (Phos = 3.3 mg/dL on 04/11/12). 5. E coli UTI: sulfamethoxazole/trimethoprim 1 tablet PO BID with meals through 07/02/24. Please continue to monitor for s/s of UTI such as dysuria/frequency/urgency, white blood cell counts (WBC = 4.2 K/mm3 on 06/26/24), renal function (serum creatinine = 0.75 mg/dL with creatinine clearance ~ 58 mL/min on 06/26/24), and potassium levels (K = 4.1 mmol/L on 06/26/24). 6. Giant Cell Arteritis: prednisone 20 mg PO TID, actemra 162 mg SC every Friday. Please continue to monitor for pain, blood pressures (recent range =116-129/57-70 mmHg), blood glucose levels (BG = 116 mg/dL on 06/26/24), for abdominal pain with prednisone administration, WBC counts (WBC = 4.2 K/mm3 on 06/26/24), platelet counts (Plt = 154 K/mm3 on 06/26/24), for constipation, LFTs (AST/ALT = 24/37 U/L on 06/17/24), and for local site reactions. 7. Overactive bladder: vibegron 75 mg PO daily. Please continue to monitor for bladder spasms, for dry mouth and for urinary retention. 8. Hyperlipidemia: pravastatin 80 mg PO QHS. Please continue to monitor lipid levels (cholesterol = 184 mg/dL with LDL = 107 mg/dL on 08/01/23), LFTs (AST/ALT = 24/37 U/L on 06/17/24), and for myalgias. Please consider ordering an annual lipid level if clinically indicated. 9. Vitamin D deficiency: ergocalciferol 1.25 mg PO once per month. Please continue to monitor for s/s of vitamin D deficiency and vitamin D levels (vitamin D = 83.4 ng/mL on 01/30/23). 10. Calcium deficiency: calcium with vitamin D 1 tablet PO daily. Please continue to monitor calcium levels (Ca = 7.9 mg/dL on 06/26/24), and vitamin D levels (vitamin D = 83.4 ng/mL on 01/30/23), as well as for s/s of calcium deficiency. 11. Skin irritation: calmospetine 1 application topically BID. Please continue to monitor for skin irritation. 12. Nutrition: multivitamin PO daily. Please continue to monitor nutritional status. Assessment/Plan for indications treated with psychotropic medications: NA Medical chart and medication regimen reviewed. The following medication irregularities or issues were identified: 1. Hyperlipidemia: pravastatin 80 mg PO QHS. Please consider ordering an annual lipid level if clinically indicated. Date Date of Note: 06/27/24 Documented by User: Dr. Umberto Escamilla MD 06/27/24 14:54 TCU RX Drug Regimen Review Provider Comments Provider responsibility Provider Comments to Recommendations by Pharmacy Agree
[2024-06-27 14:53] VITALS: RESP 16; TEMP 36
[2024-06-27 20:19] VITALS: BP 119/56; PULSE 79
[2024-06-27 20:21] VITALS: PULSE 79
[2024-06-27] MEDS: Pravastatin 80 MG Tablet PO (20:22)
[2024-06-27 22:35] LABS: Cholesterol 171 mg/dL (200); High Density Lipoprotein 41 mg/dL; Triglycerides 152 mg/dL; Very Low Density Lipoprotein 30 mg/dL (5-40)
[2024-06-28] MEDS: Vibegron 75 MG TABLET PO (08:41)
[2024-06-28] MEDS: predniSONE 20 MG Tablet PO ×3 (08:41→17:05)
[2024-06-28] MEDS: Calcium Carb/Vitamin D 1 TABLET Tablet PO (08:41)
[2024-06-28] MEDS: Multivitamins,Therapeutic Tablet 1 TABLET PO (08:41)
[2024-06-28 08:42] VITALS: BP 124/54; PULSE 92
[2024-06-28] MEDS: Smz/Tmp Ds Tablet 1 TABLET PO ×2 (08:42→17:05)
[2024-06-28] MEDS: Senna/Docusate Sodium 1 Tablet PO ×2 (08:42→22:49)
[2024-06-28] MEDS: Metoprolol Tartrate 25 MG Tablet PO ×2 (08:42→22:48)
[2024-06-28] MEDS: Menthol/Lanolin/Calamine/Znox 113 GM Tube 1 APPLIC TOPICAL ×2 (08:48→22:53)
[2024-06-28 09:15] VITALS: BP 124/54; PULSE 92; RESP 18; TEMP 36.6; O2SAT 98
[2024-06-28] MEDS: Ensure Plus High Protein 120 ML LIQUID PO ×2 (11:52→17:05)
--- NOTE | 2024-06-28 14:49 | NURSING ---
Topline Beading Machine Tender Note; Activity Asset: Myles Shaikh is independent in her choice of daily activities. She enjoys talking with others, watching tv, reading welcomes visits from the filament cutter and therapy dog when available. Her family and friends will visit and bring her items she may need. Staff will encourage social activities, remind her of group and respect her right to say no.
--- NOTE | 2024-06-28 17:36 | EX.PCM.CON.G ---
HPI Consult Data Date of Consult: 06/28/24 HPI Narrative Reason for Consultation: GI bleed HPI Narrative: ARSEN OJEDA, is a 79 F who presented to the ED on 06/16/2024 with a complaint of weakness and black tarry diarrhea which occurred throughout the night. She also had associated exertiona. shortness of breath. She says she was recently placed on high dose prednisone for giant cell arteritis and it had been cut down to 60mg daily from 80mg daily. She denied any abdominal pain. She denied any history of PUDx or Gi bleed. Vitals in the ED were temp of 97.7F, OK of 111, BP of 87/57 and RR of 23 on room air. She was subsequently placed on 2L of oxygen by nasal canula. CBC showed hb of 8.6, wbc of 10.8 and platelets of 150. INR was 1.2. Chemistry showed sodium of 137, potassium of 4.1 and Cr of 1.06. Stool for occult blood was positive. She was also found to be in afib with RVR. Initial troponin was 66. She was cardioverted in the ED. TSH was 0.828. She was started on IV protonix and amiodarone drip and she is was admitted to be managed for afib with RVR as well as acute anemia due to GI bleed. Cardiology was consulted on account of the A-fib with RVR. She had 2D echo which showed normal left ventricular size and systolic function and EF of 55% with stage I diastolic dysfunction. She had EGD which was essentially normal and had colonoscopy which showed evidence of diverticulosis with no evidence of active bleed. She was still however having bloody stools so she had a bleeding scan which still did not show the source of the bleeding. CT of the abdomen and pelvis was ordered per gastroenterology and this showed intraluminal filling defects in the lower lung pettit concerning for PE. There was no acute abdominal pathology. Since patient cannot be anticoagulated in light of the GI bleed, decision was made that she would require filter. Vascular surgery was consulted but Dr. Romo was not available. Decision was therefore made to transfer patient to [facility] for insertion of IVC filter. She had a IVC filter placed. She was seen by cardiology for atrial fibrillation and she converted to normal sinus rhythm. She had her EGD and colonoscopy repeated at [facility] and no abnormalities were found. [facility] Medical History Temporal arteritis PONV (postoperative nausea and vomiting) Wears partial dentures Ambulates with cane Osteoarthritis History of anemia High cholesterol Hepatitis Injury of head and neck Diverticulosis Former smoker Shortness of breath on exertion Chronic cough Leg cramps History of stress test Hypertension History of femur fracture Home Medications ?Medication ?Instructions ?Recorded ?Last Taken ?Type lisinopril 10 mg tablet 10 mg PO BID blood pressure 07/23/13 04/23/24 History ergocalciferol (vitamin D2) 1,250 50,000 unit PO QMONTH ostseopenia 02/14/14 04/04/24 History mcg (50,000 unit) capsule (Vitamin D2) calcium 600 mg (as 1 ea PO DAILY bone health 12/18/15 04/23/24 History carbonate)-vitamin D3 10 mcg (400 unit) tablet spironolactone 50 mg tablet 50 mg PO DAILY bp 12/18/15 04/23/24 History multivitamin 1 tab PO DAILY vitamin 08/27/21 04/23/24 History hydrochlorothiazide 12.5 mg capsule 12.5 mg PO DAILY blood pressure 04/23/24 04/23/24 History prednisone 20 mg tablet 20 mg PO TID terrmoral arteritis 04/23/24 04/23/24 History ropinirole 0.25 mg tablet See Rx Instructions PO QHS 04/23/24 04/22/24 History restless legs vibegron 75 mg tablet (Gemtesa) 75 mg PO DAILY unsure 04/23/24 04/23/24 History alendronate 70 mg tablet 70 mg PO QWEEK osteopenia 06/16/24 06/11/24 History tocilizumab 10 mg subcut .weekly temporal 06/16/24 06/15/24 History arteritis omeprazole 20 mg capsule,delayed 20 mg PO DAILY esophagus ulcers 06/17/24 Unknown History release pravastatin 80 mg tablet 80 mg PO DAILY high cholesterol 06/17/24 06/15/24 History metoprolol tartrate 25 mg tablet 25 mg PO BID BP 06/25/24 Unknown History sulfamethoxazole 800 1 tab PO BID Antibiotic 06/25/24 Unknown History mg-trimethoprim 160 mg tablet Allergy/AdvReac Type Severity Reaction Status Date / Time cefdinir (Cefdinir) Allergy Rash Verified 06/16/24 07:38 morphine AdvReac Severe Nausea Verified 06/16/24 07:38 Family History Mother Asthma Arthritis Sister Arthritis Colon cancer Father Arthritis Surgical History History of colonoscopy History of laminectomy History of left knee replacement History of bilateral cataract extraction Social History (Updated 06/25/24 @ 15:[address] Umberto Escamilla MD) household members: none Smoking Status: Former smoker alcohol intake: never substance use type: does not use ROS Constitutional Constitutional: Denies chills, fever(s) or weight gain ENT HEENT: Denies headache(s), nasal congestion or nasal discharge Cardiovascular Cardiovascular: Denies chest pain or palpitations Respiratory/Chest Respiratory/Chest: Denies cough, excessive phlegm production or shortness of breath with exertion Gastrointestinal Gastrointestinal: Denies abdominal pain, nausea or vomiting Genitourinary Genitourinary: Denies dysuria Musculoskeletal Musculoskeletal: Denies joint pain or joint swelling Integumentary Integumentary: Denies rash or wounds Neurologic Neurologic: Denies focal weakness, numbness or tingling Psychiatric Psychiatric: Denies anxiety, auditory hallucinations, depression, homicidal ideation or suicidal ideation Physical Exam Const alert General Appearance: cooperative HEENT normocephalic Eyes PERRL and EOMs intact bilaterally Neck supple, no JVD and no carotid bruits Resp normal respiratory effort, normal air movement and clear to auscultation bilaterally Cardio regular rate and regular rhythm GI normal to inspection, nondistended, normoactive bowel sounds, non-tender and non-distended Extremity normal capillary refill General Extremity: Negative for edema Skin no rashes or lesions noted General Skin Exam: no breakdown Psych affect normal Appearance: appropriate Lab / Micro Data 06/27/24 05:32 06/26/24 06:35 Labs: Laboratory Results - last 24 hr 06/27/24 05:32: Triglycerides 152, Cholesterol 171, LDL Cholesterol 100, VLDL Cholesterol 30, HDL Cholesterol 41 Micro: Microbiology 06/28/24 06:10 Stool Stool Occult Blood ([facility]) - Final Occult Blood Positive Assessment & Plan Assessment/Plan (1) Acute hypotension: (2) Acute upper GI bleed: (3) Atrial fibrillation with RVR: PLAN: Plan 79-year-old with recent GI bleed in the setting of steroids for giant cell arteritis, anticoagulation for acute PE and atrial fibrillation. She had upper or lower endoscopy without any signs of active bleeding. She also had repeat EGD and colonoscopy plus bleeding scan and CT angiography. Recommend a capsule endoscopy for evaluation of her small bowel. Charges/Coding Visit Charges Inpatient E&M: 74550 SNF Init L2
[2024-06-28 22:48] VITALS: BP 105/52; PULSE 66
[2024-06-28] MEDS: Pravastatin 80 MG Tablet PO (22:48)
--- NOTE | 2024-06-28 22:50 | NURSING ---
Resident and this nurse engage in lengthy discussion, approximately 30 minutes, re: camera endoscopy to be ordered per Dr. Donald. Dr. Donald saw resident yesterday and she notes her son and [id number] were present at that time. She is repeatedly insistent that this procedure will take place at some point tomorrow and she is to be NPO after midnight. This nurse reviewed Dr. Donald's note and plan indicated this procedure is recommended, no specific orders for prep are noted. This nurse navigated additional areas of resident's chart including upcoming appointments, current provider orders, a medical record number designated for an outpatient visit- as resident informs this nurse she was told this procedure has to be completed as an outpatient per her insurance, nurses notes, and SW notes and no orders or specific details about the procedure were noted. Resident is requesting to be NPO after midnight as she thinks the prep for this test will occur tomorrow. Agreeable to resident request and informed her staff for the oncoming shift will need to follow-up w/ Dr. Donald for additional clarification of his plan for the camera endoscopy. Resident has blood transfusion scheduled for this am and informed her that process will take approximately 8 hours. Will continue to monitor and report to oncoming nurse.
[2024-06-29] VITALS (9 sets, daily range): BP systolic 113–165; BP diastolic 56–80; PULSE 61–90; RESP 16–20; TEMP 35.9–36.6; O2SAT 96–100; BMI 34.0
[2024-06-29] MEDS: Calcium Carb/Vitamin D 1 TABLET Tablet PO (08:12)
[2024-06-29] MEDS: Ensure Plus High Protein 120 ML LIQUID PO ×3 (08:12→17:04)
[2024-06-29] MEDS: Smz/Tmp Ds Tablet 1 TABLET PO ×2 (08:12→17:04)
[2024-06-29] MEDS: predniSONE 20 MG Tablet PO ×3 (08:12→17:04)
[2024-06-29] MEDS: Multivitamins,Therapeutic Tablet 1 TABLET PO (08:12)
[2024-06-29] MEDS: Senna/Docusate Sodium 1 Tablet PO ×2 (08:13→20:11)
[2024-06-29] MEDS: Vibegron 75 MG TABLET PO (08:13)
[2024-06-29] MEDS: Metoprolol Tartrate 25 MG Tablet PO ×2 (08:13→20:11)
[2024-06-29] MEDS: Menthol/Lanolin/Calamine/Znox 113 GM Tube 1 APPLIC TOPICAL ×2 (08:14→20:13)
[2024-06-29] MEDS: TOCILIZUMAB 162 MG/0.9 ML SYRINGE SC (08:22)
[2024-06-29] MEDS: Furosemide 20 MG/2 ML VIAL IV (10:59)
--- NOTE | 2024-06-29 13:09 | CASEMGMT ---
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
--- NOTE | 2024-06-29 15:08 | NURSING ---
Addendum entered by Juan Frausto 06/29/24 15:15: Call back from vacular surgery. Consult received. Original Note: Updated Dr. Escamilla on acute DVT and SVT in RUE. Order to consult vascular surgery. Call placed, left VM requesting return call.
--- NOTE | 2024-06-29 16:15 | CHAPLAIN ---
Type of Pastoral Visit _x__ Initial Visit ___ Follow-up Visit ___ On-call Visit ___ General Patient Visit ___ Spiritual Assessment ___ Family Conference ___ Bereavement ___ Rapid Response ___ Code Blue ___ Other (describe below) Pastoral Care Referral From _x__ Patient ___ Family ___ Nurse ___ Physician ___ Knowledge Architect ___ Helper Shear Operator ___ Other (describe below) Sacrament/Intervention _x__ Active listening ___ Anointing ___ Mandaeism ___ Bereavement ___ Communion _x__ Patricia exploration ___ _x__ Life review _x__ Prayer ___ Reconciliation ___ Sacrament of Sick ___ Supportive presence ___ Wedding ___ Other (describe below) Pastoral Comments patient and brother are in the room; pt has had blood transfusion today; doppler test discovered a blood clot so patient is waiting on what the doctor will do for her; pt has patricia in God for his help and healing too; pt also states that her patricia gives her hope for this life or for the eternal life in [facility]; pt gives some family and life review; pt welcomes presence and prayer with expression of thanksgiving for the spiritual care support
[2024-06-29] MEDS: Pravastatin 80 MG Tablet PO (20:12)
[2024-06-30] MEDS: Alendronate Sodium 70 MG Tablet PO (05:32)
--- NOTE | 2024-06-30 07:43 | EX.PCM.CON.S ---
Assessment & Plan Assessment/Plan (1) Deep vein thrombosis (DVT) of right upper extremity: (2) Superficial venous thrombosis of right upper extremity: (3) Pulmonary embolism: (4) S/P IVC filter: PLAN: Plan With respect to her right upper extremity DVT/SVT these were provoked by recent peripheral IV and midline placement. Unfortunately, appears to still have active GI bleeding given Hemoccult positive stool. Hemoglobin is improved but she did just receive 2 units packed red blood cells yesterday. Still contraindication for full anticoagulation at this time. SVC filter reserved for recurrent upper extremity DVT or confirm PE from such, discussed with patient that pulmonary embolism from an upper extremity DVT is less common than with lower extremity DVTs. As such, recommend conservative management with elevation of the extremity above the level of the heart at all resting times. May also apply warm compresses to help with symptoms and NSAIDs for pain management if okay with GI. When felt to be appropriate by GI/primary team, consideration of even just prophylactic anticoagulation may be beneficial. She does have an IVC filter in place. It does not appear that a lower extremity duplex was ever completed. I would recommend obtaining a lower extremity duplex now to establish baseline clot burden. Advise leg elevation and DIPIKA wraps to manage current edema. Will plan for outpatient follow-up in our office after discharge from TCU. Will continue to follow while she is here if new/worsened symptoms arise. HPI Consult Data Date of Consult: 06/30/24 HPI Narrative HPI Narrative: ARSEN OJEDA, is a 79 F who is known to me from her prior acute hospitalization from 06/16/2024 to 06/18/2024. At that time, she had presented to the [facility] ER with weakness, black tarry stools, and shortness of breath and was found to have significant anemia requiring transfusion. She had workup with GI including both endoscopy, colonoscopy, and CTA abdomen and pelvis without identification of the source of bleeding. CTA did however reveal pulmonary emboli. Due to her active GI blood loss she was not a candidate for anticoagulation and so required IVC filter insertion. Unfortunately at that time Dr. Romo was out of town so patient was transferred to [facility] for IVC filter placement. She is now admitted to the TCU for ongoing rehab following these recent admissions. Source of GI bleeding has yet to be elucidated, there are plans for capsule endoscopy. Unfortunately yesterday she had venous duplex of the right upper extremity which was positive for axillary and brachial DVT and cephalic and basilic SVT for which we are consulted. During her hospitalization, she has had IVs at the antecubital space as well as a right upper extremity midline which are the likely provoking factors for this DVT. At present no IVs in place. She reports that she feels her swelling is better today than it was yesterday. She is having some discomfort/tightness associated with the swelling but otherwise no significant pain in the upper extremity. She has not noticed any significant redness, warmth, palpable cords. Her hemoglobin on 06/27/2024 was 7.7 and had been around this since 06/18/2024. She did receive 2 units of packed red blood cells on 06/29/2024. Hemoglobin this afternoon was significantly improved at 11.2. She did have recent occult stool positive still on 06/28/2024. [facility] Medical History Temporal arteritis PONV (postoperative nausea and vomiting) Wears partial dentures Ambulates with cane Osteoarthritis History of anemia High cholesterol Hepatitis Injury of head and neck Diverticulosis Former smoker Shortness of breath on exertion Chronic cough Leg cramps History of stress test Hypertension History of femur fracture Home Medications ?Medication ?Instructions ?Recorded ?Last Taken ?Type lisinopril 10 mg tablet 10 mg PO BID blood pressure 07/23/13 04/23/24 History ergocalciferol (vitamin D2) 1,250 50,000 unit PO QMONTH ostseopenia 02/14/14 04/04/24 History mcg (50,000 unit) capsule (Vitamin D2) calcium 600 mg (as 1 ea PO DAILY bone health 12/18/15 04/23/24 History carbonate)-vitamin D3 10 mcg (400 unit) tablet spironolactone 50 mg tablet 50 mg PO DAILY bp 12/18/15 04/23/24 History multivitamin 1 tab PO DAILY vitamin 08/27/21 04/23/24 History hydrochlorothiazide 12.5 mg capsule 12.5 mg PO DAILY blood pressure 04/23/24 04/23/24 History prednisone 20 mg tablet 20 mg PO TID terrmoral arteritis 04/23/24 04/23/24 History ropinirole 0.25 mg tablet See Rx Instructions PO QHS 04/23/24 04/22/24 History restless legs vibegron 75 mg tablet (Gemtesa) 75 mg PO DAILY unsure 04/23/24 04/23/24 History alendronate 70 mg tablet 70 mg PO QWEEK osteopenia 06/16/24 06/11/24 History tocilizumab 10 mg subcut .weekly temporal 06/16/24 06/15/24 History arteritis omeprazole 20 mg capsule,delayed 20 mg PO DAILY esophagus ulcers 06/17/24 Unknown History release pravastatin 80 mg tablet 80 mg PO DAILY high cholesterol 06/17/24 06/15/24 History metoprolol tartrate 25 mg tablet 25 mg PO BID BP 06/25/24 Unknown History sulfamethoxazole 800 1 tab PO BID Antibiotic 06/25/24 Unknown History mg-trimethoprim 160 mg tablet Allergy/AdvReac Type Severity Reaction Status Date / Time cefdinir (Cefdinir) Allergy Rash Verified 06/16/24 07:38 morphine AdvReac Severe Nausea Verified 06/16/24 07:38 Family History Mother Asthma Arthritis Sister Arthritis Colon cancer Father Arthritis Surgical History History of colonoscopy History of laminectomy History of left knee replacement History of bilateral cataract extraction Social History (Updated 06/25/24 @ 15:[address] Umberto Escamilla MD) household members: none Smoking Status: Former smoker alcohol intake: never substance use type: does not use Physical Exam Const alert, oriented x3 and no apparent distress General Appearance: cooperative and comfortable HEENT normocephalic, head/scalp atraumatic, hearing grossly normal bilaterally, external ears normal and external nose normal Eyes EOMs intact bilaterally General Eye: normal appearance of both eyes Neck General: normal visual inspection and trachea midline Resp normal respiratory effort, normal air movement, no retractions and no use of accessory muscles Effort and Inspection: able to speak in complete sentences; Negative for respiratory distress, labored, grunting, stridor or retractions Cardio regular rate and regular rhythm Extremity Extremity Narrative: Right upper extremity with significant edema compared to left, most of the edema is dependent in the areas of loose her skin in her arm. Palpable radial and ulnar pulse. No significant erythema or discoloration appreciated. Skin no rashes or lesions noted General Skin Exam: no breakdown Trauma: no lacerations or abrasions Neuro oriented x3, CN's II-XII intact bilaterally, moves all extremities and no focal motor deficits Psych mental status grossly normal, thought process normal, cooperative, affect normal, speech normal and activity/motor behavior normal Appearance: grossly normal Attitude: calm and engaged Lab / Micro Data 06/30/24 13:00 06/26/24 06:35 Labs: Laboratory Results - last 24 hr 06/26/24 16:23: Blood Type O POSITIVE, Antibody Screen NEGATIVE, Crossmatch See Detail Charges/Coding Visit Charges Inpatient E&M: 54767 SNF Init L1
[2024-06-30] MEDS: Smz/Tmp Ds Tablet 1 TABLET PO ×2 (08:12→16:59)
[2024-06-30] MEDS: Ensure Plus High Protein 120 ML LIQUID PO ×3 (08:12→17:00)
[2024-06-30] MEDS: predniSONE 20 MG Tablet PO ×3 (08:12→16:59)
[2024-06-30] MEDS: Calcium Carb/Vitamin D 1 TABLET Tablet PO (08:13)
[2024-06-30] MEDS: Senna/Docusate Sodium 1 Tablet PO ×2 (08:13→21:09)
[2024-06-30] MEDS: Vibegron 75 MG TABLET PO (08:13)
[2024-06-30] MEDS: Multivitamins,Therapeutic Tablet 1 TABLET PO (08:13)
[2024-06-30] MEDS: Ergocalciferol 1.25 MG (50, 000 UNIT) Capsule PO (08:13)
[2024-06-30] MEDS: Menthol/Lanolin/Calamine/Znox 113 GM Tube 1 APPLIC TOPICAL ×2 (08:13→21:10)
[2024-06-30] MEDS: Acetaminophen 500 MG Tablet 1000 MG PO (08:18)
[2024-06-30 08:19] VITALS: PULSE 67
[2024-06-30] MEDS: Metoprolol Tartrate 25 MG Tablet PO ×2 (08:19→21:10)
--- NOTE | 2024-06-30 09:06 | CASEMGMT ---
Social Work IDT met with patient, VIRGINIE Kumar, and conference call with Katie RACHEL, for care plan meeting. Discussed patient's progress in PT/OT/SN. Educated to [facility] insurance with NRD 07/01 and continued stay is not guaranteed with each review. Provided pt/family with written communication on insurance process and copay coverage during stay. SW explained insurance is requesting DC plans are place, which may mean a DC as early as 07/04. Inquired about DC plans and assistance. Therapy is going to focus on steps and LE tasks, as pt does live alone. VIRGINIE Kumar can assist, but pt/family have no major concerns with DC, but pt did inquire about procedure from Dr. Donald. Nursing to follow up. Pt agreeable to [facility] and has no DME needs. Car tx is scheduled for 07/02. SW will continue to follow. MAHIN PearlW
--- NOTE | 2024-06-30 13:09 | NURSING ---
Vascular in today for consult, stated that they have nothing to add at this time. Stated resident already had an IVC filter and a SVC filter is not indicated at this time but to consult if future needs arise. Stated to encourage resident to elevate RUE above her heart and apply warm compress as needed for discomfort. Ok to continue ACEWRAPS to BLE
[2024-06-30 13:11] LABS: Hematocrit 34.1 % (37-47); Hemoglobin 11.2 g/dL (12.0-15.0)
--- NOTE | 2024-06-30 13:46 | CASEMGMT ---
Social Work SW met with patient to complete initial assessment. Verified/updated contacts. Pt is having DIL provide copies of advanced directives. Pt confirmed code status as full code. SW discussed life alert - pt agreed to resources - SW provided. SW will continue to follow for DC planning. Yesika Burgos, MAHIN CHOUW
[2024-06-30 15:51] VITALS: BP 117/58; PULSE 64; RESP 18; TEMP 36.7; O2SAT 97
[2024-06-30 21:05] VITALS: PULSE 74; O2SAT 96
[2024-06-30 21:10] VITALS: BP 135/67; PULSE 73
[2024-06-30] MEDS: Pravastatin 80 MG Tablet PO (21:10)
[2024-07-01 06:34] VITALS: PULSE 62; O2SAT 96
[2024-07-01] MEDS: Ensure Plus High Protein 120 ML LIQUID PO ×3 (08:03→17:46)
[2024-07-01] MEDS: Smz/Tmp Ds Tablet 1 TABLET PO ×2 (08:03→17:46)
[2024-07-01] MEDS: predniSONE 20 MG Tablet PO ×3 (08:03→17:46)
[2024-07-01 08:04] VITALS: PULSE 73
[2024-07-01] MEDS: Vibegron 75 MG TABLET PO (08:04)
[2024-07-01] MEDS: Metoprolol Tartrate 25 MG Tablet PO ×2 (08:04→21:13)
[2024-07-01] MEDS: Senna/Docusate Sodium 1 Tablet PO ×2 (08:04→21:13)
[2024-07-01] MEDS: Multivitamins,Therapeutic Tablet 1 TABLET PO (08:04)
[2024-07-01] MEDS: Menthol/Lanolin/Calamine/Znox 113 GM Tube 1 APPLIC TOPICAL ×2 (08:04→21:18)
[2024-07-01] MEDS: Calcium Carb/Vitamin D 1 TABLET Tablet PO (08:04)
--- NOTE | 2024-07-01 09:10 | NURSING ---
mechanical laboratory technician reported positive small clot RT peroneal vein via doppler, dr dennison notified, no new orders, continue plan of care and continue DIPIKA wraps.
--- NOTE | 2024-07-01 09:21 | MDS.RN ---
Pain interview for MDS completed.
[2024-07-01] MEDS: hydroCHLOROthiazide 6.25mg TAB 12.5 MG PO (11:10)
[2024-07-01 14:17] VITALS: BP 130/68; PULSE 73; RESP 16; TEMP 36.6; O2SAT 99
--- NOTE | 2024-07-01 14:49 | CASEMGMT ---
Addendum entered by Yesika Burgos 07/02/24 15:18: Pt provided HHC choices, [facility]. [facility], 2. [facility], 3. [facility]. SW phoned referral to [facility] - pt accepted. Addendum entered by Yesika Burgos 07/01/24 16:35: Katie RACHEL, presented to this worker's office with further questions on the status of DC d/t pt's DVTs, etc. Dr. Escamilla is on the unit and spoke with the DIL and pt. Explained Dr Shabana saw the pt on 06/28, requested precert for the procedure and gave that update on 06/30, still waiting for precert. Dr. Escamilla agrees pt can DC home and be managed as an outpatient. Pt also requested Dr. Escamilla become her PCP, which agreed, and can follow her closely. DIL feels better about everything , and pt and DIL agree to DC home 07/04. DIL confirmed, Stacy, can assist pt at DC. pt is agreeable to [facility] for PT/OT/SN. SW provided pt with printed list of skilled [facility] agencies with quality and resource data via [employer]. Pt to review and notify this worker of preference. Plan: DC home alone with family support 07/04, [facility] PT/OT/SN MAHIN Pearl Original Note: Social Work Insurance issued LCD 07/03, DC 07/04 SW spoke with pt and brother was present. Pt granted permission for SW to speak with brother present. SW informed of DC date and explained appeal rights. Pt is still concerned about getting a procedure done prior to leaving and the new DVTs. SW offered that Dr Escamilla will be speaking with pt this evening and pt can discuss concerns with . provide recommendation on DC or appeal. Pt agrees and will discuss it with her DILs. SW to revisit the following day to finalize DC plans. Plan: DC home alone 07/04, pending decision to appeal MAHIN Pearl
--- NOTE | 2024-07-01 14:51 | CASEMGMT ---
Social Work SW completed BIMS () and PHQ-2 () completed for MDS assessment. Yesika Burgos, PHLEBOTOMY SUPPORT TECH MEDICAID SERVICE COORDINATOR
--- NOTE | 2024-07-01 15:36 | DS.PCM_ITS ---
Providers Date of Admission: 06/25/24 Primary Care Physician: Dr. Jovanny Nuñez MD Consultations 06/25/24 16:02 Consult: Gastroenterology Routine Consulting Provider: [facility] Reason for Consult: GI bleed, PE, s/p IVC filter. EMERGENT Consult: No Notified: Yes Date Notified: 06/28/24 Time Notified: 07:33 Method of Notification: Text 06/29/24 15:06 Consult: Vascular Surgery Routine Consulting Provider: Jovanny Romo Reason for Consult: RUE DVT, anticoagulation contraindicated EMERGENT Consult: No Notified: Yes Date Notified: 06/29/24 Time Notified: 15:15 Method of Notification: Verbal Reason For Visit: GI BLEED B/L PE'S Diagnosis Discharge Diagnosis (1) Deep vein thrombosis (DVT) of right upper extremity: Status: Acute Code(s): I82.621 - Acute embolism and thrombosis of deep veins of right upper extremity (2) Superficial venous thrombosis of right upper extremity: Status: Acute Code(s): I82.611 - Acute embolism and thrombosis of superficial veins of right upper extremity (3) Pulmonary embolism: Status: Acute Code(s): I26.99 - Other pulmonary embolism without acute cor pulmonale (4) S/P IVC filter: Status: Acute Code(s): Z95.828 - Presence of other vascular implants and grafts Plan 79 year old female with below past medical history hospitalized for GI bleed, acute anemia, complicated by pulmonary embolism, IVC filter placed, new onset atrial fibrillation with RVR, admitted to TCU with debility, here for rehabilitation, strengthening, prior to discharge home alone. * Debility - PT/OT. * Pain - Tylenol 1000mg q6 prn pain (1-10). * Bowel - senna/colace 1 tablet bid, Magnesium citrate 300mL po daily prn. * Adult immunization - Administer pneumonia vaccine, covid vaccine, flu vaccine as appropriate. * DVT prophylaxis - Hold, GI bleed. * Osteoporosis - Alendronate 70mg qweek. * Calcium deficiency - Calcium D 1 tablet daily. * Vitamin D deficiency - D 1.25mg qmonth. * Skin irritation - Calmoseptine topical bid. * Atrial fibrillation - Metoprolol 25mg bid, anticoagulation held 2/2 GI bleed. * Nutrition - MVI 1 tablet daily. * Restless leg syndrome - Mirapex 0.125mg qhs. * Hyperlipidemia - Pravastatin 80mg qhs. 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 * E. Coli UTI - Bactrim DS 1 tablet bid thru 07/02/2024. * Overactive bladder - Gemtesa 75mg daily. * GI bleed - Check stool for blood, monitor H&H, transfuse as needed, consult Dr. Friend. Medications at Discharge Home Medications ergocalciferol (vitamin D2) 1,250 mcg (50,000 unit) capsule (Vitamin D2) 50,000 unit PO QMONTH ostseopenia 02/14/14 calcium 600 mg (as carbonate)-vitamin D3 10 mcg (400 unit) tablet 1 ea PO DAILY bone health 12/18/15 hydrochlorothiazide 12.5 mg capsule 12.5 mg PO DAILY blood pressure 04/23/24 prednisone 20 mg tablet 20 mg PO TID terrmoral arteritis 04/23/24 vibegron 75 mg tablet (Gemtesa) 75 mg PO DAILY unsure 04/23/24 alendronate 70 mg tablet 70 mg PO QWEEK osteopenia 06/16/24 omeprazole 20 mg capsule,delayed release 20 mg PO DAILY esophagus ulcers 06/17/24 pravastatin 80 mg tablet 80 mg PO DAILY high cholesterol 06/17/24 sulfamethoxazole 800 mg-trimethoprim 160 mg tablet 1 tab PO BID Antibiotic 06/25/24 acetaminophen 500 mg tablet 1,000 mg (2 x 500 mg) PO Q6H PRN PRN Pain Score 1-10 #0 tabs 07/01/24 metoprolol tartrate 25 mg tablet 25 mg PO BID 30 days #60 tabs 07/01/24 spironolactone 50 mg tablet 50 mg PO DAILY #0 tabs 07/01/24 tocilizumab 162 mg/0.9 mL subcutaneous syringe (Actemra) 162 mg (0.9 mL) subcut Tu #0 mL 07/01/24 Hospital Course Operations None Procedures IVC filter placement Summary of Care Provided Minutes Spent on Discharge: 35 Hospital Course: 79 year old female with below past medical history hospitalized for GI bleed, acute anemia, complicated by pulmonary embolism, IVC filter placed, new onset atrial fibrillation with RVR, admitted to TCU with debility, here for rehabilitation, strengthening, prior to discharge home alone. 06/18/2024 RBC bleeding scan: IMPRESSION: 1. NEGATIVE 99m Tc ULTRATAG LABELED BLOOD POOL GASTROINTESTINAL BLEEDING EXAMINATION. 2. There is no scintigraphic evidence of acute gastrointestinal hemorrhage on the present evaluation. 06/18/2024 CTA abdomen/pelvis: IMPRESSION: Pulmonary emboli in the right lower lobe pulmonary arterial branches. Sigmoid diverticulosis. No evidence of active bleeding at this time. 06/29/2024 Doppler ultrasound right upper extremity: Interpretation Summary Acute deep vein thrombosis noted in the right axillary and brachial veins. Acute superficial vein thrombosis noted in the right cephalic vein and basilic vein. 06/30/2024 Vascular surgery consultation: With respect to her right upper extremity DVT/SVT these were provoked by recent peripheral IV and midline placement. Unfortunately, appears to still have active GI bleeding given Hemoccult positive stool. Hemoglobin is improved but she did just receive 2 units packed red blood cells yesterday. Still contraindication for full anticoagulation at this time. SVC filter reserved for recurrent upper extremity DVT or confirm PE from such, discussed with patient that pulmonary embolism from an upper extremity DVT is less common than with lower extremity DVTs. As such, recommend conservative management with elevation of the extremity above the level of the heart at all resting times. May also apply warm compresses to help with symptoms and NSAIDs for pain management if okay with GI. When felt to be appropriate by GI/primary team, consideration of even just prophylactic anticoagulation may be beneficial. She does have an IVC filter in place. It does not appear that a lower extremity duplex was ever completed. I would recommend obtaining a lower extremity duplex now to establish baseline clot burden. Advise leg elevation and DIPIKA wraps to manage current edema. Will plan for outpatient follow-up in our office after discharge from TCU. Will continue to follow while she is here if new/worsened symptoms arise. 07/01/2024 Doppler ultrasound bilateral lower extremity: Interpretation Summary Chronic deep vein thrombosis is noted in the right common femoral vein. Acute deep vein thrombosis is noted in the right peroneal vein. Deep veins of the left lower extremity are patent and compressible segmentally. There is no evidence of left lower extremity deep vein thrombosis. The bilateral great saphenous veins appear patent and compressible segmentally. Discharge home alone 07/04/2024, pending decision to appeal, [facility] PT/OT/SN. Physical Exam Const alert General Appearance: cooperative HEENT normocephalic Eyes PERRL and EOMs intact bilaterally Neck supple, no JVD and no carotid bruits Resp normal respiratory effort, normal air movement and clear to auscultation bilaterally Cardio regular rate and regular rhythm GI normal to inspection, nondistended, normoactive bowel sounds, non-tender and non-distended Extremity normal capillary refill General Extremity: Negative for edema Skin no rashes or lesions noted General Skin Exam: no breakdown Psych affect normal Appearance: appropriate Weight / BMI Weight Weight: 84.459 kg Body Mass Index (BMI) 34.0 ABG / Lab / Microbiology Data 06/30/24 13:00 06/26/24 06:35 Microbiology: Microbiology 06/28/24 06:10 Stool Stool Occult Blood ([facility]) - Final Occult Blood Positive D/C Instructions Discharge Diet: No restrictions Discharge Activity: Return to Normal Activity, May Shower and Use Walker Weight Bearing Status: Weight bearing as tolerated Call your doctor if you observe: Fever of 101 or Higher, Inability to urinate, Inability to have a bowel movement, Shortness of breath, Dizziness, Fainting spells, Swelling in the ankles, Chest pain and Uncontrolled pain Additional Instructions: Discharge home alone 07/04/2024, pending decision to appeal, [facility] PT/OT/SN. Meaningful Use Info Meaningful Use Meaningful Use Diagnoses (Choose all that apply): None applicable Ischemic Stroke Statin Dosing Therapy Reference: STATIN DOSE THERAPY REFERENCE: * Patients > 75 years receive moderate or high dose statin therapy. * Patients 75 years or YOUNGER should receive HIGH intensity statin dose unless contraindicated. You will be required to document reason for non-treatment if statin daily dose does not meet guidelines. HIGH DOSE STATIN THERAPY DAILY Atorvastatin > than or = to 40 mg Rosuvastatin > than or = to 20 mg Amlodipine + Atorvastatin > than or = to 2.5/40 mg Ezetimibe + Simvastatin 10/80 mg Simvastatin 80mg Discharge Plan Admission Admit Date/Time: 06/25/24 14:21 Primary Reason for Your Visit: Debility. Attending Provider: Umberto Escamilla Chi Primary Care Provider: Jovanny Nuñez Consulting Providers: Jovanny Romo Instructions Additional Instructions / Restrictions: Discharge home alone 07/04/2024, pending decision to appeal, [facility] PT/OT/SN. Discharge Orders/Prescriptions Prescriptions: New acetaminophen 500 mg Tablet 1,000 mg PO Q6H PRN PRN (Reason: Pain Score 1-10) Qty: 0 0RF spironolactone 50 mg Tablet 50 mg PO DAILY Qty: 0 0RF metoprolol tartrate 25 mg Tablet 25 mg PO BID 30 Days Qty: 60 0RF Actemra 162 mg/0.9 mL Syringe 162 mg subcut Tu Qty: 0 0RF Continued ergocalciferol (vitamin D2) [Vitamin D2] 50,000 UNIT capsule 50,000 unit PO QMONTH Patient Comments: vitamin supplement TAKES ON OF THE calcium carbonate-vitamin D3 1 EACH tablet 1 ea PO DAILY prednisone 20 mg tablet 20 mg PO TID hydrochlorothiazide 12.5 mg capsule 12.5 mg PO DAILY Gemtesa 75 mg tablet 75 mg PO DAILY alendronate 70 mg tablet 70 mg PO QWEEK omeprazole 20 mg capsule,delayed release(DR/EC) 20 mg PO DAILY pravastatin 80 mg tablet 80 mg PO DAILY Discontinued lisinopril 10 MG tablet 10 mg PO BID Patient Comments: blood pressure spironolactone 50 MG tablet 50 mg PO DAILY multivitamin Tablet 1 tab PO DAILY ropinirole 0.25 mg tablet See Rx Instructions PO QHS Rx Instructions: 1-2 orally at bedtime; metoprolol tartrate 25 mg tablet 25 mg PO BID tocilizumab [Actemra ACTPen] 10 mg subcut .weekly No Action sulfamethoxazole-trimethoprim 800-160 mg tablet 1 tab PO BID Referrals / Follow Up: Alex Donald DO [Med Staff - Active Staff] - Within 1 Week (Capsule Endoscopy.) Umberto Escamilla Chi, MD [Med Staff - Active Staff] - Within 1 Week (New Patient Appointment/TCU TCM appointment.) Disposition Disposition (needs filled in before D/C Order can be placed): Home Health Service
--- NOTE | 2024-07-01 16:54 | NURSING ---
Pt. and family notified of current covid outbreak.
[2024-07-01 21:13] VITALS: BP 122/69; PULSE 73
[2024-07-01] MEDS: Pravastatin 80 MG Tablet PO (21:13)
[2024-07-02 05:55] LABS: Absolute Lymphocyte Count 1.13 X10^3/uL (0.83-4.51); Absolute Neutrophil Count 4.3 X10^3/uL (2.0-7.7); Basophil# 0.01 X10^3/uL; Basophil% 0.2 % (0-1); Hematocrit 31.9 % (37-47); Hemoglobin 10.4 g/dL (12.0-15.0); Lymphocyte # 1.13 X10^3/ul (0.83-4.51); Lymphocyte % 19.1 % (19-41); Mean Corp Hgb Conc 32.6 g/dL (32-36); Mean Corpuscular Hgb 31.5 pg (27.0-32.0); Mean Corpuscular Volume 96.7 fL (81-99); Monocyte# 0.33 X10^3/uL; Monocyte% 5.6 % (0-10); NRBC Flagged by Analyzer 0.3 % (0-5); Neutrophil # 4.33 X10^3/uL (2.7-7.7); Neutrophil % 73.2 % (47-70); POSITIVE MORPHOLOGY YES; Platelet Count 207 K/mm3 (150-450); RBC Distribution Width CV 18.7 % (11.6-14.6); RBC Distribution Width SD 65.1 fl (35.1-43.9); White Blood Count 5.9 K/mm3 (4.4-11.0)
[2024-07-02 06:17] LABS: Anion Gap 7 (5-15); BUN 31 mg/dL (7-18); BUN/Creat Ratio 40.8 RATIO (10-20); Calcium,Total 8.5 mg/dL (8.5-10.1); Chloride 108 mmol/L (98-107); Creatinine, Serum 0.76 mg/dL (0.55-1.02); EST Glomerular Filtration Rate 79 mL/min (>60); Est Glom Filt Rate - Afr Amer 95 mL/min (>60); Estimated Creatinine Clearance 59.35 ml/min; Glucose 115 mg/dL (74-106); Potassium 4.1 mmol/L (3.5-5.1); Sodium Level 138 mmol/L (136-145)
[2024-07-02 06:26] LABS: Differential Indicated SCAN CRITERIA MET
[2024-07-02 07:22] LABS: Anisocytosis RARE
[2024-07-02 08:56] VITALS: BP 118/49; PULSE 67; RESP 18; O2SAT 99
[2024-07-02 08:57] VITALS: PULSE 67
[2024-07-02] MEDS: Smz/Tmp Ds Tablet 1 TABLET PO (08:57)
[2024-07-02] MEDS: Metoprolol Tartrate 25 MG Tablet PO ×2 (08:57→19:55)
[2024-07-02] MEDS: hydroCHLOROthiazide 6.25mg TAB 12.5 MG PO (08:58)
[2024-07-02] MEDS: predniSONE 20 MG Tablet PO ×3 (08:58→18:22)
[2024-07-02] MEDS: Multivitamins,Therapeutic Tablet 1 TABLET PO (08:58)
[2024-07-02] MEDS: Senna/Docusate Sodium 1 Tablet PO ×2 (08:58→19:54)
[2024-07-02] MEDS: Calcium Carb/Vitamin D 1 TABLET Tablet PO (08:58)
[2024-07-02] MEDS: Vibegron 75 MG TABLET PO (08:58)
[2024-07-02] MEDS: Ensure Plus High Protein 120 ML LIQUID PO ×3 (08:59→18:22)
[2024-07-02] MEDS: Menthol/Lanolin/Calamine/Znox 113 GM Tube 1 APPLIC TOPICAL ×2 (09:02→19:52)
--- NOTE | 2024-07-02 09:09 | NURSING ---
Lumber Loader Note; MDS for 07/02/2024 Complete
--- NOTE | 2024-07-02 10:18 | NURSING ---
Addendum entered by Juan Frausto 07/02/24 10:23: Updated Sonny, franklyn. Original Note: Call from Dr. Donald. Per Dr. Doanld patient's capsule endoscopy was approved, however procedure requires a prep. Patient is discharging 07/04. Dr. Donald recommending patient to follow up outpatient after discharge from TCU. Family to schedule capsule endoscopy. No new orders at this time.
[2024-07-02 12:24] VITALS: TEMP 36.7
--- NOTE | 2024-07-02 15:29 | NURSING ---
Occult stool results positive. Pt reports hx of hemorrhoids. Updated Dr. Escamilla, no new orders. Pt will follow-up outpatient with Dr. Donald next week.
[2024-07-02 19:55] VITALS: BP 121/54; PULSE 68
[2024-07-02] MEDS: Pravastatin 80 MG Tablet PO (19:55)
[2024-07-02 21:32] VITALS: O2SAT 99
[2024-07-03] MEDS: Multivitamins,Therapeutic Tablet 1 TABLET PO (08:36)
[2024-07-03] MEDS: Calcium Carb/Vitamin D 1 TABLET Tablet PO (08:37)
[2024-07-03] MEDS: predniSONE 20 MG Tablet PO ×3 (08:37→17:30)
[2024-07-03] MEDS: Ensure Plus High Protein 120 ML LIQUID PO ×3 (08:38→17:30)
[2024-07-03] MEDS: Menthol/Lanolin/Calamine/Znox 113 GM Tube 1 APPLIC TOPICAL ×2 (08:40→20:43)
[2024-07-03 09:53] VITALS: PULSE 69
[2024-07-03] MEDS: hydroCHLOROthiazide 6.25mg TAB 12.5 MG PO (09:53)
[2024-07-03] MEDS: Metoprolol Tartrate 25 MG Tablet PO ×2 (09:53→20:44)
[2024-07-03] MEDS: Vibegron 75 MG TABLET PO (09:54)
[2024-07-03] MEDS: Spironolactone 50 MG Tablet PO (09:54)
[2024-07-03] MEDS: Senna/Docusate Sodium 1 Tablet PO ×2 (09:54→20:45)
[2024-07-03 16:00] VITALS: BP 128/67; PULSE 64; RESP 16; TEMP 36.2; O2SAT 96
[2024-07-03 20:44] VITALS: BP 118/59; PULSE 64
[2024-07-03] MEDS: Pravastatin 80 MG Tablet PO (20:45)
[2024-07-03 20:49] VITALS: O2SAT 98
[2024-07-04 05:30] VITALS: O2SAT 98
[2024-07-04 07:18] LABS: Absolute Lymphocyte Count 1.15 X10^3/uL (0.83-4.51); Absolute Neutrophil Count 4.8 X10^3/uL (2.0-7.7); Basophil# 0.02 X10^3/uL; Basophil% 0.3 % (0-1); Hematocrit 34.8 % (37-47); Hemoglobin 11.4 g/dL (12.0-15.0); Lymphocyte # 1.15 X10^3/ul (0.83-4.51); Lymphocyte % 17.8 % (19-41); Mean Corp Hgb Conc 32.8 g/dL (32-36); Mean Corpuscular Hgb 31.2 pg (27.0-32.0); Mean Corpuscular Volume 95.3 fL (81-99); Mean Platelet Vol. 9.8 fl (6.2-12.0); Monocyte% 6.2 % (0-10); NRBC Flagged by Analyzer 0 % (0-5); Neutrophil # 4.78 X10^3/uL (2.7-7.7); Neutrophil % 73.8 % (47-70); Platelet Count 182 K/mm3 (150-450); RBC Distribution Width CV 17.1 % (11.6-14.6); RBC Distribution Width SD 59.7 fl (35.1-43.9); Red Blood Count 3.65 M/mm3 (4.2-5.4); White Blood Count 6.5 K/mm3 (4.4-11.0)
[2024-07-04 08:08] VITALS: BP 125/58; PULSE 63; RESP 16; TEMP 36.8; O2SAT 97
[2024-07-04] MEDS: predniSONE 20 MG Tablet PO (08:12)
[2024-07-04] MEDS: Calcium Carb/Vitamin D 1 TABLET Tablet PO (08:12)
[2024-07-04] MEDS: Multivitamins,Therapeutic Tablet 1 TABLET PO (08:12)
[2024-07-04] MEDS: Ensure Plus High Protein 120 ML LIQUID PO (08:12)
[2024-07-04] MEDS: Spironolactone 50 MG Tablet PO (08:13)
[2024-07-04] MEDS: Menthol/Lanolin/Calamine/Znox 113 GM Tube 1 APPLIC TOPICAL (08:13)
[2024-07-04] MEDS: Vibegron 75 MG TABLET PO (08:14)
[2024-07-04] MEDS: hydroCHLOROthiazide 6.25mg TAB 12.5 MG PO (08:14)
[2024-07-04 08:15] VITALS: PULSE 63
[2024-07-04] MEDS: Senna/Docusate Sodium 1 Tablet PO (08:15)
[2024-07-04] MEDS: Metoprolol Tartrate 25 MG Tablet PO (08:15)
--- NOTE | 2024-07-04 10:57 | NURSING ---
Discharge instructions given to and reviewed with patient and daughter. Reviewed medication list. Patient/daughter denies questions/concerns. Patient has procedure scheduled with Dr. Donald tomorrow 07/05 and will schedule follow up/new patient appt. with Dr. Escamilla.
== END 2024-07-04 11:00 | disposition home health service (06) | DRG 308 ==
PROVIDERS: Admitting Provider Family Medicine Geriatric Medicine; PCP Family Medicine; Visit Provider Family Medicine Geriatric Medicine
DX: I48.91 Unspecified atrial fibrillation (principal); I26.99 Other pulmonary embolism without acute cor pulmonale; I82.611 Acute embolism and thrombosis of superficial veins of right upper extremity; K92.2 Gastrointestinal hemorrhage, unspecified; I82.621 Acute embolism and thrombosis of deep veins of right upper extremity; T82.868A Thrombosis due to vascular prosthetic devices, implants and grafts, initial encounter; N39.0 Urinary tract infection, site not specified; M31.6 Other giant cell arteritis; I10 Essential (primary) hypertension; G25.81 Restless legs syndrome; D64.9 Anemia, unspecified; I95.9 Hypotension, unspecified; E55.9 Vitamin D deficiency, unspecified; E78.00 Pure hypercholesterolemia, unspecified; K57.30 Diverticulosis of large intestine without perforation or abscess without bleeding; Z87.891 Personal history of nicotine dependence; B96.20 Unspecified Escherichia coli [E. coli] as the cause of diseases classified elsewhere; N32.81 Overactive bladder; Z79.899 Other long term (current) drug therapy; Z79.52 Long term (current) use of systemic steroids; M81.0 Age-related osteoporosis without current pathological fracture; Y82.8 Other medical devices associated with adverse incidents
CPT/HCPCS: 36415; 36430; 80048; 80061; 82274; 85014; 85018; 85025; 86850; 86900; 86901; 86920; 86922; 87811; 97110; 97162; 97166; 97530; 97535; 97802; J7040; P9016; A4216; J1940

== ENCOUNTER → 2024-06-29 | Outpatient (CLI) | payer MEDICARE, SELFPAY | END | disposition home or self-care (01) | LOC: CVS 08:34 | PROVIDERS: PCP Family Medicine; Referring Provider Family Medicine Geriatric Medicine; Visit Provider Family Medicine Geriatric Medicine | DX: R22.31 Localized swelling, mass and lump, right upper limb (principal) | CPT/HCPCS: 93971 ==

== ENCOUNTER → 2024-07-01 | Outpatient (CLI) | payer MEDICARE, SELFPAY ==
--- NOTE | 2024-07-01 08:22 | VDLE_ITS ---
Reason For Study: SWELLING RIGHT LEFT GSV is normal. GSV is normal. RT CFV is PARTIALLY COMPRESSIBLE w/FLOW NOTED CFV is compressible, spontaneous, phasic, in vessel. competent, and demonstrates normal PERV is NONCOMPRESSIBLE W/no flow noted. augmentation. FV is compressible, spontaneous, phasic, FV is compressible, spontaneous, phasic, competent and demonstrates normal competent and demonstrates normal augmentation. augmentation. POP V is compressible, spontaneous, phasic, POP V is compressible, spontaneous, phasic, competent and demonstrates normal competent and demonstrates normal augmentation. augmentation. T/P Trunk is compressible. T/P Trunk is compressible. PTV is compressible. PTV is compressible. Procedure LT PerV is compressible. This is a venous duplex using B-mode, color flow and spectral Doppler. Exam performed portable in patient room. The study was technically difficult. Due to bilateral leg swelling. TCU @ 09:20 am. VL/Venous Duplex US - Felipe Extrem Interpretation Summary Chronic deep vein thrombosis is noted in the right common femoral vein. Acute deep vein thrombosis is noted in the right peroneal vein. Deep veins of the left lower extremity are patent and compressible segmentally. There is no evidence of left lower extremity deep vein thrombosis. The bilateral great saphenous vei ns appear patent and compressible segmentally. Ordering Physician: Stacy Diana Referring Physician: Jovanny Nuñez Performed By: Mahi Urena, TIEN, RVT
== END | disposition home or self-care (01) ==
LOC: CVS 08:21
PROVIDERS: PCP Family Medicine; Referring Provider Physician Assistant; Visit Provider Physician Assistant
DX: R60.0 Localized edema (principal)
CPT/HCPCS: 93970

== ENCOUNTER 2024-07-11 18:24 | Inpatient (IN) | payer MEDICARE, SELFPAY ==
[2024-07-11] VITALS (7 sets, daily range): BP systolic 117–138; BP diastolic 61–68; PULSE 65–76; RESP 19–28; TEMP 35.9–37; O2SAT 97–100; BMI 33.7
--- NOTE | 2024-07-11 18:43 | CT_ITS ---
We are attempting to reach an attending provider to discuss findings. An addendum with communication details will be sent when the communication is complete. STUDY: CT Abdomen And Pelvis W/ Contrast Injection 07/11/2024 9:11 PM REASON FOR EXAM: Female, 79 years old. Abdominal pain Right lower quadrant abdominal pain Individualized dose optimization techniques were used for this CT. COMPARISON: 06.18.24 TECHNIQUE: CT Abdomen And Pelvis W/ Contrast Injection IV 100mL [id number] FINDINGS: There are atherosclerotic calcifications of visualized coronary arteries. The visualized portions of the heart are within normal limits. Normal liver. Normal gallbladder and extrahepatic biliary system. Normal spleen. Normal pancreas. Normal bilateral adrenal glands. There are hypodensities in the right kidney. These are consistent for cysts. No follow up required. No acute findings of the left kidney. Normal visualized stomach. There are multiple colonic diverticula consistent with diverticulosis. Perforated diverticulitis around the left upper quadrant small bowel. A contained perforation site measures 25 x 25 mm. Presently no drainable abscess. Series 2 image 60. There is non-visualization of the appendix. Multiple small bowel diverticula. There are calcifications of the abdominal aorta. This is consistent for atherosclerotic disease. There is NO abdominal aortic aneurysm. Vascular workup can be obtained based on clinical correlation. There is an IVC filter in place. Recommend correlation with IVC filter management Team for planning. Filling defect overlying the IVC filter. Air in the urinary bladder. This is likely iatrogenic. Normal visualized uterus. Pessary device noted in the vagina. There is metallic hardware noted in the left hip. Trace free fluid in the pelvis. Normal abdominal wall. There are diffuse degenerative changes of the visualized lumbar spine. There is bilateral neural foraminal stenosis at L4-5 and L5-S1. CT/Abdomen/Pelvis W IV Cont ONLY IMPRESSION: (NOT LISTED IN ORDER OF SIGNIFICANCE) There are multiple colonic diverticula consistent with diverticulosis. Perforated diverticulitis around the left upper quadrant small bowel. A contained perforation site measures 25 x 25 mm. Presently no drainable abscess. Small bowel diverticuli. . Other findings as above. Electronically Signed: Vito Kuo MD at 21:18 EST ,
--- NOTE | 2024-07-11 18:43 | ED.VIS.GI ---
HPI HPI - GI History of Present Illness Chief Complaint: Abd Pain Narrative Narrative: 79-year-old female who denies significant past medical history presents with right lower quadrant abdominal pain that she has had for the last week. It is intensifying. She relates history that around 3 weeks ago she was admitted to [facility] for black stool. She states she had upper and lower endoscopy performed but they could not find out where she was bleeding from. Additionally, she has history of atrial fibrillation. She states that she was transferred to [place] for IVC filter placement then sent to the TCU here where she was just released a week ago. She states that 1 to 2 weeks ago she developed this abdominal pain in the right lower quadrant of her abdomen that felt like a very strong cramp. Over the last 24 hours, she states it was on the right side of her abdomen, then on the left lower portion of her abdomen, and has now returned to the right. There are no exacerbating or alleviating factors. She denies any fevers or chills, no nausea or vomiting. She has had multiple bowel movements but no diarrhea. No black or tarry stool. She denies any dysuria or hematuria. She is currently not in pain, but states that just before she came to the hospital she had extreme pain in her right lower quadrant of her abdomen. [facility] Medical History Acute pulmonary embolism Acute hypotension Anemia requiring transfusions Acute upper GI bleed Atrial fibrillation with RVR Benign essential hypertension Temporal arteritis PONV (postoperative nausea and vomiting) Wears partial dentures Ambulates with cane Osteoarthritis History of anemia High cholesterol Hepatitis Injury of head and neck Diverticulosis Former smoker Shortness of breath on exertion Chronic cough Leg cramps History of stress test Hypertension History of femur fracture Home Medications ?Medication ?Instructions ?Recorded ?Last Taken ?Type ergocalciferol (vitamin D2) 1,250 50,000 unit PO QMONTH ostseopenia 02/14/14 04/04/24 History mcg (50,000 unit) capsule (Vitamin D2) calcium 600 mg (as 1 ea PO DAILY bone health 12/18/15 04/23/24 History carbonate)-vitamin D3 10 mcg (400 unit) tablet hydrochlorothiazide 12.5 mg capsule 12.5 mg PO DAILY blood pressure 04/23/24 04/23/24 History prednisone 20 mg tablet 20 mg PO TID terrmoral arteritis 04/23/24 04/23/24 History vibegron 75 mg tablet (Gemtesa) 75 mg PO DAILY unsure 04/23/24 04/23/24 History alendronate 70 mg tablet 70 mg PO QWEEK osteopenia 06/16/24 06/11/24 History omeprazole 20 mg capsule,delayed 20 mg PO DAILY esophagus ulcers 06/17/24 Unknown History release pravastatin 80 mg tablet 80 mg PO DAILY high cholesterol 06/17/24 06/15/24 History sulfamethoxazole 800 1 tab PO BID Antibiotic 06/25/24 Unknown History mg-trimethoprim 160 mg tablet acetaminophen 500 mg tablet 1,000 mg (2 x 500 mg) PO Q6H PRN 07/01/24 Unknown Rx PRN Pain Score 1-10 #0 tabs metoprolol tartrate 25 mg tablet 25 mg PO BID 30 days #60 tabs 07/01/24 Unknown Rx spironolactone 50 mg tablet 50 mg PO DAILY #0 tabs 07/01/24 Unknown Rx tocilizumab 162 mg/0.9 mL 162 mg (0.9 mL) subcut Tu #0 mL 07/01/24 Unknown Rx subcutaneous syringe (Actemra) Allergy/AdvReac Type Severity Reaction Status Date / Time cefdinir (Cefdinir) Allergy Rash Verified 07/11/24 18:26 morphine AdvReac Severe Nausea Verified 07/11/24 18:26 Family History Mother Asthma Arthritis Sister Arthritis Colon cancer Father Arthritis Surgical History History of colonoscopy History of laminectomy History of left knee replacement History of bilateral cataract extraction Social History household members: none Smoking Status: Former smoker alcohol intake: never substance use type: does not use ROS ROS ED ROS Narrative Constitutional: No fever, no chills. HEENT: No sore throat. No neck pain. No loss of vision. No rhinorrhea. Cardiovascular: No chest pain. No palpitations. No pedal edema. Respiratory: No cough, no shortness of breath. Abdominal: Right lower quadrant abdominal pain. No nausea. No vomiting. No diarrhea. No problems with bowel movements. Genitourinary: No dysuria. No hematuria. Musculoskeletal: No myalgias. No arthralgias. Neurologic: No headaches. No dizziness. No lightheadedness. Skin: No rash. No change in color. Psychiatric: No depression. No anxiety. EXAM Physical Exam Narrative Exam Narrative: Afebrile. Vital signs noted. Nontoxic-appearing. Cardiovascular examination reveals a regular rate and rhythm. Lungs clear to auscultation bilaterally. Abdomen is soft with mild tenderness to palpation in right lower quadrant, no guarding or rebound. There is mild tenderness to the left lower quadrant as well. Positive bowel sounds. Neurological examination is nonfocal and nonlateralizing. She is awake, alert, and oriented. Const Vital Signs: 07/11/24 18:24 Temperature 96.7 F L Temperature Source Temporal Pulse Rate 73 Respiratory Rate 19 H Blood Pressure 135/68 H Blood Pressure Mean 90 Pulse Ox 100 Oxygen Delivery Method Room Air MDM MDM MDM Narrative Medical decision making narrative: Differential diagnosis includes but not limited to diverticulitis versus colitis versus acute appendicitis versus ureterolithiasis. I have low suspicion for ureterolithiasis because the history and physical does not support this. Comprehensive workup was pursued. I do feel CT imaging is indicated. Patient declined any analgesics here in the emergency department. She is not currently nauseated either. I reviewed her laboratory work and she has an elevated white count of 17.9. Hemoglobin 12.3 with hematocrit 37.3, platelet count 213. CMP is significant for glucose of 214 but she has an anion gap of 6 so I doubt diabetic ketoacidosis, BUN elevated at 22 with creatinine 0.69. LFTs are grossly unremarkable. Lipase 39 so I doubt pancreatitis. Urinalysis obtained and she has greater than 100 WBCs. While there are 10-25 squamous epithelial cells, I think this is too many WBCs for contamination. Urine culture was sent. I received a call from the radiologist regarding the CT of the abdomen and pelvis. While she has diverticulosis of the colon, there is a perforated diverticula of the small bowel in the left upper quadrant. There is a contained area that is 25 mm x 25 mm. No drainable abscess currently. Patient was started on Zosyn. I discussed patient with Dr. Garcia who will see the patient in the ED, and take her to the operating room. Disposition is admitted in stable condition. History & Record Review Discussion w/independent historian: Patient Lab Data Attestation: I reviewed the patient's lab results. Labs: Laboratory Results - last 24 hr 07/11/24 07/11/24 18:51 20:01 WBC 17.9 H RBC 3.87 L Hgb 12.3 Hct 37.3 MCV 96.4 MCH 31.8 MCHC 33.0 RDW Std Deviation 57.8 H RDW Coeff of Jennifer 16.4 H Plt Count 213 MPV 10.3 Immature Gran % (Auto) 1.000 H Neut % (Auto) 92.2 H Lymph % (Auto) 4.8 L [place] % (Auto) 1.8 Eos % (Auto) 0.0 Baso % (Auto) 0.2 Absolute Neuts (auto) 16.5 H Absolute Lymphs (auto) 0.86 Nucleated RBC % 0 Sodium 138 Potassium 5.1 Chloride 104 Carbon Dioxide 28.0 Anion Gap 6 BUN 22 H Creatinine 0.69 Estim Creat Clear Calc 59.04 Est GFR (MDRD) Af Amer 107 Est GFR (MDRD) Non-Af 88 BUN/Creatinine Ratio 32.1 H Glucose 214 H Calcium 8.3 L Total Bilirubin 0.80 AST 16 ALT 42 Alkaline Phosphatase 76 Total Protein 5.7 L Albumin 3.1 L Globulin 2.6 Albumin/Globulin Ratio 1.2 Lipase 39 Urine Color Straw Urine Clarity Sl. Cloudy Urine pH 7.0 Ur Specific [place] 1.005 Urine Protein 30 H Urine Glucose (UA) Normal Urine Ketones Negative Urine Occult Blood 10 H Urine Nitrite Negative Urine Bilirubin Negative Urine Urobilinogen Normal Ur Leukocyte Esterase 500 H Urine RBC 0 SEEN Urine WBC >100 SEEN Ur Squamous Epith Cells 10-25 SEEN Urine Bacteria 3+ Urine Mucus 0 SEEN Radiography Diagnostic Testing: Clinical Impression(s) from Imaging Studies Abdomen/Pelvis CT 07/11/24 18:43 IMPRESSION: (NOT LISTED IN ORDER OF SIGNIFICANCE) There are multiple colonic diverticula consistent with diverticulosis. Perforated diverticulitis around the left upper quadrant small bowel. A contained perforation site measures 25 x 25 mm. Presently no drainable abscess. Small bowel diverticuli. . Other findings as above. Electronically Signed: Vito Kuo MD at 21:18 EST , ADDENDUM: 07/11/242144 IMPRESSION: (NOT LISTED IN ORDER OF SIGNIFICANCE) There are multiple colonic diverticula consistent with diverticulosis. Perforated diverticulitis around the left upper quadrant small bowel. A contained perforation site measures 25 x 25 mm. Presently no drainable abscess. Small bowel diverticuli. . Other findings as above. N.B. : The above Results were Read Back by Vito Kuo MD to Ra Burt MD, and understanding confirmed on 07/11/2024 21:38:13 (ET). Electronically Signed: Vito Kuo MD at 21:18 EST , Discharge Plan Dx/Rx/DC Orders Clinical Impression: Perforated diverticulum, Abdominal pain, Urinary tract infection, S/P IVC filter, Perforated small intestine Disposition Disposition: Acute Care Hospital [facility]
[2024-07-11 18:55] LABS: Absolute Lymphocyte Count 0.86 X10^3/uL (0.83-4.51); Absolute Neutrophil Count 16.5 X10^3/uL (2.0-7.7); Basophil# 0.03 X10^3/uL; Basophil% 0.2 % (0-1); Hematocrit 37.3 % (37-47); Hemoglobin 12.3 g/dL (12.0-15.0); Lymphocyte # 0.86 X10^3/ul (0.83-4.51); Lymphocyte % 4.8 % (19-41); Mean Corpuscular Hgb 31.8 pg (27.0-32.0); Mean Corpuscular Volume 96.4 fL (81-99); Mean Platelet Vol. 10.3 fl (6.2-12.0); Monocyte# 0.32 X10^3/uL; Monocyte% 1.8 % (0-10); NRBC Flagged by Analyzer 0 % (0-5); Neutrophil % 92.2 % (47-70); Platelet Count 213 K/mm3 (150-450); RBC Distribution Width CV 16.4 % (11.6-14.6); RBC Distribution Width SD 57.8 fl (35.1-43.9); Red Blood Count 3.87 M/mm3 (4.2-5.4); White Blood Count 17.9 K/mm3 (4.4-11.0)
[2024-07-11 19:23] LABS: ALB/GLOB Ratio 1.2 RATIO (0.9-2.4); AST(SGOT) 16 U/L (15-37); Alanine Aminotransfer ALT/SGPT 42 U/L (13-56); Albumin, Serum 3.1 g/dL (3.2-5.0); Alkaline Phosphatase 76 U/L (45-117); Anion Gap 6 (5-15); BUN 22 mg/dL (7-18); BUN/Creat Ratio 32.1 RATIO (10-20); Calcium,Total 8.3 mg/dL (8.5-10.1); Chloride 104 mmol/L (98-107); Creatinine, Serum 0.69 mg/dL (0.55-1.02); EST Glomerular Filtration Rate 88 mL/min (>60); Est Glom Filt Rate - Afr Amer 107 mL/min (>60); Estimated Creatinine Clearance 59.04 ml/min; Globulin 2.6 g/dL (2.2-4.2); Glucose 214 mg/dL (74-106); Lipase 39 U/L (13-75); Potassium 5.1 mmol/L (3.5-5.1); Protein, Total 5.7 g/dL (6.4-8.2); Sodium Level 138 mmol/L (136-145)
[2024-07-11] MEDS: fentaNYL 100 MCG/2 ML Ampul 50 MCG IV (19:28)
[2024-07-11] MEDS: Ondansetron 4 MG/2 ML Vial IV (19:28)
[2024-07-11 20:16] LABS: Mucous, Urine 0 SEEN /hpf (<or=2+); Red Blood Cells-Urine 0 SEEN /hpf (0-5)
[2024-07-11 20:19] LABS: Color, Urine Straw (Yellow); Glucose, Dipstick Normal (Normal); Ketone-Dipstick Negative (Negative); Leukocyte Esterase-Dipstick 500 /ul (Negative); Nitrite-Dipstick Negative (Negative); Occult Blood-Urine 10 /ul (Negative); Protein-Dipstick 30 mg/dl (Negative); Specific Gravity, Urine 1.005 (1.002-1.030); Urine Bilirubin Dipstick Negative (Negative); Urine Clarity Sl. Cloudy (Clear); Urine Urobilinogen Normal (Normal)
[2024-07-11 20:31] LABS: Bacteria 3+ /hpf (None Seen); Squamous Epithelial Cells - UA 10-25 SEEN /hpf (5-10); White Blood Cells >100 SEEN /hpf (0-5)
[2024-07-11] MEDS: Piperacil/Tazobactam 3.375 GM in 0.9% Normal Saline (50mL MB+) 50 ML IV (22:04)
--- NOTE | 2024-07-11 22:09 | PCM.HP.STD ---
HPI - General General Date of Admission: 07/11/24 Date of Service: 07/11/24 Chief Complaint: Acute onset and progressive abdominal pain HPI Narrative ARSEN OJEDA, is a 79 F who presents to [facility] with complaints of acute onset, progressive right lower quadrant abdominal pain. She was recently admitted until 07/01/2024 related to a workup for a GI bleed when she was found to have evidence of pulmonary emboli and required placement of vena cava filter at [facility]. An ongoing workup for this GI bleed continued 07/06/2024 when patient completed capsule endoscopy to try to better evaluate the small bowel for possible source. Patient is unaware of these results. Patient states that her pain began in the right lower quadrant while she was still admitted to the transitional care unit but became significantly worse last evening. She notes that she almost broke down in tears but had a bout of diarrhea and the pain seemed spontaneously resolved by morning time. She denies any nausea or any associated fevers or chills. She has never experienced this pain previously. She does confirm that she has continued her p.o. intake all the way through this evening when she had a dinner of sausage, rice, and peppers about 530 this evening. She does note that her pain became more severe and she had to stop eating before she had finished. Patient was just operated on for temporal artery biopsy April 23, [address] Rogers and initiated on high-dose prednisone for giant cell arteritis. She is concerned what going off the steroids may lead to in terms of her vision. Beyond the above patient confirms a history of hypertension previously on lisinopril but has not returned to this medication since her last hospitalization. She also confirms a history of tobacco use but underwent smoking cessation approximately year 1985. She also confirms a history of treated HCV dating back to the 1970s. She has no prior history of abdominal surgery. [facility] Medical History Acute pulmonary embolism Acute hypotension Anemia requiring transfusions Acute upper GI bleed Atrial fibrillation with RVR Benign essential hypertension Temporal arteritis PONV (postoperative nausea and vomiting) Wears partial dentures Ambulates with cane Osteoarthritis History of anemia High cholesterol Hepatitis Injury of head and neck Diverticulosis Former smoker Shortness of breath on exertion Chronic cough Leg cramps History of stress test Hypertension History of femur fracture Home Medications ?Medication ?Instructions ?Recorded ?Last Taken ?Type ergocalciferol (vitamin D2) 1,250 50,000 unit PO QMONTH ostseopenia 02/14/14 04/04/24 History mcg (50,000 unit) capsule (Vitamin D2) calcium 600 mg (as 1 ea PO DAILY bone health 12/18/15 04/23/24 History carbonate)-vitamin D3 10 mcg (400 unit) tablet hydrochlorothiazide 12.5 mg capsule 12.5 mg PO DAILY blood pressure 04/23/24 04/23/24 History prednisone 20 mg tablet 20 mg PO TID terrmoral arteritis 04/23/24 04/23/24 History vibegron 75 mg tablet (Gemtesa) 75 mg PO DAILY unsure 04/23/24 04/23/24 History alendronate 70 mg tablet 70 mg PO QWEEK osteopenia 06/16/24 06/11/24 History omeprazole 20 mg capsule,delayed 20 mg PO DAILY esophagus ulcers 06/17/24 Unknown History release pravastatin 80 mg tablet 80 mg PO DAILY high cholesterol 06/17/24 06/15/24 History sulfamethoxazole 800 1 tab PO BID Antibiotic 06/25/24 Unknown History mg-trimethoprim 160 mg tablet acetaminophen 500 mg tablet 1,000 mg (2 x 500 mg) PO Q6H PRN 07/01/24 Unknown Rx PRN Pain Score 1-10 #0 tabs metoprolol tartrate 25 mg tablet 25 mg PO BID 30 days #60 tabs 07/01/24 Unknown Rx spironolactone 50 mg tablet 50 mg PO DAILY #0 tabs 07/01/24 Unknown Rx tocilizumab 162 mg/0.9 mL 162 mg (0.9 mL) subcut Tu #0 mL 07/01/24 Unknown Rx subcutaneous syringe (Actemra) Allergy/AdvReac Type Severity Reaction Status Date / Time cefdinir (Cefdinir) Allergy Rash Verified 07/11/24 18:26 morphine AdvReac Severe Nausea Verified 07/11/24 18:26 Family History Mother Asthma Arthritis Sister Arthritis Colon cancer Father Arthritis Surgical History History of colonoscopy History of laminectomy History of left knee replacement History of bilateral cataract extraction Social History household members: none Smoking Status: Former smoker alcohol intake: never substance use type: does not use Vital Signs Vital Signs Vital Signs: 07/11/24 18:24 07/11/24 20:24 Temperature 96.7 F L Temperature Source Temporal Pulse Rate 73 67 Respiratory Rate 19 H 28 H Blood Pressure 135/68 H 138/64 H Blood Pressure Mean 90 88 Pulse Ox 100 97 Oxygen Delivery Method Room Air Room Air Weight Weight: 184 lb 4.903 oz Body Mass Index (BMI) 33.7 Physical Exam Const alert and oriented x3 Constitutional Narrative: Mild distress from abdominal discomfort General Appearance: cooperative Resp normal respiratory effort GI GI Narrative: No scars, obese, mildly distended, tender to palpation with voluntary guarding in the left upper quadrant?otherwise benign Results Lab / Micro Data 07/11/24 18:51 07/11/24 18:51 Labs: Laboratory Results - last 24 hr 07/11/24 18:51: WBC 17.9 H, RBC 3.87 L, Hgb 12.3, Hct 37.3, MCV 96.4, MCH 31.8, MCHC 33.0, RDW Std Deviation 57.8 H, RDW Coeff of Jennifer 16.4 H, Plt Count 213, MPV 10.3, Immature Gran % (Auto) 1.000 H, Neut % (Auto) 92.2 H, Lymph % (Auto) 4.8 L, [place] % (Auto) 1.8, Eos % (Auto) 0.0, Baso % (Auto) 0.2, Absolute Neuts (auto) 16.5 H, Absolute Lymphs (auto) 0.86, Nucleated RBC % 0, Sodium 138, Potassium 5.1, Chloride 104, Carbon Dioxide 28.0, Anion Gap 6, BUN 22 H, Creatinine 0.69, Estim Creat Clear Calc 59.04, Est GFR (MDRD) Af Amer 107, Est GFR (MDRD) Non-Af 88, BUN/Creatinine Ratio 32.1 H, Glucose 214 H, Calcium 8.3 L, Total Bilirubin 0.80, AST 16, ALT 42, Alkaline Phosphatase 76, Total Protein 5.7 L, Albumin 3.1 L, Globulin 2.6, Albumin/Globulin Ratio 1.2, Lipase 39 07/11/24 20:01: Urine Color Straw, Urine Clarity Sl. Cloudy, Urine pH 7.0, Ur Specific [place] 1.005, Urine Protein 30 H, Urine Glucose (UA) Normal, Urine Ketones Negative, Urine Occult Blood 10 H, Urine Nitrite Negative, Urine Bilirubin Negative, Urine Urobilinogen Normal, Ur Leukocyte Esterase 500 H, Urine RBC 0 SEEN, Urine WBC >100 SEEN, Ur Squamous Epith Cells 10-25 SEEN, Urine Bacteria 3+, Urine Mucus 0 SEEN Imaging Radiology Impression Abdomen/Pelvis CT 07/11/24 18:43 IMPRESSION: (NOT LISTED IN ORDER OF SIGNIFICANCE) There are multiple colonic diverticula consistent with diverticulosis. Perforated diverticulitis around the left upper quadrant small bowel. A contained perforation site measures 25 x 25 mm. Presently no drainable abscess. Small bowel diverticuli. . Other findings as above. Electronically Signed: Vito Kuo MD at 21:18 EST , ADDENDUM: 07/11/24 2145 IMPRESSION: (NOT LISTED IN ORDER OF SIGNIFICANCE) There are multiple colonic diverticula consistent with diverticulosis. Perforated diverticulitis around the left upper quadrant small bowel. A contained perforation site measures 25 x 25 mm. Presently no drainable abscess. Small bowel diverticuli. . Other findings as above. N.B. : The above Results were Read Back by Vito Kuo MD to Ra Burt MD, and understanding confirmed on 07/11/2024 21:38:13 (ET). Electronically Signed: Vito Kuo MD at 21:18 EST , Assessment & Plan Assessment/Plan (1) Perforated diverticulum: PLAN: Patient is a 79-year-old female who presents with progressive abdominal pain and ER workup included CT imaging that shows evidence of a perforated small bowel diverticulum of the left upper quadrant. Patient appears, encouragingly, hemodynamically normal but exam does show evidence of focal peritonitis with palpation of the left upper quadrant. Given patient's concurrent steroid use I, unfortunately, see no way to fully trust her vital signs, her exam, or her ability to autopatch this area. Therefore, it is my recommendation to emergently proceed with surgical exploration and likely small bowel resection with reanastomosis. This procedure was described in detail to the patient and her daughter with the use of hand drawings to illustrate the relevant anatomy. I shared that this perforation was likely to proximal to be able to revert to an enterostomy and still obtain adequate nutrition for her to live. With the pathophysiology obligating asked to reanastomosis shared that this would require us to withhold use of her steroids postoperatively so as not to jeopardize the integrity of her anastomosis and allow her appropriate healing. Patient and her daughter have several questions related to both operative expectations as well as postoperative recovery. After answering these they provided verbal consent to proceed. Both the operating room and anesthesia are notified. Will now proceed to the operating room for diagnostic laparoscopy with probable exploratory laparotomy, small bowel resection reanastomosis and all other procedures as indicated. Post procedure disposition to be determined based on patient's status and operative findings. Gus Garcia MD General Surgery Endocrine Surgery Pager: [facility] [address] [place] [address], [address] [place] [address] Office: [phone] (2) Perforated small intestine: Charges/Coding Visit Charges Inpatient E&M: 48854 Init Hosp L2
--- NOTE | 2024-07-11 22:17 | HP.PCM.HOS_ITS ---
HPI - General General Date of Admission: 07/11/24 Date of Service: 07/11/24 Chief Complaint: Acute onset and progressive abdominal pain HPI Narrative ARSEN OJEDA, is a 79 F with a past medical history of essential hypertension, who presents [facility] Medical History Acute pulmonary embolism Acute hypotension Anemia requiring transfusions Acute upper GI bleed Atrial fibrillation with RVR Benign essential hypertension Temporal arteritis PONV (postoperative nausea and vomiting) Wears partial dentures Ambulates with cane Osteoarthritis History of anemia High cholesterol Hepatitis Injury of head and neck Diverticulosis Former smoker Shortness of breath on exertion Chronic cough Leg cramps History of stress test Hypertension History of femur fracture Home Medications ?Medication ?Instructions ?Recorded ?Last Taken ?Type ergocalciferol (vitamin D2) 1,250 50,000 unit PO QMONTH ostseopenia 02/14/14 04/04/24 History mcg (50,000 unit) capsule (Vitamin D2) calcium 600 mg (as 1 ea PO DAILY bone health 12/18/15 04/23/24 History carbonate)-vitamin D3 10 mcg (400 unit) tablet hydrochlorothiazide 12.5 mg capsule 12.5 mg PO DAILY blood pressure 04/23/24 04/23/24 History prednisone 20 mg tablet 20 mg PO TID terrmoral arteritis 04/23/24 04/23/24 History vibegron 75 mg tablet (Gemtesa) 75 mg PO DAILY unsure 04/23/24 04/23/24 History alendronate 70 mg tablet 70 mg PO QWEEK osteopenia 06/16/24 06/11/24 History omeprazole 20 mg capsule,delayed 20 mg PO DAILY esophagus ulcers 06/17/24 Unknown History release pravastatin 80 mg tablet 80 mg PO DAILY high cholesterol 06/17/24 06/15/24 History sulfamethoxazole 800 1 tab PO BID Antibiotic 06/25/24 Unknown History mg-trimethoprim 160 mg tablet acetaminophen 500 mg tablet 1,000 mg (2 x 500 mg) PO Q6H PRN 07/01/24 Unknown Rx PRN Pain Score 1-10 #0 tabs metoprolol tartrate 25 mg tablet 25 mg PO BID 30 days #60 tabs 07/01/24 Unknown Rx spironolactone 50 mg tablet 50 mg PO DAILY #0 tabs 07/01/24 Unknown Rx tocilizumab 162 mg/0.9 mL 162 mg (0.9 mL) subcut Tu #0 mL 07/01/24 Unknown Rx subcutaneous syringe (Actemra) Allergy/AdvReac Type Severity Reaction Status Date / Time cefdinir (Cefdinir) Allergy Rash Verified 07/11/24 18:26 morphine AdvReac Severe Nausea Verified 07/11/24 18:26 Family History Mother Asthma Arthritis Sister Arthritis Colon cancer Father Arthritis Surgical History History of colonoscopy History of laminectomy History of left knee replacement History of bilateral cataract extraction Social History household members: none Smoking Status: Former smoker alcohol intake: never substance use type: does not use Vital Signs Vital Signs Vital Signs: 07/11/24 18:24 07/11/24 20:24 07/11/24 22:00 Temperature 96.7 F L Temperature Source Temporal Pulse Rate 73 67 65 Respiratory Rate 19 H 28 H 26 H Blood Pressure 135/68 H 138/64 H 119/63 Blood Pressure Mean 90 88 81 Blood Pressure Source Pulse Ox 100 97 97 Oxygen Delivery Method Room Air Room Air Room Air 07/11/24 22:11 Temperature 98.6 F Temperature Source Oral Pulse Rate 65 Respiratory Rate 26 H Blood Pressure 117/63 Blood Pressure Mean 81 Blood Pressure Source Monitor Pulse Ox 97 Oxygen Delivery Method Weight Weight: 184 lb 4.903 oz Body Mass Index (BMI) 33.7 Results Lab / Micro Data 07/11/24 18:51 07/11/24 18:51 Labs: Laboratory Results - last 24 hr 07/11/24 18:51: WBC 17.9 H, RBC 3.87 L, Hgb 12.3, Hct 37.3, MCV 96.4, MCH 31.8, MCHC 33.0, RDW Std Deviation 57.8 H, RDW Coeff of Jennifer 16.4 H, Plt Count 213, MPV 10.3, Immature Gran % (Auto) 1.000 H, Neut % (Auto) 92.2 H, Lymph % (Auto) 4.8 L , [place] % (Auto) 1.8, Eos % (Auto) 0.0, Baso % (Auto) 0.2, Absolute Neuts (auto) 16.5 H, Absolute Lymphs (auto) 0.86, Nucleated RBC % 0, Sodium 138, Potassium 5.1, Chloride 104, Carbon Dioxide 28.0, Anion Gap 6, BUN 22 H, Creatinine 0.69, Estim Creat Clear Calc 59.04, Est GFR (MDRD) Af Amer 107, Est GFR (MDRD) Non-Af 88, BUN/Creatinine Ratio 32.1 H, Glucose 214 H, Calcium 8.3 L, Total Bilirubin 0.80, AST 16, ALT 42, Alkaline Phosphatase 76, Total Protein 5.7 L, Albumin 3.1 L, Globulin 2.6, Albumin/Globulin Ratio 1.2, Lipase 39 07/11/24 20:01: Urine Color Straw, Urine Clarity Sl. Cloudy, Urine pH 7.0, Ur Specific Darrow 1.005, Urine Protein 30 H, Urine Glucose (UA) Normal, Urine Ketones Negative, Urine Occult Blood 10 H, Urine Nitrite Negative, Urine Bilirubin Negative, Urine Urobilinogen Normal, Ur Leukocyte Esterase 500 H, Urine RBC 0 SEEN, Urine WBC >100 SEEN, Ur Squamous Epith Cells 10-25 SEEN, Urine Bacteria 3+, Urine Mucus 0 SEEN Imaging Radiology Impression Abdomen/Pelvis CT 07/11/24 18:43 IMPRESSION: (NOT LISTED IN ORDER OF SIGNIFICANCE) There are multiple colonic diverticula consistent with diverticulosis. Perforated diverticulitis around the left upper quadrant small bowel. A contained perforation site measures 25 x 25 mm. Presently no drainable abscess. Small bowel diverticuli. . Other findings as above. Electronically Signed: Vito Kuo MD at 21:18 EST , ADDENDUM: 07/11/24 7907 IMPRESSION: (NOT LISTED IN ORDER OF SIGNIFICANCE) There are multiple colonic diverticula consistent with diverticulosis. Perforated diverticulitis around the left upper quadrant small bowel. A contained perforation site measures 25 x 25 mm. Presently no drainable abscess. Small bowel diverticuli. . Other findings as above. N.B. : The above Results were Read Back by Vito Kuo MD to Ra Burt MD, and understanding confirmed on 07/11/2024 21:38:13 (ET). Electronically Signed: Vito Kuo MD at 21:18 EST ,
--- NOTE | 2024-07-11 22:48 | PCM.PRE.AN2 ---
ASA Classification* ASA Classification ASA Classification: 3 and E Assessment & Plan Anesthesia* Anesthesia Assessment Anesthesia Assessment: Discussed sedation and/or anesthesia options, risks, benefits, and alternatives with patient/parents/legal guardian/POA. Questions invited. The patient/parents/legal guardian/POA seems to understand and agrees to proceed with anesthesia plan. Reviewed the physical assessment, medical history, allergy history and patient home medications list prior to surgery/procedure/anesthetic and documented any changes. Performed airway and anesthesia risk assessments. Anesthesia Type Anesthesia Type: General Anesthesia Focused Assessment* Temperature: 98.4 F Pulse Rate: 76 Blood Pressure: 125/64 Respiratory Rate: 24 Pulse Ox: 97 Airway Assessment Mouth opens: >3 cm Mallampati Score: II Focused Labs Anesthesia Preop lab: CBC WBC 17.9 K/mm3 (4.4-11.0) H 07/11/24 18:51 RBC 3.87 M/mm3 (4.2-5.4) L 07/11/24 18:51 Hgb 12.3 g/dL (12.0-15.0) 07/11/24 18:51 Hct 37.3 % (37-47) 07/11/24 18:51 Plt Count 213 K/mm3 (150-450) 07/11/24 18:51 CHEMISTRY Potassium 5.1 mmol/L (3.5-5.1) 07/11/24 18:51 Sodium 138 mmol/L (136-145) 07/11/24 18:51 Magnesium 2.0 mg/dL (1.6-2.6) 06/16/24 07:44 Phosphorus 3.3 mg/dL (2.5-4.9) 04/11/12 10:06 BUN 22 mg/dL (7-18) H 07/11/24 18:51 Creatinine 0.69 mg/dL (0.55-1.02) 07/11/24 18:51 Glucose 214 mg/dL (74-106) H 07/11/24 18:51 POC Glucose 72 mg/dL (70-110) 09/10/21 07:29 TSH 0.828 uIU/mL (0.358-3.740) 06/16/24 07:44 COAG PT 15.5 SECONDS (11.7-14.9) H 06/17/24 05:24 Pre-Assessment Diagnosis/Proposed Procedure Planned Operative Procedure(s): Exploratory laparoscopy, Anesthesia History Anesthesia History - echocardiologist: Anesthesia History - echocardiologist Hx Hospitalization No 08/27/21 10:32 Any Problems With Anesthesia [ No 06/16/24 10:35 1 (Initial Baseline)] Any Problems With Anesthesia No 07/11/24 22:11 Cholinesterase deficiency No 06/17/24 03:25 You/Your Family Experience No 06/17/24 03:25 fever (hyperthermia) with Relationship Recent Exposure to Contagious No 06/17/24 03:25 Disease Does patient have nerve No 07/11/24 22:11 stimulator Patient instructed to have device shut off --Does patient have Pacemaker or ICD? When Was Last Pacemaker Check QUESTION #4 FULL TEXT: You/Your Family Experience fever (hyperthermia) with Anesthesia Last Oral Intake Last Oral intake: Last Oral Intake NPO since Meds taken in AM with sips of water? Meds patient instructed to take am of surgery PONV PONV - echocardiologist: PONV - echocardiologist Female HX of Motion Sickness HX of N/V After Surgery Non-Smoker Duration of Surgery greater than 60 minutes Number of Risk Factors PONV Score Height & Weight Height & Weight: Anesthesia: Height & Weight Height 5 ft 2 in 07/11/24 22:11 Weight: 83.6 kg 07/11/24 22:11 Body Mass Index (BMI) 33.7 07/11/24 22:11 Respiratory Assessment Respiratory Assessment - echocardiologist: Respiratory Tract Infection Hx - echocardiologist Hx Respiratory Tract Infection No 06/17/24 03:25 STOP Sleep Apnea STOP Sleep Apnea - echocardiologist: STOP Sleep Apnea - echocardiologist Hx Hypertension Yes 07/11/24 22:11 Hx Sleep Apnea No 07/11/24 22:11 CPAP Yes 06/25/24 14:56 BIPAP No 06/25/24 14:56 Do you snore loudly (louder No 07/11/24 22:11 than talking or can be heard Do you often feel tired/ No 07/11/24 22:11 fatigued/ sleepy during daytime? Has anyone observed you stop No 07/11/24 22:11 breathing during sleep? STOP Results Negative 07/11/24 22:11 QUESTION #5 FULL TEXT : Do you snore loudly (louder than talking or can be heard through closed doors)? 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 Specify any problems Hx of Preganancy in last 3 Months Nurse Filling Out Transfusion & Questions: Date: Time: Patient unable to answer at this time (ie. confused, unrespo /Reproduction History /Reproductive History - echocardiologist: /Reproductive Hx- echocardiologist Hx Now Gestational Age (in weeks): EDC: Hx Hx Para Hx Section SAB No 06/17/24 03:25 [facility] Medical History Acute pulmonary embolism Acute hypotension Anemia requiring transfusions Acute upper GI bleed Atrial fibrillation with RVR Benign essential hypertension Temporal arteritis PONV (postoperative nausea and vomiting) Wears partial dentures Ambulates with cane Osteoarthritis History of anemia High cholesterol Hepatitis Injury of head and neck Diverticulosis Former smoker Shortness of breath on exertion Chronic cough Leg cramps History of stress test Hypertension History of femur fracture Home Medications ?Medication ?Instructions ?Recorded ?Last Taken ?Type ergocalciferol (vitamin D2) 1,250 50,000 unit PO QMONTH ostseopenia 02/14/14 04/04/24 History mcg (50,000 unit) capsule (Vitamin D2) calcium 600 mg (as 1 ea PO DAILY bone health 12/18/15 04/23/24 History carbonate)-vitamin D3 10 mcg (400 unit) tablet hydrochlorothiazide 12.5 mg capsule 12.5 mg PO DAILY blood pressure 04/23/24 04/23/24 History prednisone 20 mg tablet 20 mg PO TID terrmoral arteritis 04/23/24 04/23/24 History alendronate 70 mg tablet 70 mg PO QWEEK osteopenia 06/16/24 06/11/24 History omeprazole 20 mg capsule,delayed 20 mg PO DAILY esophagus ulcers 06/17/24 Unknown History release pravastatin 80 mg tablet 80 mg PO DAILY high cholesterol 06/17/24 06/15/24 History acetaminophen 500 mg tablet 1,000 mg (2 x 500 mg) PO Q6H PRN 07/01/24 Unknown Rx PRN Pain Score 1-10 #0 tabs metoprolol tartrate 25 mg tablet 25 mg PO BID 30 days #60 tabs 07/01/24 Unknown Rx spironolactone 50 mg tablet 50 mg PO DAILY #0 tabs 07/01/24 Unknown Rx tocilizumab 162 mg/0.9 mL 162 mg (0.9 mL) subcut Tu #0 mL 07/01/24 Unknown Rx subcutaneous syringe (Actemra) Allergy/AdvReac Type Severity Reaction Status Date / Time cefdinir (Cefdinir) Allergy Rash Verified 07/11/24 18:26 morphine AdvReac Severe Nausea Verified 07/11/24 18:26 Family History Mother Asthma Arthritis Sister Arthritis Colon cancer Father Arthritis Surgical History History of colonoscopy History of laminectomy History of left knee replacement History of bilateral cataract extraction Social History household members: none Smoking Status: Former smoker alcohol intake: never substance use type: does not use Review of Systems (Anesthesia) ROS Narrative System reviewed and no additional complaints, except as documented.
--- NOTE | 2024-07-11 22:50 | COL_PTH ---
PATIENT: ARSEN OJEDA LOC: [facility]3 U#:[id number] AGE/SX: 79/F ROOM: MS319 RE07/12/[address]: Dr. Gus Garcia MD : 1945 BED: 1 DIS: 07/17/2024 SPEC #: [id number] RECD: 07/13/24 08:24 STATUS: MARLEN BOLIVAR #: [id number] PAT: 07/11/24 22:[address]: Gus Garcia DEPT: SURGICAL PATHOLOGY RECD BY: Bettye Maynard ENTERED: 07/13/24 09:41 SP TYPE: COLON OTHR DR: Dr. Umberto Escamilla MD Tissues: Colon, NOS Procedures: Surgery Specimen Level V HEADER OPERATION: Exploratory laparoscopic, exploratory laparotomy, small bowel PRE-OP DIAGNOSIS: Perforated small bowel perforation TISSUE SUBMITTED: Jejunum MICROSCOPIC DIAGNOSIS Jejunum, segmental resection: Diverticular disease with associated micro abscesses and acute and chronic inflammation. Acute serositis Margins of excision with no pathologic change. AM. 07/14/2024 MICROSCOPIC DESCRIPTION Slides are reviewed. GROSS DESCRIPTION Received in fixative is one container labeled with the patient's name and designated Jejunum. The specimen consists of a [id number] segment of bowel measuring 28.0 cm in length and with attached yellow fatty tissue. Both ends of the bowel are stapled . In the mid portion of the bowel, the serosa has a yellowish-fox adherent material. Serial sections reveal a number of diverticuli. None of which appear to have grossly perforated. The mucosa is reddish-hines in color. No mucosal mass lesions are identified. The attached fibrofatty tissue is hines-yellow in color with cystic spaces possibly representing diverticuli or abscesses. Also present free in the container are three irregular fragments of mucosa. Mucosal tissue ranging in size from 2.2cm to 3.5cm. No mass lesions are identified. Director Of Rooms sections are submitted as follows: 1- mucosal margins, 2- fragment of bowel free in container (identified with suture), 3- special service representative sections of the other fragments of bowel free in container, 4&5- diverticuli, 6&7- fibrofatty tissue attached to bowel segment. AM. 07/13/2024 TC:2 CPT:45726
[2024-07-11] MEDS: Lactated Ringers 1,000 ML 15 ML IV (23:00)
[2024-07-11] MEDS: Bupivacaine Mpf 0.5% 30 ML VIAL (23:32)
[2024-07-11] MEDS: 0.9% Normal Saline (Pres. free 10 ML Vial (23:32)
[2024-07-11] MEDS: BUPIVACAINE LIPOSOME/PF 20 ML VIAL OPERA.SITE (23:32)
[2024-07-11] MEDS: Bupivacaine 0.25% 30 ML Vial (23:32)
[2024-07-12] VITALS (18 sets, daily range): BP systolic 109–168; BP diastolic 54–102; PULSE 56–95; RESP 16–36; TEMP 36.2–36.8; O2SAT 84–100; BMI 33.7; BMI 34.0
--- NOTE | 2024-07-12 00:51 | OP.PCM_ITS ---
Operative Report (Standard) Operative Information Surgery/Procedure Performed: Diagnostic laparoscopy converted to exploratory laparotomy with small bowel resection and reanastomosis Surgeon: Gus Garcia Date of Procedure: 07/12/24 Procedure Start Time: 23:32 Procedure Stop Time: 12:47 Pre-Operative Diagnosis: Perforated small bowel diverticula Post-Operative Diagnosis: Same Select all DRAINS/GRAFTS/IMPLANTS that apply: Drains Drain details: 15 Singaporean round Justin drain Type of Anesthesia: General/Supplemental Estimated Blood Loss: 25 Specimen collected: Yes Description of specimen(s) removed: 1. Jejunum 2. Peritoneal fluid Description of surgery: Patient arrived from the emergency department and written consents were confirmed. She was brought to the operating room where she was positioned supine on the operating room table. He underwent induction with general endotracheal anesthetic. Preoperatively she had been administered 3.375 g of piperacillin and tazobactam per emergency medicine. Then a nasogastric tube was placed with these by anesthesia. A urinary catheter was placed with sterile technique. SCDs were placed on bilateral lower extremities. During positioning of patient's Nevarez catheter her leg was elevated and an inadvertent injury was made to the skin simply by elevating it after it was found to be severely edematous and weeping. Wound care was performed by placing a Telfa against the skin break and wrapping the extremity with a 4 inch Kerlix gauze. Patient's abdomen was prepped and draped in usual sterile fashion. A formal timeout followed to confirm patient and the procedure. The procedure was begun with a supraumbilical incision carried down to the fascia which was elevated between clamps and sharply incised. I was careful to only incise the fascia and then the peritoneal layer was likewise elevated and sharply incised. Finger sweep confirmed peritoneal entry and a 12 mm Rowley balloon trocar was placed. The abdomen was inspected and revealed no inadvertent injury from our port ole cement. Abdomen was insufflated to a set pressure of 12 mmHg. Under laparoscopic visualization we performed a bilateral transversus abdominis plane block with a cocktail of Exparel, Marcaine, and saline under laparoscopic visualization (a total volume of 60 mL was utilized for the procedure). Two additional trocars were placed in the left lower quadrant and epigastric positions as 5 mm ports to facilitate instrument entry. The patient was then positioned reverse Trendelenburg with the right side down and I began to inspect the peritoneum. Immediately visualized adhesions in the left upper quadrant between the omentum and the anterior abdominal wall. Peeling back the omentum I encountered copious purulence so I placed a locking grasper across the bowel distal to this area and made a decision to proceed open with a laparotomy. A laparotomy incision was extended from our epigastric 5 mm port site to our supraumbilical Rowley trocar for a distance of approximately 11 cm and was asnz ied down through the abdominal wall fascia with the use of electrocautery taking care to maintain hemostasis as we proceeded. A medium sized wound protector was placed. The affected bowel was delivered into the opening and I began running the small bowel proximally. Within 10 cm I encountered a mesentery?based abscess and application of any amount of pressure on the bowel resulted in expression of copious purulence from a pinhole in the mesentery suggesting that a small bowel diverticulum had perforated along the mesenteric side into the mesentery. A number of additional small bowel diverticulum were noted both proximally and distally. I then began working my way back proximally until I encountered the ligament of Treitz. The estimated distance between the area of perforation and ligament of Treitz was 40 cm. Proximal and distal transection points were identified in the area of the jejunum that were grossly normal and the mesentery was scored. The bowel was transected with serial firings of the 55 JORGE stapler. Intervening mesentery was taken with the use of the LigaSure and this resection included somewhat more proximal mesentery than usual in order to include the mesenteric-based abscess cavity. Our specimen was then passed off the field for pathologic processing but not before it was measured at 18 cm in length. The remaining small bowel was reanastomosed in the usual fashion with a third firing of the 55 GA stapler and closure of the common channel with a 60 mm TA stapler. After confirming hemostasis of the staple line the mesenteric defect was closed with a running 3-0 silk suture. A second 3-0 silk suture was used to place a crotch stitch. After palpating for patency the bowel was returned to the peritoneal cavity. Purulence of the peritoneal cavity was suctioned with a Luken's trap in line with the circuit to obtain a peritoneal fluid culture. Then the abdomen was copiously irrigated with 3 L of warm sterile saline until the effluent returned clear. After this irrigation I palpated for and confirmed the presence of the nasogastric tube within the gastric cardia but directed anesthesia to advance the tube proximately 8 cm deeper to achieve a gastric body termination. This was completed and the tube was retaped into position. Returning of the peritoneal cavity a 15 Singaporean round Justin drain was fed and through the patient's left lower quadrant port site incision and positioned along the left paracolic gutter internally. It was secured at the skin using a 3-0 nylon suture. I then transitioned to closure of the abdominal fascia which was completed using running #1 PDS sutures x2 in a bidirectional fashion and tying them in the middle. Additional local anesthetic was infiltrated above the fascia. Lastly the skin was closed with skin mami. A Mepilex silver dressing was applied and the patient was extubated and taken to PACU for ongoing recovery. The Nevarez catheter was left in place for accurate's and outs monitoring overnight. Surgical Findings: ? Purulence and appearance of small bowel to left upper quadrant Director Craft Center manager baby: Yes Ornamental Metal Worker: Marii Munson Tasks completed by trust manager assistant: Opening, Closing, Trocar and Other (Tap block) Additional seismic survey assistant?: No Complications Complications: No Admit VTE Documentation VTE Mechan Device Prophylaxis: SCD's Procedures Digestive 40xxx-49xxx: 62437 Removal of small intestine
--- NOTE | 2024-07-12 01:51 | SUR.PHASEI ---
IN PACU, PATIENT HAS BEEN CONSISTENTLY MOANING, GUARDING ABDOMEN, RELATES PAIN NOT IMPROVING. HAS BEEN TACHYPNEIC AND RR HAS IMPROVED FROM 36 TO 24-28. ABDOMEN DISTENDED, SOFT WHEN PATIENT RELAXES OTHERWISE PATIENT IS GUARDING AND TENSING ABDOMEN, LUCIUS DRAINING, SMALL AMOUNT WILSON DRAINAGE FROM NGT WHICH WAS CHECKED FOR PLACEMENT. DR REYES WAS IN TO EVAL AT APPROX 0130. ICE PACK TO ABDOMEN. FENTANYL 100 MCG TOTAL IV GIVEN AND STILL C/O FEELING PAINFUL. NOTIFIED DR MISHRA WHO ORDERED IV ATIVAN AND DILAUDID. PATIENT UPDATED.
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
[2024-07-12] MEDS: 0.9% Normal Saline (1000mL) 1,000 ML 125 ML IV ×2 (02:47→11:48)
[2024-07-12] MEDS: 0.9% Saline Lock 10 ML Syringe IV ×3 (04:56→15:35)
[2024-07-12] MEDS: HYDROmorphone 1 MG/ML Syringe 0.5 MG IV ×3 (04:56→15:36)
[2024-07-12] MEDS: Piperacil/Tazobactam 3.375 GM in 0.9% Normal Saline (50mL MB+) 50 ML IV ×3 (04:57→23:41)
[2024-07-12 06:05] LABS: Phosphorus 2.5 mg/dL (2.5-4.9)
[2024-07-12 07:49] LABS: Anion Gap 9 (5-15); BUN 19 mg/dL (7-18); BUN/Creat Ratio 30.9 RATIO (10-20); Calcium,Total 7.8 mg/dL (8.5-10.1); Chloride 107 mmol/L (98-107); Creatinine, Serum 0.62 mg/dL (0.55-1.02); EST Glomerular Filtration Rate 100 mL/min (>60); Est Glom Filt Rate - Afr Amer 121 mL/min (>60); Estimated Creatinine Clearance 59.33 ml/min; Glucose 116 mg/dL (74-106); Sodium Level 138 mmol/L (136-145)
[2024-07-12 07:53] LABS: Absolute Lymphocyte Count 1.18 X10^3/uL (0.83-4.51); Absolute Neutrophil Count 12.3 X10^3/uL (2.0-7.7); Basophil# 0.05 X10^3/uL; Basophil% 0.4 % (0-1); Eosinophil# 0.01 X10^3/uL; Eosinophils% 0.1 % (0-5); Hematocrit 41.9 % (37-47); Hemoglobin 13.3 g/dL (12.0-15.0); Lymphocyte # 1.18 X10^3/ul (0.83-4.51); Lymphocyte % 8.4 % (19-41); Mean Corp Hgb Conc 31.7 g/dL (32-36); Mean Corpuscular Hgb 31.4 pg (27.0-32.0); Mean Corpuscular Volume 98.8 fL (81-99); Monocyte# 0.37 X10^3/uL; Monocyte% 2.6 % (0-10); NRBC Flagged by Analyzer 0 % (0-5); Neutrophil # 12.29 X10^3/uL (2.7-7.7); Neutrophil % 87.6 % (47-70); Platelet Count 196 K/mm3 (150-450); RBC Distribution Width CV 16.7 % (11.6-14.6); RBC Distribution Width SD 60.2 fl (35.1-43.9); Red Blood Count 4.24 M/mm3 (4.2-5.4)
--- NOTE | 2024-07-12 08:38 | WOUNDNOTE ---
wound photo: left lower leg
[2024-07-12] MEDS: Pantoprazole Sodium 40 MG in 0.9% Normal Saline (100mL MB+) 100 ML 330 MG IV (09:04)
--- NOTE | 2024-07-12 09:19 | PCM.POST.ANE ---
Anesthesia: Postop Eval I Current Vital Signs Temperature: 97.5 F Pulse Rate: 66 Blood Pressure: 161/95 Respiratory Rate: 16 Pulse Ox: 93 Assessment Airway patent: Yes Spontaneous unlabored respirations: Yes nausea: No Vomiting: No Anesthesia Complication: No Fluid Hydration Crystalloid volume administer (ml): 1,000 Total IV fluid infused: 1,000 Progress Note Anesthesia document: Postop Eval 1 completed: Yes
--- NOTE | 2024-07-12 09:20 | PCM.POSTANE2 ---
Anesthesia Postop Eval I Sum Postop Eval Completion status Anesthesia document: Postop Eval 1 completed: Yes Anesthesia Postop Eval I Summary Anesthesia Postop Eval I Summary: Anesthesia Postop Eval I: Assessment Summary Airway patent Yes 07/12/24 09:19 Spontaneous unlabored Yes 07/12/24 09:19 respirations Mental status nausea No 07/12/24 09:19 Vomiting No 07/12/24 09:19 Anesthesia Postop Eval I: Fluid Summary Crystalloid volume administer 1,000 07/12/24 09:19 (ml) Colloids volume administered ( ml) Blood Product volume administered (ml) Total IV fluid infused 1,000 07/12/24 09:19 Anesthesia Postop Eval I: Summary Notes Anesthesia Complication No 07/12/24 09:19 Anesthesia Complication Comment: Post-operative progress note Anesthesia: Postop Eval II Evaluation Mental status: Awake Pain Level: 3 nausea: No Vomiting: No
--- NOTE | 2024-07-12 11:12 | CASEMGMT ---
MEGHAN JORGE Readmission Note Previous Admission:06/16/24-06/19/24 Diagnosis: Afib, GI bleed DC Disposition: [facility] TCU with stay from 06/25/24-07/04/24 Current Admission: Admitted 07/12/24 Current Diagnosis: perforated diverticulum of small bowel Pt dc'd from [facility] TCU to home with [facility] HHC SN, PT and OT. Pt states she had been doing well at home with her walker until she had terrible abd pain. Pt states she had her capsule endoscopy with Dr. Donald and had a planned follow up appt with tomorrow. Pt reports taking her meds as ordered. Pt would like to return to home with HHC resuming at [facility]. Pt denies need for list of other HHC options. Pt had OR early this am for diagnostic laparoscopy converted to exploratory laparotomy with small bowel resection and reanastomosis. Pt with NG in at this time. Pt has a left britany drain. MEGHAN CM to follow. DC Plan: Home with [facility] HHC resuming pending course of hospitalization and therapy viktor
--- NOTE | 2024-07-12 13:03 | CHAPLAIN ---
Type of Pastoral Visit _x__ Initial Visit ___ Follow-up Visit ___ On-call Visit ___ General Patient Visit ___ Spiritual Assessment ___ Family Conference ___ Bereavement ___ Rapid Response ___ Code Blue ___ Other (describe below) Pastoral Care Referral From __x_ Patient ___ Family ___ Nurse ___ Physician ___ Branch Sales And Service Representative ___ Community Facilitator ___ Other (describe below) Sacrament/Intervention _x__ Active listening ___ Anointing ___ Religious ___ Bereavement ___ Communion ___ Patricia exploration ___ ___ Life review _x__ Prayer ___ Reconciliation ___ Sacrament of Sick _x__ Supportive presence ___ Wedding ___ Other (describe below) Pastoral Comments patient was an emergency surgery admit after having been recently in the hospital and seen by this mixed crop and livestock farm worker; pt states that this is the worst that I have ever felt and explains his new health situation and concerns; pt welcomes presence of this mixed crop and livestock farm worker that has followed her case over the last weeks; pt welcomes prayer for her support; time and affirmation is given to support this patient
[2024-07-12] MEDS: Hydrocortisone Sod Succinate 100 MG/2 ML Vial 50 MG IV ×2 (14:12→18:00)
--- NOTE | 2024-07-12 17:33 | PN.HOSP_ITS ---
Reason for Visit Reason for Visit: Diagnoses Obesity, class 1 (07/12/24) Essential (primary) hypertension (07/12/24) Acute embolism and thrombosis of deep veins of right upper extremity (07/12/24) Diverticulitis of intestine, part unspecified, with perforation and abscess without bleeding (07/12/24) Perforation of intestine (nontraumatic) (07/12/24) Acute cystitis without hematuria (07/12/24) Adverse effect of unspecified drugs, medicaments and biological substances, initial encounter (07/12/24) Personal history of pulmonary embolism (07/12/24) Personal history of other diseases of the digestive system (07/12/24) Presence of other vascular implants and grafts (07/12/24) Subjective Subjective Patient was seen and examined today, I briefly talked with endocrinology about the patient's care and asked for an opinion as to whether the patient should continue corticosteroids, since the patient has been on corticosteroids at a high dose since the end of March of this year, endocrinology recommended that I placed the patient on Cortef 50 mg IV every 6 hours and then when she was able to take oral medications put her on 7 to 10 mg of prednisone daily until she is able to follow-up with her compliance spec. I talked to Dr. Garcia about this and he is okay with her receiving corticosteroids. Patient presently has an NG tube in place. Objective Data Objective Data Vital Signs: Vital Signs Temp Pulse Resp BP Pulse Ox O2 Del Method O2 Flow Rate 98.2 F 95 18 146/85 H 94 Room Air 2 07/12/24 14:31 07/12/24 14:31 07/12/24 14:31 07/12/24 14:31 07/12/24 14:31 07/12/24 14:31 07/12/24 02:39 Oxygen Flow Rate (L/min) 2 Oxygen Delivery Method Room Air Weight: 84.4 kg Body Mass Index (BMI) 34.0 Intake & Output: Intake and Output for Last 24 Hours 07/10/24 07/11/24 07/12/24 23:59 23:59 23:59 Intake Total 1345.5 / 1345.5 Output Total 650 / 650 Balance 695.5 / 695.5 Lab / Micro Data 07/13/24 06:07 07/13/24 06:07 Labs: Laboratory Results - last 24 hr 07/11/24 18:51: WBC 17.9 H, RBC 3.87 L, Hgb 12.3, Hct 37.3, MCV 96.4, MCH 31.8, MCHC 33.0, RDW Std Deviation 57.8 H, RDW Coeff of Jennifer 16.4 H, Plt Count 213, MPV 10.3, Immature Gran % (Auto) 1.000 H, Neut % (Auto) 92.2 H, Lymph % (Auto) 4.8 L , [place] % (Auto) 1.8, Eos % (Auto) 0.0, Baso % (Auto) 0.2, Absolute Neuts (auto) 16.5 H, Absolute Lymphs (auto) 0.86, Nucleated RBC % 0, Sodium 138, Potassium 5.1, Chloride 104, Carbon Dioxide 28.0, Anion Gap 6, BUN 22 H, Creatinine 0.69, Estim Creat Clear Calc 59.04, Est GFR (MDRD) Af Amer 107, Est GFR (MDRD) Non-Af 88, BUN/Creatinine Ratio 32.1 H, Glucose 214 H, Calcium 8.3 L, Total Bilirubin 0.80, AST 16, ALT 42, Alkaline Phosphatase 76, Total Protein 5.7 L, Albumin 3.1 L, Globulin 2.6, Albumin/Globulin Ratio 1.2, Lipase 39 07/11/24 20:01: Urine Color Straw, Urine Clarity Sl. Cloudy, Urine pH 7.0, Ur Specific [employer] 1.005, Urine Protein 30 H, Urine Glucose (UA) Normal, Urine Ketones Negative, Urine Occult Blood 10 H, Urine Nitrite Negative, Urine Bilirubin Negative, Urine Urobilinogen Normal, Ur Leukocyte Esterase 500 H, Urine RBC 0 SEEN, Urine WBC >100 SEEN, Ur Squamous Epith Cells 10-25 SEEN, Urine Bacteria 3+, Urine Mucus 0 SEEN 07/11/24 22:20: Blood Type O POSITIVE, Antibody Screen NEGATIVE 07/12/24 05:31: WBC 14.0 H, RBC 4.24, Hgb 13.3, Hct 41.9, MCV 98.8, MCH 31.4, M CHC 31.7 L, RDW Std Deviation 60.2 H, RDW Coeff of Jennifer 16.7 H, Plt Count 196, MPV 11.0, Immature Gran % (Auto) 0.900, Neut % (Auto) 87.6 H, Lymph % (Auto) 8.4 L, [place] % (Auto) 2.6, Eos % (Auto) 0.1, Baso % (Auto) 0.4, Absolute Neuts (auto) 12.3 H, Absolute Lymphs (auto) 1.18, Nucleated RBC % 0, Sodium 138, Potassium 4.0, Chloride 107, Carbon Dioxide 22.0, Anion Gap 9, BUN 19 H, Creatinine 0.62, Estim Creat Clear Calc 59.33, Est GFR (MDRD) Af Amer 121, Est GFR (MDRD) Non-Af 100, BUN/Creatinine Ratio 30.9 H, Glucose 116 H, Calcium 7.8 L, Phosphorus 2.5, Magnesium 2.0, TSH 2.080, Cortisol 19.40 Micro: Microbiology 07/12/24 00:14 Incision/Surgical Site Gram Stain - Final Radiography Diagnostic Testing: Radiology Impression Abdomen/Pelvis CT 07/11/24 18:43 IMPRESSION: (NOT LISTED IN ORDER OF SIGNIFICANCE) There are multiple colonic diverticula consistent with diverticulosis. Perforated diverticulitis around the left upper quadrant small bowel. A contained perforation site measures 25 x 25 mm. Presently no drainable abscess. Small bowel diverticuli. . Other findings as above. Electronically Signed: Vito Kuo MD at 21:18 EST , ADDENDUM: 07/11/24 2145 IMPRESSION: (NOT LISTED IN ORDER OF SIGNIFICANCE) There are multiple colonic diverticula consistent with diverticulosis. Perforated diverticulitis around the left upper quadrant small bowel. A contained perforation site measures 25 x 25 mm. Presently no drainable abscess. Small bowel diverticuli. . Other findings as above. N.B. : The above Results were Read Back by Vito Kuo MD to Ra Burt MD, and understanding confirmed on 07/11/2024 21:38:13 (ET). Electronically Signed: Vito Kuo MD at 21:18 EST , Physical Exam Const alert, oriented x3, no apparent distress, average body habitus and healthy appearing General Appearance: cooperative, well kempt and well developed Orientation / Consciousness: awake, oriented to person, oriented to place and oriented to time HEENT normocephalic, head/scalp atraumatic and moist oral mucous membranes Eyes PERRL, EOMs intact bilaterally and conjunctivae normal Neck supple, no JVD, thyroid normal and no carotid bruits General: trachea midline Resp normal respiratory effort, no retractions, no use of accessory muscles and clear to auscultation bilaterally Auscultation: Negative for rales, rhonchi or wheezes Cardio regular rate, regular rhythm, S1 normal heart sound, S2 normal heart sound, no murmurs, no rub and no gallops GI GI Narrative: NG tube is in place, bowel sounds are hypoactive Extremity no clubbing, cyanosis or edema Skin no rashes or lesions noted General Skin Exam: no breakdown Neuro oriented x3, CN's II-XII intact bilaterally, no focal motor deficits and no sensory deficits noted Sensorium / Orientation: awake and alert Speech: speech normal Psych affect normal Assessment & Plan Assessment/Plan (1) Perforated diverticulum: PLAN: Plan 1. Perforated small bowel diverticula-surgery participating in her care, she presently has an NG in place #2 temporal arteritis-patient is chronically on 60 mg of prednisone daily, I will start her on Cortef 50 mg every 6 hours while her NG is in place and then transition to prednisone 10 mg daily when she is not NPO. #3 essential hypertension-patient's blood pressure will be monitored, IV hypertensive medications will be administered as needed #4 hyperlipidemia-patient's statin will be held at this time Total clinical time spent by myself addressing the patient's medical issues, reviewing all of her data, and collaborating with patient's care team: 50 minutes Charges/Coding Visit Charges Inpatient E&M: 66656 [facility] Hosp L3
[2024-07-12] MEDS: Phenol/Sodium Phenolate 180ML 3 SPRAY MUCOUS MEM (17:59)
[2024-07-13] MEDS: Hydrocortisone Sod Succinate 100 MG/2 ML Vial 50 MG IV ×4 (00:17→17:49)
[2024-07-13 03:00] VITALS: BP 147/72; PULSE 95; RESP 15; TEMP 36.6; O2SAT 94
[2024-07-13 03:52] VITALS: BP 147/72; PULSE 95; RESP 15; TEMP 37.2; O2SAT 94
[2024-07-13] MEDS: Piperacil/Tazobactam 3.375 GM in 0.9% Normal Saline (50mL MB+) 50 ML IV ×3 (06:39→21:32)
[2024-07-13 07:16] LABS: Absolute Neutrophil Count 10.5 X10^3/uL (2.0-7.7); Basophil# 0.02 X10^3/uL; Basophil% 0.2 % (0-1); Hematocrit 36.5 % (37-47); Hemoglobin 11.6 g/dL (12.0-15.0); Lymphocyte % 8.4 % (19-41); Mean Corp Hgb Conc 31.8 g/dL (32-36); Mean Corpuscular Hgb 30.9 pg (27.0-32.0); Mean Corpuscular Volume 97.3 fL (81-99); Mean Platelet Vol. 10.7 fl (6.2-12.0); Monocyte# 0.29 X10^3/uL; Monocyte% 2.4 % (0-10); NRBC Flagged by Analyzer 0 % (0-5); Neutrophil # 10.46 X10^3/uL (2.7-7.7); Neutrophil % 87.7 % (47-70); Platelet Count 193 K/mm3 (150-450); RBC Distribution Width CV 16.8 % (11.6-14.6); RBC Distribution Width SD 60.4 fl (35.1-43.9); Red Blood Count 3.75 M/mm3 (4.2-5.4); White Blood Count 11.9 K/mm3 (4.4-11.0)
--- NOTE | 2024-07-13 07:38 | PCM.PN.SRG ---
Subjective Subjective Patient seen and examined during AM rounds. She is found resting in bed. She states that she was comfortable last evening and slept well. She denies any significant abdominal pain this morning. She reports that she ambulated twice yesterday with staff and found her second time up and about easier than the first. Unfortunately she denies any return of bowel function as yet. Objective Data Objective Data Vital Signs: Vital Signs Temp Pulse Resp BP Pulse Ox O2 Del Method O2 Flow Rate 98.9 F 95 15 147/72 H 94 Room Air 2 07/13/24 03:52 07/13/24 03:52 07/13/24 03:52 07/13/24 03:52 07/13/24 03:52 07/13/24 03:52 07/12/24 02:39 Oxygen Flow Rate (L/min) 2 Oxygen Delivery Method Room Air Weight: 186 lb 1.122 oz Body Mass Index (BMI) 34.0 Intake & Output: Intake and Output for Last 24 Hours 07/11/24 07/12/24 07/13/24 23:59 23:59 23:59 Intake Total 2395.5 / 2395.5 50 / 50 Output Total 1430 / 1700 540 / 540 Balance 965.5 / 695.5 -490 / -490 Lab / Micro Data 07/13/24 06:07 07/13/24 06:07 Labs: Laboratory Results - last 24 hr 07/12/24 05:31: WBC 14.0 H, RBC 4.24, Hgb 13.3, Hct 41.9, MCV 98.8, MCH 31.4, MCHC 31.7 L, RDW Std Deviation 60.2 H, RDW Coeff of Jennifer 16.7 H, Plt Count 196, MPV 11.0, Immature Gran % (Auto) 0.900, Neut % (Auto) 87.6 H, Lymph % (Auto) 8.4 L, [place] % (Auto) 2.6, Eos % (Auto) 0.1, Baso % (Auto) 0.4, Absolute Neuts (auto) 12.3 H, Absolute Lymphs (auto) 1.18, Nucleated RBC % 0, Sodium 138, Potassium 4.0, Chloride 107, Carbon Dioxide 22.0, Anion Gap 9, BUN 19 H, Creatinine 0.62, Estim Creat Clear Calc 59.33, Est GFR (MDRD) Af Amer 121, Est GFR (MDRD) Non-Af 100, BUN/Creatinine Ratio 30.9 H, Glucose 116 H, Calcium 7.8 L, TSH 2.080, Cortisol 19.40 07/13/24 06:07: WBC 11.9 H, RBC 3.75 L, Hgb 11.6 L, Hct 36.5 L, MCV 97.3, MCH 30.9, MCHC 31.8 L, RDW Std Deviation 60.4 H, RDW Coeff of Jennifer 16.8 H, Plt Count 193, MPV 10.7, Immature Gran % (Auto) 1.300 H, Neut % (Auto) 87.7 H, Lymph % (Auto) 8.4 L, [place] % (Auto) 2.4, Eos % (Auto) 0.0, Baso % (Auto) 0.2, Absolute Neuts (auto) 10.5 H, Absolute Lymphs (auto) 1.00, Nucleated RBC % 0 Micro: Microbiology 07/12/24 00:14 Incision/Surgical Site Gram Stain - Final 07/12/24 00:14 Incision/Surgical Site Wound Culture - Preliminary Mixed Gram Pos & Gram Neg Org 07/11/24 20:04 Urine, Clean Catch Urine Culture - Preliminary Gram negative saeid Physical Exam Const oriented x3 and no apparent distress Resp normal respiratory effort GI GI Narrative: Decreased abdominal distention, softer, appropriately tender to palpation, stable strikethrough drainage to operative dressing, serosanguineous output to LUCIUS bulb Bladder / Kidney Exam: catheter in place urethral (Draining clear yellow urine) Assessment & Plan Assessment/Plan (1) Perforated diverticulum: PLAN: Patient is a 79-year-old female who presents with progressive abdominal pain and ER workup included CT imaging that shows evidence of a perforated small bowel diverticulum of the left upper quadrant. Patient is postoperative day 1, technically, from diagnostic laparoscopy converted to exploratory laparotomy with small bowel resection and reanastomosis. She is reporting improved pain control but still not had return of bowel function. Neuro: As needed Dilaudid Pulm/CV: Incentive spirometer, as needed hydralazine FEN/GI: Continue daily BMP while n.p.o., patient to remain n.p.o. with NG tube to low intermittent wall suction until return of bowel function given proximal small bowel anastomosis : Plan to DC Nevarez today and follow for spontaneous void Heme/ID: Continue daily CBC until stabilized, hemoglobin slightly down trended but this could be at least in part hemodilutional, patient does have evidence of a small amount of bleeding via her NG tube, continue empiric Zosyn therapy given significant peritoneal contamination Endo: Stress dose hydrocortisone per hospitalist service as patient was preoperatively on 3 times daily prednisone for temporal arteritis Proph: SCDs and will administer chemical DVT chemoprophylaxis once CBC is stable, patient encouraged to ambulate Dispo: Continue inpatient stay Gus Garcia MD General Surgery Endocrine Surgery Pager: [facility] [address] [place] [address], [facility], [address] [place] [address] Office: [phone] (2) Perforated small intestine: Charges/Coding Visit Charges Inpatient E&M: 17493 Subs Hosp L2
[2024-07-13 07:48] LABS: AST(SGOT) 15 U/L (15-37); Alanine Aminotransfer ALT/SGPT 23 U/L (13-56); Albumin, Serum 2.3 g/dL (3.2-5.0); Alkaline Phosphatase 78 U/L (45-117); Anion Gap 5 (5-15); BUN 22 mg/dL (7-18); BUN/Creat Ratio 45.2 RATIO (10-20); Calcium,Total 7.3 mg/dL (8.5-10.1); Chloride 111 mmol/L (98-107); Creatinine, Serum 0.49 mg/dL (0.55-1.02); EST Glomerular Filtration Rate 131 mL/min (>60); Est Glom Filt Rate - Afr Amer 158 mL/min (>60); Estimated Creatinine Clearance 59.33 ml/min; Globulin 2.3 g/dL (2.2-4.2); Glucose 127 mg/dL (74-106); Potassium 3.8 mmol/L (3.5-5.1); Protein, Total 4.6 g/dL (6.4-8.2); Sodium Level 141 mmol/L (136-145)
[2024-07-13 09:10] VITALS: BP 143/81; PULSE 91; RESP 16; TEMP 37; O2SAT 95
[2024-07-13] MEDS: 0.9% Normal Saline (1000mL) 1,000 ML 100 ML IV ×2 (09:31→21:29)
--- NOTE | 2024-07-13 09:48 | NURSING ---
Nevarez discontinued per physician order per policy.
[2024-07-13] MEDS: Phenol/Sodium Phenolate 180ML 3 SPRAY MUCOUS MEM (10:54)
[2024-07-13 12:14] VITALS: BP 141/79; PULSE 88; RESP 16; TEMP 36.8; O2SAT 96
[2024-07-13] MEDS: Pantoprazole Sodium 40 MG in 0.9% Normal Saline (100mL MB+) 100 ML 330 MG IV (12:21)
[2024-07-13] MEDS: 0.9% Saline Lock 10 ML Syringe IV ×3 (12:26→17:49)
[2024-07-13 16:23] VITALS: BP 157/74; PULSE 88; RESP 18; TEMP 36.8; O2SAT 95
[2024-07-13] MEDS: HYDROmorphone 1 MG/ML Syringe 0.5 MG IV ×2 (16:25→20:41)
--- NOTE | 2024-07-13 18:25 | PN.HOSP_ITS ---
Reason for Visit Reason for Visit: Diagnoses Obesity, class 1 (07/12/24) Essential (primary) hypertension (07/12/24) Acute embolism and thrombosis of deep veins of right upper extremity (07/12/24) Diverticulitis of intestine, part unspecified, with perforation and abscess without bleeding (07/12/24) Perforation of intestine (nontraumatic) (07/12/24) Acute cystitis without hematuria (07/12/24) Adverse effect of unspecified drugs, medicaments and biological substances, initial encounter (07/12/24) Personal history of pulmonary embolism (07/12/24) Personal history of other diseases of the digestive system (07/12/24) Presence of other vascular implants and grafts (07/12/24) Subjective Subjective Patient was seen and examined today, she still has an NG tube in place. She voices no specific complaints to this examiner Objective Data Objective Data Vital Signs: Vital Signs Temp Pulse Resp BP Pulse Ox O2 Del Method O2 Flow Rate 98.2 F 88 18 157/74 H 95 Room Air 2 07/13/24 16:23 07/13/24 16:23 07/13/24 16:23 07/13/24 16:23 07/13/24 16:23 07/13/24 16:23 07/12/24 02:39 Oxygen Flow Rate (L/min) 2 Oxygen Delivery Method Room Air Weight: 84.4 kg Body Mass Index (BMI) 34.0 Intake & Output: Intake and Output for Last 24 Hours 07/11/24 07/12/24 07/13/24 23:59 23:59 23:59 Intake Total 2395.5 / 2395.5 250 / 250 Output Total 1430 / 1700 665 / 665 Balance 965.5 / 695.5 -415 / -415 Lab / Micro Data 07/13/24 06:07 07/13/24 06:07 Labs: Laboratory Results - last 24 hr 07/13/24 06:07: WBC 11.9 H, RBC 3.75 L, Hgb 11.6 L, Hct 36.5 L, MCV 97.3, MCH 30.9, MCHC 31.8 L, RDW Std Deviation 60.4 H, RDW Coeff of Jennifer 16.8 H, Plt Count 193, MPV 10.7, Immature Gran % (Auto) 1.300 H, Neut % (Auto) 87.7 H, Lymph % (Auto) 8.4 L, [place] % (Auto) 2.4, Eos % (Auto) 0.0, Baso % (Auto) 0.2, Absolute Neuts (auto) 10.5 H, Absolute Lymphs (auto) 1.00, Nucleated RBC % 0, Sodium 141, Potassium 3.8, Chloride 111 H, Carbon Dioxide 25.0, Anion Gap 5, BUN 22 H, C reatinine 0.49 L, Estim Creat Clear Calc 59.33, Est GFR (MDRD) Af Amer 158, Est GFR (MDRD) Non-Af 131, BUN/Creatinine Ratio 45.2 H, Glucose 127 H, Calcium 7.3 L , Total Bilirubin 0.50, AST 15, ALT 23, Alkaline Phosphatase 78, Total Protein 4.6 L, Albumin 2.3 L, Globulin 2.3, Albumin/Globulin Ratio 1.0 Micro: Microbiology 07/12/24 00:14 Incision/Surgical Site Gram Stain - Final 07/12/24 00:14 Incision/Surgical Site Wound Culture - Preliminary Mixed Gram Pos & Gram Neg Org 07/11/24 20:04 Urine, Clean Catch Urine Culture - Preliminary Gram negative saeid Physical Exam Narrative alert, oriented x3, no apparent distress, average body habitus and healthy appearing General Appearance: cooperative, well kempt and well developed Orientation / Consciousness: awake, oriented to person, oriented to place and oriented to time HEENT normocephalic, head/scalp atraumatic and moist oral mucous membranes Eyes PERRL, EOMs intact bilaterally and conjunctivae normal Neck supple, no JVD, thyroid normal and no carotid bruits General: trachea midline Resp normal respiratory effort, no retractions, no use of accessory muscles and clear to auscultation bilaterally Auscultation: Negative for rales, rhonchi or wheezes Cardio regular rate, regular rhythm, S1 normal heart sound, S2 normal heart sound, no murmurs, no rub and no gallops GI GI Narrative: NG tube is in place, bowel sounds are hypoactive Extremity no clubbing, cyanosis or edema Skin no rashes or lesions noted General Skin Exam: no breakdown Neuro oriented x3, CN's II-XII intact bilaterally, no focal motor deficits and no sensory deficits noted Sensorium / Orientation: awake and alert Speech: speech normal Psych affect normal Assessment & Plan Assessment/Plan (1) Perforated diverticulum: PLAN: Plan 1. Perforated small bowel diverticula-surgery participating in her care, she presently has an NG in place #2 temporal arteritis-patient is chronically on 60 mg of prednisone daily, patient remains on Cortef 50 mg every 6 hours as she is still NPO. She will be transitioned to prednisone 10 mg daily when she is able to take oral intake. #3 essential hypertension-patient's blood pressure will be monitored, IV hypertensive medications will be administered as needed #4 hyperlipidemia-patient's statin will be held at this time Total clinical time spent by myself addressing the patient's medical issues, reviewing all of her data, and collaborating with patient's care team: 35 minutes Charges/Coding Visit Charges Inpatient E&M: 89318 Subs Hosp L2
[2024-07-13 21:01] VITALS: BP 138/75; PULSE 80; RESP 18; TEMP 36.7; O2SAT 94
[2024-07-14] MEDS: Hydrocortisone Sod Succinate 100 MG/2 ML Vial 50 MG IV ×3 (00:22→11:22)
[2024-07-14 05:56] VITALS: BP 136/69; PULSE 83; RESP 18; TEMP 36.6; O2SAT 94
[2024-07-14] MEDS: 0.9% Saline Lock 10 ML Syringe IV ×4 (06:05→11:23)
[2024-07-14] MEDS: Piperacil/Tazobactam 3.375 GM in 0.9% Normal Saline (50mL MB+) 50 ML IV ×3 (06:05→20:47)
[2024-07-14] MEDS: HYDROmorphone 1 MG/ML Syringe 0.5 MG IV ×3 (06:40→17:58)
[2024-07-14 07:03] LABS: Absolute Lymphocyte Count 1.61 X10^3/uL (0.83-4.51); Absolute Neutrophil Count 11.6 X10^3/uL (2.0-7.7); Basophil# 0.03 X10^3/uL; Basophil% 0.2 % (0-1); Hematocrit 39.2 % (37-47); Hemoglobin 12.5 g/dL (12.0-15.0); Lymphocyte # 1.61 X10^3/ul (0.83-4.51); Lymphocyte % 11.5 % (19-41); Mean Corp Hgb Conc 31.9 g/dL (32-36); Mean Corpuscular Volume 97.3 fL (81-99); Mean Platelet Vol. 10.5 fl (6.2-12.0); Monocyte# 0.49 X10^3/uL; Monocyte% 3.5 % (0-10); NRBC Flagged by Analyzer 0 % (0-5); Neutrophil # 11.62 X10^3/uL (2.7-7.7); Neutrophil % 83.2 % (47-70); Platelet Count 211 K/mm3 (150-450); RBC Distribution Width CV 16.6 % (11.6-14.6); RBC Distribution Width SD 59.6 fl (35.1-43.9); Red Blood Count 4.03 M/mm3 (4.2-5.4)
[2024-07-14 07:36] LABS: Anion Gap 7 (5-15); BUN 24 mg/dL (7-18); BUN/Creat Ratio 35.2 RATIO (10-20); Calcium,Total 7.3 mg/dL (8.5-10.1); Chloride 114 mmol/L (98-107); Creatinine, Serum 0.68 mg/dL (0.55-1.02); EST Glomerular Filtration Rate 89 mL/min (>60); Est Glom Filt Rate - Afr Amer 108 mL/min (>60); Estimated Creatinine Clearance 59.33 ml/min; Glucose 110 mg/dL (74-106); Magnesium 1.9 mg/dL (1.6-2.6); Potassium 3.7 mmol/L (3.5-5.1); Sodium Level 143 mmol/L (136-145)
--- NOTE | 2024-07-14 07:59 | NURSING ---
This RN and night shift manager RN in the room this morning while Dr. Garcia was in the room with the pt. Dr. Garcia removed Meplex AG drsg d/t old drainage. Dr. Garcia cleaned incision and new drsg applied. Pt was in chair and now assisted into bed to go for her KUB,.
--- NOTE | 2024-07-14 08:05 | RAD_ITS ---
EXAM: XR ABDOMEN, 1 VIEW CLINICAL INDICATION: assess bowel gas pattern s/p bowel resection TECHNIQUE: Frontal supine view of the abdomen/pelvis. COMPARISON: No relevant prior studies available. FINDINGS: GASTROINTESTINAL TRACT: Normal bowel gas pattern. ORGANS: No organomegaly. BONES/JOINTS: Surgical fixation of intertrochanteric fracture of the left femur. SOFT TISSUES: Midline skin mami are in place. VASCULATURE: IVC filter in place. Please assess for management plan for the patient''s IVC filter. If no plan in place referral to interventional clinician on a nonemergent basis for evaluation is recommended. TUBES, LINES AND DEVICES: Enteric tube extends into the stomach. OTHER FINDINGS: Vaginal pessary in place. RAD/Abdomen Single View IMPRESSION: No evidence of bowel obstruction or significant ileus. Electronically Signed: Kamaljit Hoffman MD at 9:53 EST ,
[2024-07-14 08:50] VITALS: BP 147/71; PULSE 64; RESP 17; TEMP 36.7; O2SAT 97
--- NOTE | 2024-07-14 09:03 | PCM.PN.SRG ---
Subjective Subjective Patient seen and examined during AM rounds. She is found sitting out of bed in the chair. She reports that she is feeling somewhat better today and nursing confirms this apart from needing to perform a straight catheterization for some retention after patient had Nevarez catheter removed yesterday. Patient denies any urge. She also denies any appetite or any passage of flatus. She does confirm that she walked with nursing staff last evening. Objective Data Objective Data Vital Signs: Vital Signs Temp Pulse Resp BP Pulse Ox O2 Del Method O2 Flow Rate 98 F 83 18 136/69 H 94 Room Air 2 07/14/24 05:56 07/14/24 05:56 07/14/24 05:56 07/14/24 05:56 07/14/24 05:56 07/14/24 05:56 07/12/24 02:39 Oxygen Flow Rate (L/min) 2 Oxygen Delivery Method Room Air Weight: 186 lb 1.122 oz Body Mass Index (BMI) 34.0 Intake & Output: Intake and Output for Last 24 Hours 07/12/24 07/13/24 07/14/24 23:59 23:59 23:59 Intake Total 2395.5 / 2395.5 1320 / 1320 1070 / 1070 Output Total 1430 / 1700 1155 / 1155 580 / 580 Balance 965.5 / 695.5 165 / 165 490 / 490 Lab / Micro Data 07/14/24 06:55 07/14/24 06:55 Labs: Laboratory Results - last 24 hr 07/14/24 06:55: WBC 14.0 H, RBC 4.03 L, Hgb 12.5, Hct 39.2, MCV 97.3, MCH 31.0, MCHC 31.9 L, RDW Std Deviation 59.6 H, RDW Coeff of Jennifer 16.6 H, Plt Count 211, MPV 10.5, Immature Gran % (Auto) 1.600 H, Neut % (Auto) 83.2 H, Lymph % (Auto) 11.5 L, [place] % (Auto) 3.5, Eos % (Auto) 0.0, Baso % (Auto) 0.2, Absolute Neuts (auto) 11.6 H, Absolute Lymphs (auto) 1.61, Nucleated RBC % 0, Sodium 143, Potassium 3.7, Chloride 114 H, Carbon Dioxide 22.0, Anion Gap 7, BUN 24 H, Creatinine 0.68, Estim Creat Clear Calc 59.33, Est GFR (MDRD) Af Amer 108, Est GFR (MDRD) Non-Af 89, BUN/Creatinine Ratio 35.2 H, Glucose 110 H, Calcium 7.3 L, Phosphorus 2.0 L, Magnesium 1.9 Micro: Microbiology 07/11/24 20:04 Urine, Clean Catch Urine Culture - Final Escherichia coli 07/12/24 00:14 Incision/Surgical Site Gram Stain - Final 07/12/24 00:14 Incision/Surgical Site Wound Culture - Preliminary Mixed Gram Pos & Gram Neg Org Physical Exam Const oriented x3 and no apparent distress Resp normal respiratory effort GI GI Narrative: Silver operative Mepilex dressing is taken down but there is some bloody strikethrough drainage noted on the surface. Beneath there is some scant amount of bloody drainage that is mostly crusted. Patient's abdomen is less distended, soft, less tender to palpation. The left upper quadrant port site drain exit show some mild serosanguineous drainage to the drainage bulb. Assessment & Plan Assessment/Plan (1) Perforated diverticulum: PLAN: Patient is a 79-year-old female who presents with progressive abdominal pain and ER workup included CT imaging that shows evidence of a perforated small bowel diverticulum of the left upper quadrant. Patient is postoperative day 2, technically, from diagnostic laparoscopy converted to exploratory laparotomy with small bowel resection and reanastomosis. She is reporting improved pain control but still not had return of bowel function. Neuro: As needed Dilaudid Pulm/CV: Incentive spirometer, as needed hydralazine FEN/GI: Continue daily BMP while with minimal nutrition support, KUB showed nonobstructive bowel gas pattern so NG tube was removed and patient advance to clear liquid diet without carbonation?plan to maintain until patient demonstrated return of bowel function : Patient still without spontaneous void after Nevarez discontinued yesterday morning. She is status post 1 straight catheterization last evening. Bladder is currently full per bladder ultrasound and I have instructed nursing to replace Nevarez catheter. I have started patient on Flomax Heme/ID: Continue daily CBC until stabilized, white blood cell count is slightly elevated but this could be in part related to patient's concurrent steroid therapy, continue empiric Zosyn therapy given significant peritoneal contamination Endo: Stress dose hydrocortisone per hospitalist service as patient was preoperatively on 3 times daily prednisone for temporal arteritis Proph: SCDs and will administer chemical DVT chemoprophylaxis once CBC is stable, patient encouraged to ambulate Dispo: Continue inpatient stay Gus Garcia MD General Surgery Endocrine Surgery Pager: [facility] [address] [place] [address], [facility], [address] [place] [address] Office: [phone] (2) Perforated small intestine: Charges/Coding Visit Charges Inpatient E&M: 98715 Subs Hosp L2
--- NOTE | 2024-07-14 09:10 | WOUNDNOTE ---
Nursing had rewrapped bilateral lower legs this am. both are D&I at this time. will monitor. Pt had already been up ambulating earlier this morning.
--- NOTE | 2024-07-14 09:22 | NURSING ---
NG is out at this time. Pt given handout of clear liquid diet. Dietary in the room getting her order.
--- NOTE | 2024-07-14 09:36 | CASEMGMT ---
Addendum entered by Kay Mills 07/14/24 15:11: MEGHAN JORGE spoke with CHEF INSTRUCTOR who states pt did fairly well ambulating but with steps pt needed 2 handrails and CHEF INSTRUCTOR assistance. Pt only has one rail at home and no one to assist her. MEGHAN JORGE in to pt room to discuss dc planning. Pt initially was upset and stated she thought the MEGHAN JORGE was telling her she had to leave the hospital today. Made pt aware that she is not medically ready to dc but wanted to see if she felt on track to go home with [facility]. Pt states she doesn't know yet. Discussed with pt that the CHEF INSTRUCTOR was notifying the others to work on stairs with her daily. Also made pt aware to continue to ambulate the halls as this will help her. Pt states she had [facility] and was supposed to have had therapy on Friday and did not and was not notified. TC to [facility] and requested that pt be notified of schedule changes as pt states she feels alone and does not have anyone to help so she depends on them. Janett stated she will make sure this happens if pt comes back for services. MEGHAN JORGE to follow up on Friday with pt for dc plan. Original Note: Noted therapy is recommending skilled therapy for pt. MEGHAN JORGE into pt room, pt sitting up in chair. Discussed with pt how she felt she was doing with therapy. Pt states that she walked a whole loop this morning and that she is planning on doing this 4 more times today. Discussed if pt felt she could return home with her strength level, pt states she wants to play it by ear. MEGHAN JORGE made her aware that will check in with her after lunch to see how she is doing with her walks to see if she can return home. Pt verbalizes understanding and is agreeable to this.
[2024-07-14] MEDS: Pantoprazole Sodium 40 MG in 0.9% Normal Saline (100mL MB+) 100 ML 330 MG IV (10:59)
[2024-07-14 15:00] VITALS: BP 136/75; PULSE 78; RESP 20; TEMP 36.9; O2SAT 94
--- NOTE | 2024-07-14 17:36 | PCM.PN.HOSP ---
Reason for Visit Reason for Visit: Diagnoses Obesity, class 1 (07/12/24) Essential (primary) hypertension (07/12/24) Acute embolism and thrombosis of deep veins of right upper extremity (07/12/24) Diverticulitis of intestine, part unspecified, with perforation and abscess without bleeding (07/12/24) Perforation of intestine (nontraumatic) (07/12/24) Acute cystitis without hematuria (07/12/24) Adverse effect of unspecified drugs, medicaments and biological substances, initial encounter (07/12/24) Personal history of pulmonary embolism (07/12/24) Personal history of other diseases of the digestive system (07/12/24) Presence of other vascular implants and grafts (07/12/24) Subjective Subjective Patient was seen and examined today, her NG tube was removed and she is more comfortable. I talked briefly with general surgery about her care, they feel that by this Friday she may be able to be discharged if she remains medically stable. Objective Data Objective Data Vital Signs: Vital Signs Temp Pulse Resp BP Pulse Ox O2 Del Method O2 Flow Rate 98.5 F 78 20 H 136/75 H 94 Room Air 2 07/14/24 15:00 07/14/24 15:00 07/14/24 15:00 07/14/24 15:00 07/14/24 15:00 07/14/24 16:30 07/12/24 02:39 Oxygen Flow Rate (L/min) 2 Oxygen Delivery Method Room Air Weight: 84.4 kg Body Mass Index (BMI) 34.0 Intake & Output: Intake and Output for Last 24 Hours 07/12/24 07/13/24 07/14/24 23:59 23:59 23:59 Intake Total 2395.5 / 2395.5 1320 / 1320 1810 / 1810 Output Total 1430 / 1700 1155 / 1155 1100 / 1100 Balance 965.5 / 695.5 165 / 165 710 / 710 Lab / Micro Data 07/14/24 06:55 07/14/24 06:55 Labs: Laboratory Results - last 24 hr 07/14/24 06:55: WBC 14.0 H, RBC 4.03 L, Hgb 12.5, Hct 39.2, MCV 97.3, MCH 31.0, MCHC 31.9 L, RDW Std Deviation 59.6 H, RDW Coeff of Jennifer 16.6 H, Plt Count 211, MPV 10.5, Immature Gran % (Auto) 1.600 H, Neut % (Auto) 83.2 H, Lymph % (Auto) 11.5 L, [place] % (Auto) 3.5, Eos % (Auto) 0.0, Baso % (Auto) 0.2, Absolute Neuts (auto) 11.6 H, Absolute Lymphs (auto) 1.61, Nucleated RBC % 0, Sodium 143, Potassium 3.7, Chloride 114 H, Carbon Dioxide 22.0, Anion Gap 7, BUN 24 H, Creatinine 0.68, Estim Creat Clear Calc 59.33, Est GFR (MDRD) Af Amer 108, Est GFR (MDRD) Non-Af 89, BUN/Creatinine Ratio 35.2 H, Glucose 110 H, Calcium 7.3 L, Phosphorus 2.0 L, Magnesium 1.9 Micro: Microbiology 07/12/24 00:14 Incision/Surgical Site Gram Stain - Final 07/12/24 00:14 Incision/Surgical Site Wound Culture - Preliminary 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 Alpha Hemolytic Streptococcus 07/12/24 00:14 Incision/Surgical Site Anaerobic Culture - Preliminary 07/11/24 20:04 Urine, Clean Catch Urine Culture - Final Escherichia coli Physical Exam Narrative alert, oriented x3, no apparent distress, average body habitus and healthy appearing General Appearance: cooperative, well kempt and well developed Orientation / Consciousness: awake, oriented to person, oriented to place and oriented to time HEENT normocephalic, head/scalp atraumatic and moist oral mucous membranes Eyes PERRL, EOMs intact bilaterally and conjunctivae normal Neck supple, no JVD, thyroid normal and no carotid bruits General: trachea midline Resp normal respiratory effort, no retractions, no use of accessory muscles and clear to auscultation bilaterally Auscultation: Negative for rales, rhonchi or wheezes Cardio regular rate, regular rhythm, S1 normal heart sound, S2 normal heart sound, no murmurs, no rub and no gallops GI GI Narrative: Patient has hypoactive bowel sounds Extremity no clubbing, cyanosis or edema Skin no rashes or lesions noted General Skin Exam: no breakdown Neuro oriented x3, CN's II-XII intact bilaterally, no focal motor deficits and no sensory deficits noted Sensorium / Orientation: awake and alert Speech: speech normal Psych affect normal Assessment & Plan Assessment/Plan (1) Essential hypertension: (2) Perforated diverticulum: PLAN: Plan 1. Perforated small bowel diverticula-surgery participating in her care, her diet will be advanced #2 temporal arteritis-patient's Cortef was stopped today and I placed her on prednisone 10 mg daily, again she will need to stay on this medication and follow-up with her physician regarding the dose of prednisone to take after she is discharged. Patient states that her wage and hour investigator gives her her prednisone. #3 essential hypertension-patient's blood pressure will be monitored, I have decided to restart the patient's metoprolol #4 hyperlipidemia-patient's statin will be held at this time, patient can resume this medication when she is discharged Total clinical time spent by myself addressing the patient's medical issues, reviewing all of her data, and collaborating with patient's care team: 35 minutes Charges/Coding Visit Charges Inpatient E&M: 19446 Subs Hosp L2
[2024-07-14] MEDS: Tamsulosin HCl 0.4 MG Capsule PO (18:00)
[2024-07-14] MEDS: predniSONE 10 MG Tablet PO (18:00)
[2024-07-14] MEDS: traMADol 50 MG Tablet PO (20:47)
[2024-07-14 21:00] VITALS: BP 143/70; PULSE 84; RESP 19; TEMP 37.2; O2SAT 94
[2024-07-15] VITALS (7 sets, daily range): BP systolic 125–148; BP diastolic 72–91; PULSE 70–87; RESP 16–18; TEMP 36.6–37.1; O2SAT 95–98
[2024-07-15] MEDS: HYDROmorphone 1 MG/ML Syringe 0.5 MG IV (00:10)
[2024-07-15 05:00] LABS: Basophil# 0.01 X10^3/uL; Basophil% 0.1 % (0-1); Eosinophil# 0.03 X10^3/uL; Eosinophils% 0.4 % (0-5); Hematocrit 31.4 % (37-47); Lymphocyte % 14.3 % (19-41); Mean Corp Hgb Conc 31.8 g/dL (32-36); Mean Corpuscular Hgb 30.8 pg (27.0-32.0); Mean Corpuscular Volume 96.6 fL (81-99); Mean Platelet Vol. 10.4 fl (6.2-12.0); Monocyte# 0.34 X10^3/uL; Monocyte% 4.4 % (0-10); NRBC Flagged by Analyzer 0 % (0-5); Neutrophil # 5.98 X10^3/uL (2.7-7.7); Neutrophil % 78.1 % (47-70); POSITIVE MORPHOLOGY YES; Platelet Count 176 K/mm3 (150-450); RBC Distribution Width CV 16.3 % (11.6-14.6); RBC Distribution Width SD 58.3 fl (35.1-43.9); Red Blood Count 3.25 M/mm3 (4.2-5.4); White Blood Count 7.7 K/mm3 (4.4-11.0)
[2024-07-15 05:33] LABS: Anion Gap 7 (5-15); BUN 22 mg/dL (7-18); BUN/Creat Ratio 49.7 RATIO (10-20); Calcium,Total 6.6 mg/dL (8.5-10.1); Chloride 111 mmol/L (98-107); Creatinine, Serum 0.44 mg/dL (0.55-1.02); EST Glomerular Filtration Rate 146 mL/min (>60); Est Glom Filt Rate - Afr Amer 177 mL/min (>60); Estimated Creatinine Clearance 59.33 ml/min; Glucose 132 mg/dL (74-106); Magnesium 2.2 mg/dL (1.6-2.6); Phosphorus 1.8 mg/dL (2.5-4.9); Potassium 2.6 mmol/L (3.5-5.1); Sodium Level 143 mmol/L (136-145)
[2024-07-15 05:51] LABS: Differential Indicated SCAN CRITERIA MET
[2024-07-15 05:52] LABS: Anisocytosis 1+; Differential Comment SCANNED; Platelet Estimate ADEQUATE (ADEQ)
[2024-07-15] MEDS: Piperacil/Tazobactam 3.375 GM in 0.9% Normal Saline (50mL MB+) 50 ML IV ×3 (05:54→21:48)
[2024-07-15] MEDS: traMADol 50 MG Tablet PO ×2 (06:34→14:02)
[2024-07-15 06:44] LABS: Absolute Neutrophil Count 5.5 X10^3/uL (2.0-7.7); Basophil# 0.02 X10^3/uL; Basophil% 0.3 % (0-1); Eosinophil# 0.03 X10^3/uL; Eosinophils% 0.4 % (0-5); Hematocrit 31.1 % (37-47); Hemoglobin 10.3 g/dL (12.0-15.0); Lymphocyte % 17.5 % (19-41); Mean Corp Hgb Conc 33.1 g/dL (32-36); Mean Corpuscular Hgb 31.4 pg (27.0-32.0); Mean Corpuscular Volume 94.8 fL (81-99); Mean Platelet Vol. 9.9 fl (6.2-12.0); Monocyte# 0.38 X10^3/uL; Monocyte% 5.1 % (0-10); NRBC Flagged by Analyzer 0 % (0-5); Neutrophil # 5.47 X10^3/uL (2.7-7.7); Neutrophil % 73.5 % (47-70); POSITIVE MORPHOLOGY YES; Platelet Count 162 K/mm3 (150-450); RBC Distribution Width CV 16.5 % (11.6-14.6); RBC Distribution Width SD 57.8 fl (35.1-43.9); Red Blood Count 3.28 M/mm3 (4.2-5.4); White Blood Count 7.4 K/mm3 (4.4-11.0)
[2024-07-15 06:48] LABS: Anisocytosis 1+; Differential Comment SCANNED; Differential Indicated SCAN CRITERIA MET; Platelet Estimate ADEQUATE (ADEQ)
[2024-07-15 07:24] LABS: Anion Gap 6 (5-15); BUN 23 mg/dL (7-18); BUN/Creat Ratio 48.9 RATIO (10-20); Calcium,Total 6.6 mg/dL (8.5-10.1); Chloride 113 mmol/L (98-107); Creatinine, Serum 0.47 mg/dL (0.55-1.02); EST Glomerular Filtration Rate 136 mL/min (>60); Est Glom Filt Rate - Afr Amer 165 mL/min (>60); Estimated Creatinine Clearance 59.33 ml/min; Glucose 121 mg/dL (74-106); Potassium 2.6 mmol/L (3.5-5.1); Sodium Level 144 mmol/L (136-145)
--- NOTE | 2024-07-15 07:35 | PN.HOSP_ITS ---
Reason for Visit Reason for Visit: Diagnoses Obesity, class 1 (07/12/24) Essential (primary) hypertension (07/12/24) Acute embolism and thrombosis of deep veins of right upper extremity (07/12/24) Diverticulitis of intestine, part unspecified, with perforation and abscess without bleeding (07/12/24) Perforation of intestine (nontraumatic) (07/12/24) Acute cystitis without hematuria (07/12/24) Adverse effect of unspecified drugs, medicaments and biological substances, initial encounter (07/12/24) Personal history of pulmonary embolism (07/12/24) Personal history of other diseases of the digestive system (07/12/24) Presence of other vascular implants and grafts (07/12/24) Subjective Subjective Markedly edematous. Feeling better overall. Objective Data Objective Data Vital Signs: Vital Signs Temp Pulse Resp BP Pulse Ox O2 Del Method O2 Flow Rate 37.1 C 80 18 144/72 H 96 Room Air 2 07/15/24 03:00 07/15/24 03:00 07/15/24 03:00 07/15/24 03:00 07/15/24 03:00 07/15/24 04:00 07/12/24 02:39 Oxygen Flow Rate (L/min) 2 Oxygen Delivery Method Room Air Weight: 84.4 kg Body Mass Index (BMI) 34.0 Intake & Output: Intake and Output for Last 24 Hours 07/13/24 07/14/24 07/15/24 23:59 23:59 23:59 Intake Total 1320 / 1320 1860 / 1860 50 / 50 Output Total 1155 / 1155 1100 / 1250 300 / 300 Balance 165 / 165 760 / 610 -250 / -250 Lab / Micro Data 07/15/24 06:30 07/15/24 06:30 Labs: Laboratory Results - last 24 hr 07/14/24 06:55: Sodium 143, Potassium 3.7, Chloride 114 H, Carbon Dioxide 22.0, Anion Gap 7, BUN 24 H, Creatinine 0.68, Estim Creat Clear Calc 59.33, Est GFR (MDRD) Af Amer 108, Est GFR (MDRD) Non-Af 89, BUN/Creatinine Ratio 35.2 H, G lucose 110 H, Calcium 7.3 L, Phosphorus 2.0 L, Magnesium 1.9 07/15/24 04:25: WBC 7.7, RBC 3.25 L, Hgb 10.0 L, Hct 31.4 L, MCV 96.6, MCH 30.8, MCHC 31.8 L, RDW Std Deviation 58.3 H, RDW Coeff of Jennifer 16.3 H, Plt Count 176, MPV 10.4, Immature Gran % (Auto) 2.700 H, Neut % (Auto) 78.1 H, Lymph % (Auto) 14.3 L, [place] % (Auto) 4.4, Eos % (Auto) 0.4, Baso % (Auto) 0.1, Absolute Neuts (auto) 6.0, Absolute Lymphs (auto) 1.10, Nucleated RBC % 0, Differential Comment SCANNED, Platelet Estimate ADEQUATE, Anisocytosis 1+, Sodium 143, Potassium 2.6 L*, Chloride 111 H, Carbon Dioxide 25.0, Anion Gap 7, BUN 22 H, Creatinine 0.44 L, Estim Creat Clear Calc 59.33, Est GFR (MDRD) Af Amer 177, Est GFR (MDRD) Non- Af 146, BUN/Creatinine Ratio 49.7 H, Glucose 132 H, Calcium 6.6 L, Phosphorus 1.8 L, Magnesium 2.2 07/15/24 06:30: WBC 7.4, RBC 3.28 L, Hgb 10.3 L, Hct 31.1 L, MCV 94.8, MCH 31.4, MCHC 33.1, RDW Std Deviation 57.8 H, RDW Coeff of Jennifer 16.5 H, Plt Count 162, MPV 9.9, Immature Gran % (Auto) 3.200 H, Neut % (Auto) 73.5 H, Lymph % (Auto) 17.5 L , [place] % (Auto) 5.1, Eos % (Auto) 0.4, Baso % (Auto) 0.3, Absolute Neuts (auto) 5.5, Absolute Lymphs (auto) 1.30, Nucleated RBC % 0, Differential Comment SCANNED, Platelet Estimate ADEQUATE, Anisocytosis 1+, Sodium 144, Potassium 2.6 L*, Chloride 113 H, Carbon Dioxide 25.0, Anion Gap 6, BUN 23 H, Creatinine 0.47 L, Estim Creat Clear Calc 59.33, Est GFR (MDRD) Af Amer 165, Est GFR (MDRD) Non- Af 136, BUN/Creatinine Ratio 48.9 H, Glucose 121 H, Calcium 6.6 L Micro: Microbiology 07/12/24 00:14 Incision/Surgical Site Gram Stain - Final 07/12/24 00:14 Incision/Surgical Site Wound Culture - Preliminary Citrobacter freundii Alpha Hemolytic Streptococcus Aeromonas salmonicida 07/11/24 20:04 Urine, Clean Catch Urine Culture - Final Escherichia coli Physical Exam Const alert and no apparent distress HEENT head/scalp atraumatic and moist oral mucous membranes Resp normal respiratory effort, no retractions, no use of accessory muscles and clear to auscultation bilaterally Cardio regular rate, regular rhythm, S1 normal heart sound and S2 normal heart sound GI normal to inspection, nondistended, normoactive bowel sounds and soft to palpation Auscultation: hypoactive bowel sounds Extremity General Extremity: edema bilateral (Upper on Lower extremities) Neuro Sensorium / Orientation: awake and alert Psych affect normal Assessment & Plan Assessment/Plan (1) Essential hypertension: (2) Perforated diverticulum: PLAN: Plan Perforated small bowel diverticula * s/p open laparotomy with small bowel resection and reanastomisis on 07/12 * mgmt per general surgery * CLD Temporal arteritis * on tocilizumab and prednisone as outpt. * tocilizumab can be associated with GI perforation. Would hold until cleared by general surgery and outpt rheumatology and optho follow up. * resumed on prednisone 10mg, but takes 20 TID. Will resume the home dose. Rheum to facilitate outpt taper. Anasarca. * +4 liters positive. * agree with the 1x dose of furosemide. Will give another dose this evening then resume HCTZ and spironolactone. Hypokalemia * order for replacement placed. * Monitor * magnesium WNL Chronic conditions: * HTN: metoprolol resumed. * osteoporosis: hold alendronate * HLD: statin on hold for now. Can resume on discharge VTE prophylaxis: SCDs. Charges/Coding Visit Charges Inpatient E&M: 56282 Subs Hosp L2
--- NOTE | 2024-07-15 08:11 | PN.SURG_ITS ---
Subjective Subjective Patient reports she is passing flatus. She denies nausea or vomiting. She tolerated clear liquids. Objective Data Objective Data Vital Signs: Vital Signs Temp Pulse Resp BP Pulse Ox O2 Del Method O2 Flow Rate 98.8 F 80 18 144/72 H 96 Room Air 2 07/15/24 03:00 07/15/24 03:00 07/15/24 03:00 07/15/24 03:00 07/15/24 03:00 07/15/24 04:00 07/12/24 02:39 Oxygen Flow Rate (L/min) 2 Oxygen Delivery Method Room Air Weight: 186 lb 1.122 oz Body Mass Index (BMI) 34.0 Intake & Output: Intake and Output for Last 24 Hours 07/13/24 07/14/24 07/15/24 23:59 23:59 23:59 Intake Total 1320 / 1320 1860 / 1860 50 / 50 Output Total 1155 / 1155 1100 / 1250 300 / 300 Balance 165 / 165 760 / 610 -250 / -250 Lab / Micro Data 07/15/24 06:30 07/15/24 06:30 Labs: Laboratory Results - last 24 hr 07/15/24 04:25: WBC 7.7, RBC 3.25 L, Hgb 10.0 L, Hct 31.4 L, MCV 96.6, MCH 30.8, MCHC 31.8 L, RDW Std Deviation 58.3 H, RDW Coeff of Jennifer 16.3 H, Plt Count 176, MPV 10.4, Immature Gran % (Auto) 2.700 H, Neut % (Auto) 78.1 H, Lymph % (Auto) 14.3 L, [place] % (Auto) 4.4, Eos % (Auto) 0.4, Baso % (Auto) 0.1, Absolute Neuts (auto) 6.0, Absolute Lymphs (auto) 1.10, Nucleated RBC % 0, Differential Comment SCANNED, Platelet Estimate ADEQUATE, Anisocytosis 1+, Sodium 143, Potassium 2.6 L*, Chloride 111 H, Carbon Dioxide 25.0, Anion Gap 7, BUN 22 H, Creatinine 0.44 L, Estim Creat Clear Calc 59.33, Est GFR (MDRD) Af Amer 177, Est GFR (MDRD) Non- Af 146, BUN/Creatinine Ratio 49.7 H, Glucose 132 H, Calcium 6.6 L, Phosphorus 1.8 L, Magnesium 2.2 07/15/24 06:30: WBC 7.4, RBC 3.28 L, Hgb 10.3 L, Hct 31.1 L, MCV 94.8, MCH 31.4, MCHC 33.1, RDW Std Deviation 57.8 H, RDW Coeff of Jennifer 16.5 H, Plt Count 162, MPV 9.9, Immature Gran % (Auto) 3.200 H, Neut % (Auto) 73.5 H, Lymph % (Auto) 17.5 L , [place] % (Auto) 5.1, Eos % (Auto) 0.4, Baso % (Auto) 0.3, Absolute Neuts (auto) 5.5, Absolute Lymphs (auto) 1.30, Nucleated RBC % 0, Differential Comment SCANNED, Platelet Estimate ADEQUATE, Anisocytosis 1+, Sodium 144, Potassium 2.6 L*, Chloride 113 H, Carbon Dioxide 25.0, Anion Gap 6, BUN 23 H, Creatinine 0.47 L, Estim Creat Clear Calc 59.33, Est GFR (MDRD) Af Amer 165, Est GFR (MDRD) Non- Af 136, BUN/Creatinine Ratio 48.9 H, Glucose 121 H, Calcium 6.6 L Micro: Microbiology 07/12/24 00:14 Incision/Surgical Site Gram Stain - Final 07/12/24 00:14 Incision/Surgical Site Wound Culture - Preliminary Citrobacter freundii Alpha Hemolytic Streptococcus Aeromonas salmonicida 07/11/24 20:04 Urine, Clean Catch Urine Culture - Final Escherichia coli Physical Exam Const oriented x3 and no apparent distress Resp normal respiratory effort GI soft to palpation and non-tender Assessment & Plan Assessment/Plan (1) Perforated small intestine: PLAN: Patient reports she is feeling very swollen today. She says she is passing flatus. She tolerated clear liquids with no problem. Drain is serosanguineous. Patient feels like she is swollen and edematous. She does have edema of the lower extremities and wrist. She had to have her identification bracelet taken off and a larger one placed due to the swelling. I will order 40 of IV Lasix after her potassium has infused as she is hypokalemic this morning. I will recheck a potassium this evening and again in the morning. Replace as needed. Continue drain until tolerating regular diet. Advancing to regular diet today. Barrington Calero MD Pager: [facility] [address] [place] [address], [address] [place] [address] Office:
[2024-07-15] MEDS: Potassium Chloride Oral Tablet 20 MEQ 40 MEQ PO (08:53)
[2024-07-15] MEDS: Potassium Chloride 10mEq/100mL 10 MEQ/100 ML IV.SOLN. 100 MEQ IV BOLUS ×2 (10:36→11:40)
[2024-07-15] MEDS: Pantoprazole Sodium 40 MG in 0.9% Normal Saline (100mL MB+) 100 ML 330 MG IV (10:41)
[2024-07-15] MEDS: Acetaminophen 500 MG Tablet PO (14:03)
[2024-07-15] MEDS: predniSONE 20 MG Tablet PO ×2 (14:06→21:49)
[2024-07-15] MEDS: Furosemide 40 MG/4 ML Vial IV (16:00)
[2024-07-15] MEDS: Potassium Chloride 10mEq/100mL 10 MEQ/100 ML IV.SOLN. 75 MEQ IV BOLUS (16:00)
[2024-07-15] MEDS: Tamsulosin HCl 0.4 MG Capsule PO (17:53)
[2024-07-15 18:39] LABS: Potassium 3.5 mmol/L (3.5-5.1)
[2024-07-15] MEDS: Metoprolol Tartrate 25 MG Tablet PO (21:49)
[2024-07-16] VITALS (7 sets, daily range): BP systolic 120–142; BP diastolic 71–85; PULSE 61–72; RESP 15–18; TEMP 36.4–37.1; O2SAT 97–98
[2024-07-16] MEDS: Piperacil/Tazobactam 3.375 GM in 0.9% Normal Saline (50mL MB+) 50 ML IV (05:38)
[2024-07-16] MEDS: predniSONE 20 MG Tablet PO ×3 (05:38→19:54)
[2024-07-16 07:57] LABS: Absolute Lymphocyte Count 1.13 X10^3/uL (0.83-4.51); Absolute Neutrophil Count 5.6 X10^3/uL (2.0-7.7); Basophil# 0.03 X10^3/uL; Basophil% 0.4 % (0-1); Eosinophil# 0.01 X10^3/uL; Eosinophils% 0.1 % (0-5); Hematocrit 32.6 % (37-47); Hemoglobin 10.9 g/dL (12.0-15.0); Lymphocyte # 1.13 X10^3/ul (0.83-4.51); Lymphocyte % 15.8 % (19-41); Mean Corp Hgb Conc 33.4 g/dL (32-36); Mean Corpuscular Hgb 31.4 pg (27.0-32.0); Mean Corpuscular Volume 93.9 fL (81-99); Mean Platelet Vol. 10.5 fl (6.2-12.0); Monocyte% 1.4 % (0-10); NRBC Flagged by Analyzer 0 % (0-5); Neutrophil # 5.64 X10^3/uL (2.7-7.7); Neutrophil % 79.2 % (47-70); POSITIVE MORPHOLOGY YES; Platelet Count 173 K/mm3 (150-450); RBC Distribution Width CV 16.1 % (11.6-14.6); RBC Distribution Width SD 55.5 fl (35.1-43.9); Red Blood Count 3.47 M/mm3 (4.2-5.4); White Blood Count 7.1 K/mm3 (4.4-11.0)
[2024-07-16 08:01] LABS: Differential Indicated SCAN CRITERIA MET
[2024-07-16 08:30] LABS: Atypical Lymphocyte 1+ %
[2024-07-16 09:07] LABS: Anion Gap 8 (5-15); BUN 22 mg/dL (7-18); BUN/Creat Ratio 45.2 RATIO (10-20); Calcium,Total 7.2 mg/dL (8.5-10.1); Chloride 108 mmol/L (98-107); Creatinine, Serum 0.49 mg/dL (0.55-1.02); EST Glomerular Filtration Rate 131 mL/min (>60); Est Glom Filt Rate - Afr Amer 158 mL/min (>60); Estimated Creatinine Clearance 59.33 ml/min; Glucose 157 mg/dL (74-106); Magnesium 1.5 mg/dL (1.6-2.6); Potassium 3.3 mmol/L (3.5-5.1); Sodium Level 140 mmol/L (136-145)
[2024-07-16 09:10] LABS: Phosphorus 2.1 mg/dL (2.5-4.9)
[2024-07-16] MEDS: hydroCHLOROthiazide 12.5mg 12.5 MG PO (09:31)
[2024-07-16] MEDS: Metoprolol Tartrate 25 MG Tablet PO ×2 (09:31→19:54)
[2024-07-16] MEDS: Spironolactone 50 MG Tablet PO (09:31)
[2024-07-16] MEDS: Pantoprazole Sodium 40 MG in 0.9% Normal Saline (100mL MB+) 100 ML 330 MG IV (09:33)
--- NOTE | 2024-07-16 10:19 | PN.SURG_ITS ---
Subjective Subjective Patient reports she is tolerating a diet and having bowel movements and passing flatus. No abdominal pain. Objective Data Objective Data Vital Signs: Vital Signs Temp Pulse Resp BP Pulse Ox O2 Del Method O2 Flow Rate 97.7 F L 71 16 142/76 H 97 Room Air 2 07/16/24 02:02 07/16/24 09:31 07/16/24 02:02 07/16/24 02:02 07/16/24 02:02 07/16/24 02:02 07/12/24 02:39 Oxygen Flow Rate (L/min) 2 Oxygen Delivery Method Room Air Weight: 186 lb 1.122 oz Body Mass Index (BMI) 34.0 Intake & Output: Intake and Output for Last 24 Hours 07/14/24 07/15/24 07/16/24 23:59 23:59 23:59 Intake Total 1860 / 1860 2110 / 2310 650 / 650 Output Total 1100 / 1250 2835 / 2835 335 / 335 Balance 760 / 610 -725 / -525 315 / 315 Lab / Micro Data 07/16/24 07:06 07/16/24 07:06 Labs: Laboratory Results - last 24 hr 07/15/24 18:00: Potassium 3.5 07/16/24 07:06: WBC 7.1 07/16/24 07:06: WBC Cancelled, Corrected WBC Cancelled, RBC 3.47 L 07/16/24 07:06: RBC Cancelled, Hgb 10.9 L 07/16/24 07:06: Hgb Cancelled, Hct 32.6 L 07/16/24 07:06: Hct Cancelled, MCV 93.9 07/16/24 07:06: MCV Cancelled, MCH 31.4 07/16/24 07:06: MCH Cancelled, MCHC 33.4 07/16/24 07:06: MCHC Cancelled, RDW Std Deviation 55.5 H 07/16/24 07:06: RDW Std Deviation Cancelled, RDW Coeff of Jennifer 16.1 H 07/16/24 07:06: RDW Coeff of Jennifer Cancelled, Plt Count 173 07/16/24 07:06: Plt Count Cancelled, MPV 10.5 07/16/24 07:06: MPV Cancelled, Immature Gran % (Auto) 3.100 H 07/16/24 07:06: Immature Gran % (Auto) Cancelled, Neut % (Auto) 79.2 H 07/16/24 07:06: Neut % (Auto) Cancelled, Lymph % (Auto) 15.8 L 07/16/24 07:06: Lymph % (Auto) Cancelled, [place] % (Auto) 1.4 07/16/24 07:06: [place] % (Auto) Cancelled, Eos % (Auto) 0.1 07/16/24 07:06: Eos % (Auto) Cancelled, Baso % (Auto) 0.4 07/16/24 07:06: Baso % (Auto) Cancelled, Absolute Neuts (auto) 5.6 07/16/24 07:06: Absolute Neuts (auto) Cancelled, Absolute Lymphs (auto) 1.13 07/16/24 07:06: Absolute Lymphs (auto) Cancelled, Total Counted Cancelled, Neutrophils % (Manual) Cancelled, Band Neutrophils % Cancelled, Lymphocytes % (Manual) Cancelled, Monocytes % (Manual) Cancelled, Eosinophils % (Manual) Cancelled, Basophils % (Manual) Cancelled, Metamyelocytes % Cancelled, Myelocytes % Cancelled, Promyelocytes % Cancelled, Blast Cells % Cancelled, Plasma Cell % (Manual) Cancelled, Other Cells % Cancelled, Nucleated RBC % 0 07/16/24 07:06: Nucleated RBC % Cancelled, Nucleated RBCs/100 WBC Cancelled, Differential Comment Cancelled, Diff Path Review Cancelled, Hypersegmented Neuts Cancelled, Atypical Lymphocytes 1+ 07/16/24 07:06: Atypical Lymphocytes Cancelled, Reactive Lymphocytes Cancelled, Smudge Cells Cancelled, Toxic Granulation Cancelled, Toxic Vacuolation Cancelled, Dohle Bodies Cancelled, Noel Rods Cancelled, Platelet Estimate Cancelled, Plt Morphology Comment Cancelled, RBC Morphology Cancelled 07/16/24 07:06: RBC Morphology Cancelled, Polychromasia Cancelled, Hypochromasia Cancelled, Basophilic Stippling Cancelled, Anisocytosis Cancelled, Microcytosis Cancelled, Macrocytosis Cancelled, Spherocytes Cancelled, Sickle Cells Cancelled, Target Cells Cancelled, Tear Drop Cells Cancelled, Ovalocytes Cancelled, Stomatocytes Cancelled, Barragan-Idanha Bodies Cancelled, Marilyn Cells Cancelled, Bite Cells Cancelled, Crenated Cell Cancelled, Acanthocytes (Spur) Cancelled, Rouleaux Cancelled, Schistocytes Cancelled, Sodium 140, Potassium 3.3 L, Chloride 108 H, Carbon Dioxide 25.0, Anion Gap 8, BUN 22 H, Creatinine 0.49 L , Estim Creat Clear Calc 59.33, Est GFR (MDRD) Af Amer 158, Est GFR (MDRD) Non- Af 131, BUN/Creatinine Ratio 45.2 H, Glucose 157 H, Calcium 7.2 L, Phosphorus 2.1 L, Magnesium 1.5 L Micro: Microbiology 07/12/24 00:14 Incision/Surgical Site Gram Stain - Final 07/12/24 00:14 Incision/Surgical Site Wound Culture - Final Citrobacter freundii Strep anginosus Eikenella corrodens 07/12/24 00:14 Incision/Surgical Site Anaerobic Culture - Preliminary Anaerobic cocci Gram negative saeid Gram variable saeid 07/11/24 20:04 Urine, Clean Catch Urine Culture - Final Escherichia coli Physical Exam Const oriented x3 and no apparent distress Resp normal respiratory effort GI soft to palpation and non-tender Assessment & Plan Assessment/Plan (1) Perforated small intestine: PLAN: Patient still has Nevarez in place and they are waiting until 1 more dose of Lasix and then try to DC the Nevarez and do a voiding trial. I removed the patient's LUCIUS drain. Continue regular diet. Her potassium and phosphorus and magnesium are all low and being replaced by medicine service. Hopeful for DC today or tomorrow. Barrington Calero MD Pager: [facility] [address] [place] [address], [address] [place] [address] Office:
--- NOTE | 2024-07-16 12:24 | PN.HOSP_ITS ---
Reason for Visit Reason for Visit: Diagnoses Obesity, class 1 (07/12/24) Essential (primary) hypertension (07/12/24) Acute embolism and thrombosis of deep veins of right upper extremity (07/12/24) Diverticulitis of intestine, part unspecified, with perforation and abscess without bleeding (07/12/24) Perforation of intestine (nontraumatic) (07/12/24) Acute cystitis without hematuria (07/12/24) Adverse effect of unspecified drugs, medicaments and biological substances, initial encounter (07/12/24) Personal history of pulmonary embolism (07/12/24) Personal history of other diseases of the digestive system (07/12/24) Presence of other vascular implants and grafts (07/12/24) Subjective Subjective Feeling better. Still with edema. Objective Data Objective Data Vital Signs: Vital Signs Temp Pulse Resp BP Pulse Ox O2 Del Method O2 Flow Rate 36.9 C 71 16 135/71 H 98 Room Air 2 07/16/24 08:02 07/16/24 09:31 07/16/24 08:02 07/16/24 08:02 07/16/24 08:02 07/16/24 08:02 07/12/24 02:39 Oxygen Flow Rate (L/min) 2 Oxygen Delivery Method Room Air Weight: 84.4 kg Body Mass Index (BMI) 34.0 Intake & Output: Intake and Output for Last 24 Hours 07/14/24 07/15/24 07/16/24 23:59 23:59 23:59 Intake Total 1860 / 1860 2110 / 2310 810 / 810 Output Total 1100 / 1250 2835 / 2835 335 / 335 Balance 760 / 610 -725 / -525 475 / 475 Lab / Micro Data 07/16/24 07:06 07/16/24 07:06 Labs: Laboratory Results - last 24 hr 07/15/24 18:00: Potassium 3.5 07/16/24 07:06: WBC 7.1 07/16/24 07:06: WBC Cancelled, Corrected WBC Cancelled, RBC 3.47 L 07/16/24 07:06: RBC Cancelled, Hgb 10.9 L 07/16/24 07:06: Hgb Cancelled, Hct 32.6 L 07/16/24 07:06: Hct Cancelled, MCV 93.9 07/16/24 07:06: MCV Cancelled, MCH 31.4 07/16/24 07:06: MCH Cancelled, MCHC 33.4 07/16/24 07:06: MCHC Cancelled, RDW Std Deviation 55.5 H 07/16/24 07:06: RDW Std Deviation Cancelled, RDW Coeff of Jennifer 16.1 H 07/16/24 07:06: RDW Coeff of Jennifer Cancelled, Plt Count 173 07/16/24 07:06: Plt Count Cancelled, MPV 10.5 07/16/24 07:06: MPV Cancelled, Immature Gran % (Auto) 3.100 H 07/16/24 07:06: Immature Gran % (Auto) Cancelled, Neut % (Auto) 79.2 H 07/16/24 07:06: Neut % (Auto) Cancelled, Lymph % (Auto) 15.8 L 07/16/24 07:06: Lymph % (Auto) Cancelled, [place] % (Auto) 1.4 07/16/24 07:06: [place] % (Auto) Cancelled, Eos % (Auto) 0.1 07/16/24 07:06: Eos % (Auto) Cancelled, Baso % (Auto) 0.4 07/16/24 07:06: Baso % (Auto) Cancelled, Absolute Neuts (auto) 5.6 07/16/24 07:06: Absolute Neuts (auto) Cancelled, Absolute Lymphs (auto) 1.13 07/16/24 07:06: Absolute Lymphs (auto) Cancelled, Total Counted Cancelled, Neutrophils % (Manual) Cancelled, Band Neutrophils % Cancelled, Lymphocytes % (Manual) Cancelled, Monocytes % (Manual) Cancelled, Eosinophils % (Manual) Cancelled, Basophils % (Manual) Cancelled, Metamyelocytes % Cancelled, Myelocytes % Cancelled, Promyelocytes % Cancelled, Blast Cells % Cancelled, Plasma Cell % (Manual) Cancelled, Other Cells % Cancelled, Nucleated RBC % 0 07/16/24 07:06: Nucleated RBC % Cancelled, Nucleated RBCs/100 WBC Cancelled, Differential Comment Cancelled, Diff Path Review Cancelled, Hypersegmented Neuts Cancelled, Atypical Lymphocytes 1+ 07/16/24 07:06: Atypical Lymphocytes Cancelled, Reactive Lymphocytes Cancelled, Smudge Cells Cancelled, Toxic Granulation Cancelled, Toxic Vacuolation Cancelled, Dohle Bodies Cancelled, Noel Rods Cancelled, Platelet Estimate Cancelled, Plt Morphology Comment Cancelled, RBC Morphology Cancelled 07/16/24 07:06: RBC Morphology Cancelled, Polychromasia Cancelled, Hypochromasia Cancelled, Basophilic Stippling Cancelled, Anisocytosis Cancelled, Microcytosis Cancelled, Macrocytosis Cancelled, Spherocytes Cancelled, Sickle Cells Cancelled, Target Cells Cancelled, Tear Drop Cells Cancelled, Ovalocytes Cancelled, Stomatocytes Cancelled, Barragan-Paton Bodies Cancelled, [place] Cells Cancelled, Bite Cells Cancelled, Crenated Cell Cancelled, Acanthocytes (Spur) Cancelled, Rouleaux Cancelled, Schistocytes Cancelled, Sodium 140, Potassium 3.3 L, Chloride 108 H, Carbon Dioxide 25.0, Anion Gap 8, BUN 22 H, Creatinine 0.49 L , Estim Creat Clear Calc 59.33, Est GFR (MDRD) Af Amer 158, Est GFR (MDRD) Non- Af 131, BUN/Creatinine Ratio 45.2 H, Glucose 157 H, Calcium 7.2 L, Phosphorus 2.1 L, Magnesium 1.5 L Micro: Microbiology 07/12/24 00:14 Incision/Surgical Site Gram Stain - Final 07/12/24 00:14 Incision/Surgical Site Wound Culture - Final Citrobacter freundii Strep anginosus Eikenella corrodens 07/12/24 00:14 Incision/Surgical Site Anaerobic Culture - Preliminary Anaerobic cocci Gram negative saeid Gram variable saeid 07/11/24 20:04 Urine, Clean Catch Urine Culture - Final Escherichia coli Physical Exam Const alert and no apparent distress HEENT head/scalp atraumatic and moist oral mucous membranes Resp normal respiratory effort, no retractions, no use of accessory muscles and clear to auscultation bilaterally Cardio regular rate, regular rhythm, S1 normal heart sound and S2 normal heart sound GI normal to inspection, nondistended, normoactive bowel sounds Extremity Extremity Narrative: improved Upper and Lower extremity edema. Neuro Sensorium / Orientation: awake and alert Assessment & Plan Assessment/Plan (1) Essential hypertension: (2) Perforated diverticulum: PLAN: Plan Perforated small bowel diverticula * s/p open laparotomy with small bowel resection and reanastomisis on 07/12 * mgmt per general surgery * now on regular diet. Temporal arteritis * on tocilizumab and prednisone as outpt. * tocilizumab can be associated with GI perforation. Would hold until cleared by general surgery and outpt rheumatology and optho follow up. * resumed on prednisone 10mg, but takes 20 TID. Will resume the home dose. Rheum to facilitate outpt taper. Anasarca. * +4 liters positive. * will give an additional dose of IV furosemide. Continue HCTZ and spironolactone. Hypokalemia/Hypomagnesemia/hyphosatemia. * replace Chronic conditions: * HTN: metoprolol resumed. * osteoporosis: hold alendronate * HLD: statin on hold for now. Can resume on discharge VTE prophylaxis: SCDs. Medically stable for discharge after e-lyte replacement. Charges/Coding Visit Charges Inpatient E&M: 78630 Subs Hosp L2
[2024-07-16] MEDS: 0.9% Saline Lock 10 ML Syringe IV (13:11)
[2024-07-16] MEDS: Furosemide 40 MG/4 ML Vial IV (13:11)
--- NOTE | 2024-07-16 13:25 | CASEMGMT ---
Addendum entered by Maxim Kirk 07/16/24 14:39: Pt and family member made aware [facility] tentatively plan for [facility] on Friday, if discharges home over the weekend. Original Note: MEGHAN JORGE NOTE: Reviewed therapy note from this AM. Pt ambulated 180 ft x 2 w/use of WW and CGA. Pt worked w/stairs today as well and only able to step up 1-2 steps. RN CM to room. Pt sitting up in chair. Introduced self and role. 4 family members in room visiting and pt agreeable to them being present while RN ANIA discussed discharge planning. Pt states she feels comfortable discharging home as long as this swelling in my knees and legs go down more. Family then did inquire if pt could go back to TCU. RN ANIA informed them w/pt ambulating so well w/therapy today, that insurance would most likely not approve SNF. Pt re-iterated that as long as the swelling goes down she would be okay to be home alone. Pt stated she was informed that she may be discharged later this afternoon. Pt and family all state they do not feel she is medically ready to discharge home today, as the swelling is not @ baseline. They inquired if pt could stay in the hospital through the weekend. RN ANIA informed them physician would evaluate this on a day-to-day basis to decide when she is medically ready to dc. They voice understanding. Discussed above w/charge account authorizerKayleigh, and RNKathryn, and aware of pt/family feeling pt is not medically ready to dc today. They both state the plan is not to discharge today, as pt is getting electrolyte replacement today and labs to be re-checked tomorrow. Pt confirms she would like [facility] w/[facility] @ dc. [facility] order placed. Call placed to Janett @ [facility] and she was made aware of possible dc over the weekend. She states if pt is dc'd over the weekend, [facility] slated for Friday. This was entered into pt's discharge plan. Family state that even when pt is @ her baseline, they do need to help her up the stairs by lifting her legs up for her, as she always has difficulty with this and they will be able to assist her into the home @ dc. They deny having further discharge needs or concerns. Rachana RACHELN MEGHAN JORGE
[2024-07-16] MEDS: Potassium Phosphate 21 MM in 0.9% Normal Saline (250mL Bag) 250 ML 84 MM IV (13:26)
[2024-07-16] MEDS: Magnesium Sulfate 2 GM in Dextrose 5%-Water (100mL Bag) 100 ML IV (13:26)
[2024-07-16] MEDS: Ensure Plus High Protein 120 ML LIQUID PO (17:36)
[2024-07-16] MEDS: Tamsulosin HCl 0.4 MG Capsule PO (17:36)
[2024-07-17] MEDS: predniSONE 20 MG Tablet PO ×2 (04:49→14:13)
[2024-07-17 05:00] VITALS: BP 146/76; PULSE 60; RESP 15; TEMP 36.3; O2SAT 97
--- NOTE | 2024-07-17 08:41 | PN.SURG_ITS ---
Subjective Subjective Patient had a bowel movement and is passing flatus. Electrolytes were replaced yesterday. Objective Data Objective Data Vital Signs: Vital Signs Temp Pulse Resp BP Pulse Ox O2 Del Method O2 Flow Rate 97.3 F L 60 15 146/76 H 97 Room Air 2 07/17/24 05:00 07/17/24 05:00 07/17/24 05:00 07/17/24 05:00 07/17/24 05:00 07/17/24 05:00 07/12/24 02:39 Oxygen Flow Rate (L/min) 2 Oxygen Delivery Method Room Air Weight: 186 lb 1.122 oz Body Mass Index (BMI) 34.0 Intake & Output: Intake and Output for Last 24 Hours 07/15/24 07/16/24 07/17/24 23:59 23:59 23:59 Intake Total 2110 / 2310 2601 / 2601 Output Total 2835 / 2835 2535 / 2535 Balance -725 / -525 66 / 66 Lab / Micro Data 07/16/24 07:06 07/16/24 07:06 Labs: Laboratory Results - last 24 hr 07/16/24 07:06: Sodium 140, Potassium 3.3 L, Chloride 108 H, Carbon Dioxide 25.0, Anion Gap 8, BUN 22 H, Creatinine 0.49 L, Estim Creat Clear Calc 59.33, Est GFR (MDRD) Af Amer 158, Est GFR (MDRD) Non-Af 131, BUN/Creatinine Ratio 45.2 H, Glucose 157 H, Calcium 7.2 L, Phosphorus 2.1 L, Magnesium 1.5 L Micro: Microbiology 07/12/24 00:14 Incision/Surgical Site Gram Stain - Final 07/12/24 00:14 Incision/Surgical Site Wound Culture - Final Citrobacter freundii Strep anginosus Eikenella corrodens 07/12/24 00:14 Incision/Surgical Site Anaerobic Culture - Final Anaerobic cocci Prevotella species 07/11/24 20:04 Urine, Clean Catch Urine Culture - Final Escherichia coli Physical Exam Const oriented x3 and no apparent distress Cardio regular rate and regular rhythm GI soft to palpation and non-tender Assessment & Plan Assessment/Plan (1) Perforated small intestine: PLAN: Patient is doing well and I would like to DC her today. I will recheck labs first to make sure her electrolytes are fully repleted and then discharged home. Barrington Calero MD Pager: [facility] [address] [place] [address], [address] [place] [address] Office:
--- NOTE | 2024-07-17 08:45 | DS.PCM_ITS ---
Providers Date of Admission: 07/12/24 Primary Care Physician: Dr. Umberto Escamilla MD Consultations 07/12/24 00:49 Consult: Onc/Wound/plate gauger Routine Comment: Reason for Consult:: severe lower extremity edema with skin breaks 07/15/24 05:39 Consult: Hospitalist Routine Consulting Provider: Inocente Conner Reason for Consult: Medical Management EMERGENT Consult: No MD Notified: Yes Date Notified: 07/15/24 Time Notified: 05:39 Method of Notification: Text Reason For Visit: PERFORATED DIVERTICULUM OF SMALL BOWEL Diagnosis Discharge Diagnosis (1) Perforated small intestine: Status: Acute Code(s): K63.1 - Perforation of intestine (nontraumatic) Plan: Patient is doing well and I would like to DC her today. I will recheck labs first to make sure her electrolytes are fully repleted and then discharged home. Barrington Calero MD Pager: [facility] [address] [place] [address], [address] [place] [address] Office: Medications at Discharge Home Medications ergocalciferol (vitamin D2) 1,250 mcg (50,000 unit) capsule (Vitamin D2) 50,000 unit PO QMONTH ostseopenia 02/14/14 calcium 600 mg (as carbonate)-vitamin D3 10 mcg (400 unit) tablet 1 ea PO DAILY bone health 12/18/15 hydrochlorothiazide 12.5 mg capsule 12.5 mg PO DAILY blood pressure 04/23/24 prednisone 20 mg tablet 20 mg PO TID terrmoral arteritis 04/23/24 alendronate 70 mg tablet 70 mg PO QWEEK osteopenia 06/16/24 omeprazole 20 mg capsule,delayed release 20 mg PO DAILY esophagus ulcers 06/17/24 pravastatin 80 mg tablet 80 mg PO DAILY high cholesterol 06/17/24 acetaminophen 500 mg tablet 1,000 mg (2 x 500 mg) PO Q6H PRN PRN Pain Score 1-10 #0 tabs 07/01/24 metoprolol tartrate 25 mg tablet 25 mg PO BID heart 30 days #60 tabs 07/01/24 spironolactone 50 mg tablet 50 mg PO DAILY water pill #0 tabs 07/01/24 tocilizumab 162 mg/0.9 mL subcutaneous syringe (Actemra) 162 mg (0.9 mL) subcut Tu tosin [place] #0 mL 07/01/24 Hospital Course Summary of Care Provided Hospital Course: The patient presented with abdominal pain was found to have perforation of a small bowel diverticulum. She underwent surgery for resection. Following surgery she was kept n.p.o. until she started passing flatus and then started on a diet slowly that her drain was removed and she was to be discharged home. Weight / BMI Weight Weight: 186 lb 1.122 oz Body Mass Index (BMI) 34.0 ABG / Lab / Microbiology Data 07/16/24 07:06 07/16/24 07:06 Laboratory: Laboratory Results - last 24 hr 07/16/24 07:06: Sodium 140, Potassium 3.3 L, Chloride 108 H, Carbon Dioxide 25.0, Anion Gap 8, BUN 22 H, Creatinine 0.49 L, Estim Creat Clear Calc 59.33, Est GFR (MDRD) Af Amer 158, Est GFR (MDRD) Non-Af 131, BUN/Creatinine Ratio 45.2 H, Glucose 157 H, Calcium 7.2 L, Phosphorus 2.1 L, Magnesium 1.5 L Microbiology: Microbiology 07/12/24 00:14 Incision/Surgical Site Gram Stain - Final 07/12/24 00:14 Incision/Surgical Site Wound Culture - Final Citrobacter freundii Strep anginosus Eikenella corrodens 07/12/24 00:14 Incision/Surgical Site Anaerobic Culture - Final Anaerobic cocci Prevotella species 07/11/24 20:04 Urine, Clean Catch Urine Culture - Final Escherichia coli D/C Instructions Discharge Diet: No restrictions Discharge Activity: May Drive and May Shower Lifting Restrictions: 15 lbs for 6 weeks Additional Activity Instructions: Alternate ibuprofen and Tylenol for pain control Call your doctor if your incision/area has: Continuous Slow Oozing, Sudden Increased Bleeding, Increased Pain/ Swelling, Increased Redness, Foul Smelling Discharge and Swelling at the incision site Call your doctor if you observe: Fever of 101 or Higher Remove Dressing in: 1 day Cleanse incision/area with: Soap & Water DC O2, CPAP, BIPAP Needs Additional Home O2 Discharge instructions: No DC home with Oxygen: No Meaningful Use Info Meaningful Use Meaningful Use Diagnoses (Choose all that apply): None applicable Ischemic Stroke Statin Dosing Therapy Reference: STATIN DOSE THERAPY REFERENCE: * Patients > 75 years receive moderate or high dose statin therapy. * Patients 75 years or YOUNGER should receive HIGH intensity statin dose unless contraindicated. You will be required to document reason for non-treatment if statin daily dose does not meet guidelines. HIGH DOSE STATIN THERAPY DAILY Atorvastatin > than or = to 40 mg Rosuvastatin > than or = to 20 mg Amlodipine + Atorvastatin > than or = to 2.5/40 mg Ezetimibe + Simvastatin 10/80 mg Simvastatin 80mg Discharge Plan Admission Admit Date/Time: 07/12/24 00:45 Attending Provider: Gus Garcia Primary Care Provider: Umberto Escamilla Chi Consulting Providers: Jovanny Villegas Discharge Orders/Prescriptions Prescriptions: Continued ergocalciferol (vitamin D2) [Vitamin D2] 50,000 UNIT capsule 50,000 unit PO QMONTH Patient Comments: vitamin supplement TAKES ON OF THE MONTH calcium carbonate-vitamin D3 1 EACH tablet 1 ea PO DAILY prednisone 20 mg tablet 20 mg PO TID hydrochlorothiazide 12.5 mg capsule 12.5 mg PO DAILY acetaminophen 500 mg Tablet 1,000 mg PO Q6H PRN PRN (Reason: Pain Score 1-10) Qty: 0 0RF spironolactone 50 mg Tablet 50 mg PO DAILY Qty: 0 0RF metoprolol tartrate 25 mg Tablet 25 mg PO BID 30 Days Qty: 60 0RF Actemra 162 mg/0.9 mL Syringe 162 mg subcut Tu Qty: 0 0RF alendronate 70 mg tablet 70 mg PO QWEEK omeprazole 20 mg capsule,delayed release(DR/EC) 20 mg PO DAILY pravastatin 80 mg tablet 80 mg PO DAILY Referrals / Follow Up: Jovanny Nuñez MD [Med Staff - [employer]] - Disposition Disposition (needs filled in before D/C Order can be placed): Home Health Service
[2024-07-17 09:36] LABS: Anion Gap 8 (5-15); BUN 21 mg/dL (7-18); BUN/Creat Ratio 32.3 RATIO (10-20); Calcium,Total 7.7 mg/dL (8.5-10.1); Chloride 103 mmol/L (98-107); Creatinine, Serum 0.65 mg/dL (0.55-1.02); EST Glomerular Filtration Rate 94 mL/min (>60); Est Glom Filt Rate - Afr Amer 113 mL/min (>60); Estimated Creatinine Clearance 59.33 ml/min; Glucose 180 mg/dL (74-106); Magnesium 2.2 mg/dL (1.6-2.6); Phosphorus 2.2 mg/dL (2.5-4.9); Potassium 3.5 mmol/L (3.5-5.1); Sodium Level 138 mmol/L (136-145)
[2024-07-17 10:08] VITALS: BP 140/69; PULSE 62
[2024-07-17] MEDS: Pantoprazole Sodium 40 MG Tablet PO (10:08)
[2024-07-17] MEDS: hydroCHLOROthiazide 12.5mg 12.5 MG PO (10:08)
[2024-07-17] MEDS: Metoprolol Tartrate 25 MG Tablet PO (10:08)
[2024-07-17] MEDS: Spironolactone 50 MG Tablet PO (10:08)
[2024-07-17] MEDS: Ensure Plus High Protein 120 ML LIQUID PO ×2 (10:09→11:43)
[2024-07-17 10:12] VITALS: BP 140/69; PULSE 62; RESP 18; TEMP 36.4; O2SAT 99
== END 2024-07-17 14:39 | disposition home health service (06) | DRG 329 ==
LOC: ED 21:48 → SDC 22:05 → AC 22:05 → MS3 07-12 01:26 → SDC 07-12 01:27 → MS3 07-12 01:27
PROVIDERS: Hospitalist; Internal Medicine; Surgery; Admitting Provider Surgery; Emergency Provider Emergency Medicine; PCP Family Medicine Geriatric Medicine; Referring Provider Surgery; Visit Provider Surgery
PROC: (CPT 44202; principal; 2024-07-11 22:30)
DX: K57.00 Diverticulitis of small intestine with perforation and abscess without bleeding (principal); K65.9 Peritonitis, unspecified; I82.621 Acute embolism and thrombosis of deep veins of right upper extremity; N30.00 Acute cystitis without hematuria; E83.39 Other disorders of phosphorus metabolism; M31.6 Other giant cell arteritis; I10 Essential (primary) hypertension; E66.9 Obesity, unspecified; Z95.828 Presence of other vascular implants and grafts; E78.00 Pure hypercholesterolemia, unspecified; K21.9 Gastro-esophageal reflux disease without esophagitis; E87.6 Hypokalemia; E83.42 Hypomagnesemia; K66.0 Peritoneal adhesions (postprocedural) (postinfection); B96.20 Unspecified Escherichia coli [E. coli] as the cause of diseases classified elsewhere; B96.89 Other specified bacterial agents as the cause of diseases classified elsewhere; B95.4 Other streptococcus as the cause of diseases classified elsewhere; M81.0 Age-related osteoporosis without current pathological fracture; R60.0 Localized edema; Z53.31 Laparoscopic surgical procedure converted to open procedure; Z68.33 Body mass index [BMI] 33.0-33.9, adult; Z79.52 Long term (current) use of systemic steroids; Z79.83 Long term (current) use of bisphosphonates; Z79.899 Other long term (current) drug therapy; Z86.711 Personal history of pulmonary embolism; Z87.891 Personal history of nicotine dependence
CPT/HCPCS: 36415; 74018; 74177; 80048; 80053; 81001; 82533; 83690; 83735; 84100; 84132; 84443; 85025; 86850; 86900; 86901; 87070; 87075; 87077; 87086; 87088; 87186; 87205; 88307; 94668; 97110; 97116; 97162; 97166; 97530; 97535; 99284; J7030; J7050; J7120; Q9967; A4216; J1940; J2405; J3490

== ENCOUNTER → 2024-07-20 | Outpatient (CLI) | payer MEDICARE, SELFPAY ==
[2024-07-20 18:05] LABS: Absolute Neutrophil Count 10.9 X10^3/uL (2.0-7.7); Basophil# 0.02 X10^3/uL; Basophil% 0.2 % (0-1); Eosinophil# 0.01 X10^3/uL; Eosinophils% 0.1 % (0-5); Hematocrit 39.9 % (37-47); Hemoglobin 12.9 g/dL (12.0-15.0); Lymphocyte % 8.1 % (19-41); Mean Corp Hgb Conc 32.3 g/dL (32-36); Mean Corpuscular Hgb 30.5 pg (27.0-32.0); Mean Corpuscular Volume 94.3 fL (81-99); Mean Platelet Vol. 10.4 fl (6.2-12.0); Monocyte# 0.22 X10^3/uL; Monocyte% 1.8 % (0-10); NRBC Flagged by Analyzer 0 % (0-5); Neutrophil # 10.87 X10^3/uL (2.7-7.7); Neutrophil % 87.9 % (47-70); Platelet Count 171 K/mm3 (150-450); RBC Distribution Width CV 15.7 % (11.6-14.6); RBC Distribution Width SD 54.1 fl (35.1-43.9); Red Blood Count 4.23 M/mm3 (4.2-5.4); White Blood Count 12.4 K/mm3 (4.4-11.0)
[2024-07-20 18:34] LABS: ALB/GLOB Ratio 1.1 RATIO (0.9-2.4); AST(SGOT) 19 U/L (15-37); Alanine Aminotransfer ALT/SGPT 47 U/L (13-56); Albumin, Serum 3.1 g/dL (3.2-5.0); Alkaline Phosphatase 83 U/L (45-117); Anion Gap 8 (5-15); BUN 18 mg/dL (7-18); BUN/Creat Ratio 30.1 RATIO (10-20); Calcium,Total 8.6 mg/dL (8.5-10.1); Chloride 101 mmol/L (98-107); Cholesterol 227 mg/dL (200); EST Glomerular Filtration Rate 103 mL/min (>60); Est Glom Filt Rate - Afr Amer 125 mL/min (>60); Globulin 2.8 g/dL (2.2-4.2); Glucose 119 mg/dL (74-106); High Density Lipoprotein 47 mg/dL; Potassium 3.5 mmol/L (3.5-5.1); Protein, Total 5.9 g/dL (6.4-8.2); Sodium Level 138 mmol/L (136-145); Thyroid Stim Hormone (TSH) 0.471 uIU/mL (0.358-3.740); Triglycerides 311 mg/dL; Very Low Density Lipoprotein 62 mg/dL (5-40)
[2024-07-20 18:54] LABS: Hepatitis C Antibody Non-Reactive (Nonreactive); Vitamin D,25 Hydroxy 50.5 ng/mL
== END | disposition home or self-care (01) ==
LOC: POLAB3 16:56
PROVIDERS: PCP Family Medicine Geriatric Medicine; Visit Provider Family Medicine Geriatric Medicine
DX: Z13.89 Encounter for screening for other disorder (principal); I10 Essential (primary) hypertension; E78.5 Hyperlipidemia, unspecified; E55.9 Vitamin D deficiency, unspecified
CPT/HCPCS: 36415; 80053; 80061; 82306; 84443; 85025; 86803

== ENCOUNTER → 2024-07-30 | Outpatient (CLI) | payer MEDICARE, SELFPAY ==
--- NOTE | 2024-07-30 08:45 | EKG12_ITS ---
Test Reason : AFIB Blood Pressure : */* mmHG Vent. Rate : 83 BPM Atrial Rate : 83 BPM P-R Int : 114 ms QRS Dur : 118 ms QT Int : 382 ms P-R-T Axes : 3 -9 -15 degrees QTcB Int : 448 ms Normal sinus rhythm Right bundle branch block Abnormal ECG Confirmed by BENSON MANLEY, CHEO ([id number]), photo editor LYSSA FAIR ([id number]) on 08/04/2024 1:29:30 P M Referred By: Umberto Escamilla Confirmed By: CHEO KNOWLES MD
== END | disposition home or self-care (01) ==
LOC: PSN 08:45
PROVIDERS: PCP Family Medicine Geriatric Medicine; Referring Provider Family Medicine Geriatric Medicine; Visit Provider Family Medicine Geriatric Medicine
DX: I48.91 Unspecified atrial fibrillation (principal)
CPT/HCPCS: 93005

== ENCOUNTER → 2024-09-06 | Outpatient (CLI) | payer MEDICARE, SELFPAY ==
--- NOTE | 2024-09-06 09:01 | ART_ITS ---
Reason For Study: PAOD Procedure A bilateral lower extremity continuous wave Doppler with analog waveform analysis and ankle brachial indexes. Left Segmental Pressures Left brachial= 164mmHg. Left posterior tibial artery = 197mmHg. Left dorsalis pedis artery = 214mmHg. Left digit = 117 mmHg. The left dorsalis pedis waveforms are triphasic. The left posterior tibial artery waveforms are triphasic. Right Segmental Pressures Right posterior tibial artery = 216mmHg. Right dorsalis pedis artery = 195mmHg. Right digit = 155 mmHg. The right dorsalis pedis waveforms are triphasic. The right posterior tibial artery waveforms are triphasic. Indices The right ankle brachial index by the dorsalis pedis is 1.19. The right ankle brachial index by the posterior tibial artery is 1.32. The right digital-brachial index is 0.95. The left ankle brachial index by the dorsalis pedis is 1.30. The left ankle brachial index by the posterior tibial artery is 1.20. The left digital-brachial index is 0.71. VL/Ankle Brachial Index Interpretation Summary Right JAKE 1.32, normal. TBI and Doppler/PVR waveforms of the right ankle normal at rest. Left JAKE 1.3, normal. Doppler/PVR waveforms of the left ankle normal at rest. T BI diminished, pedal/digit disease vs spasm. Ordering Physician: Umberto Escamilla Chi Referring Physician: Umberto Escamilla Chi Performed By: Roxy Hernández RVT
== END | disposition home or self-care (01) ==
PROVIDERS: PCP Family Medicine Geriatric Medicine; Referring Provider Family Medicine Geriatric Medicine; Visit Provider Family Medicine Geriatric Medicine
DX: I73.9 Peripheral vascular disease, unspecified (principal)
CPT/HCPCS: 93922

== ENCOUNTER → 2024-10-19 | Outpatient (CLI) | payer MEDICARE, SELFPAY ==
[2024-10-19 11:05] LABS: Hematocrit 37.7 % (37-47); Hemoglobin 12.5 g/dL (12.0-15.0); Mean Corp Hgb Conc 33.2 g/dL (32-36); Mean Corpuscular Volume 99.5 fL (81-99); Mean Platelet Vol. 10.5 fl (6.2-12.0); POSITIVE COUNT YES; POSITIVE MORPHOLOGY YES; Platelet Count 224 K/mm3 (150-450); RBC Distribution Width CV 15.7 % (11.6-14.6); RBC Distribution Width SD 57.8 fl (35.1-43.9); Red Blood Count 3.79 M/mm3 (4.2-5.4); White Blood Count 6.4 K/mm3 (4.4-11.0)
[2024-10-19 11:14] LABS: Differential Indicated MANUAL DIFF
[2024-10-19 11:48] LABS: Lymphocyte 18 % (19-41); Metamyelocyte 1 % (0-1); Monocyte 7 % (0-10); Myelocyte 2 % (0-0); Neutrophil-Band 1 % (0-5); Neutrophil-Segmented 71 % (47-70); Nucleated Red Bld Cells,Manual 2 % (0-5); Total Cells Counted 100 (MANUAL DIFF)
[2024-10-19 11:49] LABS: Absolute Neutrophil Count 4.6 X10^3/uL (2.0-7.7); Platelet Estimate A (ADEQ); Polychromasia 1+
[2024-10-19 11:50] LABS: Absolute Lymphocyte Count 1.16 X10^3/uL (0.83-4.51); Pathologist Review May foll
[2024-10-19 11:58] LABS: Cholesterol 321 mg/dL (<=200); High Density Lipoprotein 55 mg/dL; Low Density Lipoprotein Calc. 171 mg/dL; Triglycerides 480 mg/dL; Very Low Density Lipoprotein 96 mg/dL (5-40); Vitamin D,25 Hydroxy 34.7 ng/mL (30-100); cholesterol:hdl ratio screen 5.89
[2024-10-19 12:43] LABS: ALB/GLOB Ratio 1.6 RATIO (0.9-2.4); Alanine Aminotransfer ALT/SGPT 29 U/L (<=34); Albumin, Serum 3.9 g/dL (3.4-4.8); Alkaline Phosphatase 64 U/L (35-104); Anion Gap 16 (5-15); BUN 41 mg/dL (4-19); BUN/Creat Ratio 41.2 RATIO (10-20); Calcium,Total 9.8 mg/dL (7.6-11.0); Chloride 104 mmol/L (98-108); EST Glomerular Filtration Rate 58 (>60); Globulin 2.4 g/dL (2.2-4.2); Glucose 98 mg/dL (70-99); Potassium 4.2 mmol/L (3.3-5.1); Protein, Total 6.4 g/dL (5.9-8.4); Sodium Level 141 mmol/L (133-145); Total Bilirubin 0.38 mg/dL (0.00-1.30)
[2024-10-19 13:09] LABS: AST(SGOT) 20 U/L (<=31)
== END | disposition home or self-care (01) ==
LOC: POLAB3 10:37
PROVIDERS: PCP Family Medicine Geriatric Medicine; Visit Provider Family Medicine Geriatric Medicine
DX: I10 Essential (primary) hypertension (principal); E78.5 Hyperlipidemia, unspecified; E55.9 Vitamin D deficiency, unspecified
CPT/HCPCS: 36415; 80053; 80061; 82306; 84443; 85025

== ENCOUNTER → 2024-12-28 | Outpatient (CLI) | payer MEDICARE, SELFPAY ==
[2024-12-28 10:57] LABS: Color, Urine Yellow (Yellow); Glucose, Dipstick Normal (Normal); Ketone-Dipstick Negative (Negative); Leukocyte Esterase-Dipstick 100 /ul (Negative); Nitrite-Dipstick Positive (Negative); Occult Blood-Urine 25 /ul (Negative); Protein-Dipstick 30 mg/dl (Negative); Urine Bilirubin Dipstick Negative (Negative); Urine Clarity Clear (Clear); Urine Urobilinogen Normal (Normal)
== END | disposition home or self-care (01) ==
LOC: LABSPEC 10:14
PROVIDERS: PCP Family Medicine Geriatric Medicine; Referring Provider Family Medicine Geriatric Medicine; Visit Provider Family Medicine Geriatric Medicine
DX: N39.0 Urinary tract infection, site not specified (principal)
CPT/HCPCS: 81002; 87086

== ENCOUNTER 2025-01-20 11:25 | Outpatient (CLI) | payer MEDICARE, SELFPAY ==
--- NOTE | 2025-01-20 11:30 | VDUE_ITS ---
Reason For Study Reason For Study: RUE Swelling / Pain Right Proximal Right jugular vein is spontaneous, widely patent, phasic, with no intraluminal echogenicity noted. Right subclavian vein is spontaneous, widely patent, phasic, with no intraluminal echogenicity noted. Right Lower Arm Right radial vein is compressible. Right ulnar vein is compressible. Right Arm Right axillary vein is spontaneous, patent, phasic, competent, compressible and demonstrates augmentation. Right brachial vein is compressible. Right cephalic vein is compressible. Basilic Vein is PARTIALLY COMPRESSIBLE with hyperechoic intraluminal echoes noted. Flow is noted in pulsed wave and color doppler. Finding is consistent with CHRONIC SVT. Patient Safety Preliminary faxed to Dr Truong office. Procedure This was a unilateral right upper extremity venous doppler examination. VL/Venous Duplex US, Unilateral Interpretation Summary Deep veins of the right upper extremity are patent and compressible segmentally . There is no evidence of deep vein thrombosis. Chronic venous changes are noted in the right basilic vein, consist ent with a past history of acute superficial thrombophlebitis. The right cephalic vein is patent and compressibl e. Ordering Physician: Umberto Escamilla Chi Referring Physician: Umberto Escamilla Chi Performed By: Camilo Nguyen RVT ???
--- NOTE | 2025-01-20 11:30 | VDLE_ITS ---
Reason For Study Reason For Study: BLE Pain / Swelling RIGHT LEFT GSV is normal. GSV is normal. CFV is compressible, spontaneous, phasic, competent CFV is compressible, spontaneous, phasic, competent, and demonstrates normal augmentation. and demonstrates normal augmentation. FV is compressible, spontaneous, phasic, competent FV is compressible, spontaneous, phasic, competent and demonstrates normal augmentation. and demonstrates normal augmentation. POP V is compressible, spontaneous, phasic, competent POP V is compressible, spontaneous, phasic, competent and demonstrates normal augmentation. and demonstrates normal augmentation. T/P Trunk is compressible. T/P Trunk is compressible. PTV is compressible. PTV is compressible. Elizabeth Vein is compressible at distal and mid. Vessel LT PerV is compressible. is not well visualized at prox. Procedure This is a venous duplex using B-mode, color flow and spectral Doppler. Exam performed in department. The study was technically difficult. A preliminary report was called and/or faxed to Dr. Truong office. VL/Venous Duplex US - Felipe Extrem Interpretation Summary Deep veins of the lower extremities are bilaterally patent and compressible seg mentally. There is no evidence of deep vein thrombosis on either side. Valvular competence appears intact within the p roximal deep venous systems bilaterally. The great saphenous veins appear bilaterally patent and compressible segmentall y. The proximal right peroneal vein was not well visualized. Ordering Physician: Umberto Escamilla Chi Referring Physician: Umberto Escamilla Chi Performed By: Camilo Nguyen, RVT
[2025-01-20 12:13] LABS: Absolute Lymphocyte Count 1.54 X10^3/uL (0.83-4.51); Absolute Neutrophil Count 5.7 X10^3/uL (2.0-7.7); Basophil# 0.03 X10^3/uL; Basophil% 0.4 % (0-1); Eosinophil# 0.01 X10^3/uL; Eosinophils% 0.1 % (0-5); Hematocrit 37.8 % (37-47); Hemoglobin 12.5 g/dL (12.0-15.0); Lymphocyte # 1.54 X10^3/ul (0.83-4.51); Lymphocyte % 19.8 % (19-41); Mean Corp Hgb Conc 33.1 g/dL (32-36); Mean Corpuscular Hgb 32.6 pg (27.0-32.0); Mean Corpuscular Volume 98.7 fL (81-99); Monocyte# 0.31 X10^3/uL; NRBC Flagged by Analyzer 0.3 % (0-5); Neutrophil # 5.72 X10^3/uL (2.7-7.7); Neutrophil % 73.5 % (47-70); Platelet Count 264 K/mm3 (150-450); RBC Distribution Width SD 57.1 fl (35.1-43.9); Red Blood Count 3.83 M/mm3 (4.2-5.4); White Blood Count 7.8 K/mm3 (4.4-11.0)
[2025-01-20 13:10] LABS: ALB/GLOB Ratio 2.6 RATIO (0.9-2.4); AST(SGOT) 21 U/L (<=31); Alanine Aminotransfer ALT/SGPT 22 U/L (<=34); Alkaline Phosphatase 53 U/L (35-104); Anion Gap 18 (5-15); BUN 24 mg/dL (4-19); BUN/Creat Ratio 30.2 RATIO (10-20); Calcium,Total 9.4 mg/dL (7.6-11.0); Carbon Dioxide 19.8 mmol/L (21.0-32.0); Chloride 102 mmol/L (98-108); Cholesterol 163 mg/dL (<=200); EST Glomerular Filtration Rate 76 (>60); Globulin 1.5 g/dL (2.2-4.2); Glucose 104 mg/dL (70-99); High Density Lipoprotein 57 mg/dL; Low Density Lipoprotein Calc. 65 mg/dL; Potassium 4.5 mmol/L (3.3-5.1); Protein, Total 5.5 g/dL (5.9-8.4); Sodium Level 139 mmol/L (133-145); Triglycerides 206 mg/dL; Very Low Density Lipoprotein 41 mg/dL (5-40); Vitamin D,25 Hydroxy 47.3 ng/mL (30-100); cholesterol:hdl ratio screen 2.84
== END 2025-01-20 23:59 | disposition home or self-care (01) ==
LOC: CVS 11:26
PROVIDERS: PCP Family Medicine Geriatric Medicine; Referring Provider Family Medicine Geriatric Medicine; Visit Provider Family Medicine Geriatric Medicine
DX: I82.621 Acute embolism and thrombosis of deep veins of right upper extremity (principal); R22.43 Localized swelling, mass and lump, lower limb, bilateral; I10 Essential (primary) hypertension; E55.9 Vitamin D deficiency, unspecified; E78.5 Hyperlipidemia, unspecified
CPT/HCPCS: 36415; 80053; 80061; 82306; 84443; 85025; 93970; 93971

== ENCOUNTER → 2025-04-21 | Outpatient (CLI) | payer MEDICARE, SELFPAY ==
[2025-04-21 11:01] LABS: Hematocrit 36.4 % (37-47); Hemoglobin 12.0 g/dL (12.0-15.0); Immature Granulocytes Count 0.150 X10^3/uL (0.0-0.0); Mean Corp Hgb Conc 33.0 g/dL (32-36); Mean Corpuscular Volume 96.3 fL (81-99); Mean Platelet Vol. 10.9 fl (6.2-12.0); NRBC Flagged by Analyzer 0.2 % (0-5); Platelet Count 304 K/mm3 (150-450); RBC Distribution Width CV 15.4 % (11.6-14.6); RBC Distribution Width SD 53.6 fl (35.1-43.9); Red Blood Count 3.78 M/mm3 (4.2-5.4); White Blood Count 10.6 K/mm3 (4.4-11.0)
[2025-04-21 11:11] LABS: Mucous, Urine 0 SEEN /hpf (<or=2+); Squamous Epithelial Cells - UA 0 SEEN /hpf (5-10)
[2025-04-21 11:26] LABS: Color, Urine Yellow (Yellow); Glucose, Dipstick Normal (Normal); Ketone-Dipstick Negative (Negative); Leukocyte Esterase-Dipstick 500 /ul (Negative); Nitrite-Dipstick Negative (Negative); Occult Blood-Urine 150 /ul (Negative); Protein-Dipstick 500 mg/dl (Negative); Specific Gravity, Urine 1.010 (1.002-1.030); Urine Bilirubin Dipstick Negative (Negative)
[2025-04-21 11:37] LABS: Red Blood Cells-Urine 5-10 SEEN /hpf (0-5)
[2025-04-21 12:01] LABS: AST(SGOT) 22 U/L (<=31); Alanine Aminotransfer ALT/SGPT 16 U/L (<=34); Albumin, Serum 4.1 g/dL (3.4-4.8); Alkaline Phosphatase 73 U/L (35-104); Anion Gap 13 (5-15); BUN 39 mg/dL (4-19); BUN/Creat Ratio 37.8 RATIO (10-20); Calcium,Total 9.8 mg/dL (7.6-11.0); Carbon Dioxide 22.7 mmol/L (21.0-32.0); Chloride 103 mmol/L (98-108); Cholesterol 250 mg/dL (<=200); Globulin 2.7 g/dL (2.2-4.2); Glucose 98 mg/dL (70-99); Low Density Lipoprotein Calc. 145 mg/dL; Potassium 4.3 mmol/L (3.3-5.1); Triglycerides 282 mg/dL; Very Low Density Lipoprotein 56 mg/dL (5-40); Vitamin D,25 Hydroxy 49.1 ng/mL (30-100); cholesterol:hdl ratio screen 5.14
[2025-04-21 18:45] LABS: Xtra Tube Kwok EXTRA TUBE
== END | disposition home or self-care (01) ==
LOC: POLAB3 10:45
PROVIDERS: PCP Family Medicine Geriatric Medicine; Visit Provider Family Medicine Geriatric Medicine
DX: I10 Essential (primary) hypertension (principal); E55.9 Vitamin D deficiency, unspecified; E78.5 Hyperlipidemia, unspecified; N39.0 Urinary tract infection, site not specified
CPT/HCPCS: 36415; 80053; 80061; 81001; 82306; 84443; 85025; 87077; 87086; 87088; 87186

== ENCOUNTER → 2025-07-21 | Outpatient (CLI) | payer MEDICARE, SELFPAY ==
[2025-07-21 12:09] LABS: Hematocrit 38.4 % (37-47); Hemoglobin 12.2 g/dL (12.0-15.0); Immature Granulocytes Count 0.080 X10^3/uL (0.0-0.0); Mean Corp Hgb Conc 31.8 g/dL (32-36); Mean Corpuscular Volume 96.0 fL (81-99); Mean Platelet Vol. 10.9 fl (6.2-12.0); NRBC Flagged by Analyzer 0 % (0-5); Platelet Count 305 K/mm3 (150-450); RBC Distribution Width CV 16.0 % (11.6-14.6); RBC Distribution Width SD 55.4 fl (35.1-43.9); Red Blood Count 4.00 M/mm3 (4.2-5.4); White Blood Count 6.9 K/mm3 (4.4-11.0)
[2025-07-21 13:04] LABS: AST(SGOT) 22 U/L (<=31); Alanine Aminotransfer ALT/SGPT 16 U/L (<=34); Albumin, Serum 4.1 g/dL (3.4-4.8); Alkaline Phosphatase 73 U/L (35-104); Anion Gap 12 (5-15); BUN 17 mg/dL (4-19); BUN/Creat Ratio 21.2 RATIO (10-20); Calcium,Total 9.7 mg/dL (7.6-11.0); Carbon Dioxide 23.5 mmol/L (21.0-32.0); Chloride 106 mmol/L (98-108); Cholesterol 214 mg/dL (<=200); Globulin 2.8 g/dL (2.2-4.2); Glucose 96 mg/dL (70-99); Low Density Lipoprotein Calc. 138 mg/dL; Potassium 4.2 mmol/L (3.3-5.1); Triglycerides 221 mg/dL; Very Low Density Lipoprotein 44 mg/dL (5-40); Vitamin D,25 Hydroxy 55.3 ng/mL (30-100); cholesterol:hdl ratio screen 5.88
[2025-07-21 19:48] LABS: Xtra Tube Kwok EXTRA TUBE
== END | disposition home or self-care (01) ==
LOC: POLAB3 11:48
PROVIDERS: PCP Family Medicine Geriatric Medicine; Visit Provider Family Medicine Geriatric Medicine
DX: I10 Essential (primary) hypertension (principal); E55.9 Vitamin D deficiency, unspecified; E78.5 Hyperlipidemia, unspecified; R06.2 Wheezing
CPT/HCPCS: 36415; 80053; 80061; 82306; 84443; 85025; 87631